=== PATIENT | female | born 1950 | race Caucasian/White ===

== ENCOUNTER 2018-03-21 15:23 | Observation (INO) ==
--- NOTE | 2018-03-21 16:10 | Consult Report ---
History of Present Illness Consult date: 03/21/18 Requesting physician: Pablo Dailey Consult reason: atrial fibrillation Chief complaint: Cold symptoms Additional Medical History:: 1. Hypertension, treated for about 8 years 2. History of CVA with transient loss of speech, [address] of head negative for acute stroke B. Carotid ultrasound showed bilateral 20-49% ICA stenosis. History of present illness: 67-year-old white female admitted from Dr. Dailey's office for new onset atrial fibrillation. Patient felt she had a cold and was there to see him today for treatment of a cold. She denies any chest pain, pressure, tightness or shortness of breath. She denies any difficulty lying flat but has had a cough over the last couple of days with some dizziness this a.m. She is a non-smoker and nondrinker. Denies any history of thyroid problems, cardiac problems, diabetes or hyperlipidemia. Patient is in the bed in no acute distress. Telemetry reveals atrial fibrillation with a rate bouncing from 110-140s bpm. Cardiology consulted for evaluation and recommendations. Patient states she takes multiple medications for blood pressure but cannot remember any of them. [facility] History Medical History: Reports:: Atrial Fibrillation, Cerebrovascular Accident, Hypertension Meds Allergies Allergy/AdvReac Type Severity Reaction Status Date / Time No Known Allergies Allergy Unverified 10/17/17 14:36 Review of Systems - *Cardiovascular Denies chest pain, Denies shortness of breath - *Respiratory Reports cough, Denies shortness of breath with activity - *Gastrointestinal Denies abdominal pain - *Neurologic Denies abnormal speech Exam Vital signs and Labs for Last 24 Hours: Temp Pulse Resp BP Pulse Ox 98.7 F 68 20 136/92 97 03/21/18 15:55 03/21/18 15:55 03/21/18 15:55 03/21/18 15:55 03/21/18 15:55 I & O for Last 24 hours: Intake & Output 03/19/18 03/20/18 03/21/18 03/22/18 11:59 11:59 11:59 11:59 Weight 221 lb 6 oz - *Routine Neck Exam Absent: JVD, carotid bruit - *Routine Respiratory Exam Present: CTA bilaterally. Absent: rhonchi, wheezes - *Routine Cardiovascular Exam Present: irregularly irregular - *Routine Extremities Exam Absent: edema - *Routine Neurological Exam Present: alert, oriented X3, moving all extremities Assessment and Plan (1) Atrial fibrillation, new onset Current visit: Yes Status: Acute Category: Medical Code(s): I48.91 - Unspecified atrial fibrillation (2) Hypertension Current visit: Yes Status: Acute Category: Medical Code(s): I10 - Essential (primary) hypertension (3) History of CVA (cerebrovascular accident) Current visit: Yes Status: Acute Category: Medical Code(s): Z86.73 - Personal history of transient ischemic attack (TIA), and cerebral infarction without residual deficits - Assessment and plan all Dx Assessment and Plan for all problems:: 1. Will start IV Cardizem with a 15 mg bolus and 10 mg an hour drip and adjust as needed for heart rate control.. 2. Start anticoagulation with subcutaneous Lovenox 1 mg/kg, patient will need long-term anticoagulation due to CHADS-VASc score of 5. 3. Will obtain an echocardiogram when heart rate is better controlled. 4. Obtain serial cardiac enzymes along with other routine labs including thyroid panel. 5. Further recommendations to follow pending above results.
[2018-03-21 16:38] LABS: Basophils # 0.1 K/mm3 (0-0.2); Basophils % 0.6 % (0.1-2.0); Eosinophils # 0.1 K/mm3 (0.0-0.4); Eosinophils % 0.6 % (0.1-12.0); Hematocrit 35.9 % (37.0-47.0); Hemoglobin 12.2 g/dL (12.2-16.2); Lymphocytes # 2.3 K/mm3 (0.7-4.5); Lymphocytes % 28.9 K/mm3 (10-50); Mean Corpuscular HGB Conc 33.9 g/dL (31.8-35.4); Mean Corpuscular Hemoglobin 30.4 pg (27.0-31.2); Mean Corpuscular Volume 89.6 fl (81-99); Monocytes # 0.5 K/mm3 (0.1-1.0); Monocytes % 6.1 % (1.7-9.3); Neutrophils # 5.1 K/mm3 (1.8-7.8); Neutrophils % 63.8 % (37.0-80.0); Platelet Count 262 K/mm3 (142-424); Red Blood Count 4.01 M/mm3 (4.20-5.40); Red Cell Distribution Width 13.7 % (11.5-17.5)
[2018-03-21 16:53] LABS: Anion Gap 12.4 mEq/L (5-15); Blood Urea Nitrogen 36 mg/dL (7-18); Carbon Dioxide 27 mmol/L (21.0-32.0); Chloride 107 mmol/L (98-107); Glucose 120 mg/dL (74-106); Potassium 3.4 mmoL/L (3.5-5.1); Sodium 143 mmol/L (136-145)
[2018-03-21 17:27] LABS: Albumin Level 3.2 gm/dL (3.4-5.0); Bilirubin,Direct 0.1 mg/dL (0.0-0.2); Bilirubin,Indirect 0.2 mg/dL (0.0-0.9); Bilirubin,Total 0.3 mg/dL (0.2-1.0); Free Thyroxine Index 2.9 ug/dL (5.93-13.13); T4 (Thyroxine) 8.8 ug/dl (4.7-13.3); Thyroid Stimulating Hormone 1.34 uIU/ml (0.358-3.740); Total Protein,Serum 6.7 gm/dL (6.4-8.2)
--- NOTE | 2018-03-21 17:56 | History & Physical Report ---
*Admission Date: 03/21/18 *Chief complaint: Rapid heart rate *History of present illness: 67-year-old white female with history of previous stroke with complete resolution who came to my office today with a chief complaint of nasal drainage and cold symptoms. While taking her vital signs we noticed that her heart rate was 110 and irregular. EKG showed atrial fibrillation with rapid ventricular response and patient was admitted to the hospital. Patient denies any consciousness of rapid heart rate, palpitations, chest pain, shortness of air other than her sniffles or pedal edema. [facility] History I have reviewed the patient's past medical history: Yes Medical History: Reports:: Cerebrovascular Accident, Hyperlipidemia, Hypertension Denies:: Cancer, Diabetes Mellitus Type 1, Diabetes Mellitus Type 2, MRSA Laterality Cases: Bilateral: Tonsillectomy Amputation: No - *Social History Educational Level: Completed High School Smoking Status: Never smoker Alcohol Intake: never Occupational Status: employed Housing: house Household Members: spouse - Psychiatric History Expresses thoughts of harming self/others: None Suicide Plan Description: No Plan *Family Hx:: Cancer, Heart Attack, Hypertension Review of Systems - Review of Systems Review of systems:: pertinent systems reviewed and negative unless documented below - Constitutional Denies anorexia, Denies body ache(s), Denies chills - Eyes Denies blurry vision, Denies change in vision - ENT Denies abnormal hearing - *Cardiovascular Denies chest pain, Denies chest pain at rest, Denies chest pain with activity, Denies shortness of breath, Denies irregular heart rhythm - *Respiratory Denies change in phlegm color, Denies chest congestion, Denies cough - *Gastrointestinal Denies abdominal pain, Denies belching, Denies change in bowel habits - *Musculoskeletal Denies abnormal walking, Denies joint pain, Denies decreased muscle mass - Integumentary/Breasts Denies bleeding lesions - *Neurologic Denies abnormal walking, Denies abnormal hearing, Denies abnormal movements, Denies abnormal speech, Denies tingling/numbness/burning sensations Meds Home Medications Medication Instructions Recorded Confirmed Type Ascorbic Acid [Vitamin C] 1,000 mg PO DAILY 03/21/18 03/21/18 History Aspirin [Aspir 81] 81 mg PO DAILY 03/21/18 03/21/18 History Atorvastatin Calcium [Atorvastatin 80 mg PO HS 03/21/18 03/21/18 History 80mg Tab] Carvedilol [Carvedilol 25mg Tab] 25 mg PO BID 03/21/18 03/21/18 History KCl 20mEq/100ml [Potassium 20 meq PO DAILY 03/21/18 03/21/18 History Chloride 20mEq/100mL IVPB] Losartan/Hydrochlorothiazide 1 each PO DAILY 03/21/18 03/21/18 History [Losartan-Hctz 100-25 mg Tab] Allergies Allergy/AdvReac Type Severity Reaction Status Date / Time No Known Allergies Allergy Unverified 10/17/17 14:36 Exam Vital signs and Labs for Last 24 Hours: Temp Pulse Resp BP Pulse Ox 98.7 F 106 H 18 115/82 92 L 03/21/18 15:55 03/21/18 17:00 03/21/18 17:00 03/21/18 17:00 03/21/18 17:00 Laboratory Results - last 24 hr 03/21/18 16:25: WBC 8.0, RBC 4.01 L, Hgb 12.2, Hct 35.9 L, MCV 89.6, MCH 30.4, MCHC 33.9, RDW 13.7, Plt Count 262, MPV 9.0, Neut % (Auto) 63.8, Lymph % (Auto) 28.9, [place] % (Auto) 6.1, Eos % (Auto) 0.6, Baso % (Auto) 0.6, Neut # (Auto) 5.1 , Lymph # (Auto) 2.3, [place] # (Auto) 0.5, Eos # (Auto) 0.1, Baso # (Auto) 0.1 03/21/18 16:25: Sodium 143, Potassium 3.4 L, Chloride 107, Carbon Dioxide 27, Anion Gap 12.4, BUN 36 H, Creatinine 1.47 H, Estimated Creat Clear 58, Estimated GFR 35 L, Est GFR ( Amer) 43 L, Glucose 120 H, Magnesium 1.9, Troponin I < 0.02 03/21/18 16:25: Total Bilirubin 0.3, Direct Bilirubin 0.1, Indirect Bilirubin 0.2, AST 17, ALT 24, Alkaline Phosphatase 57, Total Protein 6.7, Albumin 3.2 L, TSH 1.34, Free T4 Index 2.9 L, Thyroxine (T4) 8.8, T3 Uptake 33 03/21/18 16:25: B-Natriuretic Peptide 451 H I & O for Last 24 hours: Intake & Output 03/19/18 03/20/18 03/21/18 03/22/18 11:59 11:59 11:59 11:59 Weight 221 lb 6 oz - Constitutional no acute distress, obese - *Routine HEENT Exam Head: Present: normocephalic, atraumatic Eye: Present: EOMI, PERRL, conjunctivae pink ENT: Present: mucous membranes moist - *Routine Neck Exam Present: supple, full ROM. Absent: JVD, carotid bruit - *Routine Respiratory Exam Present: CTA bilaterally. Absent: accessory muscle use, prolonged expiratory phase, rales - *Routine Cardiovascular Exam Present: tachycardia, irregular rhythm, irregularly irregular. Absent: murmur, gallop - *Routine Abdominal Exam Present: soft. Absent: tenderness, distended - *Routine Extremities Exam Absent: cyanosis, clubbing, edema, full ROM H&P: Result - Labs Labs: Short CBC 03/21/18 Range/Units 16:25 WBC 8.0 (4.8-10.8) K/mm3 Hgb 12.2 (12.2-16.2) g/dL Hct 35.9 L (37.0-47.0) % Plt Count 262 (142-424) K/mm3 BMP 03/21/18 16:25 Sodium 143 Potassium 3.4 L Chloride 107 Carbon Dioxide 27 BUN 36 H Creatinine 1.47 H Glucose 120 H Cardiac Enzymes 03/21/18 Range/Units 16:25 Troponin I < 0.02 (0.00-0.06) ng/ml Liver Function 03/21/18 Range/Units 16:25 Total Bilirubin 0.3 (0.2-1.0) mg/dL Direct Bilirubin 0.1 (0.0-0.2) mg/dL AST 17 (15-37) U/L ALT 24 (12-78) U/L Alkaline Phosphatase 57 (46-116) U/L Albumin 3.2 L (3.4-5.0) gm/dL Assessment and Plan (1) Atrial fibrillation, new onset Current visit: Yes Status: Acute Category: Medical Code(s): I48.91 - Unspecified atrial fibrillation (2) Hypertension Current visit: Yes Status: Acute Category: Medical Code(s): I10 - Essential (primary) hypertension (3) History of CVA (cerebrovascular accident) Current visit: Yes Status: Acute Category: Medical Code(s): Z86.73 - Personal history of transient ischemic attack (TIA), and cerebral infarction without residual deficits - Assessment and plan all Dx Assessment and Plan for all problems:: Admit to hospital. Cardiology consultation. Begin Kalpana drip. Echocardiogram. Labs including TSH, electrolytes, cardiac enzymes. This is the possible etiology for her stroke a couple years ago. Atrial fibrillation has not been noticed on multiple EKGs prior.
[2018-03-22 06:11] LABS: Chol/HDL Ratio 3.2 (1-3.5)
--- NOTE | 2018-03-22 07:16 | Pharmacy Consult Notes ---
[facility] Pharmacy VTE Monitoring - Patient Demographics Admission date: 03/21/18 Report Date: 03/22/18 Time: 07:15 Allergies/Adverse Reactions: Patient Allergies No Known Allergies Allergy (Unverified 10/17/17 14:36) Height: 1.7 m Weight: 99.79 kg Patient Problems: Current Active Problems Atrial fibrillation, new onset (Acute) Hypertension (Acute) History of CVA (cerebrovascular accident) (Acute) - VTE Risk Labs: VTE Related Lab Results Hgb 12.2 g/dL (12.2-16.2) 03/21/18 16:25 Hct 35.9 % (37.0-47.0) L 03/21/18 16:25 Plt Count 262 K/mm3 (142-424) 03/21/18 16:25 BUN 36 mg/dL (7-18) H 03/21/18 16:25 Creatinine 1.47 mg/dL (0.55-1.02) H 03/21/18 16:25 Estimated Creat Clear 58 mL/min (0-300) 03/21/18 16:25 Was VTE Risk Assessment Performed: Yes VTE Risk Level: Moderate Risk - Prophylaxis VTE Prophylaxis Ordered?: Yes Types of VTE Prophylaxis: TEDS Knee High Location of Applied Device: Bilateral Lower Extremeties - VTE Diagnosis Confirmed Treatment or plan recommended: Continue Current Treatment
--- NOTE | 2018-03-22 10:05 | Progress Note ---
Subjective Date: 03/22/18 Time: 10:02 Principal diagnosis: A. fib, newly diagnosed Interval history: 67 yo WF in bed in [facility]. She continues in A. fib with CVR on IV diltiazem at 20 ml/hr. Will switch to PO cardizem and Xarelto. Preliminary echo shows normal LVEF without significant vavle disease. She is feeling better and wants to go home. Exam Vital signs and Labs for Last 24 Hours: Temp Pulse Resp BP Pulse Ox 97.6 F 76 18 125/77 94 L 03/22/18 08:00 03/22/18 09:00 03/22/18 09:00 03/22/18 09:00 03/22/18 09:00 Laboratory Results - last 24 hr 03/21/18 16:25: WBC 8.0, RBC 4.01 L, Hgb 12.2, Hct 35.9 L, MCV 89.6, MCH 30.4, MCHC 33.9, RDW 13.7, Plt Count 262, MPV 9.0, Neut % (Auto) 63.8, Lymph % (Auto) 28.9, [place] % (Auto) 6.1, Eos % (Auto) 0.6, Baso % (Auto) 0.6, Neut # (Auto) 5.1 , Lymph # (Auto) 2.3, [place] # (Auto) 0.5, Eos # (Auto) 0.1, Baso # (Auto) 0.1 03/21/18 16:25: Sodium 143, Potassium 3.4 L, Chloride 107, Carbon Dioxide 27, Anion Gap 12.4, BUN 36 H, Creatinine 1.47 H, Estimated Creat Clear 58, Estimated GFR 35 L, Est GFR ( Amer) 43 L, Glucose 120 H, Magnesium 1.9, Troponin I < 0.02 03/21/18 16:25: Total Bilirubin 0.3, Direct Bilirubin 0.1, Indirect Bilirubin 0.2, AST 17, ALT 24, Alkaline Phosphatase 57, Total Protein 6.7, Albumin 3.2 L, TSH 1.34, Free T4 Index 2.9 L, Thyroxine (T4) 8.8, T3 Uptake 33 03/21/18 16:25: B-Natriuretic Peptide 451 H 03/21/18 19:16: Troponin I < 0.02 03/21/18 22:27: Troponin I < 0.02 03/22/18 05:05: Triglycerides 92, Cholesterol 169, LDL Cholesterol 98, VLDL Cholesterol 18, HDL Cholesterol 53, Cholesterol/HDL Ratio 3.2 I & O for Last 24 hours: Intake & Output 03/19/18 03/20/18 03/21/18 03/22/18 11:59 11:59 11:59 11:59 Intake Total 854 / 854 Output Total 1000 / 1000 Balance -146 / -146 Weight 220 lb - *Routine Respiratory Exam Present: CTA bilaterally - *Routine Cardiovascular Exam Present: irregularly irregular Progress Note: A&P (1) Atrial fibrillation, new onset Status: Acute Current Visit: Yes (2) Hypertension Status: Acute Current Visit: Yes (3) History of CVA (cerebrovascular accident) Status: Acute Current Visit: Yes Assessment and Plan for All Diagnoses:: OK for discharge home and cardiology standpoint. Continue Coreg and losartan as previously taken at home. Switch diltiazem to Cardizem extended release 240 mg once daily. Patient should start Xarelto 20 mg p.o. daily with meal. We would like to see her back in 2 weeks or sooner if needed. Plan would be if the patient continues in atrial fibrillation after 30 days, then consider cardioversion to try and reestablish normal sinus rhythm.
[2018-03-22 10:41] VITALS: BP 116/87
--- NOTE | 2018-03-22 13:47 | Discharge Summary ---
General - General Admission date:: 03/21/18 Discharge date: 03/22/18 HPI HPI: 67-year-old white female with history of previous stroke with complete resolution who came to my office today with a chief complaint of nasal drainage and cold symptoms. While taking her vital signs we noticed that her heart rate was 110 and irregular. EKG showed atrial fibrillation with rapid ventricular response and patient was admitted to the hospital. Patient denies any consciousness of rapid heart rate, palpitations, chest pain, shortness of air other than her sniffles or pedal edema. Hospital Course Hospital Course: Patient was admitted to the step-down unit for monitoring. She was given a Cardizem bolus and started on a gtt. Her rate responded nicely and was noted in the 80's this morning. She was given a dose of Lovenox for anticoagulation. Cardiology was consulted who recommends switching to PO cardizem and xarelto. She is to FU with cardiology in 2 weeks as an outpatient with plan for cardioversion in 4-6 weeks. Discharge home on cardizem and xarelto. See medication reconciliation for complete list. FU with Angely Richard APRN in [address] Manning in 2 weeks. Objective Vital signs: Temp Pulse Resp BP Pulse Ox 98 F 74 11 L 116/87 94 L 03/22/18 10:00 03/22/18 10:00 03/22/18 10:00 03/22/18 10:00 03/22/18 09:00 Narrative: Alert and oriented x3. Rate and rhythm irregular. No LE edema. Lung sounds clear and equal. Abdomen soft and nontender. Results Labs on day of discharge: Labs from last 24 hours 03/22/18 03/21/18 03/21/18 05:05 22:27 19:16 WBC RBC Hgb Hct MCV MCH MCHC RDW Plt Count MPV Neut % (Auto) Lymph % (Auto) [place] % (Auto) Eos % (Auto) Baso % (Auto) Neut # (Auto) Lymph # (Auto) [place] # (Auto) Eos # (Auto) Baso # (Auto) Sodium Potassium Chloride Carbon Dioxide Anion Gap BUN Creatinine Estimated Creat Clear Estimated GFR Est GFR ( Amer) Glucose Magnesium Total Bilirubin Direct Bilirubin Indirect Bilirubin AST ALT Alkaline Phosphatase Troponin I < 0.02 < 0.02 B-Natriuretic Peptide Total Protein Albumin Triglycerides 92 Cholesterol 169 LDL Cholesterol 98 VLDL Cholesterol 18 HDL Cholesterol 53 Cholesterol/HDL Ratio 3.2 TSH Free T4 Index Thyroxine (T4) T3 Uptake 03/21/18 03/21/18 03/21/18 16:25 16:25 16:25 WBC RBC Hgb Hct MCV MCH MCHC RDW Plt Count MPV Neut % (Auto) Lymph % (Auto) [place] % (Auto) Eos % (Auto) Baso % (Auto) Neut # (Auto) Lymph # (Auto) [place] # (Auto) Eos # (Auto) Baso # (Auto) Sodium 143 Potassium 3.4 L Chloride 107 Carbon Dioxide 27 Anion Gap 12.4 BUN 36 H Creatinine 1.47 H Estimated Creat Clear 58 Estimated GFR 35 L Est GFR ( Amer) 43 L Glucose 120 H Magnesium 1.9 Total Bilirubin 0.3 Direct Bilirubin 0.1 Indirect Bilirubin 0.2 AST 17 ALT 24 Alkaline Phosphatase 57 Troponin I < 0.02 B-Natriuretic Peptide 451 H Total Protein 6.7 Albumin 3.2 L Triglycerides Cholesterol LDL Cholesterol VLDL Cholesterol HDL Cholesterol Cholesterol/HDL Ratio TSH 1.34 Free T4 Index 2.9 L Thyroxine (T4) 8.8 T3 Uptake 33 03/21/18 16:25 WBC 8.0 RBC 4.01 L Hgb 12.2 Hct 35.9 L MCV 89.6 MCH 30.4 MCHC 33.9 RDW 13.7 Plt Count 262 MPV 9.0 Neut % (Auto) 63.8 Lymph % (Auto) 28.9 [place] % (Auto) 6.1 Eos % (Auto) 0.6 Baso % (Auto) 0.6 Neut # (Auto) 5.1 Lymph # (Auto) 2.3 [place] # (Auto) 0.5 Eos # (Auto) 0.1 Baso # (Auto) 0.1 Sodium Potassium Chloride Carbon Dioxide Anion Gap BUN Creatinine Estimated Creat Clear Estimated GFR Est GFR ( Amer) Glucose Magnesium Total Bilirubin Direct Bilirubin Indirect Bilirubin AST ALT Alkaline Phosphatase Troponin I B-Natriuretic Peptide Total Protein Albumin Triglycerides Cholesterol LDL Cholesterol VLDL Cholesterol HDL Cholesterol Cholesterol/HDL Ratio TSH Free T4 Index Thyroxine (T4) T3 Uptake DS: Diagnosis - Discharge Diagnosis (1) Atrial fibrillation, new onset Status: Acute (2) Hypertension Status: Acute (3) History of CVA (cerebrovascular accident) Status: Acute Discharge Plan - Patient Discharge Instructions ACTIVITY: Continue current activity DIET: continue same diet - Follow up Plan Follow up with: Melissa Cifuentes APRN [Nurse Practitioner] - 03/27/18 Nayeli Richard APRN [Nurse Practitioner] - Disposition: Home, [facility] Medications: Home Medications Medication Instructions Recorded Confirmed Type Ascorbic Acid [Vitamin C] 1,000 mg PO DAILY 03/21/18 03/21/18 History Aspirin [Aspir 81] 81 mg PO DAILY 03/21/18 03/21/18 History Atorvastatin Calcium [Atorvastatin 80 mg PO HS 03/21/18 03/21/18 History 80mg Tab] Carvedilol [Carvedilol 25mg Tab] 25 mg PO BID 03/21/18 03/21/18 History Losartan/Hydrochlorothiazide 1 each PO DAILY 03/21/18 03/21/18 History [Losartan-Hctz 100-25 mg Tab] Prescriptions/Medication Reconciliation: New Suvorexant [Belsomra] 10 mg PO DAILY #30 tablet dilTIAZem HCl [Cardizem ER 240mg Capsule] 240 mg PO DAILY 30 Days #30 cap.er.24h Rivaroxaban [Xarelto] 20 mg PO DAILY #30 tab Continue Carvedilol [Carvedilol 25mg Tab] 25 mg PO BID Losartan/Hydrochlorothiazide [Losartan-Hctz 100-25 mg Tab] 1 each PO DAILY Atorvastatin Calcium [Atorvastatin 80mg Tab] 80 mg PO HS Aspirin [Aspir 81] 81 mg PO DAILY Ascorbic Acid [Vitamin C] 1,000 mg PO DAILY Discontinued KCl 20mEq/100ml [Potassium Chloride 20mEq/100mL IVPB] 20 meq PO DAILY
== END 2018-03-22 12:00 | disposition home or self-care (01) ==
LOC: 2ND → ICU 22:06
PROVIDERS: ADMIT Internal Medicine Adolescent Medicine; ATTEND Internal Medicine Adolescent Medicine

== ENCOUNTER → 2018-04-25 07:11 | Outpatient (CLI) | payer MEDICARE, OTHER, SELFPAY ==
--- NOTE | 2018-04-25 07:13 | NM_ITS ---
History and Indications: Hypertension, family history, fatigue, A. fib, abnormal EKG. Procedure: Patient received a 0.4 mg of Lexiscan, resting heart rate was 61 bpm, resting blood pressure 156/84, with Lexiscan maximum heart rate achieved was 92 bpm which is less than 85% of the maximum predicted heart rate and a blood pressure was 127/73. With Lexiscan patient complained of nausea and chest pressure Electrocardiogram: Resting electrocardiogram showed sinus rhythm, with Lexiscan there is less than 1.5 mm the segment depression noted from the baseline EKG. The EKG portion of the Lexiscan is nondiagnostic. Cardiac stress and resting SPECT images: Cardiac stress and resting SPECT images were obtained using technetium 99 Myoview 28.3 mCi at stress 10.5 mCi at rest. Gated SPECT further analysis of segmental wall motion and calculation of the ejection fraction also done. Cardiac stress and the rest spect images show a mild fixed defect in the anterior wall with normal contractility in the gated SPECT is likely secondary to soft tissue attenuation, no reversible ischemia seen. Computer derived ejection fraction 61% with no obvious regional wall motion abnormality, right ventricle is normal size and contractility. Conclusion: 1. The EKG portion of the Lexiscan Myoview is nondiagnostic. 2. No obvious scintigraphic evidence of reversible ischemia seen, there are ejection fraction is 61 percent with no obvious regional wall motion abnormality, right ventricle is normal size and contractility. 3. Normal Lexiscan Myoview study.
--- NOTE | 2018-04-25 07:29 | HMH.ITSHM ---
XARELTO CARVEDILOL CALCIUM VITAMIN C LOSARTAN ATORVASTATIN DILTIAZEM ASA
--- NOTE | 2018-04-25 10:21 | HMH.ITSHM ---
xarelto carvedilol calcium vit c losartan atorvastatin diltiazem aspirin
== END ==
PROVIDERS: PCP Internal Medicine Adolescent Medicine; Visit Provider Internal Medicine
DX: R06.09 Other forms of dyspnea (principal); I48.91 Unspecified atrial fibrillation; I10 Essential (primary) hypertension; I65.29 Occlusion and stenosis of unspecified carotid artery; Z86.73 Personal history of transient ischemic attack (TIA), and cerebral infarction without residual deficits
CPT/HCPCS: 78452; 93017; A9502; J2785

== ENCOUNTER → 2018-11-30 09:44 | Outpatient (CLI) | payer MEDICARE, SELFPAY ==
--- NOTE | 2018-11-30 09:52 | MM_ITS ---
MM Dig screening mamm BI w/CAD CAD Screening COMPARISON: None, this is baseline INDICATION: There is a history of breast cancer in patient's sister diagnosed in her 40s TECHNIQUE: Standard CC and MLO images were obtained. R2 CAD reviewed. FINDINGS: Moderate diffuse fibroglandular densities are seen throughout both breasts and the findings are bilateral and symmetrical. There are mole markers on each breast. There is moderate arterial calcification in each breast. There is a possible asymmetric density central portion of the left breast only definitely seen on the CC projection but highlighted by CAD. Recommend the patient return for spot compression CC view and 90 degree lateral view. Ultrasound may be necessary as well. There are no suspicious microcalcifications. IMPRESSION: Moderate diffuse breast density with possible asymmetric density left breast BI-RADS Category: 0 Need Additional Imaging Evaluation RECOMMENDED FOLLOW-UP: IMM - IMMEDIATE FOLLOW-UP RECOMMENDED (A letter has been sent to the patient regarding results of the study.)
== END ==
PROVIDERS: PCP Internal Medicine Adolescent Medicine; Visit Provider Internal Medicine Adolescent Medicine
DX: Z12.31 Encounter for screening mammogram for malignant neoplasm of breast (principal)
CPT/HCPCS: 77067

== ENCOUNTER → 2018-12-21 12:48 | Outpatient (CLI) | payer MEDICARE, SELFPAY ==
--- NOTE | 2018-12-21 12:52 | US_ITS ---
MM Dig mamm DX unilat LT CAD, US breast LT complete INDICATION: Follow-up abnormal mammogram ORDERING PHYSICIAN: Pablo Dailey MD PATIENT AGE: 68 years COMPARISON: 11/30/2018 TECHNIQUE: Problem solving views of the left breast along with left breast ultrasound FINDINGS: The area of asymmetric density noted on the cc view is less apparent on the spot compression view. There was a skin lesion which is marked in this area as well on the additional view. The asymmetric density may have been due to the skin lesion. There is a benign-appearing nodular opacity in the lateral aspect of left breast at 4 mm. No malignant appearing mass or malignant appearing microcalcifications. Left breast ultrasound complete with obliques: No cystic or solid lesions demonstrated. Small nodes are present in the axilla IMPRESSION: No convincing evidence of malignancy. Asymmetric density noted on the screening program may been due to an overlying skin lesion or asymmetric fibroglandular tissue. There is an additional probably benign nodular opacity in the lateral aspect of the left breast at 4 mm only seen on the cc view. No sonographic correlate. Recommend 6 month mammographic follow-up of the left breast BI-RADS Category: 3 Probably Benign Finding Short Term Follow-up RECOMMENDED FOLLOW-UP: 6M - 6 MONTH FOLLOW-UP (A letter has been sent to the patient regarding results of the study.)
== END ==
PROVIDERS: PCP Internal Medicine Adolescent Medicine; Visit Provider Internal Medicine Adolescent Medicine
DX: R92.8 Other abnormal and inconclusive findings on diagnostic imaging of breast (principal)
CPT/HCPCS: 76641; 77065

== ENCOUNTER → 2019-05-14 10:02 | Outpatient (CLI) | payer MEDICARE, BC, SELFPAY ==
--- NOTE | 2019-05-14 10:28 | XR_ITS ---
XR knee RT 3V HISTORY: ITS.REASON: RT KNEE PAIN ORDERING PHYSICIAN: Javier Keen MD PATIENT AGE: 68 years COMPARISON: None FINDINGS: There are mild osteoarthritic changes of the medial compartment and patellofemoral joint with a small suprapatellar effusion. No fracture or dislocation. No lytic or blastic change. IMPRESSION: Osteoarthritis with suprapatellar effusion
== END ==
PROVIDERS: PCP Internal Medicine Adolescent Medicine; Visit Provider Internal Medicine Adolescent Medicine
DX: M25.561 Pain in right knee (principal)
CPT/HCPCS: 73562

== ENCOUNTER → 2019-06-04 12:42 | Outpatient (CLI) | payer MEDICARE, BC, SELFPAY ==
--- NOTE | 2019-06-04 12:44 | MR_ITS ---
MR knee RT wo con HISTORY: Right knee pain, medial knee pain and instability ITS.REASON: PAIN IN RIGHT KNEE ORDERING PHYSICIAN: Javier Keen MD PATIENT AGE: 68 years Comparison: 05/14/2019 TECHNIQUE: Standard multiplanar multiecho sequences are performed without contrast. FINDINGS: The cruciate ligaments, patellar tendon, and quadriceps tendon appear intact. There is some increased T1 and T2 signal in the proximal aspect of the patellar tendon which may be due to an area of tendinosis. No obvious meniscal tear. There is mild edema of the medial collateral ligament anteriorly suggest an a grade 1 sprain. There is also a small amount of edema within the popliteus tendon which could be secondary to an intrasubstance tear proximally. There are moderate to severe osteoarthritic changes of the medial compartment with medial extrusion of the anterior horn of the medial meniscus but no obvious meniscal tear. There is mild posterior translation of the tibia. Moderate to severe osteoarthritic changes are present at the patellofemoral joint. There is a moderate size knee joint effusion mainly in the suprapatellar region with some internal septations. There is a small intra-articular loose body anteriorly at 3 mm along the medial aspect of the lateral compartment. IMPRESSION: 1. No evidence of cruciate ligament or meniscal tear. 2. Moderate to severe osteoarthritis of the medial compartment and patellofemoral joint. There is medial extrusion of the anterior horn of the medial meniscus with resultant narrowing of the joint space medially. Moderate size knee joint effusion. 3. Possible sprain of the medial collateral ligament anteriorly. Linear increased T2 signal present in the popliteus tendon proximally which could be due to a small intrasubstance tear 4. Small loose body in anterior joint space along the medial aspect of the lateral compartment
== END ==
PROVIDERS: PCP Internal Medicine Adolescent Medicine; Visit Provider Internal Medicine Adolescent Medicine
DX: M25.561 Pain in right knee (principal)
CPT/HCPCS: 73721

== ENCOUNTER → 2019-12-13 09:59 | Outpatient (CLI) | payer MEDICARE, BC, SELFPAY ==
--- NOTE | 2019-12-13 10:06 | XR_ITS ---
PROCEDURE: XR CHEST 2V CLINICAL HISTORY: BRONCHITIS COMPARISON: CXR1 CHEST-PORTABLE from 10/07/2014 CXR CHEST(2 VIEWS-NOT PORTABLE) from 09/21/2017 CXR CHEST(2 VIEWS-NOT PORTABLE) from 09/23/2017 CT ABDOMEN PELVIS WO CON from 07/17/2019 FINDINGS: The cardiomediastinal silhouette and pulmonary vascularity are within normal limits. There is chronic consolidation within the right middle lobe versus chronic fluid in the minor fissure. No other significant anomalies are evident. There is some mild right apical pleural thickening unchanged. No acute bony abnormalities. IMPRESSION: Chronic consolidation in the right middle lobe versus pseudotumor from loculated fluid in the minor fissure overall not significantly changed Dictated by: Navid Blanco MD 12/13/2019 12:55 Electronically signed by Navid Blanco MD in [facility] 12/13/2019 12:55
== END ==
PROVIDERS: PCP Internal Medicine Adolescent Medicine; Visit Provider Internal Medicine Adolescent Medicine
DX: J40 Bronchitis, not specified as acute or chronic (principal)
CPT/HCPCS: 71046

== ENCOUNTER → 2019-12-20 14:00 | Outpatient (CLI) | payer MEDICARE, BC, SELFPAY ==
--- NOTE | 2019-12-20 14:14 | CT_ITS ---
PROCEDURE: CT CHEST WO CON CLINICAL INDICATION: ABNORMAL CXR COMPARISON: No exams were available for comparison TECHNIQUE: Axial images obtained with sagittal and coronal reformats. All CT scans at the facility use one or more dose reduction, viz: automated exposure control, ma/kV adjustment per patient size (including targeted exams where dose is matched to indication, i.e. head), or iterative reconstruction technique. FINDINGS: HEART AND MEDIASTINAL STRUCTURES: There is cardiomegaly with a small pericardial effusion. There are some coronary LUNGS AND PLEURAL SPACES: Arterial calcifications. There is consolidation of the right middle lobe medially. There is soft tissue density appearing to partially obstruct or compress the bronchus intermedius and no patent right middle lobe bronchus is demonstrated. There is conglomerate soft tissue density in the region with some dystrophic calcification. Underlying right infrahilar mass or lymphadenopathy is suspected. Discrete lesion is not confirmed within the area of dense consolidation on noncontrast exam. Postcontrast exam would be useful to further evaluate. Bronchoscopy may be useful in this patient. There are opacities in both extreme lung apices probably scarring. There is evidence of healed granulomatous disease. Calcified bilateral hilar lymph nodes are noted. Calcified granulomas seen in the left lower lobe. BONY STRUCTURES: No acute bony abnormalities apparent. UPPER ABDOMEN: Multiple calcified splenic granulomas are noted. Fluid density lesion right kidney 1.7 centimeters is likely a benign cyst and an adjacent cortical cyst 2 centimeters is also noted. Calcification at the corticomedullary junction of the right kidney is consistent with nonobstructing stone. Small hiatal hernia is noted. Calcifications are seen at the origins of the celiac superior mesenteric and bilateral renal arteries. Significant stenoses are not excluded. ADDITIONAL FINDINGS: No other significant abnormalities. IMPRESSION: Right middle lobe consolidation with compression or obstruction of right middle lobe bronchus likely due to underlying infrahilar mass/lymphadenopathy. Bronchoscopy should be considered to further evaluate. Underlying malignant process is not excluded. Cardiomegaly with coronary atherosclerosis. Dictated by: Wilfrido Peterson 12/20/2019 16:19 Electronically signed by Wilfrido Peterson in [facility] 12/20/2019 16:19
[2019-12-20 14:20] LABS: Blood Urea Nitrogen 29 mg/dl (7-17); Estimated Glomerular Filt Rate 32 ml/min (>60); GFR (African American) 39 ML/MIN (>60)
== END ==
PROVIDERS: PCP Internal Medicine Adolescent Medicine; Visit Provider Internal Medicine Adolescent Medicine
DX: R93.89 Abnormal findings on diagnostic imaging of other specified body structures (principal)
CPT/HCPCS: 36415; 71250; 82565; 84520

== ENCOUNTER → 2019-12-24 11:13 | Outpatient (CLI) | payer MEDICARE, BC, SELFPAY | PROVIDERS: Visit Provider Internal Medicine Adolescent Medicine | DX: I48.91 Unspecified atrial fibrillation (principal) | CPT/HCPCS: 36415; 80162 ==

== ENCOUNTER → 2020-04-01 09:38 | Outpatient (CLI) | payer MEDICARE, BC, SELFPAY ==
--- NOTE | 2020-04-01 09:51 | XR_ITS ---
PROCEDURE: XR KNEE LT 4V CLINICAL INDICATION: left knee pain COMPARISON: No exams were available for comparison FINDINGS: No fracture or dislocation. No lytic or blastic change. There is normal mineralization. The joint spaces are well-preserved. No significant degenerative/arthritic changes. No erosive changes evident. Other findings:None. IMPRESSION: Negative left knee Dictated by: Navid Blacno MD 04/01/2020 12:28 Electronically signed by Navid Blanco MD in [facility] 04/01/2020 12:28
--- NOTE | 2020-04-01 09:51 | XR_ITS ---
PROCEDURE: XR KNEE RT 4V CLINICAL INDICATION: right knee pain COMPARISON: No exams were available for comparison FINDINGS: No fracture or dislocation. No lytic or blastic change. There is normal mineralization. Mild to moderate osteoarthritic changes are present at the medial compartment with loss of joint space and osteosclerosis. Minimal osteoarthritic changes are present at the patellofemoral joint. Other findings:None. IMPRESSION: Osteoarthritis Dictated by: Navid Blanco MD 04/01/2020 12:27 Electronically signed by Navid Blanco MD in [facility] 04/01/2020 12:27
== END ==
PROVIDERS: PCP Internal Medicine Adolescent Medicine; Visit Provider Orthopaedic Surgery
DX: M25.562 Pain in left knee (principal); M25.561 Pain in right knee
CPT/HCPCS: 73564

== ENCOUNTER → 2021-04-12 12:46 | Outpatient (CLI) | payer MEDICARE, BC, SELFPAY ==
--- NOTE | 2021-04-12 12:54 | CT_ITS ---
PROCEDURE INFORMATION: Exam: CT Chest Without and With Contrast; Diagnostic Exam date and time: 04/12/2021 12:54 PM Age: 70 years old Clinical indication: Condition or disease; Other: Mal neoplasm RT lung TECHNIQUE: Imaging protocol: Diagnostic computed tomography of the chest without and with contrast. 3D rendering (Not supervised by radiologist): MIP and/or 3D reconstructed images were created by the technologist. Radiation optimization: All CT scans at this facility use at least one of these dose optimization techniques: automated exposure control; mA and/or kV adjustment per patient size (includes targeted exams where dose is matched to clinical indication); or iterative reconstruction. Contrast material: ISOVUE; Contrast volume: 75 ml; Contrast route: IV; COMPARISON: CT CHEST WO CON 12/20/2019 2:34 PM FINDINGS: Lungs: Postoperative changes of the right middle lobe present. No new pulmonary nodules. Pleural spaces: Right pleural effusion. Heart: Heart is mildly enlarged. There is mild atherosclerotic calcification of the coronary arteries. Mediastinal space: Mild shift of the mediastinum to the right is present. No definite hilar mass as imaged. Pulmonary arteries: No evidence of pulmonary embolism. Aorta: Ectatic changes of the ascending thoracic aorta is present measuring up to 3.9 cm. The vasculature demonstrates diffuse mild atherosclerotic calcification. No evidence of aortic dissection. Lymph nodes: There is no evidence of mediastinal or hilar lymphadenopathy. Spleen: The spleen demonstrates punctate calcifications, consistent with remote granulomatous organism exposure. Kidneys and ureters: 2.4 cm nodule partially imaged on the left kidney. This may represent a complex cyst, however other etiologies not excluded. Bones/joints: The thoracic spine demonstrates mild degenerative changes at multiple levels. No osteolytic or osteoblastic lesions. Soft tissues: Unremarkable. IMPRESSION: 1. Postoperative changes of the right middle lobe present. 2. No definite hilar mass as imaged. 3. Right pleural effusion. 4. Heart is mildly enlarged. 5. Ectatic changes of the ascending thoracic aorta is present measuring up to 3.9 cm. 6. No new pulmonary nodules. 7. No evidence of pulmonary embolism. 8. No evidence of aortic dissection. 9. 2.4 cm nodule partially imaged on the left kidney. This may represent a complex cyst, however other etiologies not excluded. 10. No osteolytic or osteoblastic lesions. COMMENTS: Consistent with the [employer]'s Incidental Findings Committee white paper (J Am Chapo Radiol 2018): Any incidental renal lesion less than 1 cm or classified as too small to characterize, or any incidental cystic renal lesion characterized as simple-appearing, is likely benign. No follow-up imaging is recommended for these lesions per consensus recommendations based on imaging criteria.
[2021-04-12 14:05] LABS: Blood Urea Nitrogen 22 mg/dl (7-17); Estimated Glomerular Filt Rate 44 ml/min (>60); GFR (African American) 54 ML/MIN (>60)
== END ==
PROVIDERS: Nurse Practitioner Family; PCP Internal Medicine Adolescent Medicine; Visit Provider Thoracic Surgery (Cardiothoracic Vascular Surgery)
DX: C34.90 Malignant neoplasm of unspecified part of unspecified bronchus or lung (principal)
CPT/HCPCS: 71270; 82565; 84520; Q9967

== ENCOUNTER → 2021-04-12 12:56 | Outpatient (CLI) | payer MEDICARE, BC, SELFPAY | PROVIDERS: Visit Provider Nurse Practitioner Family | DX: C34.90 Malignant neoplasm of unspecified part of unspecified bronchus or lung (principal) | CPT/HCPCS: 71270; 82565; 84520; Q9967 ==

== ENCOUNTER → 2021-04-29 13:08 | Outpatient (CLI) | payer MEDICARE, BC, SELFPAY ==
--- NOTE | 2021-04-29 13:18 | CT_ITS ---
PROCEDURE: CT ABDOMEN WO/W CON CLINICAL HISTORY: LT RENAL MASS Mass seen on chest CT COMPARISON: CT ABDPELWO CT abdomen pelvis wo con from 08/19/[address] CHEST WO/W CON from 04/12/2021 TECHNIQUE: 75 mL Isovue 370 Axial images obtained with sagittal and coronal reformats. All CT scans at the facility use one or more dose reduction, viz: automated exposure control, ma/kV adjustment per patient size (including targeted exams where dose is matched to indication, i.e. head), or iterative reconstruction technique. FINDINGS: There is a small right pleural effusion with some loculation in the right lung base posteriorly and medially. Surgical clips are present at this region. Mediastinum is slightly shifted toward the right. There is mild cardiomegaly. The liver, gallbladder, spleen, adrenal glands, and pancreas have an unremarkable appearance. There is mild bilateral renal scarring. A 2.6 cm septated left renal cyst is present. Small septation noted within the left renal cyst without significant enhancement thickening or calcification. There are nonobstructing bilateral renal calculi measuring 3-4 mm in the lower pole on the left and 4 mm in the upper pole on the right. There is a small umbilical hernia containing fat. Atherosclerotic calcification involves the aorta. Degenerative changes are present in the lumbar spine. IMPRESSION: 2.6 cm septated left renal cyst with benign features. Bosniak class 2 Small right pleural effusion Dictated by: Navid Blanco MD 04/30/2021 08:02 Navid Blanco MD in [facility] 04/30/2021 08:02
[2021-04-29 13:36] LABS: Blood Urea Nitrogen 22 mg/dl (7-17); Estimated Glomerular Filt Rate 44 ml/min (>60); GFR (African American) 54 ML/MIN (>60)
== END ==
PROVIDERS: PCP Internal Medicine Adolescent Medicine; Visit Provider Thoracic Surgery (Cardiothoracic Vascular Surgery)
DX: N28.89 Other specified disorders of kidney and ureter (principal)
CPT/HCPCS: 36415; 74170; 82565; 84520; Q9967

== ENCOUNTER → 2021-09-14 10:30 | Outpatient (CLI) | payer MEDICARE, BC, SELFPAY ==
[2021-09-14 10:49] LABS: Basophils # 0.1 K/mm3 (0-0.2); Basophils % 1.1 % (0.1-2.0); Eosinophils # 0.1 K/mm3 (0.0-0.4); Eosinophils % 0.8 % (0.1-12.0); Hematocrit 48.9 % (37.0-47.0); Hemoglobin 16.1 g/dL (12.2-16.2); Lymphocytes # 2.5 K/mm3 (0.7-4.5); Lymphocytes % 35.5 % (10-50); Mean Corpuscular HGB Conc 32.9 g/dL (31.8-35.4); Mean Corpuscular Hemoglobin 31.1 pg (27.0-31.2); Mean Corpuscular Volume 94.4 fl (81-99); Mean Platelet Volume 9.3 fl (7.4-10.4); Monocytes # 0.4 K/mm3 (0.1-1.0); Monocytes % 5.8 % (1.7-9.3); Neutrophils # 3.9 K/mm3 (1.8-7.8); Neutrophils % 56.9 % (37.0-80.0); Platelet Count 340 K/mm3 (142-424); Red Blood Count 5.18 M/mm3 (4.20-5.40); Red Cell Distribution Width 13.3 % (11.5-17.5); White Blood Count 6.9 K/mm3 (4.8-10.8)
[2021-09-14 11:21] LABS: Alanine Aminotransferase 22 U/L (12-78); Albumin/Globulin Ratio 1.4 (1.1-1.8); Alkaline Phosphatase 97 U/L (38-126); Anion Gap 9.6 mEq/L (5-15); Aspartate Amino Transferase 30 U/L (14-36); Bilirubin,Total 0.7 mg/dl (0.2-1.3); Blood Urea Nitrogen 22 mg/dl (7-17); Calcium 9.3 mg/dl (8.4-10.2); Carbon Dioxide 33 mmol/L (22.0-30.0); Chloride 103 mmol/L (98-107); Estimated Glomerular Filt Rate 44 ml/min (>60); GFR (African American) 54 ML/MIN (>60); Globulin 2.9 g/dL (1.3-3.2); Glucose 113 mg/dl (74-100); Potassium 4.6 mmoL/L (3.5-5.1); Sodium 141 mmol/L (136-145); Total Protein,Serum 6.9 g/dl (6.3-8.2)
== END ==
PROVIDERS: Visit Provider Internal Medicine Adolescent Medicine
DX: I10 Essential (primary) hypertension (principal); Z79.899 Other long term (current) drug therapy
CPT/HCPCS: 36415; 80053; 83036; 85025

== ENCOUNTER → 2021-10-02 13:42 | Outpatient (CLI) | payer MEDICARE, BC, SELFPAY | PROVIDERS: PCP Internal Medicine Adolescent Medicine; Visit Provider Nurse Practitioner Family | DX: Z20.822 Contact with and (suspected) exposure to COVID-19 (principal) | CPT/HCPCS: C9803; U0003; U0005 ==

== ENCOUNTER → 2021-10-14 19:30 | Outpatient (CLI) | payer MEDICARE, BC, SELFPAY | PROVIDERS: Visit Provider Nurse Practitioner Family | DX: Z20.822 Contact with and (suspected) exposure to COVID-19 (principal) | CPT/HCPCS: C9803; U0003; U0005 ==

== ENCOUNTER → 2022-04-06 13:08 | Outpatient (CLI) | payer MEDICARE, BC, SELFPAY ==
--- NOTE | 2022-04-06 13:11 | MM_ITS ---
PROCEDURE INFORMATION: Exam: MG Bilateral Screening 3D Mammography Exam date and time: 04/06/2022 1:21 PM Age: 71 years old Clinical indication: Screening the mammogram TECHNIQUE: Imaging protocol: Bilateral Screening tomosynthesis and 2D mammography including computer-aided detection (CAD) when performed. COMPARISON: 1. MG DXLT MM Dig mamm DX unilat LT CAD 12/21/2018 1:08 PM 2. MG SCBI MM Dig screening mamm BI w/CAD 11/30/2018 10:04 AM 3. BREASTLT US breast LT complete 12/21/2018 2:03 PM FINDINGS: MAMMOGRAPHY: Breast composition: The breast is heterogeneously dense, which may obscure small masses. Mass: None. Architectural distortion: No new or suspicious architectural distortion. Calcifications: Stable benign-appearing calcifications are present. No new or suspicious cluster of microcalcifications have developed. Asymmetric density: No new or suspicious asymmetric density is present Skin thickening: None. Axillary adenopathy: None. IMPRESSION: No mammographic evidence of malignancy. Recommend annual screening mammography unless otherwise clinically indicated. ASSESSMENT: BI-RADS category 2: Benign
== END ==
PROVIDERS: PCP Internal Medicine Adolescent Medicine; Visit Provider Internal Medicine Adolescent Medicine
DX: Z12.31 Encounter for screening mammogram for malignant neoplasm of breast (principal)
CPT/HCPCS: 77063; 77067

== ENCOUNTER → 2022-04-11 13:07 | Outpatient (CLI) | payer MEDICARE, BC, SELFPAY ==
--- NOTE | 2022-04-11 14:00 | CT_ITS ---
FINAL REPORT TECHNIQUE: Axial images through the chest were performed by computed tomography before and after the administration of IV contrast. This study was performed with techniques to keep radiation doses as low as reasonably achievable, (ALARA). Individualized dose reduction techniques using automated exposure control or adjustment of mA and/or kV according to the patient's size were employed. 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 There is no hilar adenopathy. There are small mediastinal lymph nodes but no adenopathy. There is cardiomegaly. There is ectasia of the ascending aorta measuring 3.8 cm and is stable. There is no dissection. There is no pericardial effusion. Limited images of the upper abdomen demonstrate a lobular cystic mass or two adjacent cysts in the anterior left kidney measuring 2.8 cm transverse and is stable. There is a 2.4 cm presumed sebaceous cyst in the right upper back subcutaneous tissue. There has been partial right lung resection. There is mild scarring in the right lung. There is a small right pleural effusion which is stable. No new pulmonary mass or nodule is identified. IMPRESSION: Stable ectasia of the ascending aorta measuring 3.8 cm. No new pulmonary mass or nodule is identified. Mild scarring in the right lung. Other stable findings. Reviewed, Interpreted and Dictated by Deniz Loja III, MD Transcribed by Diana Sevilla Authenticated and [facility]
== END ==
PROVIDERS: PCP Internal Medicine Adolescent Medicine; Visit Provider Thoracic Surgery (Cardiothoracic Vascular Surgery)
DX: C34.2 Malignant neoplasm of middle lobe, bronchus or lung (principal)
CPT/HCPCS: 71270; Q9967

== ENCOUNTER → 2022-04-27 15:15 | Outpatient (CLI) | payer MEDICARE, BC, SELFPAY ==
--- NOTE | 2022-04-27 15:16 | US_ITS ---
PROCEDURE INFORMATION: Exam: US Right Breast, Complete Exam date and time: 04/27/2022 3:28 PM Age: 71 years old Clinical indication: Bloody discharge from right nipple TECHNIQUE: Imaging protocol: Complete ultrasound of all four quadrants of the Right breast and the retroareolar regions, including ultrasound of the axilla when performed. COMPARISON: MG MM DIG SCREENING MAMM BI W/CAD 04/06/2022 1:21 PM FINDINGS: Breast: Sonographic images of the right breast including the retroareolar region, all 4 quadrants and the axilla do not demonstrate any solid or cystic masses. No architectural distortion or acoustical shadowing. No skin thickening or axillary adenopathy. IMPRESSION: Further evaluation of hemorrhagic nipple discharge may be obtained with breast MRI, considered the most sensitive test for this symptom. ASSESSMENT: BI-RADS Category 0: Incomplete- Need Additional Imaging Evaluation and/or Prior Mammograms for Comparison
== END ==
PROVIDERS: PCP Internal Medicine Adolescent Medicine; Visit Provider Obstetrics & Gynecology
DX: N64.52 Nipple discharge (principal)
CPT/HCPCS: 76641

== ENCOUNTER → 2023-03-21 11:17 | Outpatient (CLI) | payer MEDICARE, BC, SELFPAY ==
--- NOTE | 2023-03-21 11:24 | CT_ITS ---
FINAL REPORT CLINICAL HISTORY: LUNG CANCER COMPARISON: 04/11/2022 FINDINGS: Axial CT images of the chest were obtained with contrast. Coronal reformatted images were also obtained. This study was performed with techniques to keep radiation doses as low as reasonably achievable, (ALARA). Individualized dose reduction techniques using automated exposure control or adjustment of mA and/or KV according to the patient's size were employed. There is cardiomegaly. There is postoperative change in the right thorax. There is a 22 mm upper right mediastinal node which is stable of uncertain significance, may be reactive or neoplastic. Small to moderate right effusion is identified, stable. There is right lower lobectomy. There is a 25 mm anterior left renal mass which is stable from previous, favor a mildly complicated cyst. There are stable postoperative changes in the right thorax. There is a stable, presumed sebaceous cyst in the right upper back. IMPRESSION: Stable upper right mediastinal node of uncertain significance, may be reactive or neoplastic. Stable right effusion. Stable postoperative changes in the right thorax. No new mass or adenopathy. Reviewed, Interpreted and Dictated by Deniz Loja III, MD Transcribed by Tere Escobar Authenticated and [facility]
[2023-03-21 12:34] LABS: Blood Urea Nitrogen 23 mg/dl (7-17); Estimated Glomerular Filt Rate 44 ml/min (>60); GFR (African American) 53 ML/MIN (>60)
== END ==
PROVIDERS: PCP Internal Medicine Adolescent Medicine; Visit Provider Thoracic Surgery (Cardiothoracic Vascular Surgery)
DX: C34.2 Malignant neoplasm of middle lobe, bronchus or lung (principal)
CPT/HCPCS: 36415; 71260; 82565; 84520; Q9967

== ENCOUNTER 2024-01-22 08:55 | Outpatient (CLI) | payer MEDICARE, BC, SELFPAY ==
--- NOTE | 2024-01-22 09:01 | XR_ITS ---
FINAL REPORT TECHNIQUE: Bone densitometry calculations of the lumbar spine and left hip were obtained. CLINICAL HISTORY: POST MENOPAUSAL FINDINGS: Using L1-4, the bone mineral density of the spine is 1.054 g/cm2, corresponding to T-score of 0.1 and a Z score of 2.4. This is within the range of normal. Using the left hip, the bone mineral density of the femoral neck is 0.642 g/cm2, corresponding to a T-score of -1.9 and a Z-score of 0.2. This is within the range of osteopenia. Using the right hip, the bone mineral density of the femoral neck is 0.708 g/cm2, corresponding to a T-score of -1.3 and a Z-score of 0.8. This is within the range of osteopenia. FRAX 10 year fracture risk is 11% for a hip fracture and 2.2% for a major osteoporotic fracture. NOTE: T-score: Standard deviation compared with peak bone mass of young adult mean. *Following the recommendations of the International Society of Bone densitometry, classification of hip BMD is based on the lower of two T-scores; total hip or femoral neck. IMPRESSION: 1. Bone mineral density of the lumbar spine within the range of normal. 2. Bone mineral density of the left femoral neck within the range of osteopenia. 3. Bone mineral density of the right femoral neck within the range of osteopenia. Reviewed, Interpreted and Dictated by Anitha Mcnamara MD Transcribed by Franny Torres Authenticated and [facility]
== END 2024-01-22 23:59 ==
PROVIDERS: PCP Nurse Practitioner Family; Visit Provider Nurse Practitioner Family
DX: Z78.0 Asymptomatic menopausal state (principal)
CPT/HCPCS: 77080

== ENCOUNTER 2024-04-03 08:06 | Outpatient (CLI) | payer MEDICARE, BC, SELFPAY ==
[2024-04-03 08:37] LABS: Blood Urea Nitrogen 24 mg/dl (7-17); Estimated Glomerular Filt Rate 44 ml/min (>60); GFR (African American) 53 ML/MIN (>60)
--- NOTE | 2024-04-03 09:01 | CT_ITS ---
FINAL REPORT TECHNIQUE: The patient was injected with IV contrast. Axial images were obtained of the chest by computed tomography. Precontrast images were also obtained. This study was performed with techniques to keep radiation doses as low as reasonably achievable (ALARA). Individualized dose reduction techniques using automated exposure control or adjustment of mA and/or kV according to the patient's size were employed. CLINICAL HISTORY: LUNG NODULE pt stated she had part of her lung removed COMPARISON: 03/21/2023 FINDINGS: CT OF THE CHEST WITH AND WITHOUT CONTRAST: There is no axillary adenopathy. Upper right paratracheal enlarged node measures 21 mm, was 22 mm and stable. Other small mediastinal nodes are also stable. Heart size is normal. There is no pericardial effusion identified. There is postoperative change in the right lower lobe. There is a small right pleural effusion which is stable. There are several calcified granulomas. No new nodule or mass identified. Limited images of the upper abdomen demonstrate a 31 mm septated cystic mass in the anterior right kidney which has enlarged from prior. This is not definitely a simple cyst IMPRESSION: Stable right paratracheal adenopathy. Stable postoperative changes in the right thorax with small right pleural effusion. Enlarged septated cystic mass anterior right kidney, not definitely a simple cyst. Recommend follow-up CT in 6 months. Reviewed, Interpreted and Dictated by Deniz Loja III, MD Transcribed by Medina Yu Authenticated and [facility]
== END 2024-04-03 23:59 | disposition home or self-care (01) ==
LOC: RAD 08:07
PROVIDERS: PCP Internal Medicine Adolescent Medicine; Visit Provider Thoracic Surgery (Cardiothoracic Vascular Surgery)
DX: R91.1 Solitary pulmonary nodule (principal)
CPT/HCPCS: 36415; 71270; 82565; 84520; Q9967

== ENCOUNTER 2024-07-19 11:47 | Outpatient (CLI) | payer MEDICARE, BC, SELFPAY ==
[2024-07-19 12:15] LABS: Albumin Level 3.7 g/dl (3.5-5.0); Chloride 103 mmol/L (98-107)
[2024-07-19 12:16] LABS: Potassium 3.5 mmoL/L (3.5-5.1); Sodium 140 mmol/L (136-145)
[2024-07-19 12:18] LABS: Alanine Aminotransferase 44 U/L (12-78); Albumin/Globulin Ratio 1.3 (1.1-1.8); Alkaline Phosphatase 82 U/L (38-126); Anion Gap 10.5 mEq/L (5-15); Aspartate Amino Transferase 37 U/L (14-36); Blood Urea Nitrogen 25 mg/dl (7-17); Carbon Dioxide 30 mmol/L (22.0-30.0); Estimated Glomerular Filt Rate 44 ml/min (>60); GFR (African American) 53 ML/MIN (>60); Globulin 2.9 g/dL (1.3-3.2); Total Protein,Serum 6.6 g/dl (6.3-8.2)
[2024-07-19 12:19] LABS: Calcium 9.2 mg/dl (8.4-10.2); Glucose 158 mg/dl (74-100)
[2024-07-19 12:25] LABS: Basophils # 0.1 K/mm3 (0-0.2); Basophils % 0.7 % (0.1-2.0); Eosinophils % 0.4 % (0.1-12.0); Hematocrit 50.1 % (37.0-47.0); Hemoglobin 15.5 g/dL (12.2-16.2); Lymphocytes # 1.9 K/mm3 (0.7-4.5); Lymphocytes % 18.6 % (10-50); Mean Corpuscular HGB Conc 30.9 g/dL (31.8-35.4); Mean Corpuscular Hemoglobin 30.8 pg (27.0-31.2); Mean Corpuscular Volume 99.4 fl (81-99); Mean Platelet Volume 9.1 fl (7.4-10.4); Monocytes # 0.7 K/mm3 (0.1-1.0); Monocytes % 6.9 % (1.7-9.3); Neutrophils # 7.3 K/mm3 (1.8-7.8); Neutrophils % 73.4 % (37.0-80.0); Platelet Count 269 K/mm3 (142-424); Red Blood Count 5.04 M/mm3 (4.20-5.40); Red Cell Distribution Width 13.7 % (11.5-17.5)
[2024-07-19 12:49] LABS: Thyroid Stimulating Hormone 1.91 uIU/mL (0.465-4.68)
[2024-07-19 14:34] LABS: Hemoglobin A1C 6.4 % (4.0-6.0)
== END 2024-07-19 23:59 | disposition home or self-care (01) ==
LOC: LAB 11:49
PROVIDERS: PCP Nurse Practitioner Family; Visit Provider Nurse Practitioner Family
DX: R53.83 Other fatigue (principal); R73.03 Prediabetes
CPT/HCPCS: 36415; 80053; 83036; 84443; 85025

== ENCOUNTER 2024-11-05 09:59 | Outpatient (CLI) | payer MEDICARE, BC, SELFPAY ==
[2024-11-05 10:34] LABS: Blood Urea Nitrogen 23 mg/dl (7-17); Estimated Glomerular Filt Rate 37 ml/min (>60); GFR (African American) 44 ML/MIN (>60)
== END 2024-11-05 23:59 | disposition home or self-care (01) ==
LOC: LAB 10:04
PROVIDERS: PCP Nurse Practitioner Family; Visit Provider Nurse Practitioner Family
DX: Z01.812 Encounter for preprocedural laboratory examination (principal)
CPT/HCPCS: 36415; 82565; 84520

== ENCOUNTER 2024-11-06 10:20 | Outpatient (CLI) | payer MEDICARE, BC, SELFPAY ==
--- NOTE | 2024-11-06 10:54 | CT_ITS ---
FINAL REPORT TECHNIQUE: Pre- and postcontrast images of the abdomen were performed by computed tomography. Coronal and sagittal reconstructions obtained and reviewed. This study was performed with techniques to keep radiation doses as low as reasonably achievable, (ALARA). Individualized dose reduction techniques using automated exposure control or adjustment of mA and/or kV according to the patient's size were employed. CLINICAL HISTORY: RENAL MASS COMPARISON: 04/03/2024 FINDINGS: There is abnormal pleural thickening in the inferior right hemithorax with a loculated right pleural effusion, stable. On the preinfusion images, there are multiple nonobstructing stones in the lower pole of the left renal collecting system with individual stones measuring up to 6 mm. On the postinfusion images, the liver enhances normally. The gallbladder is present. Calcified granulomas are seen in the spleen. The pancreas and adrenal glands are unremarkable. There are 2 contiguous cystic structures in the anterior left kidney. The larger measures 2.7 cm and the smaller measures 1.7 cm. The smaller focus demonstrates increased density. There is no evidence of enhancement. On the delayed images, there is opacification of nondilated pelvicalyceal systems. IMPRESSION: 2 contiguous cysts anterior left kidney with no significant enhancement consistent with benign cyst. Reviewed, Interpreted and Dictated by Real White MD Transcribed by Medina Yu Authenticated and [facility]
[2024-11-06] MEDS: IOPAMIDOL-370 (76%);100ML BOTTLE 50 ML IV (11:10)
[2024-11-06] MEDS: SODIUM CHLORIDE 0.9% 10ML SYR (RAD ONLY) 10 ML IV (11:11)
== END 2024-11-06 23:59 | disposition home or self-care (01) ==
LOC: RAD 10:21
PROVIDERS: PCP Nurse Practitioner Family; Visit Provider Nurse Practitioner Family
DX: N28.89 Other specified disorders of kidney and ureter (principal)
CPT/HCPCS: 74170; Q9967

== ENCOUNTER 2024-11-10 19:13 | Inpatient (IN) | payer MEDICARE, BC, SELFPAY ==
[2024-11-10] VITALS (9 sets, daily range): BP systolic 127–171; BP diastolic 82–108; PULSE 110–122; RESP 16–26; TEMP 36.7–36.9; O2SAT 93–96; BMI 37.3
--- NOTE | 2024-11-10 19:27 | PC.NURSE ---
Pt awake alert and oriented. Skin pale warm and dry Resp full and easy Speech clear and appropriate Report given to Marivel [employer]
--- NOTE | 2024-11-10 19:28 | XR_ITS ---
PROCEDURE INFORMATION: Exam: XR Chest Exam date and time: 11/10/2024 7:41 PM Age: 74 years old Clinical indication: Cough TECHNIQUE: Imaging protocol: Radiologic exam of the chest. Views: 2 views. COMPARISON: CT CHEST WO/W CON 04/03/2024 9:27 AM FINDINGS: Lungs: Unremarkable. No consolidation. Pleural spaces: Mild/moderate right pleural effusion. Heart/Mediastinum: Unremarkable. No cardiomegaly. Bones/joints: Unremarkable. IMPRESSION: Mild/moderate right pleural effusion.
--- NOTE | 2024-11-10 19:32 | ED_ITS ---
Discharge Plan Disposition Patient Disposition: Admitted Clinical Impressions Clinical Impression: COVID-19, Pleural effusion on right, Atrial fibrillation with RVR, CHF (congestive heart failure) Discharge ED Provider: Denisha Avelar General Adult HPI General Chief complaint: Upper Respiratory Infection Stated complaint: vomiting,high blood pressure,headache Time Seen by Provider: 11/10/24 19:22 Mode of Arrival: Ambulatory Source of Information: Patient Limitations: No Limitations Description of Symptoms (Recalled from ER Triage Doc. by RN): Pt states she has had cough and vomiting since yesterday. Also having HTN History of Present Illness HPI narrative: This patient is a 74-year-old female with a history of hypertension, lung neoplasm, prior CVA, atrial fibrillation presenting to the emergency department for evaluation with concern for cough, congestion, headache, sore throat, nausea, and vomiting that started yesterday. She states that started yesterday evening. She notes she feels very bad overall with worst symptom being cough. she denies any abdominal pain associated with the vomiting. She was not able to keep her blood pressure medications down today, and her granddaughter check her blood pressure at home and noted that her blood pressure was up and her heart rate was up as well. Given this, they brought her in for evaluation. Systolic at home in the 170s and diastolic of 110. Heart rate was noted to be in the 120s. Her heart rate typically does run high, for which she is on metoprolol and diltiazem, but she is not able to keep them down today and it is a little bit higher than normal. Her blood pressure also has crept up from the 120s to 170s. Family notes a lot of issues with fluctuating as of late and note her cardiology and primary care team have been able to get under control. Related Data Home Medications ?Medication ?Instructions ?Recorded ?Confirmed ascorbic acid (vitamin C) 1,000 mg 1,000 mg PO DAILY vitamin 03/21/18 04/25/22 tablet aspirin 81 mg tablet,delayed 81 mg PO DAILY heart 03/21/18 04/25/22 release atorvastatin 80 mg tablet 80 mg PO HS Cholesterol 03/21/18 04/25/22 cyanocobalamin (vitamin B-12) 500 500 mcg PO DAILY 04/01/20 04/25/22 mcg tablet (Vitamin B-12) metoprolol tartrate 100 mg tablet 100 mg PO BID 04/01/20 04/25/22 rivaroxaban 20 mg tablet (Xarelto) 20 mg PO QPM 04/01/20 04/25/22 azelastine 205.5 mcg (0.15 %) 1 spray intranasal 04/25/22 04/25/22 nasal spray diltiazem HCl 240 mg 240 mg PO 04/25/22 04/25/22 capsule,extended release 24 hr temazepam 15 mg capsule 15 mg PO 04/25/22 04/25/22 Allergies Allergy/AdvReac Type Severity Reaction Status Date / Time No Known Allergies Allergy Verified 04/25/22 10:19 [facility] Disclaimer: The information contained in this section may have been updated after the patient was seen, as this information can be updated by other users. 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 caffeine: Yes Have you lived/traveled outside [place] in past 30 days?: No Contact w/someone who lives/traveled outside [place] past 30 days?: No Exposure to someone with infectious disease in past 14 days?: No Do you have a fever (greater than 100.4 F or 38 C)?: No Have you tested positive for COVID-19: No Exposed to someone with COVID-19 in past 14 days?: No Do you have a sore throat?: No Do you have a cough?: No Do you have any weakness?: No Do you have any diarrhea?: No Are you experiencing any unusual bleeding?: No Do you have any muscle aches/pain?: No Do you have any abdominal pain?: No Are you experiencing loss of taste or smell?: No Other Medical History Have you received the Flu Vaccine for this season: Yes Have you received the Pneumonia Vaccine: No ROS Obtained: Yes All systems reviewed & no additional complaints except as documented Physical Exam General General appearance: alert and in no apparent distress Head Head exam: atraumatic and normocephalic Eye Eye exam: Present normal appearance, PERRL and EOMI ENT ENT exam: Present normal oropharynx, mucous membranes moist, normal external ear exam and other (Nasal congestion) Neck Neck exam: Present normal inspection, full ROM and trachea midline; Absent tenderness Chest Chest inspection: Present normal inspection and symmetric chest wall rise; Absent tenderness Respiratory Respiratory exam: Present normal lung sounds bilaterally; Absent respiratory distress, wheezes, stridor or accessory muscle use Cardiovascular Cardiovascular exam: Present tachycardia and irregular rhythm Abdominal Exam Abdominal exam: Present soft; Absent distention, tenderness or guarding Extremities Exam Extremities exam: Present normal inspection, full ROM and normal capillary refill; Absent tenderness or edema Back Exam Back exam: Present normal inspection and full ROM; Absent tenderness Neurological Exam Neurological exam: Present alert, oriented X3, CN II-XII intact and normal gait; Absent motor sensory deficit Psychiatric Psychiatric exam: Present normal affect and normal mood Skin Skin exam: Present warm and dry Medical Decision Making Medical Records Medical records reviewed: Yes I reviewed the patient's medical records. Screening: Per USPSTF and CDC recommendations, given the prevalence of disease in our region, it is our hospital?s policy to screen for HIV and viral Hepatitis for all patients aged 18 and over and those with ongoing risk factors. Eddie Inquiry Pt receiving controlled substance: No Vital Signs: 11/10/24 19:24 11/10/24 19:31 11/10/24 20:00 Temperature 98.5 F Temperature Source Oral Pulse Rate 120 H 120 H Pulse Rate [Right Brachial] 122 H Respiratory Rate 24 16 16 Blood Pressure 149/90 H 156/105 H Blood Pressure [Right Arm] 155/108 H Blood Pressure Mean 109 118 Blood Pressure Mean [Right Arm] 123 Blood Pressure Source [Right Arm] Automatic Cuff Blood Pressure Position [Right Arm] Supine 02 Sat by Pulse Oximetry 93 L 96 94 L Oxygen Delivery Method Room Air Nasal Cannula Room Air Room Air Oxygen Flow Rate (LPM) 11/10/24 20:21 11/10/24 20:31 11/10/24 21:12 Temperature Temperature Source Pulse Rate 120 H 119 H 115 H Pulse Rate [Right Brachial] Respiratory Rate 18 16 19 Blood Pressure 171/107 H 147/101 H 138/88 Blood Pressure [Right Arm] Blood Pressure Mean 122 125 Blood Pressure Mean [Right Arm] Blood Pressure Source [Right Arm] Blood Pressure Position [Right Arm] 02 Sat by Pulse Oximetry 96 96 95 Oxygen Delivery Method Aerosol Mask Aerosol Mask Oxygen Flow Rate (LPM) 8 8 11/10/24 21:30 11/10/24 22:11/10/24 23:03 Temperature 98.1 F Temperature Source Pulse Rate 115 H 110 H 110 H Pulse Rate [Right Brachial] Respiratory Rate 22 22 26 H Blood Pressure 135/82 127/86 142/91 H Blood Pressure [Right Arm] Blood Pressure Mean Blood Pressure Mean [Right Arm] Blood Pressure Source [Right Arm] Blood Pressure Position [Right Arm] 02 Sat by Pulse Oximetry 93 L 95 Oxygen Delivery Method Room Air Room Air Oxygen Flow Rate (LPM) Lab Data Lab results reviewed: Yes I reviewed the patient's lab results. Lab Results 11/10/24 19:20: WBC 12.6 H, RBC 4.96, Hgb 15.1, Hct 45.5, MCV 91.7, MCH 30.4, MCHC 33.2, RDW 14.0, Plt Count 240, MPV 11.6 H, Neut % (Auto) 74.9, Lymph % (Auto) 15.7, Mcintosh % (Auto) 8.4, Eos % (Auto) 0.1, Baso % (Auto) 0.4, Neut # (Auto) 9.4 H, Lymph # (Auto) 2.0, Mcintosh # (Auto) 1.1 H, Eos # (Auto) 0.0, Baso # (Auto) 0.1, PT 13.2 H, INR 1.20 H, APTT 36.5 H, Sodium 136, Potassium 4.1, Chloride 105, Carbon Dioxide 25, Anion Gap 10.1, BUN 15, Creatinine 1.00, Estimated Creat Clear 83, Estimated GFR 54 L, Est GFR ( Amer) 65, Glucose 184 H, Calcium 9.3, Magnesium 1.8, Total Bilirubin 0.7, AST 38 H, ALT 37, Alkaline Phosphatase 103, Troponin I < 0.01, C-Reactive Protein 54.1 H, NT-Pro-B Natriuret Pep 4600 H, Total Protein 7.1, Albumin 4.0, Globulin 3.1, Albumin/Globulin Ratio 1.3, Lipase 59, Procalcitonin 0.077, TSH 1.56, Thyroxine (T4) 8.4, HCV Ab DOTTIE w/Rflx PCR Qn Negative 11/10/24 19:25: SARS-CoV-2 (PCR) Detected A, Influenza A Untype (PCR) Not detected, Influenza Type B (PCR) Not detected 11/10/24 21:25: Lactate 1.6 11/10/24 22:00: Troponin I < 0.01 11/10/24 19:20 11/10/24 19:20 Orders (Tests/Meds): ED MEDICATIONS Generic Name Dose Route Start Last Admin Trade Name Freq PRN Reason Stop Dose Admin Furosemide 20 mg 11/10/24 23:20 Furosemide 20mg Tablet PO 11/10/24 23:21 ONCE ONE Promethazine HCl/Codeine 5 ml 11/10/24 23:20 Promethazine W/Codeine 6.25mg/10mg 5ml Udc PO 12/10/24 23:19 Q6HP PRN Cough Sodium Chloride 10 ml 11/10/24 21:12 11/10/24 21:13 Sodium Chloride 0.9% 10ml Syr (Rad Only) IV 12/10/24 21:11 10 ml NEEDED PRN Administration Maintain IV Site Discontinued Medications Generic Name Dose Route Start Last Admin Trade Name Freq PRN Reason Stop Dose Admin Acetaminophen 1,000 mg 11/10/24 19:28 11/10/24 20:10 Acetaminophen 1,000mg/100ml Vial IV 11/10/24 19:29 1,000 mg ONCE ONE Administration Lactated Ringer's 1,000 mls @ 999 mls/hr 11/10/24 19:39 11/10/24 20:11 Lactated Ringer's 1000 Ml Bag IV 11/10/24 20:39 999 mls/hr .Q1H1M ONE Administration Iopamidol 70 ml 11/10/24 21:12 11/10/24 21:13 Iopamidol-370 (76%);100ml Bottle IV 11/10/24 21:13 70 ml ONCE ONE Administration Ketorolac Tromethamine 15 mg 11/10/24 19:28 11/10/24 20:11 Ketorolac 30mg/Ml Vial IV 11/10/24 19:29 15 mg ONCE ONE Administration Lidocaine HCl 5 ml 11/10/24 20:18 11/10/24 20:22 Lidocaine 2% 5ml Pf Vial IH 11/10/24 20:19 5 ml ONCE ONE Administration Metoprolol Tartrate 100 mg 11/10/24 19:39 11/10/24 20:10 Metoprolol Tartrate 50mg Tablet PO 11/10/24 19:40 100 mg ONCE ONE Administration Metoprolol Tartrate 5 mg 11/10/24 19:40 11/10/24 20:10 Metoprolol Tartrate 5mg/5ml Vial IV 11/10/24 19:41 5 mg ONCE ONE Administration Metoprolol Tartrate 5 mg 11/10/24 20:19 11/10/24 20:23 Metoprolol Tartrate 5mg/5ml Vial IV 11/10/24 20:20 5 mg ONCE ONE Administration Ondansetron HCl 4 mg 11/10/24 19:28 11/10/24 20:11 Ondansetron 4mg/2ml Vial IV 11/10/24 19:29 4 mg ONCE ONE Administration Sodium Chloride 50 ml 11/10/24 21:12 11/10/24 21:12 0.9 % Sodium Chloride 50 Ml Vial IV 11/10/24 21:13 50 ml ONCE ONE Administration ORDERS Category Date Time Status CT angio chest PE protocol Stat Cat Scan 11/10/24 20:26 Completed CXR 2 view (NOT portable) [XR chest 2V] Stat Exams 11/10/24 19:28 Completed BNP [NT Pro Brain Natriuretic Pep.] Stat Lab 11/10/24 19:20 Completed CRP [C-Reactive Protein] Stat Lab 11/10/24 19:20 Completed Complete Blood Count Auto Diff Stat Lab 11/10/24 19:20 Completed Comprehensive Metabolic Panel Stat Lab 11/10/24 19:20 Completed Hepatitis C Ab Qual. W/ RFX Routine Lab 11/10/24 19:20 Completed Lactic Acid Stat Lab 11/10/24 21:25 Completed Lipase Stat Lab 11/10/24 19:20 Completed Magnesium Stat Lab 11/10/24 19:20 Completed PT INR [Prothrombin Time INR] Stat Lab 11/10/24 19:20 Completed PTT [Activated Partial Thrombo Time] Stat Lab 11/10/24 19:20 Completed Procalcitonin Stat Lab 11/10/24 19:20 Completed Rapid PCR Covid and Flu A/B Stat Lab 11/10/24 19:25 Completed T4 (Thyroxine) Stat Lab 11/10/24 19:20 Completed TSH [Thyroid Stimulating Hormone] Stat Lab 11/10/24 19:20 Completed Trop I [Troponin I] Stat Lab 11/10/24 19:20 Completed Troponin I Q3H Lab 11/10/24 22:00 Completed Troponin I Q3H Lab 11/11/24 01:45 Ordered Blood Culture Stat Micro 11/10/24 20:10 Received ECG Data Tracing #1: I reviewed this ECG and interpreted as documented below: Atrial tachycardia with a ventricular rate of 121 bpm. No acute STEMI. Normal axis ECG initial impression date: 11/10/24 ECG initial impression time: 19:38 Medical Decision Narrative: In summary, this patient is a 74-year-old female presenting to the Emergency Department for evaluation of headache, cough, congestion, sore throat, vomiting, and high heart rate and blood pressure readings at home. She was not able to keep her medications down given the vomiting. Differential diagnoses considered include but are not limited to viral syndrome, gastroenteritis, pneumonia, hypertensive urgency, hypertensive emergency, A-fib with RVR. Ruling out the most morbid conditions drove assessment. It should be noted patient's history includes atrial fibrillation, hypertension, hyperlipidemia which are not at goal therapy. This complicates all aspects of care by increasing patient's risk for morbidity. Patient is anticoagulated with Xarelto. On exam, the patient has nasal congestion and a dry hacking cough, but lungs are clear to auscultation. She is tachycardic with a heart rate in the 120s with a regular rhythm. She is nontachypneic and in no distress. She is hypertensive with systolic in the 170s. Workup included broad lab evaluation to evaluate for infectious, metabolic, cardiac causes of the patient's symptoms as well as chest x-ray. Viral swab sent. I feel the patient likely has an upper respiratory infection triggering her symptoms and inability to keep her medications down. It sound like she has had a lot of issues with heart rate control as of late despite being on both metoprolol and diltiazem. EKG nonischemic. Chest x-ray was obtained. I independently interpreted chest x-ray prior to the radiologist read and noted worsening right-sided pleural effusion. Please see their read for final interpretation. I did note pleural effusion on previous CT scan of the chest. Labs were obtained that demonstrated leukocytosis. Patient does have leukocytosis, tachycardia. She was given a bolus of IV fluids was not given full sepsis bolus given history of cardiac dysfunction, as I feel it would be detrimental. I also feel this is likely related to viral upper respiratory infection, but blood cultures were sent given cannot definitively exclude bacterial cause at this time. I also ordered CT scan of the chest PE protocol to further evaluate the pleural effusion. I ordered the patient's home p.o. metoprolol as well as a push IV, which she tolerated well with improvement of heart rate to the low 100s. On reassessment, patient had some improvement after administration of interventions above, but she states she still feels very bad overall. She is requesting something for cough, so I did order a lidocaine nebulizer treatment. CT scan shows right pleural effusion, cardiomegaly, postop changes, lung nodules. Overall, nothing acutely intervenable. Ultimately given the patient's heart rate has been very difficult to control despite her home medications for quite some time now, she has significantly elevated BNP and pleural effusion, and she feels very ill in the setting of COVID-19, I had shared decision-making with the patient and family and they do not feel comfortable with discharge. Given this, I had an interactive discussion with the hospitalist who admitted the patient in stable condition for further evaluation and management of COVID- 19 and A-fib with RVR. Critical Care Critical Care Time Critical Care Time: Yes Attestation: On 11/10/24, the high probability of a clinically significant, sudden or life threatening deterioration of the following system(s) required my full and direct attention, intervention and personal management. The time I documented below is in addition to time spent performing reported procedures but includes the following listed in this critical care notation. Total Time Total Critical Care Time: 30
[2024-11-10 19:37] LABS: Basophils # 0.1 K/mm3 (0-0.2); Basophils % 0.4 % (0.1-2.0); Eosinophils % 0.1 % (0.1-12.0); Hematocrit 45.5 % (37.0-47.0); Hemoglobin 15.1 g/dL (12.2-16.2); Lymphocytes % 15.7 % (10-50); Mean Corpuscular HGB Conc 33.2 g/dL (31.8-35.4); Mean Corpuscular Hemoglobin 30.4 pg (27.0-31.2); Mean Corpuscular Volume 91.7 fl (81-99); Mean Platelet Volume 11.6 fl (7.4-10.4); Monocytes # 1.1 K/mm3 (0.1-1.0); Monocytes % 8.4 % (1.7-9.3); Neutrophils # 9.4 K/mm3 (1.8-7.8); Neutrophils % 74.9 % (37.0-80.0); Platelet Count 240 K/mm3 (142-424); Red Blood Count 4.96 M/mm3 (4.20-5.40); White Blood Count 12.6 K/mm3 (4.8-10.8)
--- NOTE | 2024-11-10 19:37 | ECG_ITS ---
APPROVED REPORT Exam: Resting ECG HR:121 bpm ECG Measurements Heart Rate 121 AXES W[place] 232 P -55 QRSd 91 QRS 50 QT 344 T 22 QTc 416 Conclusion ECTOPIC ATRIAL TACHYCARDIA WITH FIRST DEGREE AV BLOCK NONSPECIFIC ST & T-WAVE ABNORMALITY Electronically signed by : FENG GARICA, 11/10/2024 23:39:50
[2024-11-10 19:39] LABS: Chloride 105 mmol/L (98-107)
[2024-11-10 19:40] LABS: Potassium 4.1 mmoL/L (3.5-5.1); Sodium 136 mmol/L (136-145)
[2024-11-10 19:42] LABS: Alanine Aminotransferase 37 U/L (12-78); Alkaline Phosphatase 103 U/L (38-126); Anion Gap 10.1 mEq/L (5-15); Aspartate Amino Transferase 38 U/L (14-36); Bilirubin,Total 0.7 mg/dl (0.2-1.3); Blood Urea Nitrogen 15 mg/dl (7-17); Carbon Dioxide 25 mmol/L (22.0-30.0); Creatinine Clearance Estimated 83 mL/min (50-200); Estimated Glomerular Filt Rate 54 ml/min (>60); GFR (African American) 65 ML/MIN (>60)
[2024-11-10 19:43] LABS: Albumin/Globulin Ratio 1.3 (1.1-1.8); Calcium 9.3 mg/dl (8.4-10.2); Globulin 3.1 g/dL (1.3-3.2); Glucose 184 mg/dl (74-100); Lipase 59 U/L (23-300); Total Protein,Serum 7.1 g/dl (6.3-8.2)
[2024-11-10 19:54] LABS: Magnesium 1.8 mg/dl (1.6-2.3)
[2024-11-10 19:55] LABS: Activated Partial Thrombo Time 36.5 seconds (22.8-30.6); Prothrombin Time 13.2 seconds (10.1-12.5)
[2024-11-10 20:00] LABS: C-Reactive Protein 54.1 mg/L (0-4)
[2024-11-10] MEDS: ACETAMINOPHEN 1,000MG/100ML VIAL 1000 MG IV (20:10)
[2024-11-10] MEDS: METOPROLOL TARTRATE 50MG TABLET 100 MG PO (20:10)
[2024-11-10] MEDS: METOPROLOL TARTRATE 5MG/5ML VIAL 5 MG IV ×2 (20:10→20:23)
[2024-11-10] MEDS: LACTATED RINGERS 1000ML 1,000 ML 999 ML IV (20:11)
[2024-11-10] MEDS: ONDANSETRON 4MG/2ML VIAL 4 MG IV (20:11)
[2024-11-10] MEDS: KETOROLAC 30MG/ML VIAL 15 MG IV (20:11)
--- NOTE | 2024-11-10 20:13 | PC.NURSE ---
Blood cultures drawn x2
[2024-11-10 20:14] LABS: Procalcitonin 0.077 ng/mL (0.0-2.0); T4 (Thyroxine) 8.4 ug/dl (5.53-11.0); Troponin I < 0.01 ng/ml (0.00-0.034)
[2024-11-10] MEDS: LIDOCAINE 2% 5ML PF VIAL 5 ML IH (20:22)
--- NOTE | 2024-11-10 20:26 | CT_ITS ---
PROCEDURE INFORMATION: Exam: CTA Chest With Contrast Exam date and time: 11/10/2024 8:52 PM Age: 74 years old Clinical indication: Cough and shortness of breath and other: Tachycardia; Additional info: Tachycardia, SOA, cough, worsening pleural effusio TECHNIQUE: Imaging protocol: Computed tomographic angiography of the chest with contrast. Exam focused on the arteries. 3D rendering (Not supervised by radiologist): MIP and/or 3D reconstructed images were created by the technologist. Radiation optimization: All CT scans at this facility use at least one of these dose optimization techniques: automated exposure control; mA and/or kV adjustment per patient size (includes targeted exams where dose is matched to clinical indication); or iterative reconstruction. Contrast material: ISOUVE 370; Contrast volume: 70 ml; Contrast route: INTRAVENOUS (IV); COMPARISON: CT CHEST WO/W CON 04/03/2024 9:27 AM FINDINGS: Pulmonary arteries: No central or large peripheral pulmonary emboli. Aorta: There is moderate dilation of the ascending aorta. Mild/moderate calcific atherosclerosis of the descending thoracic aorta and visualized upper abdominal aorta. Renal arteries: Dense calcification of the left renal artery similar to the prior exam. Lungs: Volume loss right hemithorax. No focal infiltrates or nodules. Postop change right lower lobe with surgical clip image . Pleural spaces: Mild/moderate right pleural effusion which is stable since 04/03/2024.. Heart: Mild cardiomegaly. Coronary arteries: Mild coronary artery calcifications. Mediastinal space: Calcified hilar granulomas Lymph nodes: Stable 21 mm upper right paratracheal node image 5/25. Stable 12 mm AP window node image 5/47. Spleen: Calcified splenic granulomas. Kidneys: Partially visualized left renal cyst is not well visualized on the current study image 5/122 but appears unchanged in size. Bones/joints: Postsurgical changes right ribs from prior thoracotomy image 1002/23. Mild multilevel degenerative change of the thoracic spine. Soft tissues: Unremarkable. IMPRESSION: 1. Mild/moderate right pleural effusion which is stable since 04/03/2024.. 2. There is moderate dilation of the ascending aorta. 3. No central or large peripheral pulmonary emboli. 4. Mild cardiomegaly. 5. Volume loss right hemithorax. 6. No focal infiltrates or nodules. 7. Postop change right lower lobe with surgical clip image . 8. Stable 21 mm upper right paratracheal node image 03/23 9. Calcified hilar granulomas 10. Stable 12 mm AP window node image . 11. Mild/moderate calcific atherosclerosis of the descending thoracic aorta and visualized upper abdominal aorta. 12. Other (less critical/noncritical/incidental) findings as above; please refer to the body of report for further details. COMMENTS: Consistent with the [employer]'s Incidental Findings Committee white paper (J Am Chapo [employer]iol 2018): Any incidental renal lesion less than 1 cm or classified as too small to characterize, or any incidental cystic renal lesion characterized as simple-appearing, is likely benign. No follow-up imaging is recommended for these lesions per consensus recommendations based on imaging criteria.
[2024-11-10 20:27] LABS: Thyroid Stimulating Hormone 1.56 uIU/mL (0.465-4.68)
[2024-11-10 20:33] LABS: Influenza A, PCR Not Detected (NotDetected); Influenza B, PCR Not Detected (NotDetected)
[2024-11-10 20:35] LABS: Hepatitis C Ab Qual. W/ RFX NEGATIVE (Negative)
[2024-11-10 20:49] LABS: NT Pro Brain Natriuretic Pep. 4600 pg/mL (0-450)
[2024-11-10 20:52] LABS: Coronavirus 19, PCR Detected (NotDetected)
[2024-11-10] MEDS: 0.9 % SODIUM CHLORIDE 50 ML VIAL IV (21:12)
[2024-11-10] MEDS: SODIUM CHLORIDE 0.9% 10ML SYR (RAD ONLY) 10 ML IV (21:13)
[2024-11-10] MEDS: IOPAMIDOL-370 (76%);100ML BOTTLE 70 ML IV (21:13)
[2024-11-10 21:41] LABS: Lactic Acid 1.6 mmol/L (0.7-2.1)
[2024-11-10 22:27] LABS: Troponin I < 0.01 ng/ml (0.00-0.034)
--- NOTE | 2024-11-10 23:45 | INFXCTL.NOTE ---
Addendum entered by Mai Starks 11/10/24 23:46: Arrived to floor at 23:19. Original Note: Patient arrived to floor via wheelchair from ED at 23:42.
--- NOTE | 2024-11-10 23:59 | P.HP_ITS ---
History of Present Illness *Admission Date: 11/10/24 *Reason for visit:: Shortness of breath, headache, vomiting *History of present illness: This is a 74-year-old female with a past medical history of atrial fibrillation on Xarelto, hypertension, history of malignant neoplasm of the lung status post resection who presents emergency department today with complaints of headache, vomiting and shortness of breath. She reports cough, congestion, headache, and vomiting that started yesterday. States that she initially started feeling poorly on Monday but symptoms came to head yesterday. Was unable to keep her heart rate and blood pressure medications down today. Had a high blood pressure at home systolic in the 170s. Also noted to have heart rate in the 120s. States that she has atrial fibrillation, followed by [facility]. States that she typically has a hard time keeping her heart rate under control. Has been on diltiazem and metoprolol concurrently for this problem. Emergency department workup notable for hypertension on arrival with systolic blood pressure in the 170s with a heart rate in the 120s. EKG with atrial tachycardia with first-degree block. Workup in the emergency department notable for COVID-19 infection. Labs of 312. BNP of 4600. Chest CT with out evidence of PE but notable for mild to moderate stable pleural effusion. She was medicated in the emergency department with IV and oral metoprolol with not much improvement in her heart rate. Given her continued cough and congestion with increased heart rate, it was felt she would benefit from observation. She is admitted to the hospital service at this time [facility] Disclaimer: The information contained in this section may have been updated after the patient was seen, as this information can be updated by other users. 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 caffeine: Yes Have you lived/traveled outside [place] in past 30 days?: No Contact w/someone who lives/traveled outside US past 30 days?: No Exposure to someone with infectious disease in past 14 days?: No Do you have a fever (greater than 100.4 F or 38 C)?: No Have you tested positive for COVID-19: No Exposed to someone with COVID-19 in past 14 days?: No Do you have a sore throat?: No Do you have a cough?: No Do you have any weakness?: No Are you experiencing any nausea/vomitting?: No Do you have any diarrhea?: No Are you experiencing any unusual bleeding?: No Do you have any muscle aches/pain?: No Do you have any abdominal pain?: No Are you experiencing loss of taste or smell?: No Other Medical History Have you received the Flu Vaccine for this season: No Have you received the Pneumonia Vaccine: Yes Review of Systems Review of Systems Review of systems:: pertinent systems reviewed and negative unless documented below Review of systems (narrative): Negative except for HPI Meds Home Medications and Allergies Home Medications ?Medication ?Instructions ?Recorded ?Confirmed ?Type ascorbic acid (vitamin C) 1,000 mg 1,000 mg PO DAILY vitamin 03/21/18 11/11/24 History tablet atorvastatin 80 mg tablet 80 mg PO HS Cholesterol 03/21/18 11/11/24 History cyanocobalamin (vitamin B-12) 500 500 mcg PO DAILY 04/01/20 11/11/24 History mcg tablet (Vitamin B-12) metoprolol tartrate 100 mg tablet 100 mg PO BID 04/01/20 11/11/24 History rivaroxaban 20 mg tablet (Xarelto) 20 mg PO QPM 04/01/20 11/11/24 History azelastine 205.5 mcg (0.15 %) 1 spray intranasal BID PRN drainage 04/25/22 11/11/24 History nasal spray diltiazem HCl 240 mg 240 mg PO DAILY 04/25/22 11/11/24 History capsule,extended release 24 hr temazepam 15 mg capsule 15 mg PO HS 04/25/22 11/11/24 History hydralazine 25 mg tablet 25 mg PO BID 11/10/24 11/11/24 History hydroxyzine HCl 25 mg tablet 25 mg PO BID 11/10/24 11/11/24 History escitalopram oxalate 10 mg tablet 10 mg PO DAILY 11/11/24 11/11/24 History famotidine 20 mg tablet 20 mg PO BID 11/11/24 11/11/24 History losartan 100 mg tablet 100 mg PO DAILY 11/11/24 11/11/24 History New Prescriptions to Start Prescriptions: Allergies Allergy/AdvReac Type Severity Reaction Status Date / Time No Known Allergies Allergy Verified 04/25/22 10:19 Exam Data for Last 24 hours Vital signs and Labs for Last 24 Hours: Temp Pulse Resp BP Pulse Ox O2 Del Method O2 Flow Rate 98.1 F 110 H 26 H 142/91 H 95 Room Air 8 11/10/24 23:03 11/10/24 23:03 11/10/24 23:03 11/10/24 23:03 11/10/24 22:01 11/10/24 23:03 11/10/24 20:31 Laboratory Results - last 24 hr 11/10/24 19:20: WBC 12.6 H, RBC 4.96, Hgb 15.1, Hct 45.5, MCV 91.7, MCH 30.4, MCHC 33.2, RDW 14.0, Plt Count 240, MPV 11.6 H, Neut % (Auto) 74.9, Lymph % (Auto) 15.7, [place] % (Auto) 8.4, Eos % (Auto) 0.1, Baso % (Auto) 0.4, Neut # (Auto) 9.4 H, Lymph # (Auto) 2.0, [place] # (Auto) 1.1 H, Eos # (Auto) 0.0, Baso # (Auto) 0.1, PT 13.2 H, INR 1.20 H, APTT 36.5 H, Sodium 136, Potassium 4.1, Chloride 105, Carbon Dioxide 25, Anion Gap 10.1, BUN 15, Creatinine 1.00, Estimated Creat Clear 83, Estimated GFR 54 L, Est GFR ( Amer) 65, Glucose 184 H, Calcium 9.3, Magnesium 1.8, Total Bilirubin 0.7, AST 38 H, ALT 37, Cynthia line Phosphatase 103, Troponin I < 0.01, C-Reactive Protein 54.1 H, NT-Pro-B Natriuret Pep 4600 H, Total Protein 7.1, Albumin 4.0, Globulin 3.1, Albumin/G lobulin Ratio 1.3, Lipase 59, Procalcitonin 0.077, TSH 1.56, Thyroxine (T4) 8.4, HCV Ab DOTTIE w/Rflx PCR Qn Negative 11/10/24 19:25: SARS-CoV-2 (PCR) Detected A, Influenza A Untype (PCR) Not detected, Influenza Type B (PCR) Not detected 11/10/24 21:25: Lactate 1.6 11/10/24 22:00: Troponin I < 0.01 I & O for Last 24 hours: Intake & Output 11/07/24 11/08/24 11/09/24 11/10/24 23:59 23:59 23:59 23:59 Weight 107.955 kg Constitutional Constitutional: no acute distress *Routine HEENT Exam Head: Present normocephalic Eye: Present EOMI and PERRL ENT: Present mucous membranes moist *Routine Neck Exam Neck: Present supple; Absent lymphadenopathy *Routine Respiratory Exam Respiratory: Present diminished air movement Comments: Diminished lung sounds to the right lower lobe. Mild expiratory wheezing noted. *Routine Cardiovascular Exam Cardiovascular: Present RRR *Routine Abdominal Exam Abdominal: Present soft and normoactive bowel sounds; Absent tenderness *Routine Rectal Exam Rectal:: deferred *Routine Genitalia Exam Genitalia:: deferred *Routine Extremities Exam Extremities: Absent cyanosis, clubbing or edema *Routine Skin Exam Skin: Present warm; Absent rash *Routine Neurological Exam Neurological: Present alert and oriented X3 Assessment and Plan *Assessment and plan (1) COVID-19: Status: Acute Category: Medical Code(s): U07.1 - COVID-19 (2) Atrial fibrillation with RVR: Status: Acute Category: Medical Code(s): I48.91 - Unspecified atrial fibrillation (3) History of malignant neoplasm of lung: Status: Acute Category: Medical Code(s): Z85.118 - Personal history of other malignant neoplasm of bronchus and lung (4) Pleural effusion on right: Status: Acute Category: Medical Code(s): J90 - Pleural effusion, not elsewhere classified Plan #COVID-19 Currently oxygenating well on room air. Significant cough causing bronchospasms. Will initiate promethazine with codeine cough syrup Will defer Decadron at this time given patient is on room air. Consider remdesivir in a.m. if respiratory status not improved Pulmonary toilet Bronchodilators as needed Will initiate azithromycin and Rocephin for possible superimposed pneumonia. Patient reports productive sputum. Procalcitonin pending, tailor antibiotics accordingly #History of atrial fibrillation Reports longstanding history and unable to get control of heart rate with cardi ology and multiple medication changes. On bedside monitor, patient appears to be sinus tachycardia/atrial tachycardia. No evidence of current A-fib on bedside monitor or EKG. Continue home Cardizem and metoprolol, Xarelto proBNP elevated at 4600, patient reports no formal echo recently. Will obtain echocardiogram in a.m. 1 dose oral Lasix now to see if heart rate improves #Pleural effusion, right Reports history of this. Does not endorse any further workup in the outpatient setting. Does have a history of malignant neoplasm of the lung. Malignant effusion is on the differential. 1 dose of oral Lasix given. Echocardiogram in a.m. Currently on room air oxygenating well #History of malignant neoplasm of the lung Prior lung resection. Not currently undergoing other forms of treatment as patient states that her lung cancer is in remission Monitor respiratory status Rounded on patient after nurse practitioner. Personally examined and interviewed patient. Agree with exam findings and care plan as documented. Correction to above, patient did not have lung cancer. She had a benign mass that was resected. Did not require chemo or radiation. I cared for her as her primary care physician at the time of her diagnosis and treatment. Low concern for malignant effusion. Repeat labs ordered for the morning. Echo pending to evaluate EF. Will continue diuretics. Discussed with patient having cardiology here consulted to assist with care, she is agreeable.
[2024-11-11] VITALS (8 sets, daily range): BP systolic 128–169; BP diastolic 66–119; PULSE 71–124; RESP 16–20; TEMP 36.5–36.8; O2SAT 90–97; BMI 36.3
[2024-11-11 00:39] LABS: Troponin I < 0.01 ng/ml (0.00-0.034)
[2024-11-11] MEDS: FUROSEMIDE 20MG TABLET 20 MG PO (00:40)
[2024-11-11] MEDS: AZITHROMYCIN 500 MG in 0.9 % SODIUM CHLORIDE 250 ML 250 MG IV (00:40)
[2024-11-11] MEDS: PROMETHAZINE W/CODEINE 6.25MG/10MG 5ML UDC 5 ML PO ×3 (01:06→19:11)
[2024-11-11 01:34] LABS: Procalcitonin 0.082 ng/mL (0.0-2.0)
[2024-11-11] MEDS: CEFTRIAXONE SODIUM 2 GM in 0.9 % SODIUM CHLORIDE 100 ML IV ×2 (02:52→23:38)
[2024-11-11] MEDS: MAGNESIUM SULFATE IN WATER 2 GM/50 ML PIGGYBACK IV (03:25)
[2024-11-11 06:22] LABS: Basophils % 0.4 % (0.1-2.0); Hematocrit 40.7 % (37.0-47.0); Lymphocytes # 1.5 K/mm3 (0.7-4.5); Lymphocytes % 16.9 % (10-50); Mean Corpuscular HGB Conc 32.7 g/dL (31.8-35.4); Mean Corpuscular Hemoglobin 30.4 pg (27.0-31.2); Mean Corpuscular Volume 92.9 fl (81-99); Mean Platelet Volume 11.4 fl (7.4-10.4); Monocytes # 1.2 K/mm3 (0.1-1.0); Monocytes % 13.3 % (1.7-9.3); Neutrophils # 6.2 K/mm3 (1.8-7.8); Neutrophils % 68.8 % (37.0-80.0); Platelet Count 207 K/mm3 (142-424); Red Blood Count 4.38 M/mm3 (4.20-5.40); White Blood Count 9.1 K/mm3 (4.8-10.8)
--- NOTE | 2024-11-11 06:24 | ECG_ITS ---
APPROVED REPORT Exam: Resting ECG HR:97 bpm ECG Measurements Heart Rate 97 AXES QRSd 87 QRS 20 QT 384 T -4 QTc 439 Conclusion ATRIAL FLUTTER/TACHYCARDIA MODERATE ST DEPRESSION [0.05+ mV ST DEPRESSION] ABNORMAL ECG UNCONFIRMED REPORT Electronically signed by : Pablo Dailey MD 11/12/2024 20:06:55
[2024-11-11 06:42] LABS: Anion Gap 8.6 mEq/L (5-15); Blood Urea Nitrogen 15 mg/dl (7-17); Calcium 8.4 mg/dl (8.4-10.2); Carbon Dioxide 29 mmol/L (22.0-30.0); Chloride 105 mmol/L (98-107); Creatinine Clearance Estimated 83 mL/min (50-200); Estimated Glomerular Filt Rate 54 ml/min (>60); GFR (African American) 65 ML/MIN (>60); Glucose 101 mg/dl (74-100); Potassium 3.6 mmoL/L (3.5-5.1); Sodium 139 mmol/L (136-145)
[2024-11-11 06:49] LABS: Hemoglobin 13.3 g/dL (12.2-16.2)
--- NOTE | 2024-11-11 07:00 | CA_ITS ---
APPROVED REPORT EXAM: Comprehensive 2D, Doppler, and color-flow Echocardiogram Field Mechanical Meter Tester: Aiyana Tinajero CRT Ht: 5 ft 7 in Wt: 238lbs BSA: 2.18 BP: 142/91 mmHg Indications: Atrial Fibrillation, DNR, LUNG ca, + COVID, pleural effusion, HTN ef 55% 03/22/18 2D Dimensions LA Volume 47.70 mL LA Volume Index 21.40 mL/m2 (M/F) 16-34 M-Mode Dimensions RVDd 2.52 cm (0.9-2.6) LA Diam 4.22 cm (1.9-4.0) LVDd 4.96 cm (3.5-5.7) LVDs 4.04 cm (3.5-5.7) IVSd 1.20 cm (0.6-1.1) PWd 1.00 cm (0.6-1.1) EF (Teich) 38.20% FS 18.50% EDV (Teich) 116.10 mL TAPSE 0.93 (<1.7) ESV (Teich) 71.70 mL LV Diastology E Decel Time 107 (160-240 msec) E/A Ratio 9.25 Aortic Valve AO Peak GR. 4.10 mmHg Mitral Valve MV E Max Ran. 96.0 (40-130 cm/s) MV A Velocity 10.0 (40-130 cm/s) E/A Ratio 9.25 MV PHT 31.0 ms Pulmonary Valve PV Peak Velocity 109.0 (50-150 cm/s) Tricuspid Valve TR P. Velocity 309.00 cm/s RAP Estimate 10.00 mmHg RVSP 48.30 mmHg Left Ventricle The left ventricle is normal size. Left ventricular systolic function is mildly decreased. There is increased LV wall thickness. There is mild global hypokinesis present. Diastolic function is indeterminate. LVEF is 45%. Right Ventricle The right ventricle is normal size. Right ventricle is mildly hypokinetic. Atria Left atrium is severely dilated. Right atrium is severely dilated. There is no Doppler evidence of interatrial shunt. Aortic Valve Aortic valve is mildly thickened. There is no aortic valvular stenosis. Trace aortic regurgitation. Mitral Valve The mitral valve leaflets are mildly thickened. No evidence of mitral valve stenosis. Mild mitral regurgitation. Tricuspid Valve The tricuspid valve leaflets are thin and pliable. Mild tricuspid regurgitation. RVSP is 40-45 mmHg. Pulmonic Valve The pulmonary valve is normal in structure. Trace pulmonic regurgitation. Great Vessels The aortic root is normal in size. The ascending aorta is not well-visualized. IVC is normal in size and collapses >50% with inspiration. Pericardium There is no pericardial effusion. Pleural effusion is present. Other Information Study Quality: Fair Conclusion Mildly reduced LV systolic function (LVEF 45%). Mild RV dilation with normal RV function. Severe biatrial dilation. Mild MR, mild TR. Elevated RVSP 40-45 mmHg. Pleural effusion. Electronically signed by : Jennifer Beatty MD 11/11/2024 10:11:46
--- NOTE | 2024-11-11 07:42 | HMH.PHAINT1 ---
Pharmacy Intervention Comments: VERIFIED MEDICATIONS WITH OUTPATIENT PHARMACY, CONFIRMED MEDICATIONS WITH PATIENT.
--- NOTE | 2024-11-11 08:29 | PC.NURSE ---
Pt family member educated that she needed to wear a mask since the pt has covid. Pt family member stated that she had one on in the hallway and took it off when in the room.
[2024-11-11] MEDS: dilTIAZem ER 240MG CAPSULE 240 MG PO (09:13)
[2024-11-11] MEDS: FAMOTIDINE 20MG TABLET 20 MG PO ×2 (09:13→20:33)
[2024-11-11] MEDS: METOPROLOL TARTRATE 50MG TABLET 100 MG PO (09:13)
[2024-11-11] MEDS: CITALOPRAM 20MG TABLET 20 MG PO (09:13)
[2024-11-11] MEDS: IRBESARTAN 150MG TAB 150 MG PO (09:14)
[2024-11-11] MEDS: HYDRALAZINE HCL 25MG TABLET 25 MG PO ×2 (09:14→20:33)
[2024-11-11] MEDS: ONDANSETRON 4MG/2ML VIAL 4 MG IV (10:59)
[2024-11-11 11:19] LABS: HIV Combo NEGATIVE (Negative)
[2024-11-11] MEDS: BUMETANIDE 1MG/4ML VIAL 1 MG IV ×2 (11:36→17:27)
--- NOTE | 2024-11-11 14:12 | P.PN_ITS ---
Subjective *Date: 11/11/24 *Time: 14:17 Interval history: Stable on 2 L. Complaining of chest soreness from coughing. Denies any nausea, vomiting, confusion. Heart rate initially uncontrolled morning meds were resumed, heart rate better after diltiazem today. Echo obtained unfortunately showing mildly reduced EF. Explained that we need to make adjustments to her home regimen, patient states understanding. Sees [facility]. Okay seeing cardiology here. Medical Exam Vital signs and Labs for Last 24 Hours: Vital Signs Temp Pulse Pulse Resp BP BP Pulse Ox 11/11/24 13:00 11/11/24 12:00 90 11/11/24 12:00 98.0 F 71 18 156/97 H 95 11/11/24 11:00 11/11/24 09:00 11/11/24 08:23 100 H 93 L 11/11/24 08:00 120 H 11/11/24 08:00 98.3 F 122 H 16 132/98 H 95 11/11/24 08:00 85 20 153/66 H 90 L 11/11/24 06:45 11/11/24 05:00 11/11/24 04:00 97.7 F 100 H 16 151/96 H 96 11/11/24 04:00 100 H 11/11/24 03:00 11/11/24 01:00 11/11/24 00:15 120 H 11/11/24 00:00 98.0 F 118 H 16 142/91 H 96 11/11/24 00:00 117 H 97 11/10/24 23:03 98.1 F 110 H 26 H 142/91 H 11/10/24 23:00 11/10/24 22:01 110 H 22 127/86 95 11/10/24 21:30 115 H 22 135/82 93 L 11/10/24 21:12 115 H 19 138/88 95 11/10/24 20:31 119 H 16 147/101 H 96 11/10/24 20:21 120 H 18 171/107 H 96 11/10/24 20:00 120 H 16 156/105 H 94 L 11/10/24 19:31 120 H 16 149/90 H 96 11/10/24 19:24 98.5 F 122 H 24 155/108 H 93 L O2 Del Method O2 Flow Rate 11/11/24 13:00 Room Air 11/11/24 12:00 11/11/24 12:00 Nasal Cannula 2 11/11/24 11:00 Nasal Cannula 1 11/11/24 09:00 Room Air 11/11/24 08:23 Nasal Cannula 2 11/11/24 08:00 11/11/24 08:00 Room Air 11/11/24 08:00 Nasal Cannula 2 11/11/24 06:45 Room Air 11/11/24 05:00 Room Air 11/11/24 04:00 Room Air 11/11/24 04:00 11/11/24 03:00 Room Air 11/11/24 01:00 Room Air 11/11/24 00:15 11/11/24 00:00 11/11/24 00:00 Room Air 11/10/24 23:03 Room Air 11/10/24 23:00 Room Air 11/10/24 22:01 Room Air 11/10/24 21:30 11/10/24 21:12 11/10/24 20:31 Aerosol Mask 8 11/10/24 20:21 Aerosol Mask 8 11/10/24 20:00 Room Air 11/10/24 19:31 Room Air 11/10/24 19:24 Room Air, Nasal Cannula Intake and Output 11/10/24 11/11/24 11/11/24 23:59 07:59 15:59 Intake Total 640 / 880 240 / 880 Output Total 0 / 0 Balance 640 / 880 240 / 880 Intake: Intake, Oral Amount 240 / 480 240 / 480 Intake, Total IV Amount 400 / 400 Azithromycin 500 mg In 0.9 % 250 / 250 Sodium Chloride 250 ml @ 250 mls/hr IV Q24H [facility] Rx#: [id number] Ceftriaxone Sodium 2 gm In 0.9 100 / 100 % Sodium Chloride 100 ml @ 200 mls/hr IV Q24H [facility] Rx#: [id number] Magnesium Sulfate in Water 2 gm 50 / 50 In 50 ml @ 50 mls/hr IV ONCE ONE Rx#:[id number] Output: Output, Urine Amount 0 / 0 Other: Number of Unmeasured Voids 2 Weight 107.955 kg 105.143 kg Patient Weight 11/11/24 23:59 Weight 105.143 kg Laboratory Results - last 24 hr 11/10/24 19:20: WBC 12.6 H, RBC 4.96, Hgb 15.1, Hct 45.5, MCV 91.7, MCH 30.4, MCHC 33.2, RDW 14.0, Plt Count 240, MPV 11.6 H, Neut % (Auto) 74.9, Lymph % (Auto) 15.7, [place] % (Auto) 8.4, Eos % (Auto) 0.1, Baso % (Auto) 0.4, Neut # (Auto) 9.4 H, Lymph # (Auto) 2.0, [place] # (Auto) 1.1 H, Eos # (Auto) 0.0, Baso # (Auto) 0.1, PT 13.2 H, INR 1.20 H, APTT 36.5 H, Sodium 136, Potassium 4.1, Chloride 105, Carbon Dioxide 25, Anion Gap 10.1, BUN 15, Creatinine 1.00, Estimated Creat Clear 83, Estimated GFR 54 L, Est GFR ( Amer) 65, Glucose 184 H, Calcium 9.3, Magnesium 1.8, Total Bilirubin 0.7, AST 38 H, ALT 37, Alkaline Phosphatase 103, Troponin I < 0.01, C-Reactive Protein 54.1 H, NT-Pro-B Natriuret Pep 4600 H, Total Protein 7.1, Albumin 4.0, Globulin 3.1, Albumin/Globulin Ratio 1.3, Lipase 59, Procalcitonin 0.077, TSH 1.56, Thyroxine (T4) 8.4, HCV Ab DOTTIE w/Rflx PCR Qn Negative 11/10/24 19:25: SARS-CoV-2 (PCR) Detected A, Influenza A Untype (PCR) Not detected, Influenza Type B (PCR) Not detected 11/10/24 21:25: Lactate 1.6 11/10/24 22:00: Troponin I < 0.01 11/11/24 00:10: Troponin I < 0.01, Procalcitonin 0.082 11/11/24 05:39: WBC 9.1 D, RBC 4.38, Hgb 13.3 D, Hct 40.7, MCV 92.9, MCH 30.4, MCHC 32.7, RDW 14.0, Plt Count 207, MPV 11.4 H, Neut % (Auto) 68.8, Lymph % (Auto) 16.9, [place] % (Auto) 13.3 H, Eos % (Auto) 0.0 L, Baso % (Auto) 0.4, Neut # (Auto) 6.2, Lymph # (Auto) 1.5, [place] # (Auto) 1.2 H, Eos # (Auto) 0.0, Baso # (Auto) 0.0, Sodium 139, Potassium 3.6, Chloride 105, Carbon Dioxide 29, Anion Gap 8.6, BUN 15, Creatinine 1.00, Estimated Creat Clear 83, Estimated GFR 54 L, Est GFR ( Amer) 65, Glucose 101 H D, Calcium 8.4, HIV Ag/Ab Combo Qual Negative I & O for Labs for Last 24 Hours: Intake & Output 11/08/24 11/09/24 11/10/24 11/11/24 23:59 23:59 23:59 23:59 Intake Total 880 / 880 Output Total 0 / 0 Balance 880 / 880 Weight 107.955 kg 105.143 kg Constitutional: Present no acute distress, obese, chronically ill appearing and cooperative Head: Present atraumatic and normocephalic ENT: Present normal exam Neck: Present normal inspection Respiratory: Present normal respiratory effort; Absent rhonchi, wheezes or crackles Comment:: Rhonchorous cough Cardiac: Present Reg Rate and Rhythm Comment:: Rate controlled on telemetry during exam GI: Present soft and normal bowel sounds; Absent distention or tenderness Extremities: Present normal inspection and full ROM Skin: Present intact; Absent erythema Neuro: Present Grossly Intact, alert, awake, oriented x 3 and moves all extremities Assessment and Plan *Assessment and plan (1) COVID-19: Status: Acute Category: Medical Code(s): U07.1 - COVID-19 (2) Heart failure with mildly reduced ejection fraction (HFmrEF): Status: Acute Category: Medical Code(s): I50.22 - Chronic systolic (congestive) heart failure (3) Atrial fibrillation with RVR: Status: Acute Category: Medical Code(s): I48.91 - Unspecified atrial fibrillation (4) Pleural effusion on right: Status: Acute Category: Medical Code(s): J90 - Pleural effusion, not elsewhere classified (5) Lung mass: Status: Resolved Category: Medical Code(s): R91.8 - Other nonspecific abnormal finding of lung field (6) Obesity (BMI 30-39.9): Status: Chronic Category: Medical Code(s): E66.9 - Obesity, unspecified Plan Ms. John is a 74-year-old female who presented with shortness of breath and cough. Found to have COVID-19. Admitted for treatment. Developed A-fib with RVR overnight. Responded to her home medications. Echo obtained today showing heart failure with mildly reduced ejection fraction and diastolic dysfunction with volume overload. Will consult cardiology to assist with care. Continues to require inpatient management. Problems addressed as follows: # HFmrEF, new onset Diastolic dysfunction Atrial fibrillation Hypertension -On diltiazem at home, will discontinue due to contraindication with heart failure. Increase metoprolol tartrate to 200 mg twice daily -Continue Xarelto 20 mg daily -Continue losartan per home regimen - Given presence of effusions and BNP of 4900, will administer 1 mg Bumex once today. Monitor for some improvement with diuresis. -Echo showed new finding of mildly reduced ejection fraction at 45% and elevated RVSP of 40-45 -Cardiology consulted to assist with care #COVID-19 Currently oxygenating well on room air. Significant cough causing bronchospasms. Continue promethazine with codeine cough syrup Goal sats greater 90%, was on 2 L pounds satting high 90s. Was placed on for comfort not out of hypoxia. Room air sats greater than 90% Will defer Decadron at this time given patient is on room air. Holding on remdesivir. Suspect respiratory symptoms secondary to effusion Pulmonary toilet Bronchodilators as needed Continue azithromycin and Rocephin for possible superimposed pneumonia. Patient reports productive sputum. Procalcitonin low at 0.082 #Pleural effusion, right Reports history of this. Does not endorse any further workup in the outpatient setting. Concern for secondary to heart failure as above. Has history of lung mass but was not malignant. Status post lobectomy with resolution. Never needed chemotherapy or radiation. Continue Lexapro 10 mg daily for mood Continue Lipitor 80 mg nightly for cholesterol Continue famotidine 20 mg twice daily per home regimen for GERD Continue temazepam 15 mg nightly for sleep Obesity complicates all aspects of her care Full code Xarelto Cardiac diet
--- NOTE | 2024-11-11 14:38 | ECG_ITS ---
APPROVED REPORT Exam: Resting ECG HR:81 bpm ECG Measurements Heart Rate 81 AXES QRSd 85 QRS 8 QT 415 T 63 QTc 452 Conclusion ATRIAL FLUTTER/TACHYCARDIA NONSPECIFIC ST & T-WAVE ABNORMALITY ABNORMAL RHYTHM ECG UNCONFIRMED REPORT Electronically signed by : Pablo Dailey MD 11/12/2024 20:06:39
--- NOTE | 2024-11-11 14:42 | EXP.CARD.CON ---
History of Present Illness History of Present Illness Consult date: 11/11/24 Requesting physician: Javier Keen Chief complaint: soa, headache, vomiting History of present illness: 74-year-old white female with past medical history of atrial fibrillation on Xarelto, hypertension, history of malignant neoplasm of the lung status post resection who presented to emergency department with complaints of headache, vomiting, shortness of breath. Upon presentation to emergency department EKG shows ectopic atrial tachycardia with a first-degree AV block at a rate of 121. Patient tested positive for COVID-19 infection. BNP was over 4000. CT chest with was negative for PE but notable for mild to moderate stable pleural effusions. Patient was admitted for covid infection and tachycardia. Patient reports she is feeling better now, remains afib at a rate of 80. [facility] Disclaimer: The information contained in this section may have been updated after the patient was seen, as this information can be updated by other users. 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 caffeine: Yes Have you lived/traveled outside [place] in past 30 days?: No Contact w/someone who lives/traveled outside US past 30 days?: No Exposure to someone with infectious disease in past 14 days?: No Do you have a fever (greater than 100.4 F or 38 C)?: No Have you tested positive for COVID-19: No Exposed to someone with COVID-19 in past 14 days?: No Do you have a sore throat?: No Do you have a cough?: No Do you have any weakness?: No Are you experiencing any nausea/vomitting?: No Do you have any diarrhea?: No Are you experiencing any unusual bleeding?: No Do you have any muscle aches/pain?: No Do you have any abdominal pain?: No Are you experiencing loss of taste or smell?: No Review of Systems Review of Systems Review of systems:: pertinent systems reviewed and negative unless documented below Constitutional Comments: headache, vomiting, soa Exam Data for Last 24 hours Vital signs and Labs for Last 24 Hours: Temp Pulse Resp BP Pulse Ox O2 Del Method O2 Flow Rate 98.0 F 71 18 156/97 H 95 Room Air 2 11/11/24 12:00 11/11/24 12:00 11/11/24 12:00 11/11/24 12:00 11/11/24 12:00 11/11/24 13:00 11/11/24 12:00 Laboratory Results - last 24 hr 11/10/24 19:20: WBC 12.6 H, RBC 4.96, Hgb 15.1, Hct 45.5, MCV 91.7, MCH 30.4, MCHC 33.2, RDW 14.0, Plt Count 240, MPV 11.6 H, Neut % (Auto) 74.9, Lymph % (Auto) 15.7, Hanson % (Auto) 8.4, Eos % (Auto) 0.1, Baso % (Auto) 0.4, Neut # (Auto) 9.4 H, Lymph # (Auto) 2.0, Hanson # (Auto) 1.1 H, Eos # (Auto) 0.0, Baso # (Auto) 0.1, PT 13.2 H, INR 1.20 H, APTT 36.5 H, Sodium 136, Potassium 4.1, Chloride 105, Carbon Dioxide 25, Anion Gap 10.1, BUN 15, Creatinine 1.00, Estimated Creat Clear 83, Estimated GFR 54 L, Est GFR ( Amer) 65, Glucose 184 H, Calcium 9.3, Magnesium 1.8, Total Bilirubin 0.7, AST 38 H, ALT 37, Alkaline Phosphatase 103, Troponin I < 0.01, C-Reactive Protein 54.1 H, NT-Pro-B Natriuret Pep 4600 H, Total Protein 7.1, Albumin 4.0, Globulin 3.1, Albumin/Globulin Ratio 1.3, Lipase 59, Procalcitonin 0.077, TSH 1.56, Thyroxine (T4) 8.4, HCV Ab DOTTIE w/Rflx PCR Qn Negative 11/10/24 19:25: SARS-CoV-2 (PCR) Detected A, Influenza A Untype (PCR) Not detected, Influenza Type B (PCR) Not detected 11/10/24 21:25: Lactate 1.6 11/10/24 22:00: Troponin I < 0.01 11/11/24 00:10: Troponin I < 0.01, Procalcitonin 0.082 11/11/24 05:39: WBC 9.1 D, RBC 4.38, Hgb 13.3 D, Hct 40.7, MCV 92.9, MCH 30.4, MCHC 32.7, RDW 14.0, Plt Count 207, MPV 11.4 H, Neut % (Auto) 68.8, Lymph % (Auto) 16.9, Hanson % (Auto) 13.3 H, Eos % (Auto) 0.0 L, Baso % (Auto) 0.4, Neut # (Auto) 6.2, Lymph # (Auto) 1.5, Hanson # (Auto) 1.2 H, Eos # (Auto) 0.0, Baso # (Auto) 0.0, Sodium 139, Potassium 3.6, Chloride 105, Carbon Dioxide 29, Anion Gap 8.6, BUN 15, Creatinine 1.00, Estimated Creat Clear 83, Estimated GFR 54 L, Est GFR ( Amer) 65, Glucose 101 H D, Calcium 8.4, HIV Ag/Ab Combo Qual Negative I & O for Last 24 hours: Intake & Output 11/08/24 11/09/24 11/10/24 11/11/24 23:59 23:59 23:59 23:59 Intake Total 880 / 880 Output Total 0 / 0 Balance 880 / 880 Weight 238 lb 231 lb 12.8 oz Constitutional Constitutional: no acute distress *Routine Respiratory Exam Respiratory: Present CTA bilaterally and symmetric chest movement *Routine Cardiovascular Exam Cardiovascular: Present RRR, Normal S1, Normal S2, tachycardia and irregular rhythm Comments: afib 80 *Routine Abdominal Exam Abdominal: Present soft and normoactive bowel sounds; Absent tenderness *Routine Extremities Exam Extremities: Present full ROM and normal capillary refill; Absent edema *Routine Skin Exam Skin: Present intact, dry and warm Detailed Neck Exam: Thyroids Thyroid: Absent bruit Meds Home Medications and Allergies Home Medications ?Medication ?Instructions ?Recorded ?Confirmed ?Type ascorbic acid (vitamin C) 1,000 mg 1,000 mg PO DAILY vitamin 03/21/18 11/11/24 History tablet atorvastatin 80 mg tablet 80 mg PO HS Cholesterol 03/21/18 11/11/24 History cyanocobalamin (vitamin B-12) 500 500 mcg PO DAILY 04/01/20 11/11/24 History mcg tablet (Vitamin B-12) metoprolol tartrate 100 mg tablet 100 mg PO BID 04/01/20 11/11/24 History rivaroxaban 20 mg tablet (Xarelto) 20 mg PO QPM 04/01/20 11/11/24 History azelastine 205.5 mcg (0.15 %) 1 spray intranasal BID PRN drainage 04/25/22 11/11/24 History nasal spray diltiazem HCl 240 mg 240 mg PO DAILY 04/25/22 11/11/24 History capsule,extended release 24 hr temazepam 15 mg capsule 15 mg PO HS 04/25/22 11/11/24 History hydralazine 25 mg tablet 25 mg PO BID 11/10/24 11/11/24 History hydroxyzine HCl 25 mg tablet 25 mg PO BID 11/10/24 11/11/24 History escitalopram oxalate 10 mg tablet 10 mg PO DAILY 11/11/24 11/11/24 History famotidine 20 mg tablet 20 mg PO BID 11/11/24 11/11/24 History losartan 100 mg tablet 100 mg PO DAILY 11/11/24 11/11/24 History New Prescriptions to Start Prescriptions: Allergies Allergy/AdvReac Type Severity Reaction Status Date / Time No Known Allergies Allergy Verified 04/25/22 10:19 Assessment and Plan *Assessment and plan (1) Heart failure with mildly reduced ejection fraction (HFmrEF): Status: Acute Category: Medical Code(s): I50.22 - Chronic systolic (congestive) heart failure (2) Atrial fibrillation with RVR: Status: Acute Category: Medical Code(s): I48.91 - Unspecified atrial fibrillation (3) COVID-19: Status: Acute Category: Medical Code(s): U07.1 - COVID-19 (4) Hypertension: Status: Acute Qualifiers: Hypertension type: essential hypertension Qualified Code(s): I10 - Essential (primary) hypertension Category: Medical Code(s): I10 - Essential (primary) hypertension Plan Acute HFrEF-45% Covid 19 infection Afib RVR Serial trop negative EKG is now Afib rate controlled in the 80s. Continue metoprolol tartrate 200 mg p.o. twice daily and Xarelto 20 mg p.o. daily Continue irbesartan 150 mg p.o. daily Tomorrow switch bumex to Lasix 40mg po daily and add aldactone 25mg po daily Consider Jardiance prior to discharge home Recommend outpatient ischemic evaluation for reduced EF. Hypertension Continue irbesartan 150 mg p.o. daily and increased dose of metoprolol tartrate to 100 mg p.o. twice daily Stable right pleural effusion History of malignant neoplasm of the lung Defer to primary service CV summary 11/11/2024: Patient is CV stable. Remains in A-fib but rate controlled in the 80s. Continue meds as listed below. Please have patient follow-up in cardiology clinic in 1 week for reevaluation. Needs outpatient ischemic evaluation. Cardiac meds Metoprolol tartrate 200 mg p.o. twice daily Xarelto 20 mg p.o. daily Irbesartan 150 mg p.o. daily Aldactone 25 mg p.o. daily- start 11/12 Lasix 40 mg p.o. daily- start 11/12 Bumex today- stop tomorrow Consider Jardiance prior to discharge
[2024-11-11] MEDS: RIVAROXABAN 10MG TABLET 20 MG PO (17:32)
--- NOTE | 2024-11-11 18:28 | PC.NURSE ---
PT HAS DONE WELL TODAY. SHE HAS BEEN ON RA TO 2L NASAL CANNULA. CURRENTLY ON ROOM AIR. DESATS MOSTLY WHILE ASLEEP. LUNGS DIMINISHED. NON-PRODUCTIVE COUGH. VSS. SHE HAS BEEN TACHY TODAY OFF AND ON. SHE HAS BEEN A-FIB TO A-FLUTTER ON TELE.
--- NOTE | 2024-11-11 20:26 | PC.NURSE ---
told nurse about elevated v/s
[2024-11-11] MEDS: METOPROLOL TARTRATE 50MG TABLET 200 MG PO (20:33)
[2024-11-11] MEDS: TEMAZEPAM 15MG CAPSULE 15 MG PO (20:33)
[2024-11-12] VITALS: BP 133/78; PULSE 80; PULSE 81; RESP 21; TEMP 36.6; O2SAT 99
[2024-11-12] MEDS: AZITHROMYCIN 500 MG in 0.9 % SODIUM CHLORIDE 250 ML 250 MG IV (00:36)
[2024-11-12 04:00] VITALS: BP 129/79; PULSE 110; PULSE 79; RESP 18; TEMP 36.6; O2SAT 99; BMI 38.1
[2024-11-12 06:15] LABS: Basophils # 0.1 K/mm3 (0-0.2); Basophils % 0.9 % (0.1-2.0); Eosinophils # 0.1 K/mm3 (0.0-0.4); Eosinophils % 1.5 % (0.1-12.0); Hemoglobin 13.8 g/dL (12.2-16.2); Lymphocytes # 1.7 K/mm3 (0.7-4.5); Lymphocytes % 31.5 % (10-50); Mean Corpuscular HGB Conc 32.9 g/dL (31.8-35.4); Mean Corpuscular Hemoglobin 30.5 pg (27.0-31.2); Mean Corpuscular Volume 92.7 fl (81-99); Mean Platelet Volume 11.6 fl (7.4-10.4); Monocytes # 0.9 K/mm3 (0.1-1.0); Monocytes % 16.8 % (1.7-9.3); Neutrophils # 2.6 K/mm3 (1.8-7.8); Neutrophils % 48.4 % (37.0-80.0); Platelet Count 211 K/mm3 (142-424); Red Blood Count 4.53 M/mm3 (4.20-5.40); Red Cell Distribution Width 13.9 % (11.5-17.5); White Blood Count 5.4 K/mm3 (4.8-10.8)
[2024-11-12 06:35] LABS: Alanine Aminotransferase 25 U/L (12-78); Albumin Level 3.1 g/dl (3.5-5.0); Albumin/Globulin Ratio 1.1 (1.1-1.8); Alkaline Phosphatase 79 U/L (38-126); Aspartate Amino Transferase 36 U/L (14-36); Bilirubin,Total 0.3 mg/dl (0.2-1.3); Blood Urea Nitrogen 24 mg/dl (7-17); Calcium 8.3 mg/dl (8.4-10.2); Carbon Dioxide 33 mmol/L (22.0-30.0); Chloride 103 mmol/L (98-107); Creatinine Clearance Estimated 65 mL/min (50-200); Estimated Glomerular Filt Rate 40 ml/min (>60); GFR (African American) 48 ML/MIN (>60); Globulin 2.8 g/dL (1.3-3.2); Glucose 90 mg/dl (74-100); Magnesium 2.2 mg/dl (1.6-2.3); Sodium 140 mmol/L (136-145); Total Protein,Serum 5.9 g/dl (6.3-8.2)
[2024-11-12 07:35] LABS: Anion Gap 7.5 mEq/L (5-15); Potassium 3.5 mmoL/L (3.5-5.1)
[2024-11-12 08:00] VITALS: BP 167/98; PULSE 70; PULSE 80; RESP 16; TEMP 36.6; O2SAT 100
[2024-11-12] MEDS: SPIRONOLACTONE 25MG TABLET 25 MG PO (08:56)
[2024-11-12] MEDS: FAMOTIDINE 20MG TABLET 20 MG PO (08:57)
[2024-11-12] MEDS: METOPROLOL TARTRATE 50MG TABLET 200 MG PO (08:57)
[2024-11-12] MEDS: IRBESARTAN 150MG TAB 150 MG PO (08:57)
[2024-11-12] MEDS: HYDRALAZINE HCL 25MG TABLET 25 MG PO (08:57)
[2024-11-12] MEDS: CITALOPRAM 20MG TABLET 20 MG PO (08:57)
[2024-11-12] MEDS: FUROSEMIDE 40 MG TABLET PO (08:57)
[2024-11-12 09:00] VITALS: O2SAT 93
[2024-11-12 11:47] VITALS: O2SAT 96
--- NOTE | 2024-11-12 11:47 | PC.NURSE ---
pt is 96% on room air while at rest
[2024-11-12 12:00] VITALS: BP 126/81; PULSE 80; PULSE 81; RESP 18; TEMP 36.9; O2SAT 95
--- NOTE | 2024-11-12 13:05 | P.DS_ITS ---
General Admission date:: 11/10/24 Discharge date: 11/12/24 HPI HPI HPI: This is a 74-year-old female with a past medical history of atrial fibrillation on Xarelto, hypertension, history of malignant neoplasm of the lung status post resection who presents emergency department today with complaints of headache, vomiting and shortness of breath. She reports cough, congestion, headache, and vomiting that started yesterday. States that she initially started feeling poorly on Monday but symptoms came to head yesterday. Was unable to keep her heart rate and blood pressure medications down today. Had a high blood pressure at home systolic in the 170s. Also noted to have heart rate in the 120s. States that she has atrial fibrillation, followed by [facility]. States that she typically has a hard time keeping her heart rate under control. Has been on diltiazem and metoprolol concurrently for this problem. Emergency department workup notable for hypertension on arrival with systolic blood pressure in the 170s with a heart rate in the 120s. EKG with atrial tachycardia with first-degree block. Workup in the emergency department notable for COVID-19 infection. Labs of 312. BNP of 4600. Chest CT with out evidence of PE but notable for mild to moderate stable pleural effusion. She was medicated in the emergency department with IV and oral metoprolol with not much improvement in her heart rate. Given her continued cough and congestion with increased heart rate, it was felt she would benefit from observation. She is admitted to the hospital service at this time Hospital Course Hospital Course Hospital Course: Ms. John is a 74-year-old female who presented with shortness of breath and cough. Found to have COVID-19. Admitted for treatment. Developed A-fib with RVR overnight the first night of admission. Responded to home medication. Echo obtained showing heart failure with mildly reduced ejection fraction. Cardiology consulted to assist with care. Gradually able to wean oxygen. Stable to discharge home with further management as an outpatient. Problems addressed as follows: # HFmrEF, new onset Diastolic dysfunction Atrial fibrillation Hypertension -On diltiazem at home. Developed Afib with RVR after admission. Improved with resumption of her home meds.echo was obtained however showing mildly reduced EF at 45% and elevated RVSP of 40-45. Due to reduced ejection fraction, diltiazem was discontinued. Metoprolol increased to metoprolol to tartrate to 100 mg twice daily. Continue Xarelto 20 mg daily and losartan per home regimen. Given presence of effusions and BNP of 4900, initiated on diuretics with Bumex 1 mg once. Had good response. Theology evaluated patient, recommended transitioning to Lasix and spironolactone combo for fluid management. Plan to follow-up with cardiology as an outpatient. Overall doing better with adjustments of medications. Rate controled at discharge. #COVID-19 Initially requiring 2 L oxygen. Showed improvement, able to wean to room air. Still having significant cough however. Continue cough medicine with promethazine and codeine. Held on steroids and remdesivir given her significant improvement and concurrent CHF exacerbation as above being a culprit in her shortness of breath. Continue aggressive pulmonary toilet with incentive spirometry. Encouraged ambulation. Bronchodilators as needed. Initially on azithromycin and Rocephin. Transition to cefdinir to complete empiric 5-day course of antibiotics. Procalcitonin low at 0.082. Suspect respiratory symptoms mainly from COVID. Stable on room air at discharge. White count normal at 5.4. #Pleural effusion, right Reports history of this. Does not endorse any further workup in the outpatient setting. Concern for secondary to heart failure as above. Has history of lung mass but was not malignant. Status post lobectomy with resolution. Never needed chemotherapy or radiation. Monitor for improvement in pleural effusion as an outpatient. Would benefit from repeat imaging in 2 to 4 weeks. Defer to outpatient providers. Continue Lexapro 10 mg daily for mood Continue Lipitor 80 mg nightly for cholesterol Continue famotidine 20 mg twice daily per home regimen for GERD Continue temazepam 15 mg nightly for sleep Obesity complicates all aspects of her care Total time spent on discharge 32 minutes in counseling, documentation, chart review, and direct care with patient. Exam Data for Last 24 hours Vital signs and Labs for Last 24 Hours: Temp Pulse Resp BP Pulse Ox O2 Del Method O2 Flow Rate 98.4 F 81 18 126/81 95 Nasal Cannula 2 11/12/24 12:00 11/12/24 12:00 11/12/24 12:00 11/12/24 12:00 11/12/24 12:00 11/12/24 12:00 11/12/24 12:00 Laboratory Results - last 24 hr 11/12/24 05:50: WBC 5.4 D, RBC 4.53, Hgb 13.8, Hct 42.0, MCV 92.7, MCH 30.5, MCHC 32.9, RDW 13.9, Plt Count 211, MPV 11.6 H, Neut % (Auto) 48.4, Lymph % (Auto) 31.5, Parmer % (Auto) 16.8 H, Eos % (Auto) 1.5, Baso % (Auto) 0.9, Neut # (Auto) 2.6, Lymph # (Auto) 1.7, Parmer # (Auto) 0.9, Eos # (Auto) 0.1, Baso # (Auto) 0.1, Sodium 140, Potassium 3.5, Chloride 103, Carbon Dioxide 33 H, Anion Gap 7.5, BUN 24 H D, Creatinine 1.30 H D, Estimated Creat Clear 65, Estimated GFR 40 L, Est GFR ( Amer) 48 L D, Glucose 90, Calcium 8.3 L, Magnesium 2.2 D, Total Bilirubin 0.3, AST 36, ALT 25 D, Alkaline Phosphatase 79, Total Protein 5.9 L, Albumin 3.1 L D, Globulin 2.8, Albumin/Globulin Ratio 1.1 I & O for Last 24 hours: Intake & Output 11/09/24 11/10/24 11/11/24 11/12/24 23:59 23:59 23:59 23:59 Intake Total 1240 / 1240 360 / 360 Output Total 300 / 300 200 / 200 Balance 940 / 940 160 / 160 Weight 107.955 kg 105.143 kg 110.132 kg Microbiology Reports for the Last 24 Hours: Microbiology 11/10/24 20:10 Blood Blood Culture - Preliminary NO GROWTH AFTER 24 HOURS 11/10/24 20:10 Blood Blood Culture - Preliminary NO GROWTH AFTER 24 HOURS Constitutional Constitutional: no acute distress, obese and cooperative *Routine HEENT Exam Head: Present normocephalic Eye: Present EOMI and PERRL ENT: Present mucous membranes moist *Routine Neck Exam Neck: Present supple; Absent lymphadenopathy *Routine Respiratory Exam Respiratory: Present rhonchi and normal respiratory effort; Absent wheezes or crackles *Routine Cardiovascular Exam Cardiovascular: Present RRR *Routine Abdominal Exam Abdominal: Present soft and normoactive bowel sounds; Absent tenderness *Routine Rectal Exam Patient deferred: visual exam *Routine Exam Patient deferred: external exam *Routine Extremities Exam Extremities: Absent cyanosis, clubbing or edema *Routine Skin Exam Skin: Present warm; Absent rash *Routine Neurological Exam Neurological: Present alert, oriented X3 and moving all extremities; Absent al tered mental status Results Data Completed and Pending Labs on day of discharge: Labs from last 24 hours 11/12/24 05:50 WBC 5.4 D RBC 4.53 Hgb 13.8 Hct 42.0 MCV 92.7 MCH 30.5 MCHC 32.9 RDW 13.9 Plt Count 211 MPV 11.6 H Neut % (Auto) 48.4 Lymph % (Auto) 31.5 Parmer % (Auto) 16.8 H Eos % (Auto) 1.5 Baso % (Auto) 0.9 Neut # (Auto) 2.6 Lymph # (Auto) 1.7 Parmer # (Auto) 0.9 Eos # (Auto) 0.1 Baso # (Auto) 0.1 Sodium 140 Potassium 3.5 Chloride 103 Carbon Dioxide 33 H Anion Gap 7.5 BUN 24 H D Creatinine 1.30 H D Estimated Creat Clear 65 Estimated GFR 40 L Est GFR ( Amer) 48 L D Glucose 90 Calcium 8.3 L Magnesium 2.2 D Total Bilirubin 0.3 AST 36 ALT 25 D Alkaline Phosphatase 79 Total Protein 5.9 L Albumin 3.1 L D Globulin 2.8 Albumin/Globulin Ratio 1.1 Preliminary micro results at discharge 11/10/24 20:10 Blood Culture - Preliminary Blood NO GROWTH AFTER 24 HOURS 11/10/24 20:10 Blood Culture - Preliminary Blood NO GROWTH AFTER 24 HOURS DS: Diagnosis Discharge Diagnosis (1) Heart failure with mildly reduced ejection fraction (HFmrEF): Status: Acute Code(s): I50.22 - Chronic systolic (congestive) heart failure (2) Atrial fibrillation with RVR: Status: Acute Code(s): I48.91 - Unspecified atrial fibrillation (3) COVID-19: Status: Acute Code(s): U07.1 - COVID-19 (4) Hypertension: Status: Acute Code(s): I10 - Essential (primary) hypertension Qualifiers: Hypertension type: essential hypertension Qualified Code(s): I10 - Essential (primary) hypertension Meds Home Medications and Allergies Home Medications ?Medication ?Instructions ?Recorded ?Confirmed ?Type ascorbic acid (vitamin C) 1,000 mg 1,000 mg PO DAILY vitamin 03/21/18 11/11/24 History tablet atorvastatin 80 mg tablet 80 mg PO HS Cholesterol 03/21/18 11/11/24 History cyanocobalamin (vitamin B-12) 500 500 mcg PO DAILY 04/01/20 11/11/24 History mcg tablet (Vitamin B-12) rivaroxaban 20 mg tablet (Xarelto) 20 mg PO QPM 04/01/20 11/11/24 History azelastine 205.5 mcg (0.15 %) 1 spray intranasal BID PRN drainage 04/25/22 11/11/24 History nasal spray temazepam 15 mg capsule 15 mg PO HS 04/25/22 11/11/24 History hydralazine 25 mg tablet 25 mg PO BID 11/10/24 11/11/24 History hydroxyzine HCl 25 mg tablet 25 mg PO BID 11/10/24 11/11/24 History escitalopram oxalate 10 mg tablet 10 mg PO DAILY 11/11/24 11/11/24 History famotidine 20 mg tablet 20 mg PO BID 11/11/24 11/11/24 History losartan 100 mg tablet 100 mg PO DAILY 11/11/24 11/11/24 History azithromycin 500 mg tablet 500 mg PO DAILY 3 days #3 tabs 11/12/24 Rx cefdinir 300 mg capsule 300 mg PO BID 3 days #6 caps 11/12/24 Rx furosemide 40 mg tablet 40 mg PO DAILY 30 days #30 tabs 11/12/24 Rx metoprolol tartrate 100 mg tablet 200 mg (2 x 100 mg) PO BID 30 days 11/12/24 Rx #120 tabs promethazine 6.25 mg-codeine 10 5 ml PO Q6HP PRN Cough #118 mL 11/12/24 Rx mg/5 mL syrup spironolactone 25 mg tablet 25 mg PO DAILY 30 days #30 tabs 11/12/24 Rx New Prescriptions to Start Prescriptions: Javier Moise cefdinir Leonila,Javier furosemide Javier Keen metoprolol tartrate Javier Keen promethazine-codeine Leonila,aJvier spironolactone Javier Keen Allergies Allergy/AdvReac Type Severity Reaction Status Date / Time No Known Allergies Allergy Verified 04/25/22 10:19 Discharge Plan Disposition Patient Disposition: Home, Self-Care Condition: Fair Discharge Order Discharge Orders: Discharge Order (Routine); Ordered 11/12/24 Ordered By: Javier Keen Follow up Plan Follow up with: Orquidea Lindsey APRN [Nurse Practitioner] - 11/27/24 10:30 am Melissa Morrison APRN [Primary Care Provider] - 11/19/24 11:30 am Prescriptions/Medication Reconciliation: New furosemide 40 mg Tablet 40 mg PO DAILY 30 Days Qty: 30 0RF promethazine-codeine 6.25-10 mg/5 mL Syrup 5 ml PO Q6HP PRN (Reason: Cough) Qty: 118 0RF spironolactone 25 mg Tablet 25 mg PO DAILY 30 Days Qty: 30 0RF cefdinir 300 mg capsule 300 mg PO BID 3 Days Qty: 6 0RF azithromycin 500 mg tablet 500 mg PO DAILY 3 Days Qty: 3 0RF Continued cyanocobalamin (vitamin B-12) [Vitamin B-12] 500 mcg tablet 500 mcg PO DAILY Xarelto 20 mg tablet 20 mg PO QPM Rx Instructions: must administer with evening meal azelastine 205.5 mcg (0.15 %) spray,non-aerosol 1 spray NS BID PRN (Reason: drainage) temazepam 15 mg capsule 15 mg PO HS atorvastatin 80 MG tablet 80 mg PO HS ascorbic acid (vitamin C) 1,000 MG tablet 1,000 mg PO DAILY hydralazine 25 mg tablet 25 mg PO BID hydroxyzine HCl 25 mg tablet 25 mg PO BID famotidine 20 mg tablet 20 mg PO BID losartan 100 mg tablet 100 mg PO DAILY escitalopram oxalate 10 mg tablet 10 mg PO DAILY Changed metoprolol tartrate 100 mg tablet 200 mg PO BID 30 Days Qty: 120 0RF Discontinued diltiazem HCl 240 mg capsule,extended release 24hr 240 mg PO DAILY Problem Reconciliation Problems Reviewed?: Yes Patient Discharge Instructions ACTIVITY: Continue current activity DIET: continue same diet Patient Instructions: Atrial Fibrillation, DI for Heart Failure, DI for Atrial Fibrillation, DI for COVID-19 (Suspected or Confirmed ) Print Language: Citizen Of [place] Providers Primary Care Provider: Melissa Morrison Admit Provider: Javier Keen Attending Provider: Javier Keen
[2024-11-12] MEDS: PROMETHAZINE W/CODEINE 6.25MG/10MG 5ML UDC 5 ML PO (13:26)
--- NOTE | 2024-11-12 13:50 | HMH.PHAINT1 ---
Pharmacy Intervention Comments: COUNSELED PATIENT ON NEW MEDICATIONS PRIOR TO DISCHARGE. PATIENT VERBALIZED UNDERSTANDING.
--- NOTE | 2024-11-13 11:31 | SW/DCPLANNER ---
Spoke with patient on the phone. Patient stated that she is doing alright. Patient stated that she is aware of her upcoming appointments. Patient stated that she was able to get her medicine [facility]. Patient stated that she has no concerns or questions at this time. Jose De Jesus Jarquin
== END 2024-11-12 14:22 | disposition home or self-care (01) | DRG 177 ==
LOC: ER 19:59 → 2ND 22:43
PROVIDERS: Nurse Practitioner Acute Care; Admitting Provider Internal Medicine Adolescent Medicine; Emergency Provider Emergency Medicine; PCP Nurse Practitioner Family; Visit Provider Internal Medicine Adolescent Medicine
DX: U07.1 COVID-19 (principal); I50.21 Acute systolic (congestive) heart failure; I48.20 Chronic atrial fibrillation, unspecified; I11.0 Hypertensive heart disease with heart failure; E66.9 Obesity, unspecified; Z68.38 Body mass index [BMI] 38.0-38.9, adult; Z79.02 Long term (current) use of antithrombotics/antiplatelets; Z79.82 Long term (current) use of aspirin; Z79.01 Long term (current) use of anticoagulants; Z86.73 Personal history of transient ischemic attack (TIA), and cerebral infarction without residual deficits; Z98.890 Other specified postprocedural states
CPT/HCPCS: 36415; 71046; 71275; 80048; 80053; 83605; 83690; 83735; 83880; 84145; 84436; 84443; 84484; 85025; 85610; 85730; 86140; 86803; 87040; 87389; 87636; 93005; 93306; 99291; J0131; J0456; J0696; J1885; J1939; J2405; J3475; J7050; J7120; Q9967

== ENCOUNTER 2024-11-24 06:13 | Inpatient (IN) | payer MEDICARE, BC, SELFPAY ==
[2024-11-24] VITALS (42 sets, daily range): BP systolic 102–147; BP diastolic 64–104; PULSE 105–127; RESP 12–27; TEMP 36.8–37.7; O2SAT 89–96; BMI 37.4
--- NOTE | 2024-11-24 06:17 | ECG_ITS ---
APPROVED REPORT Exam: Resting ECG HR:126 bpm ECG Measurements Heart Rate 126 AXES AL 161 P 229 QRSd 92 QRS 53 QT 381 T 28 QTc 455 Conclusion Atrial fibrillation with RVR MODERATE T-WAVE ABNORMALITY, CONSIDER ANTEROLATERAL ISCHEMIA [-0.1+ mV T-WAVE IN V3-V6] MODERATE T-WAVE ABNORMALITY, CONSIDER INFERIOR ISCHEMIA [-0.1+ mV T-WAVE IN II/aVF] No STEMI Electronically signed by : BRENTON ZAVALA, 11/25/2024 07:01:37
--- NOTE | 2024-11-24 06:22 | CT_ITS ---
PROCEDURE INFORMATION: Exam: CTA Chest With Contrast Exam date and time: 11/24/2024 7:04 AM Age: 74 years old Clinical indication: Cough and shortness of breath; Additional info: Cough tachy, h/o lung CA TECHNIQUE: Imaging protocol: Computed tomographic angiography of the chest with contrast. Exam focused on the arteries. 3D rendering (Not supervised by radiologist): MIP and/or 3D reconstructed images were created by the technologist. Radiation optimization: All CT scans at this facility use at least one of these dose optimization techniques: automated exposure control; mA and/or kV adjustment per patient size (includes targeted exams where dose is matched to clinical indication); or iterative reconstruction. Contrast material: ISOVUE; Contrast volume: 80 ml; Contrast route: INTRAVENOUS (IV); COMPARISON: 1. CT ANGIO CHEST PE PROTOCOL 11/10/2024 8:[address] CHEST WO/W CON 04/03/2024 9:27 AM FINDINGS: Pulmonary arteries: No vascular intraluminal filling defects to suggest pulmonary embolism. Aorta: Ectatic, tortuous and calcified thoracic aorta. No aortic dissection. Lungs: Previous right middle and lower lobectomy with postsurgical changes and right hemithorax volume loss. Left hilar and left lower lobe calcified granulomas and mild left basilar atelectasis. Pleural spaces: Chronic mild loculated right pleural effusion. Heart: Chronic rightward shift of heart and mediastinal structures. Heart size is mildly enlarged. Coronary arteries: Coronary artery calcifications. Lymph nodes: 2.6 x 1.7 cm right paratracheal lymph node, previously 2.2 x 1.4 cm. Additional small calcified and noncalcified mediastinal lymph nodes. Bones/joints: Old lateral right 5th and 6th rib fractures. Thoracic kyphosis, spondylosis and degenerative bony changes. Soft tissues: No significant soft tissue abnormalities. Other findings: Abdomen and pelvis findings reported separately. IMPRESSION: 1. No evidence of pulmonary embolism or aortic dissection. 2. Previous right middle and lower lobectomy with postsurgical changes and right hemithorax volume loss. 3. Chronic mild loculated right pleural effusion. 4. Mild cardiomegaly. 5. 2.6 x 1.7 cm right paratracheal lymph node, previously 2.2 x 1.4 cm. 6. Atherosclerotic vascular disease including coronary artery disease.
--- NOTE | 2024-11-24 06:25 | ED_ITS ---
Discharge Plan Disposition Patient Disposition: Admitted Chief Complaint: Nausea/Vomiting/Diarrhea Clinical Impressions Clinical Impression: Atrial fibrillation with RVR, CHF exacerbation Discharge ED Provider: Michael Rachel General Adult HPI <Mone Sandoval MD - Last Filed: 11/24/24 06:56> General Chief complaint: Nausea/Vomiting/Diarrhea Stated complaint: [place],wheezing,cough,vomiting,fast HR Time Seen by Provider: 11/24/24 06:17 History of Present Illness HPI narrative: 74-year-old female with known atrial fibrillation, previous lung cancer with partial lung removal, recent COVID presents to the ER for concerns of cough, nausea, vomiting, generalized malaise. Patient reports she recently recovered from COVID. Patient and family report that while she was in the hospital she had atrial fibrillation with fast heart rate. She remained tachycardic in the 120s. Review of discharge summary from that admission demonstrates she had heart failure with mildly reduced ejection fraction as well. She was able to be weaned from oxygen and discharged. While admitted they had increased her metoprolol and started the patient on Lasix and spironolactone. She was transitioned to cefdinir and azithromycin at the time of discharge as well. Patient reports she had completely recovered and her daughter at bedside reports she had had multiple good days feeling normal, in the last 24 hours she developed cough, congestion, generalized malaise, and tonight she started having nonbloody, nonbilious emesis. She is not having diarrhea, she denies any abdominal pain, no dysuria or hematuria. Daughter reports she checked vitals at home and patient's heart rate was fast again so she brought her to the ER. Patient reports she took Phenergan approximately 4 hours prior to arrival but is still having the described symptoms including having emesis since that time. She denies chest pain or difficulty breathing. She has had mild headache but no numbness, tingling, or weakness. Headache was not sudden onset. Patient states she thinks she may have flu. Related Data Home Medications ?Medication ?Instructions ?Recorded ?Confirmed ascorbic acid (vitamin C) 1,000 mg 1,000 mg PO DAILY vitamin 03/21/18 11/11/24 tablet atorvastatin 80 mg tablet 80 mg PO HS Cholesterol 03/21/18 11/11/24 cyanocobalamin (vitamin B-12) 500 500 mcg PO DAILY 04/01/20 11/11/24 mcg tablet (Vitamin B-12) rivaroxaban 20 mg tablet (Xarelto) 20 mg PO QPM 04/01/20 11/11/24 azelastine 205.5 mcg (0.15 %) 1 spray intranasal BID PRN drainage 04/25/22 11/11/24 nasal spray temazepam 15 mg capsule 15 mg PO HS 04/25/22 11/11/24 hydralazine 25 mg tablet 25 mg PO BID 11/10/24 11/11/24 hydroxyzine HCl 25 mg tablet 25 mg PO BID 11/10/24 11/11/24 escitalopram oxalate 10 mg tablet 10 mg PO DAILY 11/11/24 11/11/24 famotidine 20 mg tablet 20 mg PO BID 11/11/24 11/11/24 losartan 100 mg tablet 100 mg PO DAILY 11/11/24 11/11/24 Previous Rx's ?Medication ?Instructions ?Recorded azithromycin 500 mg tablet 500 mg PO DAILY 3 days #3 tabs 11/12/24 cefdinir 300 mg capsule 300 mg PO BID 3 days #6 caps 11/12/24 furosemide 40 mg tablet 40 mg PO DAILY 30 days #30 tabs 11/12/24 metoprolol tartrate 100 mg tablet 200 mg (2 x 100 mg) PO BID 30 days 11/12/24 #120 tabs promethazine 6.25 mg-codeine 10 5 ml PO Q6HP PRN Cough #118 mL 11/12/24 mg/5 mL syrup spironolactone 25 mg tablet 25 mg PO DAILY 30 days #30 tabs 11/12/24 Allergies Allergy/AdvReac Type Severity Reaction Status Date / Time No Known Allergies Allergy Verified 04/25/22 10:19 [facility] <Mone Sandoval MD - Last Filed: 11/24/24 06:56> [facility] Disclaimer: The information contained in this section may have been updated after the patient was seen, as this information can be updated by other users. 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 caffeine: Yes Have you lived/traveled outside [place] in past 30 days?: No Contact w/someone who lives/traveled outside US past 30 days?: No Exposure to someone with infectious disease in past 14 days?: Yes Do you have a fever (greater than 100.4 F or 38 C)?: No Have you tested positive for COVID-19: No Exposed to someone with COVID-19 in past 14 days?: Yes Do you have a sore throat?: No Do you have a cough?: Yes Do you have any weakness?: Yes Do you have any diarrhea?: No Are you experiencing any unusual bleeding?: No Do you have any muscle aches/pain?: Yes Do you have any abdominal pain?: No Are you experiencing loss of taste or smell?: No Other Medical History Have you received the Flu Vaccine for this season: No Have you received the Pneumonia Vaccine: No <Mone Sandoval MD - Last Filed: 11/24/24 06:56> ROS Obtained: Yes Systems reviewed as appropriate & no additional complaints except as documented per HPI Physical Exam <Mone Sandoval MD - Last Filed: 11/24/24 06:56> General General appearance: alert, in no apparent distress and obese Head Head exam: atraumatic and normocephalic Eye Eye exam: Present PERRL and EOMI ENT ENT exam: Present mucous membranes moist Neck Neck exam: Present normal inspection and full ROM Chest Chest inspection: Present symmetric chest wall rise Respiratory Respiratory exam: Absent normal lung sounds bilaterally (Diminished breath sounds on the right consistent with partial lung removal due to prior cancer), respiratory distress, wheezes or stridor Cardiovascular Cardiovascular exam: Present tachycardia and irregular rhythm Abdominal Exam Abdominal exam: Present soft; Absent distention, tenderness, guarding or rebound Extremities Exam Extremities exam: Present full ROM and normal capillary refill; Absent edema Neurological Exam Neurological exam: Present alert, oriented X3, CN II-XII intact and normal gait; Absent motor sensory deficit Psychiatric Psychiatric exam: Present normal affect and normal mood Skin Skin exam: Present warm and dry Medical Decision Making <Mone Sandoval MD - Last Filed: 11/24/24 06:56> Medical Records Medical records reviewed: Yes I reviewed the patient's medical records. Screening: Per USPSTF and CDC recommendations, given the prevalence of disease in our region, it is our hospital?s policy to screen for HIV and viral Hepatitis for all patients aged 18 and over and those with ongoing risk factors. MR Comment: See HPI Eddie Inquiry Pt receiving controlled substance: No Vital Signs: 11/24/24 06:16 11/24/24 06:30 11/24/24 07:18 Temperature 99.8 F H Temperature Source Oral Pulse Rate 127 H 124 H Pulse Rate [Apical] 127 H Respiratory Rate 24 18 16 Blood Pressure 136/95 H 127/97 H Blood Pressure [Right Arm] 144/103 H Blood Pressure Mean [Right Arm] 116 02 Sat by Pulse Oximetry 95 95 94 L Oxygen Delivery Method Room Air Room Air 11/24/24 07:30 11/24/24 08:00 11/24/24 08:01 Temperature Temperature Source Pulse Rate 124 H 119 H 120 H Pulse Rate [Apical] Respiratory Rate 19 17 18 Blood Pressure 119/81 137/99 H Blood Pressure [Right Arm] Blood Pressure Mean [Right Arm] 02 Sat by Pulse Oximetry 94 L 92 L 93 L Oxygen Delivery Method 11/24/24 08:15 11/24/24 08:30 11/24/24 08:59 Temperature Temperature Source Pulse Rate 120 H 121 H 118 H Pulse Rate [Apical] Respiratory Rate 15 16 14 Blood Pressure 135/91 H 147/104 H Blood Pressure [Right Arm] Blood Pressure Mean [Right Arm] 02 Sat by Pulse Oximetry 95 89 L 96 Oxygen Delivery Method Room Air Lab Data Lab Results 11/24/24 06:26: WBC 9.9, RBC 4.66, Hgb 14.0, Hct 43.5, MCV 93.3, MCH 30.0, MCHC 32.2, RDW 14.2, Plt Count 232, MPV 11.2 H, Neut % (Auto) 75.3, Lymph % (Auto) 10.8, [place] % (Auto) 12.6 H, Eos % (Auto) 0.2, Baso % (Auto) 0.6, Neut # (Auto) 7.5, Lymph # (Auto) 1.1, [place] # (Auto) 1.3 H, Eos # (Auto) 0.0, Baso # (Auto) 0.1, PT 14.7 H, INR 1.38 H, Sodium 141, Potassium 4.3, Chloride 105, Carbon Dioxide 28, Anion Gap 12.3, BUN 36 H, Creatinine 1.40 H, Estimated Creat Clear 59, Estimated GFR 37 L, Est GFR ( Amer) 44 L, Glucose 141 H, Calcium 9.4, Total Bilirubin 0.5, AST 48 H, ALT 56, Alkaline Phosphatase 95, Troponin I < 0.01, Total Protein 6.6, Albumin 3.8, Globulin 2.8, Albumin/Globulin Ratio 1.4 11/24/24 06:46: Lactate 0.8 11/24/24 06:48: NT-Pro-B Natriuret Pep 4100 H, SARS-CoV-2 (PCR) Not detected, Influenza Type A (PCR) Not detected, Influenza Type B (PCR) Not detected, RSV (PCR) Not detected, Rhinovirus (PCR) Not detected 11/24/24 07:15: Urine Color Yellow, Urine Appearance Clear, Urine pH 6.0, Ur Specific Bow 1.025, Urine Protein Negative, Urine Glucose (UA) Negative, Urine Ketones Negative, Urine Blood Negative, Urine Nitrate Negative, Urine Bilirubin Negative, Urine Urobilinogen 0.2, Ur Leukocyte Esterase Negative, Urine RBC None, Urine WBC 5-10, Ur Squamous Epith Cells 5-10, Urine Bacteria 1+, Hyaline Casts Occ 11/24/24 08:45: Troponin I < 0.01 11/24/24 06:26 11/24/24 06:26 Orders (Tests/Meds): ED MEDICATIONS Generic Name Dose Route Start Last Admin Trade Name Freq PRN Reason Stop Dose Admin Atorvastatin Calcium 80 mg 11/24/24 21:00 Atorvastatin 40mg Tablet PO 12/24/24 20:59 HS FAROOQ Citalopram Hydrobromide 20 mg 11/24/24 09:00 Citalopram 20mg Tablet PO 12/24/24 08:59 DAILY FAROOQ Famotidine 20 mg 11/24/24 09:00 Famotidine 20mg Tablet PO 12/24/24 08:59 BID FAROOQ Furosemide 80 mg 11/24/24 16:00 Furosemide 40mg/4ml Vial IV 12/24/24 15:59 BIDL FAROOQ Amiodarone HCl 900 mg/ 518 mls @ 34.533 mls/hr 11/24/24 08:19 11/24/24 08:27 Dextrose IV 11/24/24 23:19 1 mg/min .Q15H1M FAROOQ 34.53 mls/hr Administration Protocol 1 MG/MIN Metoprolol Tartrate 200 mg 11/24/24 09:15 Metoprolol Tartrate 50mg Tablet PO 12/24/24 09:14 BID FAROOQ Rivaroxaban 20 mg 11/24/24 17:30 Rivaroxaban 10mg Tablet PO 12/24/24 17:29 QPMWITHMEAL FAROOQ Spironolactone 25 mg 11/24/24 09:00 Spironolactone 25mg Tablet PO 12/24/24 08:59 DAILY FAROOQ Temazepam 15 mg 11/24/24 21:00 Temazepam 15mg Capsule PO 12/24/24 20:59 HS FAROOQ Discontinued Medications Generic Name Dose Route Start Last Admin Trade Name Freq PRN Reason Stop Dose Admin Acetaminophen 1,000 mg 11/24/24 06:32 11/24/24 06:35 Acetaminophen 1,000mg/100ml Vial IV 11/24/24 06:33 1,000 mg ONCE ONE Administration Furosemide 60 mg 11/24/24 07:57 11/24/24 08:27 Furosemide 40mg/4ml Vial IV 11/24/24 07:58 60 mg ONCE ONE Administration Lactated Ringer's 1,000 mls @ 999 mls/hr 11/24/24 06:17 11/24/24 06:35 Lactated Ringer's 1000 Ml Bag IV 11/24/24 07:17 999 mls/hr .Q1H1M ONE Administration Amiodarone HCl 150 mg/ 103 mls @ 618 mls/hr 11/24/24 08:09 11/24/24 08:27 Dextrose IV 11/24/24 08:18 618 mls/hr ONCE ONE Administration Protocol Iopamidol 80 ml 11/24/24 07:18 11/24/24 07:20 Iopamidol-370 (76%);100ml Bottle IV 11/24/24 07:19 80 ml ONCE ONE Administration Ondansetron HCl 4 mg 11/24/24 06:17 11/24/24 06:36 Ondansetron 4mg/2ml Vial IV 11/24/24 06:18 4 mg ONCE ONE Administration Sodium Chloride 10 ml 11/24/24 07:18 11/24/24 07:20 Sodium Chloride 0.9% 10ml Syr (Rad Only) IV 11/24/24 07:19 10 ml ONCE ONE Administration Sodium Chloride 50 ml 11/24/24 07:18 11/24/24 07:20 0.9 % Sodium Chloride 50 Ml Vial IV 11/24/24 07:19 50 ml ONCE ONE Administration ORDERS Category Date Time Status CT angio abdomen pelvis Stat Cat Scan 11/24/24 06:[address] angio chest PE protocol Stat Cat Scan 11/24/24 06:22 Completed Cardiology Consult [Consult to Cardiology] [CONS] Cons 11/25/24 07:00 Active Routine BNP [NT Pro Brain Natriuretic Pep.] Stat Lab 11/24/24 06:48 Completed CBC w/Auto Diff [Complete Blood Count Auto Diff] Stat Lab 11/24/24 06:26 Completed CMP [Comprehensive Metabolic Panel] Stat Lab 11/24/24 06:26 Completed Complete Blood Count Auto Diff AMLAB Lab 11/25/24 06:00 Ordered Comprehensive Metabolic Panel AMLAB Lab 11/25/24 06:00 Ordered Lactic Acid Stat Lab 11/24/24 06:46 Completed Magnesium AMLAB Lab 11/25/24 06:00 Ordered Mini Respiratory Panel Stat Lab 11/24/24 06:48 Completed PT INR [Prothrombin Time INR] Stat Lab 11/24/24 06:26 Completed Trop I [Troponin I] Stat Lab 11/24/24 06:26 Completed Troponin I Q3H Lab 11/24/24 08:45 Completed Troponin I Q3H Lab 11/24/24 12:30 Ordered Urinalysis and Microscopic Stat Lab 11/24/24 07:15 Completed Medical Decision Narrative: In summary, this 74-year-old female with comorbidities described in the HPI which increase the amount of data to be reviewed as well as her overall morbidity presents to the emergency department today with cough, congestion, vomiting, generalized malaise. On initial evaluation patient is tachycardic but not hypotensive, temperature 99.8, lungs without adventitious sounds, patient is diminished on the right consistent with her known previous partial lung removal due to cancer, abdomen is soft, nontender, nondistended, completely benign abdominal exam, no peripheral edema. Patient appears to be in A-fib with RVR. Differential diagnosis includes but is not limited to viral syndrome, electrolyte abnormality, dehydration, also considered PE, pneumonia, I had considered abdominal pathology such as bowel obstruction or mesenteric ischemia but patient is completely pain-free and has a benign exam so I have lower suspicion for these however atrial fibrillation increases the risk of mesenteric ischemia, also considered UTI. Based on these concerns, I ordered serum labs, cardiac workup, CT angiography of the chest, abdomen, pelvis. ECG personally interpreted demonstrates A-fib with RVR, rate 126, normal axis, normal QTc, no STEMI, morphology is similar to patient's ECG from 11/10/2024. Initially treating with IV fluids due to suspicion of hypovolemia given patient has had emesis. Patient received IV fluids, Zofran, IV acetaminophen initially for treatment. Labs personally reviewed demonstrate normal WBC, hemoglobin, and platelets. CMP with slightly worsening kidney dysfunction. Review of labs from patient's admission demonstrates she had had worsening kidney dysfunction with creatinine increasing from 1.0-1.3 while admitted, today creatinine is 1.4, BUN 36. Prerenal azotemia, patient is receiving IV fluids. AST also slightly increased today 48 up from 36 at the time of discharge. Nonspecific. PT/INR nonactionable. CT imaging, urine studies, lactic, BNP, viral swab pending at the time of physician handoff. Patient handed off to Dr. Rachel for continued management and disposition. <Michael Rachel MD - Last Filed: 11/24/24 09:51> Vital Signs: 11/24/24 06:16 11/24/24 06:30 11/24/24 07:18 Temperature 99.8 F H Temperature Source Oral Pulse Rate 127 H 124 H Pulse Rate [Apical] 127 H Respiratory Rate 24 18 16 Blood Pressure 136/95 H 127/97 H Blood Pressure [Right Arm] 144/103 H Blood Pressure Mean [Right Arm] 116 02 Sat by Pulse Oximetry 95 95 94 L Oxygen Delivery Method Room Air Room Air 11/24/24 07:30 11/24/24 08:00 11/24/24 08:01 Temperature Temperature Source Pulse Rate 124 H 119 H 120 H Pulse Rate [Apical] Respiratory Rate 19 17 18 Blood Pressure 119/81 137/99 H Blood Pressure [Right Arm] Blood Pressure Mean [Right Arm] 02 Sat by Pulse Oximetry 94 L 92 L 93 L Oxygen Delivery Method 11/24/24 08:15 11/24/24 08:30 11/24/24 08:59 Temperature Temperature Source Pulse Rate 120 H 121 H 118 H Pulse Rate [Apical] Respiratory Rate 15 16 14 Blood Pressure 135/91 H 147/104 H Blood Pressure [Right Arm] Blood Pressure Mean [Right Arm] 02 Sat by Pulse Oximetry 95 89 L 96 Oxygen Delivery Method Room Air Lab Data Lab Results 11/24/24 06:26: WBC 9.9, RBC 4.66, Hgb 14.0, Hct 43.5, MCV 93.3, MCH 30.0, MCHC 32.2, RDW 14.2, Plt Count 232, MPV 11.2 H, Neut % (Auto) 75.3, Lymph % (Auto) 10.8, [place] % (Auto) 12.6 H, Eos % (Auto) 0.2, Baso % (Auto) 0.6, Neut # (Auto) 7.5, Lymph # (Auto) 1.1, [place] # (Auto) 1.3 H, Eos # (Auto) 0.0, Baso # (Auto) 0.1, PT 14.7 H, INR 1.38 H, Sodium 141, Potassium 4.3, Chloride 105, Carbon Dioxide 28, Anion Gap 12.3, BUN 36 H, Creatinine 1.40 H, Estimated Creat Clear 59, Estimated GFR 37 L, Est GFR ( Amer) 44 L, Glucose 141 H, Calcium 9.4, Total Bilirubin 0.5, AST 48 H, ALT 56, Alkaline Phosphatase 95, Troponin I < 0.01, Total Protein 6.6, Albumin 3.8, Globulin 2.8, Albumin/Globulin Ratio 1.4 11/24/24 06:46: Lactate 0.8 11/24/24 06:48: NT-Pro-B Natriuret Pep 4100 H, SARS-CoV-2 (PCR) Not detected, Influenza Type A (PCR) Not detected, Influenza Type B (PCR) Not detected, RSV (PCR) Not detected, Rhinovirus (PCR) Not detected 11/24/24 07:15: Urine Color Yellow, Urine Appearance Clear, Urine pH 6.0, Ur Specific Bow 1.025, Urine Protein Negative, Urine Glucose (UA) Negative, Urine Ketones Negative, Urine Blood Negative, Urine Nitrate Negative, Urine Bilirubin Negative, Urine Urobilinogen 0.2, Ur Leukocyte Esterase Negative, Urine RBC None, Urine WBC 5-10, Ur Squamous Epith Cells 5-10, Urine Bacteria 1+, Hyaline Casts Occ 11/24/24 08:45: Troponin I < 0.01 Orders (Tests/Meds): ED MEDICATIONS Generic Name Dose Route Start Last Admin Trade Name Samantha PRN Reason Stop Dose Admin Atorvastatin Calcium 80 mg 11/24/24 21:00 Atorvastatin 40mg Tablet PO 12/24/24 20:59 HS FAROOQ Citalopram Hydrobromide 20 mg 11/24/24 09:00 Citalopram 20mg Tablet PO 12/24/24 08:59 DAILY FAROOQ Famotidine 20 mg 11/24/24 09:00 Famotidine 20mg Tablet PO 12/24/24 08:59 BID FAROOQ Furosemide 80 mg 11/24/24 16:00 Furosemide 40mg/4ml Vial IV 12/24/24 15:59 BIDL FAROOQ Amiodarone HCl 900 mg/ 518 mls @ 34.533 mls/hr 11/24/24 08:19 11/24/24 08:27 Dextrose IV 11/24/24 23:19 1 mg/min .Q15H1M FAROOQ 34.53 mls/hr Administration Protocol 1 MG/MIN Metoprolol Tartrate 200 mg 11/24/24 09:15 Metoprolol Tartrate 50mg Tablet PO 12/24/24 09:14 BID FAROOQ Rivaroxaban 20 mg 11/24/24 17:30 Rivaroxaban 10mg Tablet PO 12/24/24 17:29 QPMWITHMEAL FAROOQ Spironolactone 25 mg 11/24/24 09:00 Spironolactone 25mg Tablet PO 12/24/24 08:59 DAILY FAROOQ Temazepam 15 mg 11/24/24 21:00 Temazepam 15mg Capsule PO 12/24/24 20:59 HS [facility] Discontinued Medications Generic Name Dose Route Start Last Admin Trade Name Samantha PRN Reason Stop Dose Admin Acetaminophen 1,000 mg 11/24/24 06:32 11/24/24 06:35 Acetaminophen 1,000mg/100ml Vial IV 11/24/24 06:33 1,000 mg ONCE ONE Administration Furosemide 60 mg 11/24/24 07:57 11/24/24 08:27 Furosemide 40mg/4ml Vial IV 11/24/24 07:58 60 mg ONCE ONE Administration Lactated Ringer's 1,000 mls @ 999 mls/hr 11/24/24 06:17 11/24/24 06:35 Lactated Ringer's 1000 Ml Bag IV 11/24/24 07:17 999 mls/hr .Q1H1M ONE Administration Amiodarone HCl 150 mg/ 103 mls @ 618 mls/hr 11/24/24 08:09 11/24/24 08:27 Dextrose IV 11/24/24 08:18 618 mls/hr ONCE ONE Administration Protocol Iopamidol 80 ml 11/24/24 07:18 11/24/24 07:20 Iopamidol-370 (76%);100ml Bottle IV 11/24/24 07:19 80 ml ONCE ONE Administration Ondansetron HCl 4 mg 11/24/24 06:17 11/24/24 06:36 Ondansetron 4mg/2ml Vial IV 11/24/24 06:18 4 mg ONCE ONE Administration Sodium Chloride 10 ml 11/24/24 07:18 11/24/24 07:20 Sodium Chloride 0.9% 10ml Syr (Rad Only) IV 11/24/24 07:19 10 ml ONCE ONE Administration Sodium Chloride 50 ml 11/24/24 07:18 11/24/24 07:20 0.9 % Sodium Chloride 50 Ml Vial IV 11/24/24 07:19 50 ml ONCE ONE Administration ORDERS Category Date Time Status CT angio abdomen pelvis Stat Cat Scan 11/24/24 06:[address] angio chest PE protocol Stat Cat Scan 11/24/24 06:22 Completed Cardiology Consult [Consult to Cardiology] [CONS] Cons 11/25/24 07:00 Active Routine BNP [NT Pro Brain Natriuretic Pep.] Stat Lab 11/24/24 06:48 Completed CBC w/Auto Diff [Complete Blood Count Auto Diff] Stat Lab 11/24/24 06:26 Completed CMP [Comprehensive Metabolic Panel] Stat Lab 11/24/24 06:26 Completed Complete Blood Count Auto Diff AMLAB Lab 11/25/24 06:00 Ordered Comprehensive Metabolic Panel AMLAB Lab 11/25/24 06:00 Ordered Lactic Acid Stat Lab 11/24/24 06:46 Completed Magnesium AMLAB Lab 11/25/24 06:00 Ordered Mini Respiratory Panel Stat Lab 11/24/24 06:48 Completed PT INR [Prothrombin Time INR] Stat Lab 11/24/24 06:26 Completed Trop I [Troponin I] Stat Lab 11/24/24 06:26 Completed Troponin I Q3H Lab 11/24/24 08:45 Completed Troponin I Q3H Lab 11/24/24 12:30 Ordered Urinalysis and Microscopic Stat Lab 11/24/24 07:15 Completed Medical Decision Narrative: In summary, this 74-year-old female with comorbidities described in the HPI which increase the amount of data to be reviewed as well as her overall morbidity presents to the emergency department today with cough, congestion, vomiting, generalized malaise. On initial evaluation patient is tachycardic but not hypotensive, temperature 99.8, lungs without adventitious sounds, patient is diminished on the right consistent with her known previous partial lung removal due to cancer, abdomen is soft, nontender, nondistended, completely benign abdominal exam, no peripheral edema. Patient appears to be in A-fib with RVR. Differential diagnosis includes but is not limited to viral syndrome, electrolyte abnormality, dehydration, also considered PE, pneumonia, I had considered abdominal pathology such as bowel obstruction or mesenteric ischemia but patient is completely pain-free and has a benign exam so I have lower suspicion for these however atrial fibrillation increases the risk of mesenteric ischemia, also considered UTI. Based on these concerns, I ordered serum labs, cardiac workup, CT angiography of the chest, abdomen, pelvis. ECG personally interpreted demonstrates A-fib with RVR, rate 126, normal axis, normal QTc, no STEMI, morphology is similar to patient's ECG from 11/10/2024. Initially treating with IV fluids due to suspicion of hypovolemia given patient has had emesis. Patient received IV fluids, Zofran, IV acetaminophen initially for treatment. Labs personally reviewed demonstrate normal WBC, hemoglobin, and platelets. CMP with slightly worsening kidney dysfunction. Review of labs from patient's admission demonstrates she had had worsening kidney dysfunction with creatinine increasing from 1.0-1.3 while admitted, today creatinine is 1.4, BUN 36. Prerenal azotemia, patient is receiving IV fluids. AST also slightly increased today 48 up from 36 at the time of discharge. Nonspecific. PT/INR nonactionable. CT imaging, urine studies, lactic, BNP, viral swab pending at the time of physician handoff. Patient handed off to Dr. Rachel for continued management and disposition. Wilson: I assumed primary responsibility for this patient after signout from previous physician. On my evaluation, patient admittedly coughing, very well- appearing. She is tachycardic. On further conversation with daughter and patient, patient was in normal sinus rhythm when she was discharged home just a couple of weeks ago. Discharged home on 2 diuretic medications. States that she has had essentially viral bronchial symptoms with cough productive of white frothy sputum, no fevers or chills, but general fatigue. I feel this could also be masked CHF symptoms versus arrhythmia, among other cardiac etiologies. Independent interpretation of patient's workup consistent with moderate CHF exacerbation and mild MAGDALENA on CKD. CT imaging of the chest/abdomen/pelvis without acute abnormality. No evidence of PE, but she does have chronic loculated pleural effusion on the right. I had prolonged conversation with patient and daughter. They state that for the past couple of weeks she has essentially been running 120 to 130 bpm and have been following with [facility] outpatient, however switching to [facility] cardiology and is supposed have an appointment tomorrow, 11/25 in order to have further evaluation. States that she is currently taking metoprolol and was recently taken off diltiazem. I feel this makes sense with history of reduced ejection fraction on most recent echocardiogram. Given patient with very regular rhythm, I independently interpreted EKG. EKG atrial flutter with 2:1 conduction regular ventricular rate. Narrow QRS, no acute ischemic changes. I talked to patient and family regarding home-going versus admission. I am recommending admission because patient has been home for 2 weeks on diuretic medications at this point with nearly no improvement in any of her labs. I contacted cardiology and case was discussed at length. Instead of being cardioverted here in the emergency department, cardiology recommended amiodarone bolus and drip. This was initiated. I talked to hospital medicine and discussed case at length, agreeable to admission and further medical management of CHF, atrial flutter. Because patient high risk for clinical decompensation, deemed appropriate for inpatient admission. Results were relayed to patient who voiced understanding and patient was agreeable to inpatient admission and management. Patient was admitted to the hospital for further definitive management. Critical Care <Mone Sandoval MD - Last Filed: 11/24/24 06:56> Critical Care Time Critical Care Time: No <Michael Rachel MD - Last Filed: 11/24/24 09:51> Critical Care Time Critical Care Time: Yes (cardiac) Attestation: On 11/24/24, the high probability of a clinically significant, sudden or life threatening deterioration of the following system(s) required my full and direct attention, intervention and personal management. The time I documented below is in addition to time spent performing reported procedures but includes the following listed in this critical care notation. Total Time Total Critical Care Time: 40
[2024-11-24 06:33] LABS: Basophils # 0.1 K/mm3 (0-0.2); Basophils % 0.6 % (0.1-2.0); Eosinophils % 0.2 % (0.1-12.0); Hematocrit 43.5 % (37.0-47.0); Lymphocytes # 1.1 K/mm3 (0.7-4.5); Lymphocytes % 10.8 % (10-50); Mean Corpuscular HGB Conc 32.2 g/dL (31.8-35.4); Mean Corpuscular Volume 93.3 fl (81-99); Mean Platelet Volume 11.2 fl (7.4-10.4); Monocytes # 1.3 K/mm3 (0.1-1.0); Monocytes % 12.6 % (1.7-9.3); Neutrophils # 7.5 K/mm3 (1.8-7.8); Neutrophils % 75.3 % (37.0-80.0); Platelet Count 232 K/mm3 (142-424); Red Blood Count 4.66 M/mm3 (4.20-5.40); Red Cell Distribution Width 14.2 % (11.5-17.5); White Blood Count 9.9 K/mm3 (4.8-10.8)
--- NOTE | 2024-11-24 06:34 | CT_ITS ---
PROCEDURE INFORMATION: Exam: CTA Abdomen and Pelvis With Contrast Exam date and time: 11/24/2024 7:04 AM Age: 74 years old Clinical indication: Other: N/v; Additional info: Vomiting tachy afib TECHNIQUE: Imaging protocol: Computed tomographic angiography of the abdomen and pelvis with contrast. Exam focused on the arteries. 3D rendering (Not supervised by radiologist): MIP and/or 3D reconstructed images were created by the technologist. Radiation optimization: All CT scans at this facility use at least one of these dose optimization techniques: automated exposure control; mA and/or kV adjustment per patient size (includes targeted exams where dose is matched to clinical indication); or iterative reconstruction. Contrast material: ISOVUE; Contrast volume: 80 ml; Contrast route: INTRAVENOUS (IV); COMPARISON: CT ABDOMEN WO/W CON 11/06/2024 11:00 AM FINDINGS: Lungs: Lung bases and chest findings reported separately. Aorta: Diffuse atherosclerotic vascular calcification. No abdominal aortic aneurysm or dissection. Celiac trunk and mesenteric arteries: Patent enhancing celiac artery, SMA and diminutive FRANCISCO JAVIER. No occlusion. Renal arteries: Patent enhancing calcified bilateral renal arteries. Right iliac arteries: No occlusion or significant stenosis. Left iliac arteries: No occlusion or significant stenosis. Liver: No acute abnormality. No mass. Gallbladder and biliary ducts: Unremarkable. No calcified stones. No ductal dilation. Pancreas: No acute abnormality. No mass. No ductal dilation. Spleen: Punctate splenic calcified granulomas. Adrenal glands: No significant or acute abnormality. Kidneys and ureters: Non-obstructing left renal lower pole calculi. No hydronephrosis or hydroureter. Redemonstrated incidental simple appearing left renal upper pole cyst or cysts measuring approximately 3 cm. Stomach and bowel: Nondistended stomach. No significant large or small bowel distention. Colonic diverticulosis without CT evidence of diverticulitis. Appendix: Grossly normal nondilated visualized appendix. Intraperitoneal space: No significant fluid collection. No free air. Lymph nodes: No enlarged lymph nodes. Urinary bladder: Nondistended decompressed urinary bladder. Reproductive: Unremarkable as visualized. Bones/joints: Multilevel spondylosis and degenerative bony changes. Soft tissues: Tiny fat containing umbilical hernia. IMPRESSION: 1. Colonic diverticulosis without CT evidence of diverticulitis. 2. Non-obstructing left renal lower pole calculi. 3. Atherosclerotic vascular disease.
[2024-11-24] MEDS: ACETAMINOPHEN 1,000MG/100ML VIAL 1000 MG IV (06:35)
[2024-11-24] MEDS: LACTATED RINGERS 1000ML 1,000 ML 999 ML IV (06:35)
[2024-11-24] MEDS: ONDANSETRON 4MG/2ML VIAL 4 MG IV ×2 (06:36→17:40)
[2024-11-24 06:37] LABS: Chloride 105 mmol/L (98-107)
[2024-11-24 06:38] LABS: Albumin Level 3.8 g/dl (3.5-5.0); Potassium 4.3 mmoL/L (3.5-5.1); Sodium 141 mmol/L (136-145)
[2024-11-24 06:40] LABS: Alanine Aminotransferase 56 U/L (12-78); Alkaline Phosphatase 95 U/L (38-126); Anion Gap 12.3 mEq/L (5-15); Aspartate Amino Transferase 48 U/L (14-36); Bilirubin,Total 0.5 mg/dl (0.2-1.3); Blood Urea Nitrogen 36 mg/dl (7-17); Carbon Dioxide 28 mmol/L (22.0-30.0); Creatinine Clearance Estimated 59 mL/min (50-200); Estimated Glomerular Filt Rate 37 ml/min (>60); GFR (African American) 44 ML/MIN (>60)
[2024-11-24 06:41] LABS: Albumin/Globulin Ratio 1.4 (1.1-1.8); Calcium 9.4 mg/dl (8.4-10.2); Globulin 2.8 g/dL (1.3-3.2); Glucose 141 mg/dl (74-100); INR 1.38 (0.9-1.1); Prothrombin Time 14.7 seconds (9.2-12.1); Total Protein,Serum 6.6 g/dl (6.3-8.2)
[2024-11-24 06:51] LABS: Coronavirus 19, PCR Not Detected (NotDetected); Human Rhinovirus Not Detected (NotDetected); Influenza A, PCR Not Detected (NotDetected); Influenza B, PCR Not Detected (NotDetected); Respiratory Syncytial Virus Not Detected (NotDetected)
[2024-11-24 06:59] LABS: Lactic Acid 0.8 mmol/L (0.7-2.1)
[2024-11-24 06:59] LABS: Troponin I < 0.01 ng/ml (0.00-0.034)
[2024-11-24 07:14] LABS: NT Pro Brain Natriuretic Pep. 4100 pg/mL (0-450)
[2024-11-24] MEDS: IOPAMIDOL-370 (76%);100ML BOTTLE 80 ML IV (07:20)
[2024-11-24] MEDS: 0.9 % SODIUM CHLORIDE 50 ML VIAL IV (07:20)
[2024-11-24] MEDS: SODIUM CHLORIDE 0.9% 10ML SYR (RAD ONLY) 10 ML IV (07:20)
[2024-11-24 07:25] LABS: Appearance,Urine CLEAR (Clear); Bilirubin,Urine Negative (Negative); Blood, Urine Negative (Negative); Color,Urine YELLOW (Yellow); Glucose,Urine (UA) Negative (Negative); Ketones,Urine Negative (Negative); Leukocyte Esterase,Urine Negative (Negative); Microscopic, Urine URINE MICROSCOPIC (MICROSCOPIC); Nitrate,Urine Negative (Negative); Protein,Urine Negative (Negative); Specific Gravity, Urine 1.025 (1.005-1.030); Urobilinogen,Urine 0.2 EU/dl (0.2)
[2024-11-24 07:33] LABS: Bacteria,Urine 1+ /lpf
--- NOTE | 2024-11-24 07:33 | PC.NURSE ---
dr barahona at bedside
[2024-11-24 07:34] LABS: Hyaline Casts,Urine OCC #/lpf (0)
--- NOTE | 2024-11-24 07:55 | PC.NURSE ---
Dr. Rachel is s/w Dr. Keen for admission
--- NOTE | 2024-11-24 08:06 | PC.NURSE ---
Dr. Rachel is s/w Dr. Manning.
[2024-11-24] MEDS: FUROSEMIDE 40MG/4ML VIAL 60 MG IV (08:27)
[2024-11-24] MEDS: AMIODARONE HCL 900 MG in DEXTROSE 5 % IN WATER 500 ML 34.53 MG IV (08:27)
[2024-11-24] MEDS: AMIODARONE HCL 150 MG in DEXTROSE 5 % IN WATER 100 ML 618 MG IV (08:27)
--- NOTE | 2024-11-24 08:28 | P.HP_ITS ---
History of Present Illness *Admission Date: 11/24/24 *Reason for visit:: Cough, tachyarrhythmia *History of present illness: Ms. John is a 74-year-old female with history of A-fib on Xarelto, hypertension, lung mass status post lobectomy, recent admission with COVID and A-fib with RVR. She presented to the hospital today with complaint of nausea and vomiting and cough. Symptom worsened most significantly overnight. Heart rate has been fast since Monday. Denies any chest pain, confusion. No blood in vomit. Family with her at bedside. Workup in the ER concerning for A-fib with RVR with heart rate in the 120s. BNP remains elevated above 4000. Kidney function at baseline. Cardiology was consulted from the ER, patient initiated on amiodarone. Medicine consulted for admission and further management. Respiratory panel obtained, negative. On evaluation patient is comfortable on room air. Appears in a flutter on telemetry. Having good response to diuretic with increased urination. States she does not respond as well to diuretics at home. Denies any fever. [facility] Disclaimer: The information contained in this section may have been updated after the patient was seen, as this information can be updated by other users. 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 caffeine: Yes Have you lived/traveled outside [place] in past 30 days?: No Contact w/someone who lives/traveled outside US past 30 days?: No Exposure to someone with infectious disease in past 14 days?: Yes Do you have a fever (greater than 100.4 F or 38 C)?: No Have you tested positive for COVID-19: No Exposed to someone with COVID-19 in past 14 days?: Yes Do you have a sore throat?: No Do you have a cough?: Yes Do you have any weakness?: Yes Are you experiencing any nausea/vomitting?: Yes Do you have any diarrhea?: No Are you experiencing any unusual bleeding?: No Do you have any muscle aches/pain?: Yes Do you have any abdominal pain?: No Are you experiencing loss of taste or smell?: No Other Medical History Have you received the Flu Vaccine for this season: No Have you received the Pneumonia Vaccine: No Review of Systems Review of Systems Review of systems (narrative): 14 point review of systems performed, pertinent positives and negatives as per [facility] Meds Home Medications and Allergies Home Medications ?Medication ?Instructions ?Recorded ?Confirmed ?Type ascorbic acid (vitamin C) 1,000 mg 1,000 mg PO DAILY vitamin 03/21/18 11/24/24 History tablet atorvastatin 80 mg tablet 80 mg PO HS Cholesterol 03/21/18 11/24/24 History cyanocobalamin (vitamin B-12) 500 500 mcg PO DAILY 04/01/20 11/24/24 History mcg tablet (Vitamin B-12) rivaroxaban 20 mg tablet (Xarelto) 20 mg PO QPM 04/01/20 11/24/24 History temazepam 15 mg capsule 15 mg PO HS 04/25/22 11/24/24 History hydralazine 25 mg tablet 25 mg PO BID 11/10/24 11/24/24 History hydroxyzine HCl 25 mg tablet 25 mg PO BID 11/10/24 11/24/24 History escitalopram oxalate 10 mg tablet 10 mg PO HS 11/11/24 11/24/24 History famotidine 20 mg tablet 20 mg PO BID 11/11/24 11/24/24 History losartan 100 mg tablet 100 mg PO DAILY 11/11/24 11/24/24 History furosemide 40 mg tablet 40 mg PO DAILY 30 days #30 tabs 11/12/24 11/24/24 Rx metoprolol tartrate 100 mg tablet 200 mg (2 x 100 mg) PO BID 30 days 11/12/24 11/24/24 Rx #120 tabs promethazine 6.25 mg-codeine 10 5 ml PO Q6HP PRN Cough #118 mL 11/12/24 11/24/24 Rx mg/5 mL syrup spironolactone 25 mg tablet 25 mg PO DAILY 30 days #30 tabs 11/12/24 11/24/24 Rx albuterol 90 mcg/actuation aerosol 90 mcg inhalation NEEDED PRN 11/24/24 11/24/24 History inhaler Shortness Of Breath cholecalciferol (vitamin D3) 125 125 mcg PO DAILY 11/24/24 11/24/24 History mcg (5,000 unit) tablet (Vitamin D3) sennosides 8.6 mg-docusate sodium 50 tab PO NEEDED PRN 11/24/24 11/24/24 History 50 mg capsule (Senna Plus) Constipation New Prescriptions to Start Prescriptions: Allergies Allergy/AdvReac Type Severity Reaction Status Date / Time No Known Allergies Allergy Verified 04/25/22 10:19 Exam Data for Last 24 hours Vital signs and Labs for Last 24 Hours: Temp Pulse Resp BP Pulse Ox O2 Del Method 99.8 F H 124 H 19 119/81 94 L Room Air 11/24/24 06:16 11/24/24 07:30 11/24/24 07:30 11/24/24 07:30 11/24/24 07:30 11/24/24 07:18 Laboratory Results - last 24 hr 11/24/24 06:26: WBC 9.9, RBC 4.66, Hgb 14.0, Hct 43.5, MCV 93.3, MCH 30.0, MCHC 32.2, RDW 14.2, Plt Count 232, MPV 11.2 H, Neut % (Auto) 75.3, Lymph % (Auto) 10.8, Grant % (Auto) 12.6 H, Eos % (Auto) 0.2, Baso % (Auto) 0.6, Neut # (Auto) 7.5, Lymph # (Auto) 1.1, Grant # (Auto) 1.3 H, Eos # (Auto) 0.0, Baso # (Auto) 0.1, PT 14.7 H, INR 1.38 H, Sodium 141, Potassium 4.3, Chloride 105, Carbon Dioxide 28, Anion Gap 12.3, BUN 36 H, Creatinine 1.40 H, Estimated Creat Clear 59, Estimated GFR 37 L, Est GFR ( Amer) 44 L, Glucose 141 H, Calcium 9.4, Total Bilirubin 0.5, AST 48 H, ALT 56, Alkaline Phosphatase 95, Troponin I < 0.01, Total Protein 6.6, Albumin 3.8, Globulin 2.8, Albumin/Globulin Ratio 1.4 11/24/24 06:46: Lactate 0.8 11/24/24 06:48: NT-Pro-B Natriuret Pep 4100 H 11/24/24 07:15: Urine Color Yellow, Urine Appearance Clear, Urine pH 6.0, Ur Specific [place] 1.025, Urine Protein Negative, Urine Glucose (UA) Negative, Urine Ketones Negative, Urine Blood Negative, Urine Nitrate Negative, Urine Bilirubin Negative, Urine Urobilinogen 0.2, Ur Leukocyte Esterase Negative, Urine RBC None, Urine WBC 5-10, Ur Squamous Epith Cells 5-10, Urine Bacteria 1+, Hyaline Casts Occ I & O for Last 24 hours: Intake & Output 11/21/24 11/22/24 11/23/24 11/24/24 23:59 23:59 23:59 23:59 Weight 108.409 kg Constitutional Constitutional: no acute distress *Routine HEENT Exam Head: Present normocephalic Eye: Present EOMI and PERRL ENT: Present mucous membranes moist *Routine Neck Exam Neck: Present supple; Absent lymphadenopathy *Routine Respiratory Exam Respiratory: Present diminished air movement; Absent respiratory distress, rhonchi, wheezes or crackles Comments: Diminished lung sounds to the right lower lobe. *Routine Cardiovascular Exam Cardiovascular: Present tachycardia and irregularly irregular *Routine Abdominal Exam Abdominal: Present soft and normoactive bowel sounds; Absent tenderness *Routine Rectal Exam Rectal:: deferred *Routine Genitalia Exam Genitalia:: deferred *Routine Extremities Exam Extremities: Absent cyanosis, clubbing or edema *Routine Skin Exam Skin: Present warm; Absent rash *Routine Neurological Exam Neurological: Present alert, oriented X3 and moving all extremities; Absent altered mental status Assessment and Plan *Assessment and plan (1) Atrial fibrillation with RVR: Status: Acute Category: Medical Code(s): I48.91 - Unspecified atrial fibrillation (2) Heart failure with mildly reduced ejection fraction (HFmrEF): Status: Acute Category: Medical Code(s): I50.22 - Chronic systolic (congestive) heart failure (3) Pleural effusion on right: Status: Acute Category: Medical Code(s): J90 - Pleural effusion, not elsewhere classified (4) Lung mass: Status: Resolved Category: Medical Code(s): R91.8 - Other nonspecific abnormal finding of lung field (5) Obesity (BMI 30-39.9): Status: Chronic Category: Medical Code(s): E66.9 - Obesity, unspecified Plan Ms. John is a 74-year-old female who presented with cough. Found to be in A-fib with RVR. Previously admitted earlier this month with COVID and similar tachyarrhythmia. Discussed case with ER physician, request admission for management of A-fib RVR. I agreed to admit for further treatment. Started on amiodarone. Problems addressed as follows: HFmrEF, new onset Diastolic dysfunction Atrial fibrillation Hypertension -Was admitted within the past month with COVID and A-fib RVR. Echo obtained earlier this month showing heart failure with mildly reduced ejection fraction and diastolic dysfunction with volume overload, RVSP 40-45 -Diltiazem was contraindicated. Metoprolol tartrate was increased to 200 mg twice daily. Continuing at this time. Will administer additional 5 mg IV tartrate once. Initiate amiodarone bolus and drip. -Cardiology consulted to assist with care in the morning. Will consider ca rdioversion tomorrow. -Continue Xarelto 20 mg daily -Holding losartan in the setting of normotensive state -BNP remains elevated at 4100, less than last visit. Responded well to initial IV Lasix dose. Continue Lasix 80 mg IV twice daily. Goal negative volume status. - White count normal at 9.9, hemoglobin normal at 14. Kidney function stable with BUN 36, creatinine 1.4. Repeat CBC, CMP, magnesium ordered for the morning. #Pleural effusion, right - Reports history of this. Does not endorse any further workup in the outpatient setting. Concern for secondary to heart failure as above. Showing some improvement. Continue diuresis. - Has history of lung mass but was not malignant. Status post lobectomy with resolution. Never needed chemotherapy or radiation. -Repeat respiratory panel negative. -Per my review chest imaging, effusion still present. Has mild pulmonary edema. No focal consolidation. Continue Lexapro 10 mg daily for mood Continue Lipitor 80 mg nightly for cholesterol Continue famotidine 20 mg twice daily per home regimen for GERD Continue temazepam 15 mg nightly for sleep Obesity complicates all aspects of her care Full code Xarelto Cardiac diet
--- NOTE | 2024-11-24 08:37 | PC.NURSE ---
DENTAL EQUIPMENT REPAIRER NOTIFIED OF ADMISSION
--- NOTE | 2024-11-24 08:56 | PC.NURSE ---
urine output 200 at 0856
[2024-11-24 09:17] LABS: Troponin I < 0.01 ng/ml (0.00-0.034)
--- NOTE | 2024-11-24 09:18 | PC.NURSE ---
Called report to [facility] in [facility]. RM 262 is dirty and will require a STAT clean. [facility]S notified of this. Pt & her family updated on this delay on going to [facility].
[2024-11-24] MEDS: FAMOTIDINE 20MG TABLET 20 MG PO ×2 (10:40→19:35)
[2024-11-24] MEDS: METOPROLOL TARTRATE 50MG TABLET 200 MG PO ×2 (10:40→20:11)
[2024-11-24] MEDS: CITALOPRAM 20MG TABLET 20 MG PO (10:40)
[2024-11-24] MEDS: SPIRONOLACTONE 25MG TABLET 25 MG PO (10:40)
[2024-11-24 14:04] LABS: Troponin I < 0.01 ng/ml (0.00-0.034)
[2024-11-24] MEDS: FUROSEMIDE 40MG/4ML VIAL 80 MG IV (16:50)
[2024-11-24] MEDS: RIVAROXABAN 10MG TABLET 20 MG PO (16:50)
[2024-11-24] MEDS: METOPROLOL TARTRATE 5MG/5ML VIAL 5 MG IV (17:39)
[2024-11-24 19:34] LABS: Adenovirus,PCR Not Detected (NotDetected); Bordetella Pertussis Not Detected (NotDetected); Chlamydophila Pneumoniae, PCR Not Detected (NotDetected); Coronavirus 19, PCR Not Detected (NotDetected); Coronavirus 229E Not Detected (NotDetected); Coronavirus NL63 Not Detected (NotDetected); Coronavirus OC43 Not Detected (NotDetected); Coronovirus HKU1,PCR Not Detected (NotDetected); Human Metapneumovirus Not Detected (NotDetected); Influenza AH1, 2009 Not Detected (NotDetected); Influenza AH1, PCR Not Detected (NotDetected); Influenza AH3,PCR Not Detected (NotDetected); Influenza B, PCR Not Detected (NotDetected); Mycoplasma Pneumoniae, PCR Not Detected (NotDetected); Parainfluenza 1, PCR Not Detected (NotDetected); Parainfluenza 2, PCR Not Detected (NotDetected); Parainfluenza 3, PCR Not Detected (NotDetected); Parainfluenza 4, PCR Not Detected (NotDetected); Respiratory Syncytial Virus Not Detected (NotDetected); Rhinovirus/Enterovirus Not Detected (NotDetected)
[2024-11-24] MEDS: ATORVASTATIN 40MG TABLET 80 MG PO (20:11)
[2024-11-24] MEDS: TEMAZEPAM 15MG CAPSULE 15 MG PO (20:12)
[2024-11-24 20:49] LABS: Influenza A, PCR Detected (NotDetected)
[2024-11-25] VITALS (18 sets, daily range): BP systolic 105–151; BP diastolic 71–108; PULSE 100–120; RESP 15–25; TEMP 36.9–37.1; O2SAT 91–98; BMI 36.3
--- NOTE | 2024-11-25 00:49 | ECG_ITS ---
APPROVED REPORT Exam: Resting ECG HR:111 bpm ECG Measurements Heart Rate 111 AXES QRSd 89 QRS 53 QT 378 T 83 QTc 443 Conclusion ATRIAL FLUTTER/TACHYCARDIA WITH RAPID VENTRICULAR RESPONSE MODERATE ST DEPRESSION [0.05+ mV ST DEPRESSION] ABNORMAL ECG UNCONFIRMED REPORT Electronically signed by : Pablo Dailey MD 11/25/2024 08:58:46
[2024-11-25] MEDS: dilTIAZem 25MG/5ML VIAL 10 MG IV (04:19)
[2024-11-25] MEDS: ONDANSETRON 4MG/2ML VIAL 4 MG IV ×2 (04:21→21:40)
[2024-11-25] MEDS: GUAIFENESIN/DEXTROMETHORPHAN 200MG/20MG 10ML UDC 10 ML PO ×2 (04:49→21:40)
[2024-11-25] MEDS: METOPROLOL TARTRATE 5MG/5ML VIAL 5 MG IV (05:39)
--- NOTE | 2024-11-25 05:47 | PC.NURSE ---
Patient placed on 2LNC after consulting with hospitalist on patient continuous desats. Patient observed to desat as low as 74% while sleeping and awake but quickly rebounds to >90%. Patient placed on NC for comfort and to maintain sats >90%. Patient resting comfortably with eyes closed, breathing even and unlabored, no respiratory distress noted at this time.
[2024-11-25 06:10] LABS: Basophils # 0.1 K/mm3 (0-0.2); Basophils % 0.7 % (0.1-2.0); Hematocrit 41.1 % (37.0-47.0); Hemoglobin 13.6 g/dL (12.2-16.2); Lymphocytes # 1.1 K/mm3 (0.7-4.5); Lymphocytes % 15.6 % (10-50); Mean Corpuscular HGB Conc 33.1 g/dL (31.8-35.4); Mean Corpuscular Hemoglobin 30.3 pg (27.0-31.2); Mean Corpuscular Volume 91.5 fl (81-99); Mean Platelet Volume 11.4 fl (7.4-10.4); Monocytes % 14.6 % (1.7-9.3); Neutrophils # 4.7 K/mm3 (1.8-7.8); Platelet Count 210 K/mm3 (142-424); Red Blood Count 4.49 M/mm3 (4.20-5.40); Red Cell Distribution Width 14.2 % (11.5-17.5); White Blood Count 6.8 K/mm3 (4.8-10.8)
[2024-11-25 06:48] LABS: Alanine Aminotransferase 43 U/L (12-78); Albumin Level 3.5 g/dl (3.5-5.0); Albumin/Globulin Ratio 1.3 (1.1-1.8); Alkaline Phosphatase 78 U/L (38-126); Anion Gap 9.5 mEq/L (5-15); Aspartate Amino Transferase 50 U/L (14-36); Bilirubin,Total 0.6 mg/dl (0.2-1.3); Blood Urea Nitrogen 34 mg/dl (7-17); Calcium 8.6 mg/dl (8.4-10.2); Carbon Dioxide 30 mmol/L (22.0-30.0); Chloride 100 mmol/L (98-107); Creatinine Clearance Estimated 54 mL/min (50-200); Estimated Glomerular Filt Rate 34 ml/min (>60); GFR (African American) 41 ML/MIN (>60); Globulin 2.6 g/dL (1.3-3.2); Glucose 135 mg/dl (74-100); Magnesium 1.8 mg/dl (1.6-2.3); Potassium 3.5 mmoL/L (3.5-5.1); Sodium 136 mmol/L (136-145); Total Protein,Serum 6.1 g/dl (6.3-8.2)
[2024-11-25] MEDS: METOPROLOL TARTRATE 50MG TABLET 200 MG PO ×2 (08:50→21:38)
[2024-11-25] MEDS: FUROSEMIDE 40MG/4ML VIAL 80 MG IV (08:51)
[2024-11-25] MEDS: OSELTAMIVIR 75MG CAPSULE 75 MG PO ×2 (08:51→21:39)
[2024-11-25] MEDS: FAMOTIDINE 20MG TABLET 20 MG PO ×2 (08:53→21:39)
[2024-11-25] MEDS: SPIRONOLACTONE 25MG TABLET 25 MG PO (08:53)
[2024-11-25] MEDS: CITALOPRAM 20MG TABLET 20 MG PO (08:53)
--- NOTE | 2024-11-25 09:45 | PC.NURSE ---
Admissions notified that pt is out of step-down and transferred to med/surg status.
[2024-11-25] MEDS: DIGOXIN 0.25MG/ML 2ML AMPUL 250 MCG IV ×2 (09:48→16:46)
[2024-11-25] MEDS: AMIODARONE 200MG TABLET 400 MG PO ×2 (09:48→21:40)
--- NOTE | 2024-11-25 10:14 | [facility].OTEV ---
OT Inpatient Evaluation Rehab OT IP Evaluation Start: 11/24/24 18:11 Freq: ONCE Status: Active Protocol: Document 11/25/24 10:10 [facility] (Rec: 11/25/24 10:13 [facility] [id number]) Rehab OT IP Assessment Subjective History Pt oriented x 3 on arrival. Pt agreeable to engage in therapy evaluation. Pt admitted on 11/24/24 due to A- fib, cough, Flu A. History and physical: Ms. John is a 74-year-old female with history of A-fib on Xarelto, hypertension, lung mass status post lobectomy, recent admission with COVID and A-fib with RVR. She presented to the hospital today with complaint of nausea and vomiting and cough. Symptom worsened most significantly overnight. Heart rate has been fast since Monday. Denies any chest pain, confusion. No blood in vomit. Family with her at bedside. Workup in the ER concerning for A-fib with RVR with heart rate in the 120s. BNP remains elevated above 4000. Kidney function at baseline. Cardiology was consulted from the ER, patient initiated on amiodarone. Medicine consulted for admission and further management. Respiratory panel obtained, negative. On evaluation patient is comfortable on room air. Appears in a flutter on telemetry. Having good response to diuretic with increased urination. States she does not respond as well to diuretics at home. Denies any fever. Subjective I am going back home. Prior to being in the hospital , pt lived at home alone. Pt claims normally she is independent with all ADLs and IADLs. Pt does not require any type of AE during functional transfers. Pt also still drives. Objective Patient Orientation Person,Place,Birthday Right Upper Extremity Gross ROM WFL Left Upper Extremity Gross ROM WFL Bed Mobility bed mobility-scooting,bed mobility - supine/sit Assist Level Supervision/Stand by Transfer Training Sit/Stand Transfer Assist Level Supervision/Stand by Lower Body Dressing Ability Standby Assistance Performing Toilet Hygiene Ability Standby Assistance Overall Commode/Toilet Transfer Ability Standby Assistance Commode/Toilet Transfer Technique Sit to/from Ambulatory Rehab OT IP prob,goals,plan Problems Date of Evaluation: 11/25/24 Rehab Potential Rehab Potential Innapropriate for Skilled Therapy Discharge Plan OT Discharge Plan Pt appears to be at her baseline with functional transfers and ADL independence ; no further tx required at this time. Pt can return home once she is medically stable per physician. Eval Complexity Eval Charge Codes 20739 - Moderate Complexity PHYSICIAN CERTIFICATION: I certify the specified therapy services for Page John are required, authorized, and reviewed every 30 days.
--- NOTE | 2024-11-25 11:11 | P.CONCA_ITS ---
History of Present Illness History of Present Illness Consult date: 11/25/24 Requesting physician: Javier Keen Consult reason: atrial fibrillation Chief complaint: SOA, N/V, a. fib with RVR Additional Medical History:: 1. Chronic atrial fibrillation, since 2018 A. Xarelto therapy for [id number] score of at least 5 2. Hypertension 3. History of lung cancer status post lobectomy 4. Recent admission for COVID with A-fib with RVR, 10/2024 5. 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 A. Satya myoview, 2018, no ischemia with EF 61% 6. History of CVA with transient loss of speech, 2013 7. Covid and Influenza, 10/2024, Hospitalized X 2 8. CAD A. Satya myoview, 2018, no ischemia, EF 61% B. CAC noted on CT scans History of present illness: Ms. John is a 74-year-old female with history of A-fib on Xarelto, hypertension, lung mass status post lobectomy, recent admission with COVID and A-fib with RVR. She presented to the hospital today with complaint of nausea and vomiting and cough. Symptom worsened most significantly overnight. Heart rate has been fast since Monday. Denies any chest pain, confusion. No blood in vomit. Family with her at bedside. Workup in the ER concerning for A-fib with RVR with heart rate in the 120s. BNP remains elevated above 4000. [facility] was consulted from the ER, patient initiated on amiodarone. Medicine consulted for admission and further management. Respiratory panel obtained, negative. On evaluation patient is comfortable on room air. Appears in a flutter on telemetry. Having good response to diuretic with increased urination. States she does not respond as well to diuretics at home. Denies any fever. The above per Dr. Keen Currently in ICU on amiodarone gtt with heart rate at 111 bpm. She relates N/V last night and feels awful. She has tested positive for Influenza type A. Troponins normal. NT Pro BNP 4100 BUN 34 with Cr 1.5 PFSH PFSH Disclaimer: The information contained in this section may have been updated after the patient was seen, as this information can be updated by other users. 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 caffeine: Yes Have you lived/traveled outside [place] in past 30 days?: No Contact w/someone who lives/traveled outside US past 30 days?: No Exposure to someone with infectious disease in past 14 days?: Yes Do you have a fever (greater than 100.4 F or 38 C)?: No Have you tested positive for COVID-19: No Exposed to someone with COVID-19 in past 14 days?: Yes Do you have a sore throat?: No Do you have a cough?: Yes Do you have any weakness?: Yes Are you experiencing any nausea/vomitting?: Yes Do you have any diarrhea?: No Are you experiencing any unusual bleeding?: No Do you have any muscle aches/pain?: Yes Do you have any abdominal pain?: No Are you experiencing loss of taste or smell?: No Review of Systems Review of Systems Review of systems:: pertinent systems reviewed and negative unless documented below Constitutional Constitutional: Reports body ache(s), Reports fatigue, Reports lethargy and Reports weakness *Cardiovascular Cardiovascular: Denies chest pain, Reports dyspnea, Reports irregular heart rhythm and Reports rapid heart rate *Respiratory Respiratory: Reports cough and Reports dyspnea *Gastrointestinal Gastrointestinal: Reports vomiting *Neurologic Neurologic: Reports weakness Endocrine Endocrine: Reports fatigue Exam Data for Last 24 hours Vital signs and Labs for Last 24 Hours: Temp Pulse Resp BP Pulse Ox O2 Del Method O2 Flow Rate 98.6 F 114 H 15 129/89 96 Room Air 2 11/25/24 08:00 11/25/24 09:48 11/25/24 08:00 11/25/24 08:00 11/25/24 08:00 11/25/24 09:00 11/25/24 07:00 Laboratory Results - last 24 hr 11/24/24 06:48: Chlamy pneumoniae PCR Not detected, Adenovirus (PCR) Not detected, B. pertussis DNA (PCR) Not detected, Coronavirus OC43 (PCR) Not detected, Coronavirus HKU1 (PCR) Not detected, Coronavirus 229E (PCR) Not detected, SARS-CoV-2 (PCR) Not detected, Coronavirus NL63 (PCR) Not detected, Human Metapneumovir PCR Not detected, Influenza A (H1) PCR Not detected, Influ A (H1N1/09) PCR Not detected, Influenza A (H3) PCR Not detected, Influenza Type A (PCR) Detected A, Influenza Type B (PCR) Not detected, M. pneumoniae (PCR) Not detected, Parainfluenza 1 (PCR) Not detected, Parainfluenza 2 (PCR) Not detected, Parainfluenza 3 (PCR) Not detected, Parainfluenza 4 (PCR) Not detected, RSV (PCR) Not detected, Entero/Rhino (PCR) Not detected 11/24/24 13:20: Troponin I < 0.01 11/25/24 06:00: WBC 6.8 D, RBC 4.49, Hgb 13.6, Hct 41.1, MCV 91.5, MCH 30.3, MCHC 33.1, RDW 14.2, Plt Count 210, MPV 11.4 H, Neut % (Auto) 69.0, Lymph % (Auto) 15.6, [place] % (Auto) 14.6 H, Eos % (Auto) 0.0 L, Baso % (Auto) 0.7, Neut # (Auto) 4.7, Lymph # (Auto) 1.1, [place] # (Auto) 1.0, Eos # (Auto) 0.0, Baso # (Auto) 0.1, Sodium 136, Potassium 3.5, Chloride 100, Carbon Dioxide 30, Anion Gap 9.5, BUN 34 H, Creatinine 1.50 H, Estimated Creat Clear 54, Estimated GFR 34 L, Est GFR ( Amer) 41 L, Glucose 135 H, Calcium 8.6, Magnesium 1.8, Total Bilirubin 0.6, AST 50 H, ALT 43, Alkaline Phosphatase 78, Total Protein 6.1 L, Albumin 3.5, Globulin 2.6, Albumin/Globulin Ratio 1.3 I & O for Last 24 hours: Intake & Output 11/22/24 11/23/24 11/24/24 11/25/24 11:59 11:59 11:59 11:59 Intake Total 957.18 / 957.18 Output Total 950 / 950 3175 / 3175 Balance -950 / -950 -2217.82 / -2217.82 Weight 239 lb 231 lb 11.293 oz Constitutional Constitutional: mild distress *Routine Respiratory Exam Respiratory: Present crackles and diminished air movement *Routine Cardiovascular Exam Cardiovascular: Present tachycardia and irregularly irregular *Routine Extremities Exam Extremities: Absent edema *Routine Neurological Exam Neurological: Present alert, oriented X3 and CN II-XII intact Meds Home Medications and Allergies Home Medications ?Medication ?Instructions ?Recorded ?Confirmed ?Type ascorbic acid (vitamin C) 1,000 mg 1,000 mg PO DAILY vitamin 03/21/18 11/24/24 History tablet atorvastatin 80 mg tablet 80 mg PO HS Cholesterol 03/21/18 11/24/24 History cyanocobalamin (vitamin B-12) 500 500 mcg PO DAILY 04/01/20 11/24/24 History mcg tablet (Vitamin B-12) rivaroxaban 20 mg tablet (Xarelto) 20 mg PO QPM 04/01/20 11/24/24 History temazepam 15 mg capsule 15 mg PO HS 04/25/22 11/24/24 History hydralazine 25 mg tablet 25 mg PO BID 11/10/24 11/24/24 History hydroxyzine HCl 25 mg tablet 25 mg PO BID 11/10/24 11/24/24 History escitalopram oxalate 10 mg tablet 10 mg PO HS 11/11/24 11/24/24 History famotidine 20 mg tablet 20 mg PO BID 11/11/24 11/24/24 History losartan 100 mg tablet 100 mg PO DAILY 11/11/24 11/24/24 History furosemide 40 mg tablet 40 mg PO DAILY 30 days #30 tabs 11/12/24 11/24/24 Rx metoprolol tartrate 100 mg tablet 200 mg (2 x 100 mg) PO BID 30 days 11/12/24 11/24/24 Rx #120 tabs promethazine 6.25 mg-codeine 10 5 ml PO Q6HP PRN Cough #118 mL 11/12/24 11/24/24 Rx mg/5 mL syrup spironolactone 25 mg tablet 25 mg PO DAILY 30 days #30 tabs 11/12/24 11/24/24 Rx albuterol 90 mcg/actuation aerosol 90 mcg inhalation NEEDED PRN 11/24/24 11/24/24 History inhaler Shortness Of Breath cholecalciferol (vitamin D3) 125 125 mcg PO DAILY 11/24/24 11/24/24 History mcg (5,000 unit) tablet (Vitamin D3) sennosides 8.6 mg-docusate sodium 50 tab PO NEEDED PRN 11/24/24 11/24/24 History 50 mg capsule (Senna Plus) Constipation New Prescriptions to Start Prescriptions: Allergies Allergy/AdvReac Type Severity Reaction Status Date / Time No Known Allergies Allergy Verified 04/25/22 10:19 Assessment and Plan *Assessment and plan (1) Atrial fibrillation with RVR: Status: Acute Category: Medical Code(s): I48.91 - Unspecified atrial fibrillation (2) Pleural effusion on right: Status: Acute Category: Medical Code(s): J90 - Pleural effusion, not elsewhere classified (3) Heart failure with mildly reduced ejection fraction (HFmrEF): Status: Acute Category: Medical Code(s): I50.22 - Chronic systolic (congestive) heart failure (4) Influenza A: Status: Acute Category: Medical Code(s): J10.1 - Influenza due to other identified influenza virus with other respiratory manifestations (5) History of CVA (cerebrovascular accident): Status: Acute Category: Medical Code(s): Z86.73 - Personal history of transient ischemic attack (TIA), and cerebral infarction without residual deficits (6) Hypertension: Status: Acute Qualifiers: Hypertension type: essential hypertension Qualified Code(s): I10 - Essential (primary) hypertension Category: Medical Code(s): I10 - Essential (primary) hypertension (7) CHF exacerbation: Status: Acute Qualifiers: Heart failure type: systolic Qualified Code(s): I50.23 - Acute on chronic systolic (congestive) heart failure Category: Medical Code(s): I50.9 - Heart failure, unspecified Plan 1. Influenza type A -per hospitalist -on Tamiflu 2. A. fib with RVR -poorly controlled on metoprolol in setting of Influenza and recent COVID -started on Amiodarone -Add digoxin -doubt cardioversion will result in sustained sinus rhythm -discussed recommendation for referral to EP for consideration of ablation +/- pacemaker implantation as outpatient -on Xarelto 3. HFmrEF with acute exacerbation due to current illness -continue diuresis -on GDMT with spironolactone, metoprolol currently holding losartan due to need for more rate control meds 4. Hyperlipidemia -on statin 5. CKD, stage 3 -Cr 1.5 with GFR 34 Continue amiodarone and metoprolol Add digoxin Discussed with Dr. Rodriguez regarding GIANNI/Cardioversion (unlikely to hold NSR due to severe biatrial enlargement and respiratory illness). Will not proceed with GIANNI/Cardioversion until respiratory status is back to baseline unless patient becomes hemodynamically compromised.
[2024-11-25] MEDS: ACETAMINOPHEN 325MG TAB 650 MG PO (11:43)
--- NOTE | 2024-11-25 12:59 | EXP.ACUTE.PN ---
Subjective *Date: 11/25/24 *Time: 12:59 Interval history: Patient states she just does not feel well today. Was having coughing and vomiting overnight. Stable on 2 L oxygen. No chest pain. Remains in A-fib. Afebrile Medical Exam Vital signs and Labs for Last 24 Hours: Vital Signs Temp Pulse Pulse Resp BP Pulse Ox O2 Del Method 11/25/24 12:00 110 H 11/25/24 12:00 98.5 F 110 H 18 111/81 97 11/25/24 11:00 Room Air 11/25/24 09:48 114 H 11/25/24 09:00 Room Air 11/25/24 08:00 110 H 11/25/24 08:00 110 H 96 Room Air 11/25/24 08:00 98.6 F 11/25/24 08:00 111 H 15 129/89 98 11/25/24 07:00 Nasal Cannula 11/25/24 06:00 110 H 19 148/103 H 95 Nasal Cannula 11/25/24 05:46 95 Nasal Cannula 11/25/24 05:00 110 H 25 H 146/101 H 92 L Room Air 11/25/24 05:00 Room Air 11/25/24 04:15 98.8 F 11/25/24 04:00 98.8 F 113 H 18 144/101 H 94 L Room Air 11/25/24 04:00 120 H 11/25/24 03:28 112 H 23 140/103 H 94 L Room Air 11/25/24 03:00 111 H 24 151/108 H 95 Room Air 11/25/24 03:00 Room Air 11/25/24 02:00 113 H 23 136/104 H 94 L Room Air 11/25/24 01:00 113 H 15 132/99 H 93 L Room Air 11/25/24 01:00 Room Air 11/25/24 00:00 110 H 132/89 94 L Room Air 11/25/24 00:00 108 H 11/24/24 23:00 111 H 120/92 H 93 L Room Air 11/24/24 23:00 Room Air 11/24/24 22:00 110 H 18 108/75 L 95 Room Air 11/24/24 21:00 118 H 18 116/82 93 L Room Air 11/24/24 21:00 Room Air 11/24/24 20:00 98.7 F 112 H 12 135/91 H 92 L Room Air 11/24/24 20:00 Room Air 11/24/24 20:00 108 H 11/24/24 19:00 119 H 19 94 L 11/24/24 19:00 127/87 11/24/24 18:45 107 H 16 95 11/24/24 18:45 Room Air 11/24/24 18:44 Room Air 11/24/24 18:30 117 H 18 96 11/24/24 18:15 117 H 14 95 11/24/24 18:00 118 H 15 95 11/24/24 18:00 106/77 L 11/24/24 18:00 116 H 20 106/77 L 94 L Room Air 11/24/24 17:45 116 H 24 96 11/24/24 17:30 115 H 15 95 11/24/24 17:00 115 H 17 94 L Room Air 11/24/24 17:00 130/89 11/24/24 17:00 Room Air 11/24/24 16:00 115 H 14 111/77 91 L 11/24/24 16:00 105 H 11/24/24 15:34 Room Air 11/24/24 15:00 116 H 15 102/64 L 95 11/24/24 14:48 Room Air 11/24/24 14:00 113 H 16 130/92 H 95 11/24/24 13:45 115 H 12 96 11/24/24 13:30 116 H 19 95 11/24/24 13:15 116 H 17 95 11/24/24 13:00 116 H 18 112/80 94 L 11/24/24 13:00 Room Air O2 Flow Rate 11/25/24 12:00 11/25/24 12:00 11/25/24 11:00 11/25/24 09:48 11/25/24 09:00 11/25/24 08:00 11/25/24 08:00 11/25/24 08:00 11/25/24 08:00 11/25/24 07:00 2 11/25/24 06:00 2 11/25/24 05:46 2 11/25/24 05:00 11/25/24 05:00 11/25/24 04:15 11/25/24 04:00 11/25/24 04:00 11/25/24 03:28 11/25/24 03:00 11/25/24 03:00 11/25/24 02:00 11/25/24 01:00 11/25/24 01:00 11/25/24 00:00 11/25/24 00:00 11/24/24 23:00 11/24/24 23:00 11/24/24 22:00 11/24/24 21:00 11/24/24 21:00 11/24/24 20:00 11/24/24 20:00 11/24/24 20:00 11/24/24 19:00 11/24/24 19:00 11/24/24 18:45 11/24/24 18:45 11/24/24 18:44 11/24/24 18:30 11/24/24 18:15 11/24/24 18:00 11/24/24 18:00 11/24/24 18:00 11/24/24 17:45 11/24/24 17:30 11/24/24 17:00 11/24/24 17:00 11/24/24 17:00 11/24/24 16:00 11/24/24 16:00 11/24/24 15:34 11/24/24 15:00 11/24/24 14:48 11/24/24 14:00 11/24/24 13:45 11/24/24 13:30 11/24/24 13:15 11/24/24 13:00 11/24/24 13:00 Intake and Output 11/24/24 11/25/24 11/25/24 23:59 07:59 15:59 Intake Total 360 / 837.18 120 / 120 0 / 120 Output Total 1700 / 2950 550 / 1175 625 / 1175 Balance -1340 / -2112.82 -430 / -1055 -625 / -1055 Intake: Intake, Oral Amount 360 / 630 120 / 120 0 / 120 Output: Output, Urine Amount 1700 / 2950 550 / 1175 625 / 1175 Other: Number of Voids 1 1 Number of Unmeasured Voids 0 Number of Bowel Movements 1 Weight 105.1 kg Patient Weight 11/25/24 23:59 Weight 105.1 kg Laboratory Results - last 24 hr 11/24/24 06:48: Chlamy pneumoniae PCR Not detected, Adenovirus (PCR) Not detected, B. pertussis DNA (PCR) Not detected, Coronavirus OC43 (PCR) Not detected, Coronavirus HKU1 (PCR) Not detected, Coronavirus 229E (PCR) Not detected, SARS-CoV-2 (PCR) Not detected, Coronavirus NL63 (PCR) Not detected, Human Metapneumovir PCR Not detected, Influenza A (H1) PCR Not detected, Influ A (H1N1/09) PCR Not detected, Influenza A (H3) PCR Not detected, Influenza Type A (PCR) Detected A, Influenza Type B (PCR) Not detected, M. pneumoniae (PCR) Not detected, Parainfluenza 1 (PCR) Not detected, Parainfluenza 2 (PCR) Not detected, Parainfluenza 3 (PCR) Not detected, Parainfluenza 4 (PCR) Not detected, RSV (PCR) Not detected, Entero/Rhino (PCR) Not detected 11/24/24 13:20: Troponin I < 0.01 11/25/24 06:00: WBC 6.8 D, RBC 4.49, Hgb 13.6, Hct 41.1, MCV 91.5, MCH 30.3, MCHC 33.1, RDW 14.2, Plt Count 210, MPV 11.4 H, Neut % (Auto) 69.0, Lymph % (Auto) 15.6, [place] % (Auto) 14.6 H, Eos % (Auto) 0.0 L, Baso % (Auto) 0.7, Neut # (Auto) 4.7, Lymph # (Auto) 1.1, [place] # (Auto) 1.0, Eos # (Auto) 0.0, Baso # (Auto) 0.1, Sodium 136, Potassium 3.5, Chloride 100, Carbon Dioxide 30, Anion Gap 9.5, BUN 34 H, Creatinine 1.50 H, Estimated Creat Clear 54, Estimated GFR 34 L, Est GFR ( Amer) 41 L, Glucose 135 H, Calcium 8.6, Magnesium 1.8, Total Bilirubin 0.6, AST 50 H, ALT 43, Alkaline Phosphatase 78, Total Protein 6.1 L, Albumin 3.5, Globulin 2.6, Albumin/Globulin Ratio 1.3 I & O for Labs for Last 24 Hours: Intake & Output 11/22/24 11/23/24 11/24/24 11/25/24 23:59 23:59 23:59 23:59 Intake Total 837.18 / 837.18 120 / 120 Output Total 2950 / 2950 1175 / 1175 Balance -2112.82 / -2112.82 -1055 / -1055 Weight 108.409 kg 105.1 kg Constitutional: Present no acute distress, obese, chronically ill appearing and cooperative Head: Present atraumatic and normocephalic ENT: Present normal exam Neck: Present normal inspection Respiratory: Present rhonchi and normal respiratory effort; Absent wheezes or crackles Comment:: Rhonchorous cough Cardiac: Present Tachycardia Comment:: irregularly irregular GI: Present soft and normal bowel sounds; Absent distention or tenderness Extremities: Present normal inspection and full ROM Skin: Present intact; Absent erythema Neuro: Present Grossly Intact, alert, awake, oriented x 3 and moves all extremities Assessment and Plan *Assessment and plan (1) Atrial fibrillation with RVR: Status: Acute Category: Medical Code(s): I48.91 - Unspecified atrial fibrillation (2) Influenza A: Status: Acute Category: Medical Code(s): J10.1 - Influenza due to other identified influenza virus with other respiratory manifestations (3) Heart 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 John is a 74-year-old female who presented with cough. Found to be in A-fib with RVR. Previously admitted earlier this month with COVID and similar tachyarrhythmia. Discussed case with ER physician, request admission for management of A-fib RVR. I agreed to admit for further treatment. Started on amiodarone. Transition to oral amiodarone today. Cardiology evaluating. Found to be positive for flu. Problems addressed as follows: HFmrEF, new onset Diastolic dysfunction Atrial fibrillation Hypertension -Was admitted within the past month with COVID and A-fib RVR. Echo obtained earlier this month showing heart failure with mildly reduced ejection fraction and diastolic dysfunction with volume overload, RVSP 40-45 -Diltiazem was contraindicated. Metoprolol tartrate was increased to 200 mg twice daily. Continuing at this time. Will administer additional 5 mg IV tartrate once. -Transition amiodarone 400 mg twice daily. Discussed case with cardiology, will hold on cardioversion at this time. Recommend adding digoxin. -Continue Xarelto 20 mg daily -Holding losartan in the setting of normotensive state -BNP remains elevated at 4100 on admission, less than last visit. Responded well to initial IV Lasix dose. Continue Lasix 80 mg IV daily daily. Goal negative volume status. -White count normal at 6.8, hemoglobin 13.6. Kidney function stable with BUN 34, creatinine 1.5. This appears to be baseline. Repeat CBC, CMP, magnesium ordered for the morning. Influenza A: Patient's respiratory panel came back overnight positive for flu A. Initiated on Tamiflu 75 mg twice daily for 5 days. Increased cough overnight. Having some posttussive emesis. Guaifenesin for cough every 6 hours as needed #Pleural effusion, right - Reports history of this. Does not endorse any further workup in the outpatient setting. Concern for secondary to heart failure as above. Showing some improvement. Continue diuresis. - Has history of lung mass but was not malignant. Status post lobectomy with resolution. Never needed chemotherapy or radiation. - Per my review chest imaging, effusion still present. Has mild pulmonary edema. No focal consolidation. Continue Lexapro 10 mg daily for mood Continue Lipitor 80 mg nightly for cholesterol Continue famotidine 20 mg twice daily per home regimen for GERD Continue temazepam 15 mg nightly for sleep Obesity complicates all aspects of her care Full code Xarelto Cardiac diet
--- NOTE | 2024-11-25 13:56 | PC.NURSE ---
Patient transferred from [facility] down to [facility] / [facility]. Patient a&ox4, vss. Patient's heart rate is in 110s. Patient lung sounds clear.
--- NOTE | 2024-11-25 16:49 | HMH.PTEV ---
Physical Therapy Evaluation Rehab PT IP Evaluation Start: 11/24/24 18:11 Freq: ONCE Status: Active Protocol: Document 11/25/24 16:39 BARRY (Rec: 11/25/24 16:49 PHOKATINA [id number]) Subjective/History History History 74-year-old female with history of A-fib on Xarelto, hypertension, lung mass status post lobectomy, recent admission with COVID and A-fib with RVR. She was found to be flu A positive on work-up. She reports she lives a lone, 1-2 steps to enter the home and she is generally independent with all mobility at baseline without AD. Subjective Subjective No c/o at this time and agrees to OOB mobility assessment. Rehab PT IP Eval Objective Appearance Patient Behavior Appropriate Patient Orientation Person,Place,Time Difficulty following instructions none Speech Pattern Clear Ambulation Patient Able to Ambulate Yes Ambulation Observation IP General Gait Pattern Observation No Deviations/Normal Ambulation Distance (feet) 50 Ambulation Assistive Device None Ambulation Ability Independent Balance Ability to Arise Able, w/o using arms Sitting Balance Steady, safe Standing Balance Narrow stance w/o support Dynamic Sitting Balance Ability Normal Dynamic Standing Balance Ability Normal Transfers Bed Transfer Ability Independent Chair Transfer Ability Independent Sit to Stand Bed Transfer Ability Independent Sit to Stand Chair Transfer Ability Independent ROM All Extremities PT ROM Status WFL MMT All Extremities PT MMT WFL Rehab PT IP prob,goals,plan Problems Date of Evaluation: 11/25/24 Discharge Plan PT Discharge Plan Pt is currently at baseline for all mobility and has no inpatient therapy needs. She is appropriate to return home once medically stable for d/c. Eval Complexity Eval Charge Codes 99508 - Moderate Complexity PHYSICIAN CERTIFICATION: I certify the specified therapy services for Page John are required, authorized, and reviewed every 30 days.
[2024-11-25] MEDS: RIVAROXABAN 10MG TABLET 20 MG PO (17:40)
[2024-11-25] MEDS: ATORVASTATIN 40MG TABLET 80 MG PO (21:39)
[2024-11-25] MEDS: TEMAZEPAM 15MG CAPSULE 15 MG PO (21:50)
[2024-11-26] VITALS (10 sets, daily range): BP systolic 96–149; BP diastolic 54–106; PULSE 83–166; RESP 16–18; TEMP 36.6–37.4; O2SAT 92–99; BMI 36.8
--- NOTE | 2024-11-26 05:45 | PC.NURSE ---
Pt. is alert and orientated x 4. Pt. remains with heart rates 110-120's. Pt. states that she is feeling better. Pt. slept well throughout this shift. VSS, personal items and call hester in reach.
[2024-11-26 06:47] LABS: Basophils % 0.4 % (0.1-2.0); Hematocrit 43.9 % (37.0-47.0); Hemoglobin 14.4 g/dL (12.2-16.2); Lymphocytes # 1.4 K/mm3 (0.7-4.5); Lymphocytes % 28.6 % (10-50); Mean Corpuscular HGB Conc 32.8 g/dL (31.8-35.4); Mean Corpuscular Volume 91.5 fl (81-99); Mean Platelet Volume 11.5 fl (7.4-10.4); Monocytes # 1.1 K/mm3 (0.1-1.0); Monocytes % 22.3 % (1.7-9.3); Neutrophils # 2.3 K/mm3 (1.8-7.8); Neutrophils % 48.1 % (37.0-80.0); Platelet Count 200 K/mm3 (142-424); White Blood Count 4.8 K/mm3 (4.8-10.8)
[2024-11-26 06:51] LABS: MANUAL DIFFERENTIAL MANUAL DIFFERENTIAL (MANUAL DIFF)
[2024-11-26 07:09] LABS: Alanine Aminotransferase 42 U/L (12-78); Albumin Level 3.5 g/dl (3.5-5.0); Albumin/Globulin Ratio 1.3 (1.1-1.8); Alkaline Phosphatase 78 U/L (38-126); Anion Gap 9.8 mEq/L (5-15); Aspartate Amino Transferase 46 U/L (14-36); Bilirubin,Total 0.5 mg/dl (0.2-1.3); Blood Urea Nitrogen 30 mg/dl (7-17); Calcium 8.5 mg/dl (8.4-10.2); Carbon Dioxide 32 mmol/L (22.0-30.0); Chloride 100 mmol/L (98-107); Creatinine Clearance Estimated 51 mL/min (50-200); Estimated Glomerular Filt Rate 31 ml/min (>60); GFR (African American) 38 ML/MIN (>60); Globulin 2.6 g/dL (1.3-3.2); Glucose 111 mg/dl (74-100); Magnesium 1.9 mg/dl (1.6-2.3); Potassium 3.8 mmoL/L (3.5-5.1); Sodium 138 mmol/L (136-145); Total Protein,Serum 6.1 g/dl (6.3-8.2)
[2024-11-26 08:48] LABS: Lymphocytes % 30 % (10-50); Monocytes % 13 % (2-9); Neutrophils % 57 % (42-76); Total Cells Counted 100
[2024-11-26 08:49] LABS: Platelet Estimate Normal; RBC Morphology Normal
[2024-11-26] MEDS: METOPROLOL TARTRATE 50MG TABLET 200 MG PO (09:43)
[2024-11-26] MEDS: FUROSEMIDE 40MG/4ML VIAL 80 MG IV (09:43)
[2024-11-26] MEDS: AMIODARONE 200MG TABLET 400 MG PO ×2 (09:43→22:14)
[2024-11-26] MEDS: CITALOPRAM 20MG TABLET 20 MG PO (09:43)
[2024-11-26] MEDS: SPIRONOLACTONE 25MG TABLET 25 MG PO (09:44)
[2024-11-26] MEDS: DIGOXIN 0.125MG TABLET 125 MCG PO (09:44)
[2024-11-26] MEDS: FAMOTIDINE 20MG TABLET 20 MG PO ×2 (09:44→20:55)
--- NOTE | 2024-11-26 10:19 | EXP.CARD.PN ---
Subjective Subjective Date: 11/26/24 Time: 10:19 Principal diagnosis: Flu, A. fib/flutter with RVR Interval history: 74-year-old white female sitting in bedside chair in no acute distress. States she feels much better today after getting a good night sleep. She has arranged to follow-up with Dr. 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 Exam Data for Last 24 hours Vital signs and Labs for Last 24 Hours: Temp Pulse Resp BP Pulse Ox O2 Del Method O2 Flow Rate 98.4 F 107 H 16 149/74 H 99 Room Air 2 11/26/24 08:00 11/26/24 09:44 11/26/24 08:00 11/26/24 08:00 11/26/24 08:00 11/26/24 07:00 11/25/24 20:00 Laboratory Results - last 24 hr 11/26/24 06:36: WBC 4.8 D, RBC 4.80, Hgb 14.4, Hct 43.9, MCV 91.5, MCH 30.0, MCHC 32.8, RDW 14.0, Plt Count 200, MPV 11.5 H, Neut % (Auto) 48.1, Lymph % (Auto) 28.6, [place] % (Auto) 22.3 H D, Eos % (Auto) 0.0 L, Baso % (Auto) 0.4, Neut # (Auto) 2.3, Lymph # (Auto) 1.4, [place] # (Auto) 1.1 H, Eos # (Auto) 0.0, Baso # (Auto) 0.0, Total Counted 100, Neutrophils % (Manual) 57, Lymphocytes % (Manual) 30, Monocytes % (Manual) 13 H, Platelet Estimate Normal, RBC Morphology Normal, Sodium 138, Potassium 3.8, Chloride 100, Carbon Dioxide 32 H, Anion Gap 9.8, BUN 30 H, Creatinine 1.60 H, Estimated Creat Clear 51, Estimated GFR 31 L, Est GFR ( Amer) 38 L, Glucose 111 H, Calcium 8.5, Magnesium 1.9, Total Bilirubin 0.5, AST 46 H, ALT 42, Alkaline Phosphatase 78, Total Protein 6.1 L, Albumin 3.5, Globulin 2.6, Albumin/Globulin Ratio 1.3 I & O for Last 24 hours: Intake & Output 11/23/24 11/24/24 11/25/24 11/26/24 11:59 11:59 11:59 11:59 Intake Total 957.18 / 957.18 240 / 240 Output Total 950 / 950 3175 / 3175 0 / 0 Balance -950 / -950 -2217.82 / -2217.82 240 / 240 Weight 239 lb 231 lb 11.293 oz 234 lb 9.6 oz Constitutional Constitutional: no acute distress *Routine Respiratory Exam Respiratory: Present CTA bilaterally *Routine Cardiovascular Exam Cardiovascular: Present tachycardia and irregularly irregular Progress Note: A&P Assessment and plan (1) Atrial fibrillation with RVR: Status: Acute (2) Pleural effusion on right: Status: Acute (3) Heart failure with mildly reduced ejection fraction (HFmrEF): Status: Acute (4) Influenza A: Status: Acute (5) History of CVA (cerebrovascular accident): Status: Acute (6) Hypertension: Status: Acute (7) CHF exacerbation: Status: Acute Assessment and Plan Assessment and Plan for All Diagnoses:: 1. Influenza type A -per hospitalist -on Tamiflu 2. A. fib with RVR -poorly controlled on metoprolol in setting of Influenza and recent COVID -started on Amiodarone, now on oral dosing -Added digoxin with only mild improvement -doubt cardioversion will result in sustained sinus rhythm due to severe biatrial dilation -discussed recommendation for referral to EP for consideration of ablation +/- pacemaker implantation as outpatient -on Xarelto 3. HFmrEF with acute exacerbation due to current illness -pt has diuresed 3 liters -on GDMT with spironolactone and metoprolol. Currently holding losartan due to need for more rate control meds -pt to follow up with regular research greenhouse supervisor (Dr. Flynn in [place], [place]) 4. Hyperlipidemia -on statin -recheck as outpatient after she has recovered from the flu and recent COVID 5. CKD, stage 3 -Cr 1.6 with GFR 31 -will decrease diuretics due to increased renal functions Adjust diuretic down due to [place] Switch metoprolol to succinate dosing Continue amiodarone loading until next week then reduce to 400 mg daily Continue digoxin Stable from cardiac standpoint if patient is ready for discharge. She will follow up with Dr. Flynn in one to two weeks Home med recs: Metoprolol succinate 200 mg daily Digoxin 0.125 mg daily Amiodarone 400 mg twice daily until December 02 at which time she should reduce to 400 mg daily Xarelto 20 mg daily Atorvastatin 80 mg daily Spironolactone 25 mg daily Lasix 40 mg daily Hold losartan at this time
[2024-11-26] MEDS: OSELTAMIVIR PHOSPHATE 6MG/ML ORAL SUSP 60ML 30 MG PO (10:25)
--- NOTE | 2024-11-26 12:12 | ECG_ITS ---
APPROVED REPORT Exam: Resting ECG HR:107 bpm ECG Measurements Heart Rate 107 AXES IN 255 P -5 QRSd 98 QRS 18 QT 373 T 48 QTc 436 Conclusion SINUS TACHYCARDIA WITH FIRST DEGREE AV BLOCK MINIMAL VOLTAGE CRITERIA FOR LVH, CONSIDER NORMAL VARIANT [MEETS CRITERIA IN ONE OF: R(aVL), S(V1), R(V5), R(V5/V6)+S(V1)] MODERATE T-WAVE ABNORMALITY, CONSIDER LATERAL ISCHEMIA [-0.1+ mV T-WAVE IN I/aVL/V5/V6] ABNORMAL ECG UNCONFIRMED REPORT Electronically signed by : Pablo Dailey MD 11/28/2024 10:54:57
[2024-11-26] MEDS: 0.9 % SODIUM CHLORIDE 1000ML 500 ML IV (12:15)
[2024-11-26] MEDS: ONDANSETRON 4MG/2ML VIAL 4 MG IV (12:15)
[2024-11-26 12:19] LABS: POC Glucose,Bedside 103 (70-110)
--- NOTE | 2024-11-26 12:30 | PC.NURSE ---
Patient started feeling dizzy, sweating and nauseous after not previously having symptoms. MD notified. EKG obtained, fluids given, zofran given. Patient felt some better after fluids and zofran, still having bouts of dizziness specifically on the way to the restroom. Patient educated to call out for help and not go to the restroom without someone walking with her.
[2024-11-26] MEDS: GUAIFENESIN/DEXTROMETHORPHAN 200MG/20MG 10ML UDC 10 ML PO ×2 (15:10→22:14)
--- NOTE | 2024-11-26 16:49 | EXP.PN ---
Subjective *Date: 11/26/24 *Time: 16:49 Interval history: Patient had an episode of nausea/vomiting, dizziness this morning. Given 500 mL bolus with improvement in symptoms. However, continues to have mild dizziness with exertion. Will follow-up orthostatic vitals. Unclear if nausea/vomiting is secondary to starting digoxin in the morning, will continue to monitor. Anticipate discharge in the morning if patient's symptoms continue to improve. Exam Data for Last 24 hours Vital signs and Labs for Last 24 Hours: Temp Pulse Resp BP Pulse Ox O2 Del Method O2 Flow Rate 98.1 F 104 H 16 120/81 92 L Room Air 2 11/26/24 16:00 11/26/24 16:00 11/26/24 16:00 11/26/24 16:00 11/26/24 16:00 11/26/24 11:29 11/25/24 20:00 Laboratory Results - last 24 hr 11/26/24 06:36: WBC 4.8 D, RBC 4.80, Hgb 14.4, Hct 43.9, MCV 91.5, MCH 30.0, MCHC 32.8, RDW 14.0, Plt Count 200, MPV 11.5 H, Neut % (Auto) 48.1, Lymph % (Auto) 28.6, [place] % (Auto) 22.3 H D, Eos % (Auto) 0.0 L, Baso % (Auto) 0.4, Neut # (Auto) 2.3, Lymph # (Auto) 1.4, [place] # (Auto) 1.1 H, Eos # (Auto) 0.0, Baso # (Auto) 0.0, Total Counted 100, Neutrophils % (Manual) 57, Lymphocytes % (Manual) 30, Monocytes % (Manual) 13 H, Platelet Estimate Normal, RBC Morphology Normal, Sodium 138, Potassium 3.8, Chloride 100, Carbon Dioxide 32 H, Anion Gap 9.8, BUN 30 H, Creatinine 1.60 H, Estimated Creat Clear 51, Estimated GFR 31 L, Est GFR ( Amer) 38 L, Glucose 111 H, Calcium 8.5, Magnesium 1.9, Total Bilirubin 0.5, AST 46 H, ALT 42, Alkaline Phosphatase 78, Total Protein 6.1 L, Albumin 3.5, Globulin 2.6, Albumin/Globulin Ratio 1.3 11/26/24 12:10: POC Glucose 103 I & O for Last 24 hours: Intake & Output 11/23/24 11/24/24 11/25/24 11/26/24 23:59 23:59 23:59 23:59 Intake Total 837.18 / 837.18 360 / 360 Output Total 2950 / 2950 1175 / 1175 0 / 0 Balance -2112.82 / -2112.82 -815 / -815 0 / 0 Weight 108.409 kg 105.1 kg 106.413 kg Constitutional Constitutional: no acute distress *Routine HEENT Exam Head: Present normocephalic Eye: Present EOMI and PERRL ENT: Present mucous membranes moist *Routine Neck Exam Neck: Present supple; Absent lymphadenopathy *Routine Respiratory Exam Respiratory: Present CTA bilaterally *Routine Cardiovascular Exam Cardiovascular: Present tachycardia and irregularly irregular *Routine Abdominal Exam Abdominal: Present soft and normoactive bowel sounds; Absent tenderness *Routine Extremities Exam Extremities: Absent cyanosis, clubbing or edema *Routine Skin Exam Skin: Present warm; Absent rash *Routine Neurological Exam Neurological: Present alert and oriented X3 Assessment and Plan *Assessment and plan (1) Atrial fibrillation with RVR: Status: Acute Category: Medical Code(s): I48.91 - Unspecified atrial fibrillation (2) Influenza A: Status: Acute Category: Medical Code(s): J10.1 - Influenza due to other identified influenza virus with other respiratory manifestations (3) Heart 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 John is a 74-year-old female who presented with cough. Found to be in A-fib with RVR. Previously admitted earlier this month with COVID and similar tachyarrhythmia. Discussed case with ER physician, request admission for management of A-fib RVR. I agreed to admit for further treatment. HFmrEF, new onset Diastolic dysfunction Atrial fibrillation Hypertension - Was admitted within the past month with COVID and A-fib RVR. Echo obtained earlier this month showing heart failure with mildly reduced ejection fraction and diastolic dysfunction with volume overload, RVSP 40-45 - Diltiazem was contraindicated due to HFmrEF. Metoprolol tartrate was increased to 200 mg twice daily. Continuing at this time. - Transition amiodarone 400 mg twice daily until December 02, then 400 mg daily. Discussed case with cardiology, will hold on cardioversion at this time. ? Cardiology started digoxin 125 mcg today. Heart rate currently 104 - Continue Xarelto 20 mg daily. ? Continue Lasix 40 mg daily, wean from IV Lasix 80 mg daily - Holding losartan in the setting of normotensive state - White count normal at 4.8, hemoglobin 14.4. Kidney function stable creatinine 1.6. This appears to be baseline. ? Repeat CBC, CMP, magnesium ordered for the morning. ? Patient had an episode of nausea/vomiting, dizziness this morning. Given 500 mL bolus with improvement in symptoms. However, continues to have mild dizziness with exertion. Unclear if nausea/vomiting is secondary to starting digoxin in the morning, will continue to monitor. Anticipate discharge in the morning if patient's symptoms continue to improve. ? Follow-up orthostatic vitals. Influenza A: Patient's respiratory panel came back overnight positive for flu A. Increased cough overnight. Having some posttussive emesis. ? Continue Tamiflu. Guaifenesin for cough every 6 hours as needed #Pleural effusion, right - Reports history of this. Does not endorse any further workup in the outpatient setting. Concern for secondary to heart failure as above. Showing some improvement. Continue diuresis. - Has history of lung mass but was not malignant. Status post lobectomy with resolution. Never needed chemotherapy or radiation. - Per my review chest imaging, effusion still present. Has mild pulmonary edema. No focal consolidation. ? Plan to refer to pulmonology on discharge. Continue Lexapro 10 mg daily for mood Continue Lipitor 80 mg nightly for cholesterol Continue famotidine 20 mg twice daily per home regimen for GERD Continue temazepam 15 mg nightly for sleep Obesity complicates all aspects of her care Full code Xarelto Cardiac diet
[2024-11-26] MEDS: RIVAROXABAN 10MG TABLET 20 MG PO (17:35)
[2024-11-26] MEDS: ATORVASTATIN 40MG TABLET 80 MG PO (20:54)
[2024-11-26] MEDS: TEMAZEPAM 15MG CAPSULE 15 MG PO (20:55)
[2024-11-27] VITALS (7 sets, daily range): BP systolic 89–139; BP diastolic 58–91; PULSE 80–120; RESP 16; TEMP 36.6–37; O2SAT 96–98; BMI 36.8
--- NOTE | 2024-11-27 04:32 | PC.NURSE ---
Pt. doing better tonight than earlier in the day. Pt. alert and orientated x 4. Pt. on room air. Pt. c/o mild dizziness with position change of laying down to sitting up. Pt. states that she is feeling better. Pt. ambulated to bathroom with standby assist. Gait steady. Pt slept well. Pt. states that she is most likely going home today. VSS, Personal items and call hester in reach.
[2024-11-27 07:19] LABS: Basophils % 0.2 % (0.1-2.0); Hematocrit 44.2 % (37.0-47.0); Hemoglobin 14.4 g/dL (12.2-16.2); Lymphocytes # 2.2 K/mm3 (0.7-4.5); Lymphocytes % 53.6 % (10-50); Mean Corpuscular HGB Conc 32.6 g/dL (31.8-35.4); Mean Corpuscular Hemoglobin 30.2 pg (27.0-31.2); Mean Corpuscular Volume 92.7 fl (81-99); Mean Platelet Volume 11.9 fl (7.4-10.4); Monocytes # 0.7 K/mm3 (0.1-1.0); Monocytes % 17.5 % (1.7-9.3); Neutrophils # 1.1 K/mm3 (1.8-7.8); Neutrophils % 28.2 % (37.0-80.0); Platelet Count 182 K/mm3 (142-424); Red Blood Count 4.77 M/mm3 (4.20-5.40); Red Cell Distribution Width 14.1 % (11.5-17.5); White Blood Count 4.1 K/mm3 (4.8-10.8)
[2024-11-27 07:32] LABS: MANUAL DIFFERENTIAL MANUAL DIFFERENTIAL (MANUAL DIFF)
[2024-11-27 07:55] LABS: Alanine Aminotransferase 42 U/L (12-78); Albumin Level 3.3 g/dl (3.5-5.0); Albumin/Globulin Ratio 1.3 (1.1-1.8); Alkaline Phosphatase 76 U/L (38-126); Anion Gap 8.5 mEq/L (5-15); Aspartate Amino Transferase 51 U/L (14-36); Bilirubin,Total 0.5 mg/dl (0.2-1.3); Blood Urea Nitrogen 36 mg/dl (7-17); Calcium 8.3 mg/dl (8.4-10.2); Carbon Dioxide 34 mmol/L (22.0-30.0); Chloride 101 mmol/L (98-107); Creatinine Clearance Estimated 45 mL/min (50-200); Estimated Glomerular Filt Rate 27 ml/min (>60); GFR (African American) 33 ML/MIN (>60); Globulin 2.5 g/dL (1.3-3.2); Glucose 95 mg/dl (74-100); Potassium 3.5 mmoL/L (3.5-5.1); Sodium 140 mmol/L (136-145); Total Protein,Serum 5.8 g/dl (6.3-8.2)
--- NOTE | 2024-11-27 08:57 | P.PN_ITS ---
Subjective Subjective Date: 11/27/24 Time: 08:58 Principal diagnosis: Flu, A. fib/flutter with RVR Interval history: 74 yo WF in bed in NAD. Some diarrhea overnight. No nausea at this time. Exam Data for Last 24 hours Vital signs and Labs for Last 24 Hours: Temp Pulse Resp BP Pulse Ox O2 Del Method O2 Flow Rate 98.6 F 91 H 16 135/79 98 Room Air 2 11/27/24 04:00 11/27/24 04:00 11/27/24 04:00 11/27/24 04:00 11/27/24 04:00 11/27/24 06:48 11/25/24 20:00 Laboratory Results - last 24 hr 11/26/24 12:10: POC Glucose 103 11/27/24 07:01: WBC 4.1 L, RBC 4.77, Hgb 14.4, Hct 44.2, MCV 92.7, MCH 30.2, MCHC 32.6, RDW 14.1, Plt Count 182, MPV 11.9 H, Neut % (Auto) 28.2 L, Lymph % (Auto) 53.6 H, [place] % (Auto) 17.5 H, Eos % (Auto) 0.0 L, Baso % (Auto) 0.2, Neut # (Auto) 1.1 L, Lymph # (Auto) 2.2, [place] # (Auto) 0.7, Eos # (Auto) 0.0, Baso # (Auto) 0.0, Sodium 140, Potassium 3.5, Chloride 101, Carbon Dioxide 34 H, Anion Gap 8.5, BUN 36 H, Creatinine 1.80 H, Estimated Creat Clear 45, Estimated GFR 27 L, Est GFR ( Amer) 33 L, Glucose 95, Calcium 8.3 L, Total Bilirubin 0.5, AST 51 H, ALT 42, Alkaline Phosphatase 76, Total Protein 5.8 L, Albumin 3.3 L, Globulin 2.5, Albumin/Globulin Ratio 1.3 I & O for Last 24 hours: Intake & Output 11/24/24 11/25/24 11/26/24 11/27/24 11:59 11:59 11:59 11:59 Intake Total 957.18 / 957.18 600 / 600 360 / 360 Output Total 950 / 950 3175 / 3175 0 / 0 0 / 0 Balance -950 / -950 -2217.82 / -2217.82 600 / 600 360 / 360 Weight 239 lb 231 lb 11.293 oz 234 lb 9.6 oz 234 lb 6.4 oz Constitutional Constitutional: no acute distress *Routine Respiratory Exam Respiratory: Present CTA bilaterally *Routine Cardiovascular Exam Cardiovascular: Present RRR and murmur; Absent gallop or rubs Progress Note: A&P Assessment and plan (1) Atrial fibrillation with RVR: Status: Acute (2) Influenza A: Status: Acute (3) Heart failure with mildly reduced ejection fraction (HFmrEF): Status: Acute (4) Pleural effusion on right: Status: Acute (5) Lung mass: Status: Resolved (6) Obesity (BMI 30-39.9): Status: Chronic (7) History of CVA (cerebrovascular accident): Status: Acute (8) Hypertension: Status: Acute (9) CHF exacerbation: Status: Acute Assessment and Plan Assessment and Plan for All Diagnoses:: 1. Influenza type A -per hospitalist -on Tamiflu 2. A. fib with RVR -on metoprolol (reduced last night due to low BP), amiodarone and digoxin with improvement in rate as treatment of flu has continued -doubt cardioversion will result in sustained sinus rhythm due to severe biatrial dilation -discussed recommendation for referral to EP for consideration of ablation +/- pacemaker implantation as outpatient -on Xarelto 3. HFmrEF with acute exacerbation due to current illness -pt has diuresed 2 liters -on GDMT with spironolactone and metoprolol. Currently holding losartan due to need for more rate control meds -pt to follow up with regular attendant self service store (Dr. Flynn in [place], [place]) 4. Hyperlipidemia -on statin -recheck as outpatient after she has recovered from the flu and recent COVID 5. CKD, stage 3 -Cr 1.8 with GFR 27 (worsened in part due to GI fluid loss) -will decrease diuretics due to increased renal functions Digoxin level normal today at 1.3. Stable from cardiac standpoint. She will follow up with Dr. Flynn in one to two weeks. He will refer her to EP for a. fib/flutter and consideration of ablation. Home med recs: Metoprolol succinate 100 mg daily Digoxin 0.125 mg daily Amiodarone 400 mg twice daily until December 02 at which time she should reduce to 400 mg daily Xarelto 20 mg daily Atorvastatin 80 mg daily Spironolactone 25 mg daily Lasix 40 mg daily as needed Hold losartan at this time
[2024-11-27 09:06] LABS: Magnesium 1.9 mg/dl (1.6-2.3)
[2024-11-27] MEDS: FAMOTIDINE 20MG TABLET 20 MG PO (09:30)
[2024-11-27] MEDS: CITALOPRAM 20MG TABLET 20 MG PO (09:30)
[2024-11-27] MEDS: AMIODARONE 200MG TABLET 400 MG PO (09:30)
[2024-11-27] MEDS: METOPROLOL SUCCINATE XL 100MG TABLET 100 MG PO (09:30)
[2024-11-27] MEDS: DIGOXIN 0.125MG TABLET 125 MCG PO (09:31)
[2024-11-27 11:27] LABS: Lymphocytes % 52 % (10-50); Monocytes % 15 % (2-9); Neutrophils % 33 % (42-76); Platelet Estimate Normal; RBC Morphology Normal; Total Cells Counted 100
[2024-11-27] MEDS: 0.9 % SODIUM CHLORIDE 1000ML 500 ML IV (12:40)
--- NOTE | 2024-11-27 13:46 | P.DS_ITS ---
General Admission date:: 11/24/24 HPI HPI HPI: Ms. John is a 74-year-old female with history of A-fib on Xarelto, hypertension, lung mass status post lobectomy, recent admission with COVID and A-fib with RVR. She presented to the hospital today with complaint of nausea and vomiting and cough. Symptom worsened most significantly overnight. Heart rate has been fast since Monday. Denies any chest pain, confusion. No blood in vomit. Family with her at bedside. Workup in the ER concerning for A-fib with RVR with heart rate in the 120s. BNP remains elevated above 4000. Kidney function at baseline. Cardiology was consulted from the ER, patient initiated on amiodarone. Medicine consulted for admission and further management. Respiratory panel obtained, negative. On evaluation patient is comfortable on room air. Appears in a flutter on telemetry. Having good response to diuretic with increased urination. States she does not respond as well to diuretics at home. Denies any fever. Hospital Course Hospital Course Hospital Course: Ms. John is a 74-year-old female who presented with cough. Found to be in A-fib with RVR. Previously admitted earlier this month with COVID and similar tachyarrhythmia. Discussed case with ER physician, request admission for management of A-fib RVR. I agreed to admit for further treatment. HFmrEF, new onset Diastolic dysfunction Atrial fibrillation Hypertension - Was admitted within the past month with COVID and A-fib RVR. Echo obtained earlier this month showing heart failure with mildly reduced ejection fraction and diastolic dysfunction with volume overload, RVSP 40-45. ? Cardiology consulted, assisted with care as below. ? Clinically improved with metoprolol succinate 100 mg, amiodarone 400 mg daily, digoxin 125 mcg. Diltiazem contraindicated due to HFrEF. ? Patient did have some positive orthostatic vitals which improved after decreasing metoprolol from 200 to 100 mg and IV and oral fluid resuscitation. - Transition amiodarone 400 mg twice daily until December 02, then 400 mg daily. Discussed case with cardiology, will hold on cardioversion at this time. - Continue Xarelto 20 mg daily, wean from IV Lasix 80 mg daily. ? Hold Lasix, hydralazine, spironolactone, losartan due to soft pressures and positive orthostatic vitals during admission. ? Will follow-up with cardiology within 1 week. 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 Influenza A: ? Continue Tamiflu for 1 more day. #Pleural effusion, right - Reports history of this. Does not endorse any further workup in the outpatient setting. Concern for secondary to heart failure as above. Showing some improvement. Continue diuresis. - Has history of lung mass but was not malignant. Status post lobectomy with resolution. Never needed chemotherapy or radiation. ?Will follow-up with pulmonology within 2 weeks. Continue Lexapro 10 mg daily for mood Continue Lipitor 80 mg nightly for cholesterol Continue famotidine 20 mg twice daily per home regimen for GERD Continue temazepam 15 mg nightly for sleep Obesity complicates all aspects of her care Total time spent on discharge: 33 minutes on chart review, counseling, documentation, and direct care with patient. Exam Data for Last 24 hours Vital signs and Labs for Last 24 Hours: Temp Pulse Resp BP Pulse Ox O2 Del Method O2 Flow Rate 97.9 F 110 H 16 114/69 96 Room Air 2 11/27/24 11:33 11/27/24 13:41 11/27/24 11:33 11/27/24 13:41 11/27/24 11:33 11/27/24 11:33 11/25/24 20:00 Laboratory Results - last 24 hr 11/27/24 07:01: WBC 4.1 L, RBC 4.77, Hgb 14.4, Hct 44.2, MCV 92.7, MCH 30.2, MCHC 32.6, RDW 14.1, Plt Count 182, MPV 11.9 H, Neut % (Auto) 28.2 L, Lymph % (Auto) 53.6 H, [place] % (Auto) 17.5 H, Eos % (Auto) 0.0 L, Baso % (Auto) 0.2, Neut # (Auto) 1.1 L, Lymph # (Auto) 2.2, [place] # (Auto) 0.7, Eos # (Auto) 0.0, Baso # (Auto) 0.0, Total Counted 100, Neutrophils % (Manual) 33 L, Lymphocytes % (Manual) 52 H, Monocytes % (Manual) 15 H, Platelet Estimate Normal, RBC Morphology Normal, Sodium 140, Potassium 3.5, Chloride 101, Carbon Dioxide 34 H, Anion Gap 8.5, BUN 36 H, Creatinine 1.80 H, Estimated Creat Clear 45, Estimated GFR 27 L, Est GFR ( Amer) 33 L, Glucose 95, Calcium 8.3 L, Magnesium 1.9, Total Bilirubin 0.5, AST 51 H, ALT 42, Alkaline Phosphatase 76, Total Protein 5.8 L, Albumin 3.3 L, Globulin 2.5, Albumin/Globulin Ratio 1.3, Digoxin 1.30 I & O for Last 24 hours: Intake & Output 11/24/24 11/25/24 11/26/24 11/27/24 23:59 23:59 23:59 23:59 Intake Total 837.18 / 837.18 360 / 360 720 / 720 Output Total 2950 / 2950 1175 / 1175 0 / 0 0 / 0 Balance -2112.82 / -2112.82 -815 / -815 720 / 720 0 / 0 Weight 108.409 kg 105.1 kg 106.413 kg 106.322 kg Constitutional Constitutional: no acute distress *Routine HEENT Exam Head: Present normocephalic Eye: Present EOMI and PERRL ENT: Present mucous membranes moist *Routine Neck Exam Neck: Present supple; Absent lymphadenopathy *Routine Respiratory Exam Respiratory: Present CTA bilaterally *Routine Cardiovascular Exam Cardiovascular: Present tachycardia and irregularly irregular *Routine Abdominal Exam Abdominal: Present soft and normoactive bowel sounds; Absent tenderness *Routine Extremities Exam Extremities: Absent cyanosis, clubbing or edema *Routine Skin Exam Skin: Present warm; Absent rash *Routine Neurological Exam Neurological: Present alert and oriented X3 Results Data Completed and Pending Labs on day of discharge: Labs from last 24 hours 11/27/24 07:01 WBC 4.1 L RBC 4.77 Hgb 14.4 Hct 44.2 MCV 92.7 MCH 30.2 MCHC 32.6 RDW 14.1 Plt Count 182 MPV 11.9 H Neut % (Auto) 28.2 L Lymph % (Auto) 53.6 H [place] % (Auto) 17.5 H Eos % (Auto) 0.0 L Baso % (Auto) 0.2 Neut # (Auto) 1.1 L Lymph # (Auto) 2.2 [place] # (Auto) 0.7 Eos # (Auto) 0.0 Baso # (Auto) 0.0 Total Counted 100 Neutrophils % (Manual) 33 L Lymphocytes % (Manual) 52 H Monocytes % (Manual) 15 H Platelet Estimate Normal RBC Morphology Normal Sodium 140 Potassium 3.5 Chloride 101 Carbon Dioxide 34 H Anion Gap 8.5 BUN 36 H Creatinine 1.80 H Estimated Creat Clear 45 Estimated GFR 27 L Est GFR ( Amer) 33 L Glucose 95 Calcium 8.3 L Magnesium 1.9 Total Bilirubin 0.5 AST 51 H ALT 42 Alkaline Phosphatase 76 Total Protein 5.8 L Albumin 3.3 L Globulin 2.5 Albumin/Globulin Ratio 1.3 Digoxin 1.30 DS: Diagnosis Discharge Diagnosis (1) Atrial fibrillation with RVR: Status: Acute Code(s): I48.91 - Unspecified atrial fibrillation (2) Influenza A: Status: Acute Code(s): J10.1 - Influenza due to other identified influenza virus with other respiratory manifestations (3) Heart failure with mildly reduced ejection fraction (HFmrEF): Status: Acute Code(s): I50.22 - Chronic systolic (congestive) heart failure (4) Pleural effusion on right: Status: Acute Code(s): J90 - Pleural effusion, not elsewhere classified (5) Lung mass: Status: Resolved Code(s): R91.8 - Other nonspecific abnormal finding of lung field (6) Obesity (BMI 30-39.9): Status: Chronic Code(s): E66.9 - Obesity, unspecified (7) History of CVA (cerebrovascular accident): Status: Acute Code(s): Z86.73 - Personal history of transient ischemic attack (TIA), and cerebral infarction without residual deficits (8) Hypertension: Status: Acute Code(s): I10 - Essential (primary) hypertension Qualifiers: Hypertension type: essential hypertension Qualified Code(s): I10 - Essential (primary) hypertension (9) CHF exacerbation: Status: Acute Code(s): I50.9 - Heart failure, unspecified Qualifiers: Heart failure type: systolic Qualified Code(s): I50.23 - Acute on chronic systolic (congestive) heart failure Meds Home Medications and Allergies Home Medications ?Medication ?Instructions ?Recorded ?Confirmed ?Type ascorbic acid (vitamin C) 1,000 mg 1,000 mg PO DAILY vitamin 03/21/18 11/24/24 History tablet atorvastatin 80 mg tablet 80 mg PO HS Cholesterol 03/21/18 11/24/24 History cyanocobalamin (vitamin B-12) 500 500 mcg PO DAILY 04/01/20 11/24/24 History mcg tablet (Vitamin B-12) rivaroxaban 20 mg tablet (Xarelto) 20 mg PO QPM 04/01/20 11/24/24 History temazepam 15 mg capsule 15 mg PO HS 04/25/22 11/24/24 History hydroxyzine HCl 25 mg tablet 25 mg PO BID 11/10/24 11/24/24 History escitalopram oxalate 10 mg tablet 10 mg PO HS 11/11/24 11/24/24 History famotidine 20 mg tablet 20 mg PO BID 11/11/24 11/24/24 History promethazine 6.25 mg-codeine 10 5 ml PO Q6HP PRN Cough #118 mL 11/12/24 11/24/24 Rx mg/5 mL syrup albuterol 90 mcg/actuation aerosol 90 mcg inhalation NEEDED PRN 11/24/24 11/24/24 History inhaler Shortness Of Breath cholecalciferol (vitamin D3) 125 125 mcg PO DAILY 11/24/24 11/24/24 History mcg (5,000 unit) tablet (Vitamin D3) sennosides 8.6 mg-docusate sodium 50 tab PO NEEDED PRN 11/24/24 11/24/24 History 50 mg capsule (Senna Plus) Constipation amiodarone 200 mg tablet See Rx Instructions .Route 11/27/24 Rx .COMPLEX #60 tabs digoxin 125 mcg (0.125 mg) tablet 125 mcg PO DAILY 30 days #30 tabs 11/27/24 Rx metoprolol succinate 100 mg 100 mg PO DAILY 30 days #30 tabs 11/27/24 Rx tablet,extended release 24 hr oseltamivir 6 mg/mL oral 30 mg (5 mL) PO BID 1 day #10 mL 11/27/24 Rx suspension (Tamiflu) New Prescriptions to Start Prescriptions: amiodarone Dorian Alexander digoxin Catherine,Dorian metoprolol succinate Dorian Alexander oseltamivir [Tamiflu] Dorian Alexander Allergies Allergy/AdvReac Type Severity Reaction Status Date / Time No Known Allergies Allergy Verified 04/25/22 10:19 Discharge Plan Disposition Patient Disposition: Home, Self-Care Condition: Fair Discharge Order Discharge Orders: Discharge Order (Routine); Ordered 11/27/24 Ordered By: Dorian Alexander Follow up Plan Follow up with: Melissa Morrison APRN [Primary Care Provider] - 12/03/24 11:45 am Prescriptions/Medication Reconciliation: New amiodarone 200 mg Tablet See Rx Instructions .ROUTE .COMPLEX Qty: 60 0RF Rx Instructions: Take 400 mg twice a day until 12/02/2024. Then take 400 mg daily. digoxin 125 mcg (0.125 mg) Tablet 125 mcg PO DAILY 30 Days Qty: 30 0RF oseltamivir [Tamiflu] 6 mg/mL Suspension For Reconstitution 30 mg PO BID 1 Days Qty: 10 0RF metoprolol succinate 100 mg Tablet Extended Release 24 Hr 100 mg PO DAILY 30 Days Qty: 30 0RF Continued cyanocobalamin (vitamin B-12) [Vitamin B-12] 500 mcg tablet 500 mcg PO DAILY Xarelto 20 mg tablet 20 mg PO QPM Rx Instructions: must administer with evening meal temazepam 15 mg capsule 15 mg PO HS albuterol 90 mcg/actuation Aerosol 90 mcg INHALATION NEEDED PRN (Reason: Shortness Of Breath) cholecalciferol (vitamin D3) [Vitamin D3] 125 mcg (5,000 unit) Tablet 125 mcg PO DAILY Senna Plus 8.6-50 mg Capsule 50 tab PO NEEDED PRN (Reason: Constipation) atorvastatin 80 MG tablet 80 mg PO HS ascorbic acid (vitamin C) 1,000 MG tablet 1,000 mg PO DAILY hydroxyzine HCl 25 mg tablet 25 mg PO BID famotidine 20 mg tablet 20 mg PO BID escitalopram oxalate 10 mg tablet 10 mg PO HS promethazine-codeine 6.25-10 mg/5 mL Syrup 5 ml PO Q6HP PRN (Reason: Cough) Qty: 118 0RF Discontinued hydralazine 25 mg tablet 25 mg PO BID losartan 100 mg tablet 100 mg PO DAILY furosemide 40 mg Tablet 40 mg PO DAILY 30 Days Qty: 30 0RF spironolactone 25 mg Tablet 25 mg PO DAILY 30 Days Qty: 30 0RF metoprolol tartrate 100 mg tablet 200 mg PO BID 30 Days Qty: 120 0RF Problem Reconciliation Problems Reviewed?: Yes Patient Discharge Instructions Patient Instructions: DI for Heart Failure, DI for Atrial Fibrillation, DI for Influenza -- Adult Print Language: French Providers Primary Care Provider: Melissa Morrison Admit Provider: Javier Keen Attending Provider: Javier Keen
--- NOTE | 2024-11-28 10:43 | SW/DCPLANNER ---
Spoke with patient on the phone. Patient stated that she has had a good night and so far today. Patient stated that she is aware of her upcoming appointments. Patient stated that she was able to get her medicine picked [facility]. Patient stated that she has no concerns or questions at this time. Jose De Jesus Jarquin
== END 2024-11-27 14:44 | disposition home or self-care (01) | DRG 308 ==
LOC: ER 07:20 → ICU 08:48 → 2ND 11-25 12:12
PROVIDERS: Emergency Medicine; Physician Assistant; Student in an Organized Health Care Education/Training Program; Admitting Provider Internal Medicine Adolescent Medicine; Emergency Provider Emergency Medicine; PCP Nurse Practitioner Family; Visit Provider Internal Medicine Adolescent Medicine
DX: I48.20 Chronic atrial fibrillation, unspecified (principal); I50.23 Acute on chronic systolic (congestive) heart failure; I13.0 Hypertensive heart and chronic kidney disease with heart failure and stage 1 through stage 4 chronic kidney disease, or unspecified chronic kidney disease; N17.9 Acute kidney failure, unspecified; J10.1 Influenza due to other identified influenza virus with other respiratory manifestations; E78.5 Hyperlipidemia, unspecified; E66.9 Obesity, unspecified; N18.30 Chronic kidney disease, stage 3 unspecified; E11.22 Type 2 diabetes mellitus with diabetic chronic kidney disease; R91.8 Other nonspecific abnormal finding of lung field; Z86.73 Personal history of transient ischemic attack (TIA), and cerebral infarction without residual deficits; Z79.01 Long term (current) use of anticoagulants; Z79.02 Long term (current) use of antithrombotics/antiplatelets; Z79.51 Long term (current) use of inhaled steroids; Z68.36 Body mass index [BMI] 36.0-36.9, adult; Z79.899 Other long term (current) drug therapy
CPT/HCPCS: 36415; 71275; 74174; 80053; 80162; 81001; 82962; 83605; 83735; 83880; 84484; 85007; 85025; 85610; 87631; 87633; 93005; 97162; 97166; 99291; J0131; J0282; J1160; J1940; J2405; J7030; J7060; J7120; Q9967

== ENCOUNTER 2025-03-28 21:06 | Inpatient (IN) | payer MEDICARE, BC, SELFPAY ==
[2025-03-28 21:26] VITALS: BP 168/98; PULSE 95; RESP 16; TEMP 36.6; O2SAT 95; BMI 35.9
[2025-03-28 21:31] VITALS: BP 195/111; PULSE 88; O2SAT 93
--- NOTE | 2025-03-28 21:35 | CT_ITS ---
PROCEDURE INFORMATION: Exam: CT Abdomen And Pelvis With Contrast Exam date and time: 03/28/2025 10:49 PM Age: 74 years old Clinical indication: Nausea and vomiting; Abdominal pain; Additional info: Abd pain, nausea/voming, cough/soa TECHNIQUE: Imaging protocol: Computed tomography of the abdomen and pelvis with contrast. 3D rendering (Not supervised by radiologist): MIP and/or 3D reconstructed images were created by the technologist. Radiation optimization: All CT scans at this facility use at least one of these dose optimization techniques: automated exposure control; mA and/or kV adjustment per patient size (includes targeted exams where dose is matched to clinical indication); or iterative reconstruction. Contrast material: ISOVUE; Contrast volume: 70 ml; Contrast route: IV; COMPARISON: CT ANGIO ABDOMEN PELVIS 11/24/2024 7:04 AM FINDINGS: Liver: Unremarkable. Gallbladder and biliary ducts: No calcified stones. No ductal dilation. Pancreas: Normal. No ductal dilation. Spleen: Splenic granulomas. Adrenal glands: Unremarkable. Kidneys and ureters: Left upper pole simple cortical renal cysts. Left-sided nonobstructive calcified calyceal renal stone. No hydronephrosis. Stomach and bowel: Unremarkable. No obstruction. No mucosal thickening. Appendix: No evidence of appendicitis. Intraperitoneal space: No free air. No fluid collection. Vasculature: Mild-moderate atherosclerotic changes of the aorta and its major branches. Mild stenosis of the celiac axis and SMA ostia with good distal flow. Moderate stenosis of the bilateral renal artery ostia with good distal flow. Lymph nodes: No enlarged lymph nodes. Urinary bladder: Unremarkable as visualized. Reproductive: Unremarkable as visualized. Bones/joints: No acute fracture. Mild multilevel spondylosis. Soft tissues: Unremarkable. Other findings: For findings pertaining to the chest please see concurrent CTA chest. IMPRESSION: No acute abdominopelvic abnormality. COMMENTS: Consistent with the [employer]'s Incidental Findings Committee white paper (J Am Chapo [employer]iol 2018): Any incidental renal lesion less than 1 cm or classified as too small to characterize, or any incidental cystic renal lesion characterized as simple-appearing, is likely benign. No follow-up imaging is recommended for these lesions per consensus recommendations based on imaging criteria.
--- NOTE | 2025-03-28 21:35 | CT_ITS ---
PROCEDURE INFORMATION: Exam: CTA Chest With Contrast Exam date and time: 03/28/2025 10:49 PM Age: 74 years old Clinical indication: Cough and shortness of breath; Additional info: Abd pain, nausea/voming, cough/soa TECHNIQUE: Imaging protocol: Computed tomographic angiography of the chest with contrast. Exam focused on the arteries. 3D rendering (Not supervised by radiologist): MIP and/or 3D reconstructed images were created by the technologist. Radiation optimization: All CT scans at this facility use at least one of these dose optimization techniques: automated exposure control; mA and/or kV adjustment per patient size (includes targeted exams where dose is matched to clinical indication); or iterative reconstruction. Contrast material: ISOUVE 370; Contrast volume: 70 ml; Contrast route: INTRAVENOUS (IV); COMPARISON: CT ANGIO CHEST PE PROTOCOL 11/24/2024 7:04 AM FINDINGS: Pulmonary arteries: No acute pulmonary embolus. Enlargement of the pulmonary trunk measuring 3.7 cm. Aorta: Mild-moderate atherosclerotic changes of the aorta and its major branches. Lungs: Compressive atelectasis of the right upper, middle, and lower lobes. Mild patchy ground-glass opacities in the right upper lobe may represent an infectious process. Interlobular septal thickening most notably within the right lower lobe likely representing interstitial edema. Left lower lobe calcified granuloma. Pleural spaces: Moderate right and small left-sided pleural effusions. Heart: Unremarkable. No cardiomegaly. No pericardial effusion. Lymph nodes: Unremarkable. No enlarged lymph nodes. Spleen: Splenic granulomas. Kidneys: Left upper pole simple cortical renal cysts. Bones/joints: No acute fracture. Chronic right lateral 6th rib fracture. Soft tissues: Unremarkable. IMPRESSION: 1. No acute pulmonary embolus. 2. Moderate right and small left-sided pleural effusions. 3. Mild patchy ground-glass opacities in the right upper lobe may represent an infectious process. 4. Mild enlargement of the pulmonary trunk may be secondary to pulmonary hypertension. COMMENTS: Consistent with the [employer]'s Incidental Findings Committee white paper (J Am Chapo Radiol 2018): Any incidental renal lesion less than 1 cm or classified as too small to characterize, or any incidental cystic renal lesion characterized as simple-appearing, is likely benign. No follow-up imaging is recommended for these lesions per consensus recommendations based on imaging criteria.
--- NOTE | 2025-03-28 21:36 | HMH.EDGENADL ---
Discharge Plan Disposition Patient Disposition: Admitted Condition: Fair Prescriptions Prescriptions: No Action cyanocobalamin (vitamin B-12) [Vitamin B-12] 500 mcg tablet 500 mcg PO DAILY Xarelto 20 mg tablet 20 mg PO QPM Rx Instructions: must administer with evening meal temazepam 15 mg capsule 15 mg PO HS albuterol 90 mcg/actuation Aerosol 90 mcg INHALATION NEEDED PRN (Reason: Shortness Of Breath) cholecalciferol (vitamin D3) [Vitamin D3] 125 mcg (5,000 unit) Tablet 125 mcg PO DAILY Senna Plus 8.6-50 mg Capsule 50 tab PO NEEDED PRN (Reason: Constipation) amiodarone 200 mg Tablet See Rx Instructions .ROUTE .COMPLEX Qty: 60 0RF Rx Instructions: Take 400 mg twice a day until 12/02/2024. Then take 400 mg daily. digoxin 125 mcg (0.125 mg) Tablet 125 mcg PO DAILY 30 Days Qty: 30 0RF oseltamivir [Tamiflu] 6 mg/mL Suspension For Reconstitution 30 mg PO BID 1 Days Qty: 10 0RF metoprolol succinate 100 mg Tablet Extended Release 24 Hr 100 mg PO DAILY 30 Days Qty: 30 0RF atorvastatin 80 MG tablet 80 mg PO HS ascorbic acid (vitamin C) 1,000 MG tablet 1,000 mg PO DAILY hydroxyzine HCl 25 mg tablet 25 mg PO BID famotidine 20 mg tablet 20 mg PO BID escitalopram oxalate 10 mg tablet 10 mg PO HS promethazine-codeine 6.25-10 mg/5 mL Syrup 5 ml PO Q6HP PRN (Reason: Cough) Qty: 118 0RF Referrals Follow up/Referrals: Melissa Morrison APRN [Primary Care Provider, Medical] - See instructions Clinical Impressions Clinical Impression: Pleural effusion on right, Nausea & vomiting CHF exacerbation Qualifiers: Heart failure type: systolic Qualified Code(s): I50.23 - Acute on chronic systolic (congestive) heart failure Instructions Patient Instructions: DI for Diarrhea and Traveler's Diarrhea -- Adult, DI for Diarrhea and Traveler's Diarrhea -- Child, DI for Nausea -- Adult, DI for Nausea -- Child Print Language Print Language: [place] Discharge ED Provider: Mone Sandoval Adult HPI <Denisha Avelar DO - Last Filed: 03/28/25 23:15> General Chief complaint: Nausea/Vomiting/Diarrhea Stated complaint: High bp, stomache pain v/coughing Time Seen by Provider: 03/28/25 21:20 Mode of Arrival: Ambulatory Source of Information: Patient and Relative Description of Symptoms (Recalled from ER Triage Doc. by RN): Patient has nausea/vomiting/congestion/elevated blood pressure. Multiple complaints. Has not been taking blood pressure medication as ordered History of Present Illness HPI narrative: This patient is a 74-year-old female with a history of CHF, atrial fibrillation on digoxin, hypertension, prior kidney stones, and lung mass presenting to the emergency department for evaluation with concern for shortness of breath, cough, tussive emesis, nausea, vomiting, and elevated blood pressure. Patient states that she was seen and told to increase her blood pressure medication, but when she tried to increase that she thought that that was what could be making her sick/nauseated, so she went back down to her normal dose and has not taken anything today. She notes that she feels incredibly sick like she is going to throw up and is having lower abdominal pain. She also has significant cough and is coughing up clear stuff, coughing to the point of vomiting as well. No hematemesis, bilious emesis, melena, hematochezia, or other concerns. This all started over the last 2 days. Related Data Home Medications ?Medication ?Instructions ?Recorded ?Confirmed ascorbic acid (vitamin C) 1,000 mg 1,000 mg PO DAILY vitamin 03/21/18 11/24/24 tablet atorvastatin 80 mg tablet 80 mg PO HS Cholesterol 03/21/18 11/24/24 cyanocobalamin (vitamin B-12) 500 500 mcg PO DAILY 04/01/20 11/24/24 mcg tablet (Vitamin B-12) rivaroxaban 20 mg tablet (Xarelto) 20 mg PO QPM 04/01/20 11/24/24 temazepam 15 mg capsule 15 mg PO HS 04/25/22 11/24/24 hydroxyzine HCl 25 mg tablet 25 mg PO BID 11/10/24 11/24/24 escitalopram oxalate 10 mg tablet 10 mg PO HS 11/11/24 11/24/24 famotidine 20 mg tablet 20 mg PO BID 11/11/24 11/24/24 albuterol 90 mcg/actuation aerosol 90 mcg inhalation NEEDED PRN 11/24/24 11/24/24 inhaler Shortness Of Breath cholecalciferol (vitamin D3) 125 125 mcg PO DAILY 11/24/24 11/24/24 mcg (5,000 unit) tablet (Vitamin D3) sennosides 8.6 mg-docusate sodium 50 tab PO NEEDED PRN 11/24/24 11/24/24 50 mg capsule (Senna Plus) Constipation Previous Rx's ?Medication ?Instructions ?Recorded promethazine 6.25 mg-codeine 10 5 ml PO Q6HP PRN Cough #118 mL 11/12/24 mg/5 mL syrup amiodarone 200 mg tablet See Rx Instructions .Route 11/27/24 .COMPLEX #60 tabs digoxin 125 mcg (0.125 mg) tablet 125 mcg PO DAILY 30 days #30 tabs 11/27/24 metoprolol succinate 100 mg 100 mg PO DAILY 30 days #30 tabs 11/27/24 tablet,extended release 24 hr oseltamivir 6 mg/mL oral 30 mg (5 mL) PO BID 1 day #10 mL 11/27/24 suspension (Tamiflu) Allergies Allergy/AdvReac Type Severity Reaction Status Date / Time No Known Allergies Allergy Verified 04/25/22 10:19 [facility] <Denisha Avelar DO - Last Filed: 03/28/25 23:15> [facility] Disclaimer: The information contained in this section may have been updated after the patient was seen, as this information can be updated by other users. 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 caffeine: Yes Have you lived/traveled outside [place] in past 30 days?: No Contact w/someone who lives/traveled outside US past 30 days?: No Exposure to someone with infectious disease in past 14 days?: No Do you have a fever (greater than 100.4 F or 38 C)?: No Have you tested positive for COVID-19?: No Exposed to someone with COVID-19 in past 14 days?: No Do you have a sore throat?: No Do you have a cough?: Yes Do you have any weakness?: No Do you have any diarrhea?: No Are you experiencing any unusual bleeding?: No Do you have any muscle aches/pain?: Yes Do you have any abdominal pain?: No Are you experiencing loss of taste or smell?: No Other Medical History Have you received the Flu Vaccine for this season: No Have you received the Pneumonia Vaccine: No <Denisha Avelar DO - Last Filed: 03/28/25 23:15> ROS Obtained: Yes All systems reviewed & no additional complaints except as documented Physical Exam <Denisha Avelar DO - Last Filed: 03/28/25 23:15> General General appearance: alert and in no apparent distress Head Head exam: atraumatic and normocephalic Eye Eye exam: Present normal appearance, PERRL and EOMI ENT ENT exam: Present normal exam, normal oropharynx, mucous membranes moist and normal external ear exam Neck Neck exam: Present normal inspection, full ROM and trachea midline; Absent tenderness Chest Chest inspection: Present normal inspection and symmetric chest wall rise; Absent tenderness Respiratory Respiratory exam: Present normal lung sounds bilaterally; Absent respiratory distress, wheezes, stridor or accessory muscle use Cardiovascular Cardiovascular exam: Present regular rate and normal rhythm Abdominal Exam Abdominal exam: Present soft and tenderness (Lower abdomen); Absent distention, guarding, rebound or rigidity Extremities Exam Extremities exam: Present normal inspection, full ROM and normal capillary refill; Absent tenderness or edema Back Exam Back exam: Present normal inspection and full ROM; Absent tenderness Neurological Exam Neurological exam: Present alert, oriented X3, CN II-XII intact and normal gait; Absent motor sensory deficit Psychiatric Psychiatric exam: Present normal affect and normal mood Skin Skin exam: Present warm and dry Medical Decision Making <Denisha Avelar DO - Last Filed: 03/28/25 23:15> Medical Records Medical records reviewed: Yes I reviewed the patient's medical records. Screening: Per USPSTF and CDC recommendations, given the prevalence of disease in our region, it is our hospital?s policy to screen for HIV and viral Hepatitis for all patients aged 18 and over and those with ongoing risk factors. Eddie Inquiry Pt receiving controlled substance: No Vital Signs: 03/28/25 21:26 03/28/25 21:31 03/28/25 22:01 Temperature 97.9 F Temperature Source Oral Pulse Rate 88 87 Pulse Rate [Right Radial] 95 H Respiratory Rate 16 Blood Pressure 195/111 H 179/93 H Blood Pressure [Right Arm] 168/98 H Blood Pressure Mean [Right Arm] 121 Blood Pressure Source [Right Arm] Automatic Cuff 02 Sat by Pulse Oximetry 95 93 L 89 L Oxygen Delivery Method Room Air 03/28/25 22:31 03/28/25 23:15 03/28/25 23:45 Temperature Temperature Source Pulse Rate 85 86 91 H Pulse Rate [Right Radial] Respiratory Rate Blood Pressure 178/111 H 197/118 H 192/112 H Blood Pressure [Right Arm] Blood Pressure Mean [Right Arm] Blood Pressure Source [Right Arm] 02 Sat by Pulse Oximetry 95 92 L 93 L Oxygen Delivery Method 03/29/25 00:00 03/29/25 00:31 03/29/25 01:03 Temperature Temperature Source Pulse Rate 87 88 104 H Pulse Rate [Right Radial] Respiratory Rate Blood Pressure 192/108 H 177/91 H 178/103 H Blood Pressure [Right Arm] Blood Pressure Mean [Right Arm] Blood Pressure Source [Right Arm] 02 Sat by Pulse Oximetry 95 94 L 92 L Oxygen Delivery Method Lab Data Lab results reviewed: Yes I reviewed the patient's lab results. Lab Results 03/28/25 21:22: WBC 9.0, RBC 4.31, Hgb 13.1, Hct 40.6, MCV 94.2, MCH 30.4, MCHC 32.3, RDW 14.1, Plt Count 281, MPV 11.3 H, Neut % (Auto) 71.6, Lymph % (Auto) 16.8, Bath % (Auto) 9.1, Eos % (Auto) 0.6, Baso % (Auto) 0.6, Neut # (Auto) 6.4, Lymph # (Auto) 1.5, Bath # (Auto) 0.8, Eos # (Auto) 0.1, Baso # (Auto) 0.1, PT 15.9 H, INR 1.47 H, APTT 37.4 H, Sodium 141, Potassium 3.7, Chloride 104, Carbon Dioxide 30, Anion Gap 10.7, BUN 18 H, Creatinine 1.20 H, Estimated Creat Clear 66, Estimated GFR 44 L, Est GFR ( Amer) 53 L, Glucose 143 H, Calcium 8.7, Total Bilirubin 1.2, AST 33, ALT 25, Alkaline Phosphatase 90, Troponin I 0.02, NT-Pro-B Natriuret Pep 62775 H, Total Protein 6.7, Albumin 3.5, Globulin 3.2, Albumin/Globulin Ratio 1.1, Lipase 36, TSH 2.29, Thyroxine (T4) 10.9, Digoxin 0.50 03/28/25 21:48: SARS-CoV-2 (PCR) Not detected, Influenza A Untype (PCR) Not detected, Influenza Type B (PCR) Not detected 03/28/25 23:27: Urine Color Yellow, Urine Appearance Clear, Urine pH 7.0, Ur Specific Davidson 1.010, Urine Protein Negative, Urine Glucose (UA) Negative, Urine Ketones Negative, Urine Blood Negative, Urine Nitrate Negative, Urine Bilirubin Negative, Urine Urobilinogen 0.2, Ur Leukocyte Esterase Negative, Urine RBC 3-5, Urine WBC Occasional, Ur Squamous Epith Cells 5-10, Urine Bacteria Trace 03/28/25 21:22 03/28/25 21:22 Orders (Tests/Meds): ED MEDICATIONS Generic Name Dose Route Start Last Admin Trade Name [place]le PRN Reason Stop Dose Admin Sodium Chloride 10 ml 03/28/25 23:11 03/28/25 23:12 Sodium Chloride 0.9% 10ml Syr (Rad Only) IV 04/27/25 23:10 10 ml NEEDED PRN Administration Maintain IV Site Discontinued Medications Generic Name Dose Route Start Last Admin Trade Name F[place]helle PRN Reason Stop Dose Admin Furosemide 40 mg 03/28/25 23:08 03/28/25 23:12 Furosemide 40mg/4ml Vial IV 03/28/25 23:09 40 mg ONCE ONE Administration Iopamidol 70 ml 03/28/25 23:11 03/28/25 23:12 Iopamidol-370 (76%);100ml Bottle IV 03/28/25 23:12 70 ml ONCE ONE Administration Ondansetron HCl 4 mg 03/28/25 21:36 03/28/25 21:43 Ondansetron 4mg/2ml Vial IV 03/28/25 21:37 4 mg ONCE ONE Administration Sodium Chloride 40 ml 03/28/25 23:11 03/28/25 23:12 0.9 % Sodium Chloride 50 Ml Vial IV 03/28/25 23:12 40 ml ONCE ONE Administration ORDERS Category Date Time Status CT abdomen pelvis w con Stat Cat Scan 03/28/25 21:35 Completed CTA Chest [CT angio chest PE protocol] Stat Cat Scan 03/28/25 21:35 Completed BNP [NT Pro Brain Natriuretic Pep.] Stat Lab 03/28/25 21:22 Completed Complete Blood Count Auto Diff Stat Lab 03/28/25 21:22 Completed Comprehensive Metabolic Panel Stat Lab 03/28/25 21:22 Completed DIG [Digoxin] Stat Lab 03/28/25 21:22 Completed Lipase Stat Lab 03/28/25 21:22 Completed PT INR [Prothrombin Time INR] Stat Lab 03/28/25 21:22 Completed PTT [Activated Partial Thrombo Time] Stat Lab 03/28/25 21:22 Completed Rapid PCR Covid and Flu A/B Stat Lab 03/28/25 21:48 Completed T4 (Thyroxine) Stat Lab 03/28/25 21:22 Completed TSH [Thyroid Stimulating Hormone] Stat Lab 03/28/25 21:22 Completed Trop I [Troponin I] Stat Lab 03/28/25 21:22 Completed Troponin I Q3H Lab 03/29/25 00:45 Ordered Troponin I Q3H Lab 03/29/25 03:45 Ordered UA [Urinalysis and Microscopic] Stat Lab 03/28/25 23:27 Completed ECG Data Tracing #1: I reviewed this ECG and interpreted as documented below: Sinus rhythm with a ventricular rate of 87 bpm. No acute STEMI ECG initial impression date: 03/28/25 ECG initial impression time: 21:58 Medical Decision Narrative: In summary, this patient is a 74-year-old female presenting to the Emergency Department for evaluation of complaints including high blood pressure, cough, tussive emesis, nausea, vomiting, and lower abdominal pain. Differential diagnoses considered include but are not limited to CHF, ACS, pneumonia, URI, colitis, gastroenteritis, pancreatitis, urinary tract infection. Ruling out the most morbid conditions drove assessment. It should be noted patient's history includes obesity, CHF, atrial fibrillation, prior history of right pleural effusion, prior history of kidney stones which may or may not be at goal therapy. This complicates all aspects of care by increasing patient's risk for morbidity. I reviewed patient's past medical records and noted prior admissions for A-fib with RVR back in October. On exam, the patient is sitting upright in no acute distress. She has borderline low oxygen with O2 saturation in the low 90s on room air. No significantly increased work of breathing. She is uncomfortable appearing with mild lower abdominal tenderness but no rebound or guarding. Workup included lab evaluation to evaluate for infectious, metabolic, cardiac derangements as a cause of her symptoms as well as CTA PE protocol and CT abdomen pelvis with IV contrast. EKG was also obtained and demonstrated no acute ST changes concerning for ischemia. Labs demonstrated no significant leukocytosis or anemia. BNP is significantly elevated. Kidney function is actually improved from her prior baseline. BNP is greater than 10,000 from 4000 most recently. I am concerned for acute heart failure as a cause of most of her symptoms. CT scans pending as well as urinalysis at time of signout to oncoming provider, Dr. Sandoval. <Mone Sandoval MD - Last Filed: 03/29/25 01:14> Vital Signs: 03/28/25 21:26 03/28/25 21:31 03/28/25 22:01 Temperature 97.9 F Temperature Source Oral Pulse Rate 88 87 Pulse Rate [Right Radial] 95 H Respiratory Rate 16 Blood Pressure 195/111 H 179/93 H Blood Pressure [Right Arm] 168/98 H Blood Pressure Mean [Right Arm] 121 Blood Pressure Source [Right Arm] Automatic Cuff 02 Sat by Pulse Oximetry 95 93 L 89 L Oxygen Delivery Method Room Air 03/28/25 22:31 03/28/25 23:15 03/28/25 23:45 Temperature Temperature Source Pulse Rate 85 86 91 H Pulse Rate [Right Radial] Respiratory Rate Blood Pressure 178/111 H 197/118 H 192/112 H Blood Pressure [Right Arm] Blood Pressure Mean [Right Arm] Blood Pressure Source [Right Arm] 02 Sat by Pulse Oximetry 95 92 L 93 L Oxygen Delivery Method 03/29/25 00:00 03/29/25 00:31 03/29/25 01:03 Temperature Temperature Source Pulse Rate 87 88 104 H Pulse Rate [Right Radial] Respiratory Rate Blood Pressure 192/108 H 177/91 H 178/103 H Blood Pressure [Right Arm] Blood Pressure Mean [Right Arm] Blood Pressure Source [Right Arm] 02 Sat by Pulse Oximetry 95 94 L 92 L Oxygen Delivery Method Lab Data Lab Results 03/28/25 21:22: WBC 9.0, RBC 4.31, Hgb 13.1, Hct 40.6, MCV 94.2, MCH 30.4, MCHC 32.3, RDW 14.1, Plt Count 281, MPV 11.3 H, Neut % (Auto) 71.6, Lymph % (Auto) 16.8, Bath % (Auto) 9.1, Eos % (Auto) 0.6, Baso % (Auto) 0.6, Neut # (Auto) 6.4, Lymph # (Auto) 1.5, Bath # (Auto) 0.8, Eos # (Auto) 0.1, Baso # (Auto) 0.1, PT 15.9 H, INR 1.47 H, APTT 37.4 H, Sodium 141, Potassium 3.7, Chloride 104, Carbon Dioxide 30, Anion Gap 10.7, BUN 18 H, Creatinine 1.20 H, Estimated Creat Clear 66, Estimated GFR 44 L, Est GFR ( Amer) 53 L, Glucose 143 H, Calcium 8.7, Total Bilirubin 1.2, AST 33, ALT 25, Alkaline Phosphatase 90, Troponin I 0.02, NT-Pro-B Natriuret Pep 92444 H, Total Protein 6.7, Albumin 3.5, Globulin 3.2, Albumin/Globulin Ratio 1.1, Lipase 36, TSH 2.29, Thyroxine (T4) 10.9, Digoxin 0.50 03/28/25 21:48: SARS-CoV-2 (PCR) Not detected, Influenza A Untype (PCR) Not detected, Influenza Type B (PCR) Not detected 03/28/25 23:27: Urine Color Yellow, Urine Appearance Clear, Urine pH 7.0, Ur Specific Davidson 1.010, Urine Protein Negative, Urine Glucose (UA) Negative, Urine Ketones Negative, Urine Blood Negative, Urine Nitrate Negative, Urine Bilirubin Negative, Urine Urobilinogen 0.2, Ur Leukocyte Esterase Negative, Urine RBC 3-5, Urine WBC Occasional, Ur Squamous Epith Cells 5-10, Urine Bacteria Trace Orders (Tests/Meds): ED MEDICATIONS Generic Name Dose Route Start Last Admin Trade Name Freq PRN Reason Stop Dose Admin Sodium Chloride 10 ml 03/28/25 23:11 03/28/25 23:12 Sodium Chloride 0.9% 10ml Syr (Rad Only) IV 04/27/25 23:10 10 ml NEEDED PRN Administration Maintain IV Site Discontinued Medications Generic Name Dose Route Start Last Admin Trade Name Freq PRN Reason Stop Dose Admin Furosemide 40 mg 03/28/25 23:08 03/28/25 23:12 Furosemide 40mg/4ml Vial IV 03/28/25 23:09 40 mg ONCE ONE Administration Iopamidol 70 ml 03/28/25 23:11 03/28/25 23:12 Iopamidol-370 (76%);100ml Bottle IV 03/28/25 23:12 70 ml ONCE ONE Administration Ondansetron HCl 4 mg 03/28/25 21:36 03/28/25 21:43 Ondansetron 4mg/2ml Vial IV 03/28/25 21:37 4 mg ONCE ONE Administration Sodium Chloride 40 ml 03/28/25 23:11 03/28/25 23:12 0.9 % Sodium Chloride 50 Ml Vial IV 03/28/25 23:12 40 ml ONCE ONE Administration ORDERS Category Date Time Status CT abdomen pelvis w con Stat Cat Scan 03/28/25 21:35 Completed CTA Chest [CT angio chest PE protocol] Stat Cat Scan 03/28/25 21:35 Completed BNP [NT Pro Brain Natriuretic Pep.] Stat Lab 03/28/25 21:22 Completed Complete Blood Count Auto Diff Stat Lab 03/28/25 21:22 Completed Comprehensive Metabolic Panel Stat Lab 03/28/25 21:22 Completed DIG [Digoxin] Stat Lab 03/28/25 21:22 Completed Lipase Stat Lab 03/28/25 21:22 Completed PT INR [Prothrombin Time INR] Stat Lab 03/28/25 21:22 Completed PTT [Activated Partial Thrombo Time] Stat Lab 03/28/25 21:22 Completed Rapid PCR Covid and Flu A/B Stat Lab 03/28/25 21:48 Completed T4 (Thyroxine) Stat Lab 03/28/25 21:22 Completed TSH [Thyroid Stimulating Hormone] Stat Lab 03/28/25 21:22 Completed Trop I [Troponin I] Stat Lab 03/28/25 21:22 Completed Troponin I Q3H Lab 03/29/25 00:45 Ordered Troponin I Q3H Lab 03/29/25 03:45 Ordered UA [Urinalysis and Microscopic] Stat Lab 03/28/25 23:27 Completed Medical Decision Narrative: In summary, this patient is a 74-year-old female presenting to the Emergency Department for evaluation of complaints including high blood pressure, cough, tussive emesis, nausea, vomiting, and lower abdominal pain. Differential diagnoses considered include but are not limited to CHF, ACS, pneumonia, URI, colitis, gastroenteritis, pancreatitis, urinary tract infection. Ruling out the most morbid conditions drove assessment. It should be noted patient's history includes obesity, CHF, atrial fibrillation, prior history of right pleural effusion, prior history of kidney stones which may or may not be at goal therapy. This complicates all aspects of care by increasing patient's risk for morbidity. I reviewed patient's past medical records and noted prior admissions for A-fib with RVR back in October. On exam, the patient is sitting upright in no acute distress. She has borderline low oxygen with O2 saturation in the low 90s on room air. No significantly increased work of breathing. She is uncomfortable appearing with mild lower abdominal tenderness but no rebound or guarding. Workup included lab evaluation to evaluate for infectious, metabolic, cardiac derangements as a cause of her symptoms as well as CTA PE protocol and CT abdomen pelvis with IV contrast. EKG was also obtained and demonstrated no acute ST changes concerning for ischemia. Labs demonstrated no significant leukocytosis or anemia. BNP is significantly elevated. Kidney function is actually improved from her prior baseline. BNP is greater than 10,000 from 4000 most recently. I am concerned for acute heart failure as a cause of most of her symptoms. CT scans pending as well as urinalysis at time of signout to oncoming provider, Dr. Sandoval. Sandoval: Upon my assumption of care patient is stable, resting comfortably, saturating in the low to mid 90s on room air at rest. I agree with the assessment and plan from Dr. Avelar. I personally interpreted CTA PE and do not appreciate pulmonary embolism, patient does have bilateral pleural effusions significantly worse on the right than the left, evidence of what I believe is pulmonary edema with groundglass opacities. See radiology read for final interpretation. Based on my personal interpretation prior to radiology read resulting, I administered IV Lasix to the patient in the setting of shortness of breath, frothy sputum cough, elevated BNP and the history of CHF. CT abdomen pelvis personally interpreted does not demonstrate acute intra-abdominal pathology, see radiology read for final interpretation. On reassessment patient continues to be stable, Lasix tolerated well and patient is having significant urine output. Attempted to ambulate the patient around the ER but she desaturated to 83 to 84% on room air. After sitting at rest her oxygen saturation recovered back to the low 90s. I believe at this time she requires admission since patient does not have a baseline oxygen requirement and is having significant CHF exacerbation causing pleural effusion, groundglass opacities, shortness of breath and hypoxia. Patient and family agreeable to this plan for admission. I discussed this case with the hospitalist who graciously accepted the patient for admission. Patient admitted in stable condition. Critical Care <Denisha Avelar, DO - Last Filed: 03/28/25 23:15> Critical Care Time Critical Care Time: No
[2025-03-28] MEDS: ONDANSETRON 4MG/2ML VIAL 4 MG IV (21:43)
--- NOTE | 2025-03-28 21:53 | ECG_ITS ---
APPROVED REPORT Exam: Resting ECG HR:87 bpm ECG Measurements Heart Rate 87 AXES OH 270 P 242 QRSd 144 QRS 91 QT 452 T 60 QTc 496 Conclusion Sinus rhythm with intraventricular conduction delay No STEMI Electronically signed by : FENG GARCIA, 03/29/2025 00:24:27
[2025-03-28 22:01] VITALS: BP 179/93; PULSE 87; O2SAT 89
[2025-03-28 22:03] LABS: Basophils # 0.1 K/mm3 (0-0.2); Basophils % 0.6 % (0.1-2.0); Eosinophils # 0.1 Kmm3 (0.0-0.4); Eosinophils % 0.6 % (0.1-12.0); Hematocrit 40.6 % (37.0-47.0); Hemoglobin 13.1 g/dL (12.2-16.2); Immature Granulocytes # 0.12 10^3uL; Immature Granulocytes % 1.3 %; Lymphocytes # 1.5 K/mm3 (0.7-4.5); Lymphocytes % 16.8 % (10-50); Mean Corpuscular HGB Conc 32.3 g/dL (31.8-35.4); Mean Corpuscular Hemoglobin 30.4 pg (27.0-31.2); Mean Corpuscular Volume 94.2 fl (81-99); Mean Platelet Volume 11.3 fl (7.4-10.4); Monocytes # 0.8 K/mm3 (0.1-1.0); Monocytes % 9.1 % (1.7-9.3); Neutrophils # 6.4 K/mm3 (1.8-7.8); Neutrophils % 71.6 % (37.0-80.0); Nucleated Red Blood Cells # 0 10^3/uL; Nucleated Red Blood Cells % 0 %; Platelet Count 281 K/mm3 (142-424); Red Blood Count 4.31 M/mm3 (4.20-5.40); Red Cell Distribution Width 14.1 % (11.5-17.5)
[2025-03-28 22:03] LABS: Coronavirus 19, PCR Not Detected (NotDetected); Influenza A, PCR Not Detected (NotDetected); Influenza B, PCR Not Detected (NotDetected)
[2025-03-28 22:11] LABS: Alanine Aminotransferase 25 U/L (12-78); Albumin Level 3.5 g/dl (3.5-5.0); Albumin/Globulin Ratio 1.1 (1.1-1.8); Alkaline Phosphatase 90 U/L (38-126); Anion Gap 10.7 mEq/L (5-15); Aspartate Amino Transferase 33 U/L (14-36); Bilirubin,Total 1.2 mg/dl (0.2-1.3); Blood Urea Nitrogen 18 mg/dl (7-17); Calcium 8.7 mg/dl (8.4-10.2); Carbon Dioxide 30 mmol/L (22.0-30.0); Chloride 104 mmol/L (98-107); Creatinine Clearance Estimated 66 mL/min (50-200); Estimated Glomerular Filt Rate 44 ml/min (>60); GFR (African American) 53 ML/MIN (>60); Globulin 3.2 g/dL (1.3-3.2); Glucose 143 mg/dl (74-100); Lipase 36 U/L (23-300); Potassium 3.7 mmoL/L (3.5-5.1); Sodium 141 mmol/L (136-145); Total Protein,Serum 6.7 g/dl (6.3-8.2)
[2025-03-28 22:23] LABS: NT Pro Brain Natriuretic Pep. 10800 pg/mL (0-450); Troponin I 0.02 ng/ml (0.00-0.034)
[2025-03-28 22:27] LABS: T4 (Thyroxine) 10.9 ug/dl (5.53-11.0)
[2025-03-28 22:31] VITALS: BP 178/111; PULSE 85; O2SAT 95
[2025-03-28 22:41] LABS: Thyroid Stimulating Hormone 2.29 uIU/mL (0.465-4.68)
[2025-03-28 22:53] LABS: Activated Partial Thrombo Time 37.4 seconds (22.8-30.6); INR 1.47 (0.9-1.1); Prothrombin Time 15.9 seconds (10.1-12.5)
[2025-03-28] MEDS: FUROSEMIDE 40MG/4ML VIAL 40 MG IV (23:12)
[2025-03-28] MEDS: IOPAMIDOL-370 (76%);100ML BOTTLE 70 ML IV (23:12)
[2025-03-28] MEDS: 0.9 % SODIUM CHLORIDE 50 ML VIAL 40 ML IV (23:12)
[2025-03-28] MEDS: SODIUM CHLORIDE 0.9% 10ML SYR (RAD ONLY) 10 ML IV (23:12)
[2025-03-28 23:15] VITALS: BP 197/118; PULSE 86; O2SAT 92
[2025-03-28 23:39] LABS: Microscopic, Urine URINE MICROSCOPIC (MICROSCOPIC)
[2025-03-28 23:43] LABS: Appearance,Urine CLEAR (Clear); Bilirubin,Urine Negative (Negative); Blood, Urine Negative (Negative); Color,Urine YELLOW (Yellow); Glucose,Urine (UA) Negative (Negative); Ketones,Urine Negative (Negative); Leukocyte Esterase,Urine Negative (Negative); Nitrate,Urine Negative (Negative); Protein,Urine Negative (Negative); Urobilinogen,Urine 0.2 EU/dl (0.2)
[2025-03-28 23:45] VITALS: BP 192/112; PULSE 91; O2SAT 93
[2025-03-29] VITALS (13 sets, daily range): BP systolic 122–199; BP diastolic 69–115; PULSE 65–104; RESP 16–19; TEMP 36.6–36.8; O2SAT 90–98; BMI 35.2; BMI 35.6
[2025-03-29 00:02] LABS: Bacteria,Urine Trace /lpf; WBC,Urine Occasional #/hpf (0-3)
--- NOTE | 2025-03-29 01:03 | PC.NURSE ---
Patient with gripping socks in place and ambulated around nurses station with portable pulse ox. Patient averaged 83-84% during ambulation. Patient returned to room and place back in bed. Repositioned to comfort and placed back on monitor. Patient with increased work of breathing. Recovered in 2-3 of rest with O2 sats maintaining 90% or greater. Patient denies needs at this time.
[2025-03-29 01:59] LABS: Troponin I 0.03 ng/ml (0.00-0.034)
--- NOTE | 2025-03-29 03:44 | EXP.HP ---
History of Present Illness *Admission Date: 03/29/25 *Reason for visit:: CHF with pleural effusion and hypoxia *History of present illness: Mr. John is well-known to us. As we have taking care of her she did not want to be in room 217 because that is where he . This lady has had pleural effusion for several months now with very long history of atrial fibs. In December she had a pacemaker placed because of this. But noting from films that the mild right pleural effusion has progressed to moderate with some now on the left. If the patient gets up to walk she desats well into the low 80s.. Talked with the ER provider the patient and her family in the room. Explained to them that we needed to admit her because of her need for oxygen at this time, that the patient was given diuretics we will see about trying to pull some the fluid off. With the progression of this pleural effusion there may be enough that tapping the patient may be necessary. Patient does not appear to be infectious. Noting in her past x-rays that there had been stable metastatic in all nodes there is no obvious mass seen at this time. Did not have access to any echocardiogram to see cardiac output question whether this is CHF, infection, or some type of neoplastic effusion. Patient is noted that she is a non-smoker While I was in the room talking with the patient oxygen saturations would vary from in the low 80s to 94% they would stay elevated once placed on 2 L. At this time we will admit the patient and consult cardiology and pulmonology both. 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 [facility] Disclaimer: The information contained in this section may have been updated after the patient was seen, as this information can be updated by other users. 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 caffeine: Yes Have you lived/traveled outside [place] in past 30 days?: No Contact w/someone who lives/traveled outside US past 30 days?: No Exposure to someone with infectious disease in past 14 days?: No Do you have a fever (greater than 100.4 F or 38 C)?: No Have you tested positive for COVID-19?: No Exposed to someone with COVID-19 in past 14 days?: No Do you have a sore throat?: No Do you have a cough?: Yes Do you have any weakness?: No Do you have any diarrhea?: No Are you experiencing any unusual bleeding?: No Do you have any muscle aches/pain?: Yes Do you have any abdominal pain?: No Are you experiencing loss of taste or smell?: No Other Medical History Have you received the Flu Vaccine for this season: No Have you received the Pneumonia Vaccine: No Review of Systems Review of Systems Review of systems:: pertinent systems reviewed and negative unless documented below Constitutional Constitutional: Reports as per HPI and Reports weight loss Comments: Patient has recently lost 12 pounds because of no appetite Eyes Eyes: Reports as per HPI ENT Ears, Nose, Mouth, and Throat: Reports as per HPI *Cardiovascular Cardiovascular: Reports as per HPI Comments: Long history of A-fib now has a pacer but has converted out A-fib for several months Meds Home Medications and Allergies Home Medications ?Medication ?Instructions ?Recorded ?Confirmed ?Type atorvastatin 80 mg tablet 80 mg PO HS Cholesterol 03/21/18 03/29/25 History rivaroxaban 20 mg tablet (Xarelto) 20 mg PO QPMWITHMEAL 04/01/20 03/29/25 History temazepam 15 mg capsule 15 mg PO HS 04/25/22 03/29/25 History hydroxyzine HCl 25 mg tablet 25 mg PO TIDP PRN Anxiety 11/10/24 03/29/25 History escitalopram oxalate 10 mg tablet 10 mg PO HS 11/11/24 03/29/25 History famotidine 20 mg tablet 20 mg PO BID 11/11/24 03/29/25 History albuterol 90 mcg/actuation aerosol 90 mcg inhalation NEEDED PRN 11/24/24 03/29/25 History inhaler Shortness Of Breath cholecalciferol (vitamin D3) 125 125 mcg PO DAILY 11/24/24 03/29/25 History mcg (5,000 unit) tablet (Vitamin D3) sennosides 8.6 mg-docusate sodium 2 tab PO HS 11/24/24 03/29/25 History 50 mg capsule (Senna Plus) ascorbic acid (vitamin C) 1,000 mg 1,000 mg PO DAILY 03/29/25 03/29/25 History tablet (Vitamin C) azelastine 137 mcg (0.1 %) nasal 2 spray intranasal BID 03/29/25 03/29/25 History spray bisoprolol fumarate 5 mg tablet 5 mg PO DAILY 03/29/25 03/29/25 History hydralazine 25 mg tablet 50 mg PO Q8H 03/29/25 03/29/25 History losartan 50 mg tablet 50 mg PO DAILY 03/29/25 03/29/25 History zinc 50 mg tablet 50 mg PO DAILY 03/29/25 03/29/25 History New Prescriptions to Start Prescriptions: Allergies Allergy/AdvReac Type Severity Reaction Status Date / Time No Known Allergies Allergy Verified 04/25/22 10:19 Exam Data for Last 24 hours Vital signs and Labs for Last 24 Hours: Temp Pulse Resp BP Pulse Ox O2 Del Method 98.3 F 89 19 199/106 H 95 Room Air 03/29/25 01:51 03/29/25 01:51 03/29/25 01:51 03/29/25 01:51 03/29/25 01:51 03/29/25 01:51 Laboratory Results - last 24 hr 03/28/25 21:22: WBC 9.0, RBC 4.31, Hgb 13.1, Hct 40.6, MCV 94.2, MCH 30.4, MCHC 32.3, RDW 14.1, Plt Count 281, MPV 11.3 H, Neut % (Auto) 71.6, Lymph % (Auto) 16.8, [place] % (Auto) 9.1, Eos % (Auto) 0.6, Baso % (Auto) 0.6, Neut # (Auto) 6.4, Lymph # (Auto) 1.5, [place] # (Auto) 0.8, Eos # (Auto) 0.1, Baso # (Auto) 0.1, PT 15.9 H, INR 1.47 H, APTT 37.4 H, Sodium 141, Potassium 3.7, Chloride 104, Carbon Dioxide 30, Anion Gap 10.7, BUN 18 H, Creatinine 1.20 H, Estimated Creat Clear 66, Estimated GFR 44 L, Est GFR ( Amer) 53 L, Glucose 143 H, Calcium 8.7, Total Bilirubin 1.2, AST 33, ALT 25, Alkaline Phosphatase 90, Troponin I 0.02, NT-Pro-B Natriuret Pep 83039 H, Total Protein 6.7, Albumin 3.5, Globulin 3.2, Albumin/Globulin Ratio 1.1, Lipase 36, TSH 2.29, Thyroxine (T4) 10.9, Digoxin 0.50 03/28/25 21:48: SARS-CoV-2 (PCR) Not detected, Influenza A Untype (PCR) Not detected, Influenza Type B (PCR) Not detected 03/28/25 23:27: Urine Color Yellow, Urine Appearance Clear, Urine pH 7.0, Ur Specific [place] 1.010, Urine Protein Negative, Urine Glucose (UA) Negative, Urine Ketones Negative, Urine Blood Negative, Urine Nitrate Negative, Urine Bilirubin Negative, Urine Urobilinogen 0.2, Ur Leukocyte Esterase Negative, Urine RBC 3-5, Urine WBC Occasional, Ur Squamous Epith Cells 5-10, Urine Bacteria Trace 03/29/25 01:22: Troponin I 0.03 I & O for Last 24 hours: Intake & Output 03/26/25 03/27/25 03/28/25 03/29/25 05:59 05:59 05:59 05:59 Output Total 0 / 0 Balance 0 / 0 Weight 224 lb 4 oz Radiology Reports for the Last 24 Hours: CT scan showing increasing right lung effusion has probably more than doubled since October Constitutional Constitutional: moderate distress Comments: Moderate distress when up walking becomes quite hypoxic on room air sats down into the low 80s *Routine HEENT Exam Head: Present normocephalic and atraumatic Eye: Present EOMI and PERRL ENT: Present mucous membranes moist *Routine Neck Exam Neck: Present supple Routine Chest/Breast/Axilla Exam Comments: No tenderness found in chest wall during exam *Routine Respiratory Exam Respiratory: Present decreased breath sounds, distant breath sounds, diminished air movement, normal respiratory effort and able to speak in complete sentences Comments: Able to speak in full sentences while sitting in bed but not when up walking *Routine Cardiovascular Exam Cardiovascular: Present murmur and tachycardia Comments: Has pacer *Routine Abdominal Exam Abdominal: Present soft and normoactive bowel sounds *Routine Rectal Exam Rectal:: deferred *Routine Genitalia Exam Genitalia:: deferred *Routine Extremities Exam Extremities: Present full ROM, pulses intact and normal capillary refill Comments: Patient is able to get up and walk without assistance Routine Back/Spine/Pelvis Exam Comments: No significant back pain or injury found *Routine Skin Exam Skin: Present intact, warm and normal turgor Comments: Patient shows no sign of edema to the peripheral extremities. Skin is pink *Routine Neurological Exam Neurological: Present alert, oriented X3, CN II-XII intact, normal reflexes, moving all extremities, normal tone, vision grossly intact and hearing grossly intact Comments: No signs of neurologic deficit found Routine Psychiatric Exam Psychiatric: Present normal affect, normal thought process, cooperative, good insight and good judgment Comments: Alert oriented able to joke some H&P: Result Impressions 1. Pleural effusion with worsening hypoxia on room air 2. History of A-fib CHF now having converted and with pacemaker 3. Loss of appetite says has had 12 pound weight loss over the last several month Imaging and Cardiology CT scan - chest: Status: image reviewed by me Additional comments: Worsening right lower lung pleural effusion now some on the left and post cardiac silhouette Assessment and Plan *Assessment and plan (1) Heart failure with mildly reduced ejection fraction (HFmrEF): Status: Acute Category: Medical Code(s): I50.22 - Chronic systolic (congestive) heart failure (2) CHF exacerbation: Status: Acute Qualifiers: Heart failure type: unspecified Qualified Code(s): I50.9 - Heart failure, unspecified Category: Medical Code(s): I50.9 - Heart failure, unspecified (3) Hypoxia: Status: Acute Category: Medical Code(s): R09.02 - Hypoxemia (4) Pleural effusion on right: Status: Acute Category: Medical Code(s): J90 - Pleural effusion, not elsewhere classified (5) Weight loss: Status: Acute Category: Medical Code(s): R63.4 - Abnormal weight loss (6) Atrial fibrillation with RVR: Status: Acute Category: Medical Code(s): I48.91 - Unspecified atrial fibrillation (7) Obesity (BMI 30-39.9): Status: Chronic Category: Medical Code(s): E66.9 - Obesity, unspecified Plan Ms. John is a 74-year-old female who presented with dyspnea. Found to have worsening effusion. Concern for CHF exacerbation. Initiated on oxygen. Discussed case with ER physician, request admission for further management of heart failure exacerbation. Medicine agreed to admit. Necessitating inpatient care. Aggressively diuresing. Problems addressed as follows: HFmrEF, new onset Diastolic dysfunction Atrial fibrillation, rate controlled Hypertension - Echo from October with EF 45%, mild RV dilation and normal RV function. Severe biatrial dilation. RVSP 40 to 45 mmHg - BNP elevated at 10,000 on presentation - Newly admitted to [facility] last month, adjustments made to blood pressure regimen - Continue Xarelto 20 mg daily. ?Initiate aggressive diuresis with Lasix 80 mg twice daily. Blood pressure elevated, continue losartan 50 mg daily (formulary conversion to irbesartan 150 mg daily). -Continue Lipitor 80 mg daily -Continue bisoprolol 5 mg daily -Kidney function at baseline BUN 17, creatinine 1.2. Potassium 3.2, magnesium 1.9, replace per protocol ? Repeat CBC, CMP, magnesium ordered for the morning. #Pleural effusion, right #Acute hypoxemic respiratory failure - Reports history of this. Does not endorse any further workup in the outpatient setting. Concern for secondary to heart failure as above. - CT chest per my review shows slight worsening of effusion with some pulmonary edema. No focal consolidation. New oxygen requirement. Currently on 4 L to maintain sats greater 90%. Wean as tolerated. - Aggressive diuresis. Received Lasix in the ED. Continue 80 mg IV twice daily - Has history of lung mass but was not malignant. Status post lobectomy with resolution. Never needed chemotherapy or radiation. Continue Lexapro 10 mg daily for mood Continue Lipitor 80 mg nightly for cholesterol Continue famotidine 20 mg twice daily per home regimen for GERD Continue temazepam 15 mg nightly for sleep Obesity complicates all aspects of her care Full code Xarelto Cardiac diet
[2025-03-29 04:45] LABS: Troponin I 0.03 ng/ml (0.00-0.034)
--- NOTE | 2025-03-29 06:29 | PC.NURSE ---
Pt. is alert and orientsted x 4. Pt on 4 liters of NC oxygen. Pt. c/o SOB with activity No nausea or vomiting overnight. Pt. slept off and on. No c/o.Personal items and call hester in reach.
[2025-03-29 06:40] LABS: Alanine Aminotransferase 22 U/L (12-78); Albumin Level 3.5 g/dl (3.5-5.0); Albumin/Globulin Ratio 1.3 (1.1-1.8); Alkaline Phosphatase 91 U/L (38-126); Anion Gap 9.2 mEq/L (5-15); Aspartate Amino Transferase 29 U/L (14-36); Bilirubin,Total 1.2 mg/dl (0.2-1.3); Blood Urea Nitrogen 17 mg/dl (7-17); Calcium 8.6 mg/dl (8.4-10.2); Carbon Dioxide 33 mmol/L (22.0-30.0); Chloride 103 mmol/L (98-107); Creatinine Clearance Estimated 66 mL/min (50-200); Estimated Glomerular Filt Rate 44 ml/min (>60); GFR (African American) 53 ML/MIN (>60); Globulin 2.8 g/dL (1.3-3.2); Glucose 108 mg/dl (74-100); Magnesium 1.9 mg/dl (1.6-2.3); Potassium 3.2 mmoL/L (3.5-5.1); Sodium 142 mmol/L (136-145); Total Protein,Serum 6.3 g/dl (6.3-8.2)
[2025-03-29 07:23] LABS: Lactate Venous 1.7 mmol/L (0.4-2.0); VBG Base Excess 7.2 mmol/L (-2.4-2.3); VBG HCO3 30.1 mmol/L (23-30); VBG Oxygen Saturation 99.1 % (50-70); VBG PCO2 38.1 mmol/L (35-51); VBG PH 7.52 mmol/L (7.31-7.41); VBG Total CO2 31.3 mmol/L (23-27)
[2025-03-29] MEDS: FUROSEMIDE 40MG/4ML VIAL 80 MG IV ×2 (10:19→16:21)
[2025-03-29] MEDS: POTASSIUM CHLORIDE 20MEQ TAB 40 MEQ PO ×2 (10:20→12:39)
[2025-03-29] MEDS: DOCUSATE SODIUM 100 MG CAPSULE PO (10:20)
[2025-03-29] MEDS: IRBESARTAN 150MG TAB 150 MG PO (11:52)
[2025-03-29] MEDS: BISOPROLOL 5 MG PO (11:54)
--- NOTE | 2025-03-29 15:47 | PC.NURSE ---
Aox 4, up with assistance times one, 20g R AC SL, 02-4L WI, lovenox VTE, diabetic diet, purewick in place.
[2025-03-29] MEDS: XARELTO 20 MG 1 EACH PO (16:21)
--- NOTE | 2025-03-29 19:22 | PC.NURSE ---
96% on 1L NC, O2 turned off at this time
[2025-03-29] MEDS: ATORVASTATIN 80 MG 1 EACH PO (21:33)
[2025-03-29] MEDS: ESCITALOPRAM 10 MG PO (21:33)
[2025-03-29] MEDS: PANTOPRAZOLE 40MG TABLET 40 MG PO (21:37)
[2025-03-29] MEDS: TEMAZEPAM 15MG CAPSULE 15 MG PO (21:37)
[2025-03-30 04:00] VITALS: BP 148/78; PULSE 76; RESP 16; TEMP 36.8; O2SAT 98
[2025-03-30 07:21] LABS: Basophils # 0.1 K/mm3 (0-0.2); Basophils % 0.8 % (0.1-2.0); Eosinophils # 0.2 Kmm3 (0.0-0.4); Eosinophils % 3.5 % (0.1-12.0); Hematocrit 42.7 % (37.0-47.0); Hemoglobin 13.7 g/dL (12.2-16.2); Immature Granulocytes # 0.02 10^3uL; Immature Granulocytes % 0.3 %; Lymphocytes % 30.1 % (10-50); Mean Corpuscular HGB Conc 32.1 g/dL (31.8-35.4); Mean Corpuscular Hemoglobin 30.2 pg (27.0-31.2); Mean Corpuscular Volume 94.1 fl (81-99); Mean Platelet Volume 11.3 fl (7.4-10.4); Monocytes # 0.8 K/mm3 (0.1-1.0); Monocytes % 12.4 % (1.7-9.3); Neutrophils # 3.5 K/mm3 (1.8-7.8); Neutrophils % 52.9 % (37.0-80.0); Nucleated Red Blood Cells # 0 10^3/uL; Nucleated Red Blood Cells % 0 %; Platelet Count 286 K/mm3 (142-424); Red Blood Count 4.54 M/mm3 (4.20-5.40); Red Cell Distribution Width-SD 48.5 fL; White Blood Count 6.5 K/mm3 (4.8-10.8)
[2025-03-30 07:25] LABS: Albumin Level 3.5 g/dl (3.5-5.0); Chloride 102 mmol/L (98-107)
[2025-03-30 07:26] LABS: Potassium 3.8 mmoL/L (3.5-5.1); Sodium 142 mmol/L (136-145)
[2025-03-30 07:28] LABS: Alanine Aminotransferase 23 U/L (12-78); Albumin/Globulin Ratio 1.1 (1.1-1.8); Anion Gap 7.8 mEq/L (5-15); Aspartate Amino Transferase 35 U/L (14-36); Blood Urea Nitrogen 26 mg/dl (7-17); Carbon Dioxide 36 mmol/L (22.0-30.0); Creatinine Clearance Estimated 56 mL/min (50-200); Estimated Glomerular Filt Rate 37 ml/min (>60); GFR (African American) 44 ML/MIN (>60); Globulin 3.2 g/dL (1.3-3.2); Total Protein,Serum 6.7 g/dl (6.3-8.2)
[2025-03-30 07:29] LABS: Alkaline Phosphatase 88 U/L (38-126); Bilirubin,Total 0.8 mg/dl (0.2-1.3); Calcium 8.8 mg/dl (8.4-10.2); Glucose 104 mg/dl (74-100)
[2025-03-30 08:00] VITALS: BP 147/74; PULSE 83; RESP 16; TEMP 36.6; O2SAT 97
--- NOTE | 2025-03-30 08:40 | PC.NURSE ---
Pt. is alert and orientated x 4. Pt. on 2 liters of oxygen per NC. Pt. was sleeping and her O2 sats down in the 80's. 2 liters of O2 sats low 90's while sleeping. Pt. has purewick in place. No needs overnight. Personal items and call hester in reach.
[2025-03-30] MEDS: IRBESARTAN 150MG TAB 150 MG PO (09:24)
[2025-03-30] MEDS: BISOPROLOL 5MG TABLET 5 MG PO (09:24)
[2025-03-30] MEDS: FUROSEMIDE 40MG/4ML VIAL 40 MG IV ×2 (09:25→16:36)
[2025-03-30 13:28] VITALS: BP 117/73; PULSE 80; RESP 16; TEMP 36.6; O2SAT 93
--- NOTE | 2025-03-30 13:48 | XR_ITS ---
PROCEDURE INFORMATION: Exam: XR Chest Exam date and time: 03/30/2025 2:22 PM Age: 74 years old Clinical indication: Shortness of breath; Additional info: Oxygen requirement TECHNIQUE: Imaging protocol: Radiologic exam of the chest. Views: 1 view. COMPARISON: CT ANGIO CHEST PE PROTOCOL 28/03/2025 22:49 FINDINGS: Lungs: Unremarkable. No consolidation. Pleural spaces: Moderate right pleural effusion. Heart/Mediastinum: Unremarkable. No cardiomegaly. Vasculature: Ectatic aorta. Atherosclerosis. Bones/joints: Osteopenia. IMPRESSION: Moderate right pleural effusion appears similar to prior CT.
--- NOTE | 2025-03-30 15:12 | P.PN_ITS ---
Subjective *Date: 03/30/25 *Time: 15:55 Interval history: Weaned to room air initially. Requiring 1 to 2 L while sleeping however she drops into the 80s. Sats above 90 while awake. Tolerating p.o. intake. Has diuresed well. No nausea or vomiting. Overall showing improvement. Cough has progressed, slightly productive today. Medical Exam Vital signs and Labs for Last 24 Hours: Vital Signs Temp Pulse Resp BP Pulse Ox O2 Del Method O2 Flow Rate 03/30/25 13:28 98 F 80 16 117/73 93 L 03/30/25 13:20 Room Air 03/30/25 11:10 Nasal Cannula 2 03/30/25 09:30 Nasal Cannula 2 03/30/25 08:45 Nasal Cannula 2 03/30/25 08:00 97.9 F 83 16 147/74 H 97 03/30/25 07:00 Room Air 03/30/25 05:00 Room Air 03/30/25 04:00 98.2 F 76 16 148/78 H 98 03/30/25 03:00 Room Air 03/30/25 01:00 Nasal Cannula 2 03/29/25 23:00 Room Air 03/29/25 21:00 Nasal Cannula 2 03/29/25 20:00 98 Room Air 03/29/25 19:54 97.8 F 65 16 122/69 98 03/29/25 18:50 96 Nasal Cannula 1 03/29/25 18:12 Nasal Cannula 4 03/29/25 16:13 Nasal Cannula 4 03/29/25 16:00 97.9 F 79 16 137/72 97 Room Air Intake and Output 03/29/25 03/30/25 03/30/25 23:59 07:59 15:59 Intake Total 360 / 720 120 / 390 270 / 390 Output Total 100 / 650 0 / 0 Balance 260 / 70 120 / 390 270 / 390 Intake: Intake, Oral Amount 360 / 720 120 / 390 270 / 390 Output: Output, Urine Amount 100 / 650 0 / 0 Other: Number of Unmeasured Voids 0 0 Laboratory Results - last 24 hr 03/30/25 06:15: WBC 6.5 D, RBC 4.54, Hgb 13.7, Hct 42.7, MCV 94.1, MCH 30.2, MCHC 32.1, RDW 14.0, Plt Count 286, MPV 11.3 H, Neut % (Auto) 52.9, Lymph % (Auto) 30.1, [place] % (Auto) 12.4 H, Eos % (Auto) 3.5, Baso % (Auto) 0.8, Neut # (Auto) 3.5, Lymph # (Auto) 2.0, [place] # (Auto) 0.8, Eos # (Auto) 0.2, Baso # (Auto) 0.1, Sodium 142, Potassium 3.8, Chloride 102, Carbon Dioxide 36 H, Anion Gap 7.8, BUN 26 H D, Creatinine 1.40 H, Estimated Creat Clear 56, Estimated GFR 37 L, Est GFR ( Amer) 44 L, Glucose 104 H, Calcium 8.8, Magnesium 2.0, Total Bilirubin 0.8, AST 35, ALT 23, Alkaline Phosphatase 88, Total Protein 6.7, Albumin 3.5, Globulin 3.2, Albumin/Globulin Ratio 1.1 I & O for Labs for Last 24 Hours: Intake & Output 03/27/25 03/28/25 03/29/25 03/30/25 23:59 23:59 23:59 23:59 Intake Total 600 / 720 390 / 390 Output Total 650 / 650 0 / 0 Balance -50 / 70 390 / 390 Weight 103.873 kg 102.829 kg Constitutional: Present no acute distress, obese, chronically ill appearing and cooperative Head: Present atraumatic and normocephalic ENT: Present normal exam Neck: Present normal inspection Respiratory: Present rhonchi and normal respiratory effort; Absent wheezes or crackles Comment:: Rhonchorous cough Cardiac: Present Reg Rate and Rhythm Comment:: irregularly irregular GI: Present soft and normal bowel sounds; Absent distention or tenderness Extremities: Present normal inspection and full ROM; Absent edema Skin: Present intact; Absent erythema Neuro: Present Grossly Intact, alert, awake, oriented x 3 and moves all extremities Assessment and Plan *Assessment and plan (1) Heart failure with mildly reduced ejection fraction (HFmrEF): Status: Acute Category: Medical Code(s): I50.22 - Chronic systolic (congestive) heart failure (2) CHF exacerbation: Status: Acute Qualifiers: Heart failure type: unspecified Qualified Code(s): I50.9 - Heart failure, unspecified Category: Medical Code(s): I50.9 - Heart failure, unspecified (3) Hypoxia: Status: Acute Category: Medical Code(s): R09.02 - Hypoxemia (4) Pleural effusion on right: Status: Acute Category: Medical Code(s): J90 - Pleural effusion, not elsewhere classified (5) Weight loss: Status: Acute Category: Medical Code(s): R63.4 - Abnormal weight loss (6) Atrial fibrillation with RVR: Status: Acute Category: Medical Code(s): I48.91 - Unspecified atrial fibrillation (7) Obesity (BMI 30-39.9): Status: Chronic Category: Medical Code(s): E66.9 - Obesity, unspecified (8) Pneumonia: Status: Acute Category: Medical Code(s): J18.9 - Pneumonia, unspecified organism Plan Ms. John is a 74-year-old female who presented with dyspnea. Found to have worsening effusion. Concern for CHF exacerbation. Initiated on oxygen. Discussed case with ER physician, request admission for further management of heart failure exacerbation. Medicine agreed to admit. Necessitating inpatient care. Continue aggressive diuresis. Initiating antibiotics today for possible pneumonia component. Problems addressed as follows: HFmrEF, new onset Diastolic dysfunction Atrial fibrillation, rate controlled Hypertension - Echo from October with EF 45%, mild RV dilation and normal RV function. Severe biatrial dilation. RVSP 40 to 45 mmHg - BNP elevated at 10,000 on presentation - Newly admitted to [facility] last month, adjustments made to blood pressure regimen - Continue Xarelto 20 mg daily. ? Continue Lasix 40 mg IV twice daily. Having good response. continue losartan 50 mg daily (formulary conversion to irbesartan 150 mg daily). -Continue Lipitor 80 mg daily -Continue bisoprolol 5 mg daily - Kidney function relatively stable with BUN 26, creatinine 1.4. Upper end of her normal range. Potassium 3.8 with magnesium 2.0. Repeat CBC, CMP, magnesium ordered for the morning. - Cardiology consulted for the morning #Pleural effusion, right #Acute hypoxemic respiratory failure - Portable chest x-ray obtained today, per my review shows worse effusion and consolidation in right lower lung field. Will initiate broad-spectrum an tibiotics due to recent hospitalizations - Levaquin 750 mg daily for suspected healthcare acquired pneumonia. -Pulmonology consulted for the morning -Continue diuresis for effusion. Improved oxygen requirement today. Goal sats greater 90%. 1 to 2 L as needed -CT on presentation showed pulmonary edema but did not appreciate focal consolidation. X-ray today however looks worse as stated above -Continue Lasix decreased to 40 mg IV twice daily - Has history of lung mass but was not malignant. Status post lobectomy with resolution. Never needed chemotherapy or radiation. Continue Lexapro 10 mg daily for mood Continue Lipitor 80 mg nightly for cholesterol Continue famotidine 20 mg twice daily per home regimen for GERD Continue temazepam 15 mg nightly for sleep Obesity complicates all aspects of her care Full code Xarelto Cardiac diet
--- NOTE | 2025-03-30 15:37 | PC.NURSE ---
VS stable. Patient weaned to room air but found to be 84% on room air while sleeping. Lung sounds diminished. Incentive spirometer given and patient able to utilize correctly. Patient up to chair for breakfast and during the afternoon.
[2025-03-30 16:00] VITALS: BP 143/76; PULSE 81; RESP 16; TEMP 36.6; O2SAT 94
[2025-03-30] MEDS: LEVOFLOXACIN/D5W 750 MG/150 ML 750 MG/150 ML PIGGYBACK 100 MG IV (16:36)
[2025-03-30] MEDS: RIVAROXABAN 10MG TABLET 20 MG PO (16:36)
[2025-03-30 20:00] VITALS: BP 124/68; PULSE 56; RESP 16; TEMP 36.6; O2SAT 93
[2025-03-30] MEDS: ATORVASTATIN 40MG TABLET 80 MG PO (21:31)
[2025-03-30] MEDS: PANTOPRAZOLE 40MG TABLET 40 MG PO (21:32)
[2025-03-30] MEDS: ESCITALOPRAM 10MG TABLET 10 MG PO (21:32)
[2025-03-30] MEDS: TEMAZEPAM 15MG CAPSULE 15 MG PO (21:35)
[2025-03-31] MEDS: IBUPROFEN 400 MG TABLET PO (01:39)
[2025-03-31 04:00] VITALS: BP 120/66; PULSE 60; RESP 15; TEMP 36.9; O2SAT 98
--- NOTE | 2025-03-31 06:49 | PC.NURSE ---
Pt. is alert and orientated x 4. Pt. on room air during the day and has needed 2 liters of oxygen overnight. Pt. did not sleep well overnight, Pt. up independently and ambulates around room. Pt. had no c/o's other than not sleeping well. Personal items and call light in reach.
[2025-03-31 08:00] VITALS: BP 123/63; PULSE 80; RESP 17; TEMP 36.6; O2SAT 97
[2025-03-31] MEDS: SODIUM CHLORIDE 3% 15ML NEB 3 ML IH (09:25)
[2025-03-31 09:27] VITALS: PULSE 77; RESP 20
--- NOTE | 2025-03-31 09:45 | CA_ITS ---
APPROVED REPORT EXAM: Comprehensive 2D, Doppler, and color-flow Echocardiogram Hand Driller: Anabel Bellamy RT(R) Ht: 5 ft 7 in Wt: 226lbs BSA: 2.13 BP: 154/86 mmHg Indications: CHF, HTN, SOB, pleural effusion, AFIB, echo done 10/2024 EF 45%, PPM, HFmrEF 2D Dimensions LA Volume 63.90 mL LA Volume Index 30.00 mL/m2 (M/F) 16-34 EF AP4 40.90 % GL Strain -8.2 % M-Mode Dimensions RVDd 2.89 cm (0.9-2.6) LA Diam 4.59 cm (1.9-4.0) LVDd 5.67 cm (3.5-5.7) LVDs 4.21 cm (3.5-5.7) IVSd 1.14 cm (0.6-1.1) PWd 0.82 cm (0.6-1.1) EF (Teich) 50.00% FS 25.70% EDV (Teich) 158.10 mL ESV (Teich) 79.00 mL LV Diastology E Decel Time 150 (160-240 msec) E/A Ratio 1.5 Mitral Valve MV E Max Ran. 88.0 (40-130 cm/s) MV A Velocity 60.0 (40-130 cm/s) E/A Ratio 1.46 MV PHT 44.0 ms Left Ventricle The left ventricle is normal size. The left ventricular systolic function is mildly reduced. There is increased LV wall thickness. There is mild global hypokinesis present. The septum is asynchronous. Diastolic function is indeterminate. LVEF is 45%. Right Ventricle The right ventricle is normal size. The right ventricular systolic function is normal. There is a device lead in the right ventricle. Atria The left atrium is moderately dilated. Right atrium is moderately dilated. There is no Doppler evidence of interatrial shunt. Aortic Valve Aortic valve is mildly thickened. There is no aortic valvular stenosis. Mild aortic regurgitation. Mitral Valve The mitral valve leaflets are mildly thickened. No evidence of mitral valve stenosis. Mild mitral regurgitation. Tricuspid Valve Tricuspid valve is grossly normal in structure and function. Trace tricuspid regurgitation. There is insufficient TR jet to estimate RVSP. Pulmonic Valve The pulmonary valve is normal in structure. Mild pulmonic regurgitation. Great Vessels The aortic root is normal in size. IVC is normal in size and collapses >50% with inspiration. Pericardium There is no pericardial effusion. Other Information Study Quality: Fair Conclusion Mildly reduced LV systolic function (LVEF 45%). Asynchronous septum. Biatrial dilation. Mild AI, mild MR, mild PI. Electronically signed by : Jennifer Beatty MD 03/31/2025 12:35:58
[2025-03-31 09:50] LABS: Basophils # 0.1 K/mm3 (0-0.2); Basophils % 0.8 % (0.1-2.0); Eosinophils # 0.3 Kmm3 (0.0-0.4); Eosinophils % 4.1 % (0.1-12.0); Hemoglobin 13.2 g/dL (12.2-16.2); Immature Granulocytes # 0.05 10^3uL; Immature Granulocytes % 0.8 %; Lymphocytes # 1.8 K/mm3 (0.7-4.5); Lymphocytes % 27.9 % (10-50); Mean Corpuscular HGB Conc 32.2 g/dL (31.8-35.4); Mean Corpuscular Volume 93.2 fl (81-99); Mean Platelet Volume 11.1 fl (7.4-10.4); Monocytes # 0.8 K/mm3 (0.1-1.0); Monocytes % 11.9 % (1.7-9.3); Neutrophils # 3.6 K/mm3 (1.8-7.8); Neutrophils % 54.5 % (37.0-80.0); Nucleated Red Blood Cells # 0 10^3/uL; Nucleated Red Blood Cells % 0 %; Platelet Count 287 K/mm3 (142-424); Red Cell Distribution Width 13.7 % (11.5-17.5); Red Cell Distribution Width-SD 46.5 fL; White Blood Count 6.6 K/mm3 (4.8-10.8)
[2025-03-31] MEDS: FUROSEMIDE 40MG/4ML VIAL 40 MG IV (09:57)
[2025-03-31] MEDS: BISOPROLOL 5MG TABLET 5 MG PO (09:57)
[2025-03-31] MEDS: IRBESARTAN 150MG TAB 150 MG PO (09:57)
--- NOTE | 2025-03-31 10:00 | P.CONS_ITS ---
History of Present Illness History of present illness: Ms. John is a 74-year-old female history of A-fib on Xarelto hypertension lung cancer status post lobectomy as per chart review presented to the ER with worsening respiratory distress and pulmonary was called for further evaluation and management. History of lung cancer status post resection in 2019, following at [facility] no evidence of recurrence. Patient denies any significant respiratory symptoms at baseline. Not using any inhalers or oxygen supplementation at baseline. [facility] Disclaimer: The information contained in this section may have been updated after the patient was seen, as this information can be updated by other users. 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 caffeine: Yes Have you lived/traveled outside [place] in past 30 days?: No Contact w/someone who lives/traveled outside US past 30 days?: No Exposure to someone with infectious disease in past 14 days?: No Do you have a fever (greater than 100.4 F or 38 C)?: No Have you tested positive for COVID-19?: No Exposed to someone with COVID-19 in past 14 days?: No Do you have a sore throat?: No Do you have a cough?: Yes Do you have any weakness?: No Do you have any diarrhea?: No Are you experiencing any unusual bleeding?: No Do you have any muscle aches/pain?: Yes Do you have any abdominal pain?: No Are you experiencing loss of taste or smell?: No Review of Systems Constitutional Constitutional: Reports anorexia, Reports body ache(s) and Reports fatigue Eyes Eyes: Denies eye discharge, Denies dry eyes, Denies irritation and Denies itchy eyes ENT Ears, Nose, Mouth, and Throat: Denies epistaxis, Denies facial pain, Denies lip swelling and Denies throat swelling *Cardiovascular Cardiovascular: Reports dyspnea, Reports dyspnea on exertion, Reports leg edema and Reports orthopnea *Respiratory Respiratory: Reports chest congestion, Denies cough, Reports dyspnea, Reports dyspnea on exertion, Denies excessive phlegm production and Denies wheezing *Gastrointestinal Gastrointestinal: Denies abdominal pain, Denies belching and Denies cramping *Musculoskeletal Musculoskeletal: Reports back pain, Reports myalgias and Reports other (No small joint swelling or Pain) Psychiatric Psychiatric: Denies homicidal ideation and Denies suicidal ideation Endocrine Endocrine: Reports fatigue and Denies heat intolerance Hematologic/Lymphatic Hematologic/Lymphatic: Denies easy bleeding and Denies lymphadenopathy Allergic/Immunologic Allergic/Immunologic: Denies itchy eyes, Denies lip swelling, Denies throat swelling and Denies wheezing Pulmonology Exam Inpatient Vital signs and Labs for Last 24 Hours: Temp Pulse Resp BP Pulse Ox O2 Del Method O2 Flow Rate 98 F 77 20 123/63 97 Nasal Cannula 2 03/31/25 08:00 03/31/25 09:27 03/31/25 09:27 03/31/25 08:00 03/31/25 08:00 03/31/25 08:00 03/31/25 08:00 I & O for Labs for Last 24 Hours: Intake & Output 03/28/25 03/29/25 03/30/25 03/31/25 23:59 23:59 23:59 23:59 Intake Total 600 / 720 900 / 1140 360 / 360 Output Total 650 / 650 0 / 0 0 / 0 Balance -50 / 70 900 / 1140 360 / 360 Weight 229 lb 226 lb 11.2 oz Constitutional: Present mild distress Head: Present normocephalic and atraumatic ENT: Present normal exam, normal oropharynx and mucous membranes moist Neck: Present normal inspection and full ROM Respiratory: Present able to speak in complete sentences; Absent prolonged expiratory phase, respiratory distress, rhonchi or wheezes Cardiac: Present S1/S2, Tachycardia and radial pulses present GI: Present soft and distention; Absent tenderness or guarding Rectal (female): Present deferred (female): Present deferred Skin: Present intact; Absent cyanosis or jaundice Neuro: Present alert, awake and oriented x 3 Extremities: Present normal inspection; Absent clubbing or cyanosis Psychiatric: Present normal affect and cooperative Meds Home Medications and Allergies Home Medications ?Medication ?Instructions ?Recorded ?Confirmed ?Type atorvastatin 80 mg tablet 80 mg PO HS Cholesterol 02/2803/29/25 History rivaroxaban 20 mg tablet (Xarelto) 20 mg PO QPMWITHMEA L 04/01/20 03/29/25 History temazepam 15 mg capsule 15 mg PO HS 04/25/22 5 History hydroxyzine HCl 25 mg tablet 25 mg PO TIDP PRN Anxiety 11/10/24 03/29/25 History escitalopram oxalate 10 mg tablet 10 mg PO HS 11/11/24 03/29/25 History famotidine 20 mg tablet 20 mg PO BID 11/11/24 History cholecalciferol (vitamin D3) 125 125 mcg PO DAILY 10/3103/29/25 History mcg (5,000 unit) tablet (Vitamin D3) sennosides 8.6 mg-docusate sodium 2 tab PO HS 11/24/24 03/29/25 History 50 mg capsule (Senna Plus) ascorbic acid (vitamin C) 1,000 mg 1,000 mg PO DAILY 0 03/29/25 03/29/25 History tablet (Vitamin C) azelastine 137 mcg (0.1 %) nasal 2 spray intranasal BI D 03/29/25 03/29/25 History spray benzonatate 200 mg capsule 200 mg PO TIDP PRN Cough 03/29/25 History bisoprolol fumarate 5 mg tablet 5 mg PO DAILY 03/29/25 03/29/25 History hydralazine 25 mg tablet 50 mg PO Q8H 03/29/25 History losartan 50 mg tablet 50 mg PO DAILY 03/29/2503/01 History New Prescriptions to Start Prescriptions: Allergies Allergy/AdvReac Type Severity Reaction Status Date / Time No Known Allergies Allergy Verified 04/25/22 10:19 Results Laboratory Findings 03/31/25 09:27 03/31/25 09:27 PT/INR, D-dimer PT 15.9 seconds (10.1-12.5) H 03/28/25 21:22 INR 1.47 (0.9-1.1) H 03/28/25 21:22 Abnormal lab findings: Abnormal Labs 03/28/25 03/29/25 03/29/25 21:22 05:31 06:00 MPV 11.3 H [place] % (Auto) PT 15.9 H INR 1.47 H APTT 37.4 H VBG pH 7.52 H VBG pO2 132.0 H VBG HCO3 30.1 H VBG Total CO2 31.3 H VBG O2 Saturation 99.1 H VBG Base Excess 7.2 H Potassium 3.2 L Carbon Dioxide 33 H BUN 18 H Creatinine 1.20 H 1.20 H Estimated GFR 44 L 44 L Est GFR ( Amer) 53 L 53 L Glucose 143 H 108 H D NT-Pro-B Natriuret Pep 69535 H 03/30/25 06:15 MPV 11.3 H [place] % (Auto) 12.4 H PT INR APTT VBG pH VBG pO2 VBG HCO3 VBG Total CO2 VBG O2 Saturation VBG Base Excess Potassium Carbon Dioxide 36 H BUN 26 H D Creatinine 1.40 H Estimated GFR 37 L Est GFR ( Amer) 44 L Glucose 104 H NT-Pro-B Natriuret Pep Assessment and Plan *Assessment and plan (1) Pneumonia: Status: Acute Category: Medical Code(s): J18.9 - Pneumonia, unspecified organism (2) Pleural effusion, bilateral: Status: Acute Category: Medical Code(s): J90 - Pleural effusion, not elsewhere classified (3) History of lung or bronchial cancer: Status: Acute Category: Medical Code(s): Z85.118 - Personal history of other malignant neoplasm of bronchus and lung Plan Ms. John is a 74-year-old female history of A-fib on Xarelto hypertension lung cancer status post lobectomy as per chart review presented to the ER with worsening respiratory distress and pulmonary was called for further evaluation and management. History of lung cancer status post resection in 2019, following at [facility] no evidence of recurrence. Patient denies any significant respiratory symptoms at baseline. Not using any inhalers or oxygen supplementation at baseline. Patient was in hospital in October 2024 , pleural effusion managed for heart failure exacerbation. Small right pleural effusion noted on that admission. Patient also tested positive for influenza A on admission from October 2019 CTA PE protocol on this admission continue to show right sided effusion appears slightly worse from October 2024. Patient now also noted to have small left pleural effusion. Septal thickening and groundglass opacities noted likely concerning for volume overload showed left lower lobe calcified nodule. Minimal patchy groundglass opacities in the right apex. Afebrile. Hemodynamically stable. No evidence of leukocytosis. COVID-19 and flu PCR panel negative. The possible etiology of the = noted bilateral pleural effusions are likely from volume overload. Patient had a CT from March 2024 that did not show any significant right-sided effusion except for questionable loculated portion in the right posterior medial aspect. The loculated portion appears to be present on her current CT scan slightly worse. Less likely from cancer recurrence. Patient admits significant improvement in her breathing symptoms after diuresis. She was initially doing 4 L nasal oxygen supplementation however today on room air saturating 90% and above. She continued to be noted to have desaturations at night. Concern for sleep apnea. Plan: - Doxycycline 100 twice daily to complete a total of 5-day course for the noted minimal patchy groundglass opacity right apex. Will monitor. - Overnight oximetry testing determine the need for nocturnal oxygen supplementation. Follow as an outpatient basis to evaluate for other possible etiologies for the noted nocturnal - Albuterol 4 times daily. - Follow-up with cardiology for volume optimization # Thank you for involving pulmonary in this patient care. Will follow the patient in pulmonary clinic 3 to 4 weeks post discharge.
[2025-03-31 10:03] LABS: Albumin Level 3.3 g/dl (3.5-5.0); Chloride 100 mmol/L (98-107); Potassium 3.2 mmoL/L (3.5-5.1); Sodium 141 mmol/L (136-145)
[2025-03-31 10:05] LABS: Blood Urea Nitrogen 36 mg/dl (7-17); Creatinine Clearance Estimated 42 mL/min (50-200); Estimated Glomerular Filt Rate 26 ml/min (>60); GFR (African American) 31 ML/MIN (>60)
[2025-03-31 10:06] LABS: Alanine Aminotransferase 23 U/L (12-78); Albumin/Globulin Ratio 1.1 (1.1-1.8); Alkaline Phosphatase 80 U/L (38-126); Anion Gap 7.2 mEq/L (5-15); Aspartate Amino Transferase 33 U/L (14-36); Bilirubin,Total 0.5 mg/dl (0.2-1.3); Calcium 8.9 mg/dl (8.4-10.2); Carbon Dioxide 37 mmol/L (22.0-30.0); Globulin 2.9 g/dL (1.3-3.2); Glucose 117 mg/dl (74-100); Total Protein,Serum 6.2 g/dl (6.3-8.2)
[2025-03-31 10:32] LABS: Magnesium 1.9 mg/dl (1.6-2.3)
--- NOTE | 2025-03-31 11:17 | EXP.CARD.CON ---
History of Present Illness History of Present Illness Consult date: 03/31/25 Requesting physician: Javier Keen Consult reason: shortness of breath Chief complaint: soa History of present illness: This is a 74-year-old white female with past medical history of chronic A-fib on Xarelto therapy, s/p ablation and pacemaker placement in December 2024 at [facility], history of lung mass that was not malignant (denies chemo or radiation) and is status post lobectomy, HFrEF 45%, CVA with transient loss of speech in 2013, history of a small, chronic right-sided pleural effusion and coronary artery disease with medical management heart cath at [facility] in Nov 2024 who presented to emergency department with complaints of shortness of breath. Upon presentation to emergency department EKG showed sinus rhythm with and intraventricular conduction delay at a rate of 87 with no STEMI noted. Chest CTA on admission was negative for PE but did show a moderate right and small left-sided pleural effusions. Mild, patchy groundglass opacities in the right upper lobe and mild enlargement of the pulmonary trunk were also noted. Labs were as follow: WBC 9, hemoglobin 13.1, sodium 140, potassium 3.7, creatinine 1.2 trending up to 1.9 after diuresis, serial troponins negative and initial proBNP of 10,800. Patient was admitted for further evaluation of dyspnea and bilateral pleural effusions right greater than left. She was aggressively diuresed over the weekend with overall improvement in oxygen requirements. This morning she is resting comfortably and denies chest pain. Echocardiogram is pending. Pulmonology consult is pending. Patient follows with cardiology at [facility]. [facility] Disclaimer: The information contained in this section may have been updated after the patient was seen, as this information can be updated by other users. 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: Yes Have you lived/traveled outside [place] in past 30 days?: No Contact w/someone who lives/traveled outside US past 30 days?: No Exposure to someone with infectious disease in past 14 days?: No Do you have a fever (greater than 100.4 F or 38 C)?: No Have you tested positive for COVID-19?: No Exposed to someone with COVID-19 in past 14 days?: No Do you have a sore throat?: No Do you have a cough?: Yes Do you have any weakness?: No Do you have any diarrhea?: No Are you experiencing any unusual bleeding?: No Do you have any muscle aches/pain?: Yes Do you have any abdominal pain?: No Are you experiencing loss of taste or smell?: No Review of Systems Review of Systems Review of systems:: pertinent systems reviewed and negative unless documented below *Cardiovascular Cardiovascular: Reports dyspnea *Respiratory Respiratory: Reports dyspnea Exam Data for Last 24 hours Vital signs and Labs for Last 24 Hours: Temp Pulse Resp BP Pulse Ox O2 Del Method O2 Flow Rate 98 F 77 20 123/63 97 Nasal Cannula 2 03/31/25 08:00 03/31/25 09:27 03/31/25 09:27 03/31/25 08:00 03/31/25 08:00 03/31/25 08:00 03/31/25 08:00 Laboratory Results - last 24 hr 03/31/25 09:27: WBC 6.6, RBC 4.40, Hgb 13.2, Hct 41.0, MCV 93.2, MCH 30.0, MCHC 32.2, RDW 13.7, Plt Count 287, MPV 11.1 H, Neut % (Auto) 54.5, Lymph % (Auto) 27.9, [place] % (Auto) 11.9 H, Eos % (Auto) 4.1, Baso % (Auto) 0.8, Neut # (Auto) 3.6, Lymph # (Auto) 1.8, [place] # (Auto) 0.8, Eos # (Auto) 0.3, Baso # (Auto) 0.1, Sodium 141, Potassium 3.2 L, Chloride 100, Carbon Dioxide 37 H, Anion Gap 7.2, BUN 36 H D, Creatinine 1.90 H D, Estimated Creat Clear 42, Estimated GFR 26 L, Est GFR ( Amer) 31 L D, Glucose 117 H, Calcium 8.9, Magnesium 1.9, Total Bilirubin 0.5, AST 33, ALT 23, Alkaline Phosphatase 80, Total Protein 6.2 L, Albumin 3.3 L, Globulin 2.9, Albumin/Globulin Ratio 1.1 I & O for Last 24 hours: Intake & Output 03/28/25 03/29/25 03/30/25 03/31/25 23:59 23:59 23:59 23:59 Intake Total 600 / 720 900 / 1140 360 / 360 Output Total 650 / 650 0 / 0 0 / 0 Balance -50 / 70 900 / 1140 360 / 360 Weight 229 lb 226 lb 11.2 oz Constitutional Constitutional: no acute distress *Routine Respiratory Exam Respiratory: Present CTA bilaterally and symmetric chest movement *Routine Cardiovascular Exam Cardiovascular: Present RRR, Normal S1 and Normal S2 *Routine Abdominal Exam Abdominal: Present soft and normoactive bowel sounds; Absent tenderness *Routine Extremities Exam Extremities: Present full ROM and normal capillary refill; Absent edema *Routine Skin Exam Skin: Present intact, dry and warm Detailed Neck Exam: Thyroids Thyroid: Absent bruit Meds Home Medications and Allergies Home Medications ?Medication ?Instructions ?Recorded ?Confirmed ?Type atorvastatin 80 mg tablet 80 mg PO HS Cholesterol 03/21/18 03/29/25 History rivaroxaban 20 mg tablet (Xarelto) 20 mg PO QPMWITHMEAL 04/01/20 03/29/25 History temazepam 15 mg capsule 15 mg PO HS 04/25/22 03/29/25 History hydroxyzine HCl 25 mg tablet 25 mg PO TIDP PRN Anxiety 11/10/24 03/29/25 History escitalopram oxalate 10 mg tablet 10 mg PO HS 11/11/24 03/29/25 History famotidine 20 mg tablet 20 mg PO BID 11/11/24 03/29/25 History cholecalciferol (vitamin D3) 125 125 mcg PO DAILY 11/24/24 03/29/25 History mcg (5,000 unit) tablet (Vitamin D3) sennosides 8.6 mg-docusate sodium 2 tab PO HS 11/24/24 03/29/25 History 50 mg capsule (Senna Plus) ascorbic acid (vitamin C) 1,000 mg 1,000 mg PO DAILY 03/29/25 03/29/25 History tablet (Vitamin C) azelastine 137 mcg (0.1 %) nasal 2 spray intranasal BID 03/29/25 03/29/25 History spray benzonatate 200 mg capsule 200 mg PO TIDP PRN Cough 03/29/25 03/29/25 History bisoprolol fumarate 5 mg tablet 5 mg PO DAILY 03/29/25 03/29/25 History hydralazine 25 mg tablet 50 mg PO Q8H 03/29/25 03/29/25 History losartan 50 mg tablet 50 mg PO DAILY 03/29/25 03/29/25 History New Prescriptions to Start Prescriptions: Allergies Allergy/AdvReac Type Severity Reaction Status Date / Time No Known Allergies Allergy Verified 04/25/22 10:19 Assessment and Plan *Assessment and plan (1) Pleural effusion on right: Status: Acute Category: Medical Code(s): J90 - Pleural effusion, not elsewhere classified (2) Heart failure with reduced ejection fraction: Status: Acute Category: Medical Code(s): I50.20 - Unspecified systolic (congestive) heart failure (3) Atrial fibrillation: Problem Comment: Patient has converted no longer in A-fib Status: Acute Category: Medical Code(s): I48.91 - Unspecified atrial fibrillation (4) CAD (coronary artery disease): Status: Acute Category: Medical Code(s): I25.10 - Atherosclerotic heart disease of [place] coronary artery without angina pectoris Plan Acute on chronic HFrEF- improving Pleural Effusions, right >left Initial BNP 10,800 Serial troponins remain negative Chest CTA on admission was negative for PE but showed a moderate right and small left sided pleural effusion with a mild patchy groundglass opacity in the right upper lobe which may represent an infectious process Patient has been diuresed with Lasix 40 mg IV twice daily Has diuresed well, now requiring supplemental oxygen only at nighttime. Maintaining oxygen saturation greater than 90% on room air during the day Echocardiogram gram shows an EF of 45% with an asynchronous septum, biatrial dilation and mild AI mild MR mild PI. Known ejection fraction of 45% Creatinine has increased from 1.2-1.9 after diuresis. Continue Lasix to 40 mg daily BID. Continue bisoprolol 5 mg p.o. daily. Continue irbesartan 150mg po daily. Add farxiga 10mg po daily. History of chronic A-fib Status post ablation and PPM Patient underwent cardiac ablation and PPM placement December 2024 at [facility] for A-fib Patient remains in normal sinus rhythm Continue bisoprolol 5 mg p.o. daily Continue Xarelto at adjusted renal dose-15 mg p.o. daily Acute kidney injury Creatinine trending from 1.2-1.9 in the setting of diuresis- continue to monitor Coronary artery disease Serial troponins negative EKG negative for acute ischemic changes Medical management heart cath noted at [facility] November 2024-mild luminal irregularities noted in the mid LAD with no obstructive disease noted. Other coronaries negative for atherosclerosis. On Xarelto and statin CV summary 03/31/2025: Continue meds as outlined above. Please have patient follow-up in cardiology clinic in 1 to 2 weeks post discharge. CV meds Lasix 40 mg p.o. twice daily Bisoprolol 5 mg p.o. daily Irbesartan 150 mg p.o. daily Farxiga 10 mg p.o. daily Xarelto 15 mg p.o. daily Atorvastatin 80 mg p.o. daily
[2025-03-31] MEDS: POTASSIUM CHLORIDE 20MEQ TAB 40 MEQ PO ×2 (13:17→16:57)
--- NOTE | 2025-03-31 15:09 | EXP.DC.SUM ---
General Admission date:: 03/29/25 Discharge date: 03/31/25 HPI HPI HPI: Mr. John is well-known to us. As we have taking care of her she did not want to be in room 217 because that is where he . This lady has had pleural effusion for several months now with very long history of atrial fibs. In December she had a pacemaker placed because of this. But noting from films that the mild right pleural effusion has progressed to moderate with some now on the left. If the patient gets up to walk she desats well into the low 80s.. Talked with the ER provider the patient and her family in the room. Explained to them that we needed to admit her because of her need for oxygen at this time, that the patient was given diuretics we will see about trying to pull some the fluid off. With the progression of this pleural effusion there may be enough that tapping the patient may be necessary. Patient does not appear to be infectious. Noting in her past x-rays that there had been stable metastatic in all nodes there is no obvious mass seen at this time. Did not have access to any echocardiogram to see cardiac output question whether this is CHF, infection, or some type of neoplastic effusion. Patient is noted that she is a non-smoker While I was in the room talking with the patient oxygen saturations would vary from in the low 80s to 94% they would stay elevated once placed on 2 L. At this time we will admit the patient and consult cardiology and pulmonology both. 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 Hospital Course Hospital Course Hospital Course: Ms. John is a 74-year-old female who presented with dyspnea. Found to have worsening effusion. Concern for CHF exacerbation. Initiated on oxygen. Discussed case with ER physician, request admission for further management of heart failure exacerbation. Medicine agreed to admit. Necessitate inpatient care. Pulmonology and cardiology consulted to assist with care. Doing better by discharge. Weaned to room air during the day. Continue empiric course of antibiotics. Problems addressed as follows: HFmrEF, new onset Diastolic dysfunction Atrial fibrillation, rate controlled Hypertension - Echo from October with EF 45%, mild RV dilation and normal RV function. Severe biatrial dilation. RVSP 40 to 45 mmHg. BNP elevated at 10,000 on presentation. Recently admitted to [facility], [place] last month, adjustments made to blood pressure regimen. Responded well to diuresis. Cardiology was consulted, recommend continuing following regimen for heart failure and volume management. Continue Lasix 40 mg p.o. twice daily, bisoprolol 5 mg daily, irbesartan 150 mg daily, Farxiga 10 mg daily, Xarelto 15 mg daily, and Lipitor 80 mg daily. Blood pressure well-controlled during admission. Denies any chest pain. Responded well to diuresis with improvement in oxygenation. Stable discharge home, recommend close outpatient follow-up with cardiology. #Pleural effusion, right #Acute hypoxemic respiratory failure - Persistent effusion on right side with small left-sided effusion at time of admission. Increased oxygen requirement at admission. Previously on room air, requiring 2 to 4 L on admission. Initiated broad-spectrum antibiotics as well out of concern for superimposed pneumonia. Initially started on Levaquin 750 mg daily. De-escalated to doxycycline 100 mg twice daily to complete 5 days of antibiotics total. Pulmonology consulted to assist with care. Recommend completing empiric antibiotics. Continue diuresis for perfusion, responded well. Able to wean oxygen to room air during the day. Necessitating supplemental oxygen at night. Recommend overnight pulse ox for nocturnal hypoxia. Will continue diuresis daily. Follow-up pulmonology as an outpatient. Has history of lung mass but was not malignant. Status post lobectomy with resolution. Never needed chemotherapy or radiation. Continue Lexapro 10 mg daily for mood. Discussed patient's depression. She denies feeling more depressed. States her dose is working. States she finds keshia in things on a daily basis. Still having grieving from loss of her . Continue Lipitor 80 mg nightly for cholesterol Continue famotidine 20 mg twice daily per home regimen for GERD Continue temazepam 15 mg nightly for sleep Obesity complicates all aspects of her care Total time spent on discharge 36 minutes in counseling, documentation, chart review, and direct care with patient. Exam Data for Last 24 hours Vital signs and Labs for Last 24 Hours: Temp Pulse Resp BP Pulse Ox O2 Del Method O2 Flow Rate 98 F 77 20 123/63 97 Room Air 2 03/31/25 08:00 03/31/25 09:27 03/31/25 09:27 03/31/25 08:00 03/31/25 08:00 03/31/25 13:00 03/31/25 08:00 Laboratory Results - last 24 hr 03/31/25 09:27: WBC 6.6, RBC 4.40, Hgb 13.2, Hct 41.0, MCV 93.2, MCH 30.0, MCHC 32.2, RDW 13.7, Plt Count 287, MPV 11.1 H, Neut % (Auto) 54.5, Lymph % (Auto) 27.9, [place] % (Auto) 11.9 H, Eos % (Auto) 4.1, Baso % (Auto) 0.8, Neut # (Auto) 3.6, Lymph # (Auto) 1.8, [place] # (Auto) 0.8, Eos # (Auto) 0.3, Baso # (Auto) 0.1, Sodium 141, Potassium 3.2 L, Chloride 100, Carbon Dioxide 37 H, Anion Gap 7.2, BUN 36 H D, Creatinine 1.90 H D, Estimated Creat Clear 42, Estimated GFR 26 L, Est GFR ( Amer) 31 L D, Glucose 117 H, Calcium 8.9, Magnesium 1.9, Total Bilirubin 0.5, AST 33, ALT 23, Alkaline Phosphatase 80, Total Protein 6.2 L, Albumin 3.3 L, Globulin 2.9, Albumin/Globulin Ratio 1.1 I & O for Last 24 hours: Intake & Output 03/28/25 03/29/25 03/30/25 03/31/25 23:59 23:59 23:59 23:59 Intake Total 600 / 720 900 / 1140 720 / 720 Output Total 650 / 650 0 / 0 1000 / 1000 Balance -50 / 70 900 / 1140 -280 / -280 Weight 103.873 kg 102.829 kg Microbiology Reports for the Last 24 Hours: Microbiology 03/31/25 11:05 Sputum - Expectorated Sputum Gram Stain - Final Constitutional Constitutional: no acute distress, obese and cooperative *Routine HEENT Exam Head: Present normocephalic Eye: Present EOMI and PERRL ENT: Present mucous membranes moist *Routine Neck Exam Neck: Present supple; Absent lymphadenopathy *Routine Respiratory Exam Respiratory: Present crackles (right lower lung field) and normal respiratory effort; Absent rhonchi or wheezes *Routine Cardiovascular Exam Cardiovascular: Present RRR *Routine Abdominal Exam Abdominal: Present soft and normoactive bowel sounds; Absent tenderness *Routine Rectal Exam Patient deferred: visual exam *Routine Exam Patient deferred: external exam *Routine Extremities Exam Extremities: Absent cyanosis, clubbing or edema *Routine Skin Exam Skin: Present intact and warm; Absent rash *Routine Neurological Exam Neurological: Present alert, oriented X3 and moving all extremities; Absent altered mental status Results Data Completed and Pending Labs on day of discharge: Labs from last 24 hours 03/31/25 09:27 WBC 6.6 RBC 4.40 Hgb 13.2 Hct 41.0 MCV 93.2 MCH 30.0 MCHC 32.2 RDW 13.7 Plt Count 287 MPV 11.1 H Neut % (Auto) 54.5 Lymph % (Auto) 27.9 [place] % (Auto) 11.9 H Eos % (Auto) 4.1 Baso % (Auto) 0.8 Neut # (Auto) 3.6 Lymph # (Auto) 1.8 [place] # (Auto) 0.8 Eos # (Auto) 0.3 Baso # (Auto) 0.1 Sodium 141 Potassium 3.2 L Chloride 100 Carbon Dioxide 37 H Anion Gap 7.2 BUN 36 H D Creatinine 1.90 H D Estimated Creat Clear 42 Estimated GFR 26 L Est GFR ( Amer) 31 L D Glucose 117 H Calcium 8.9 Magnesium 1.9 Total Bilirubin 0.5 AST 33 ALT 23 Alkaline Phosphatase 80 Total Protein 6.2 L Albumin 3.3 L Globulin 2.9 Albumin/Globulin Ratio 1.1 DS: Diagnosis Discharge Diagnosis (1) Pleural effusion on right: Status: Acute Code(s): J90 - Pleural effusion, not elsewhere classified (2) Heart failure with reduced ejection fraction: Status: Acute Code(s): I50.20 - Unspecified systolic (congestive) heart failure (3) Atrial fibrillation: Status: Acute Code(s): I48.91 - Unspecified atrial fibrillation Problem details: Patient has converted no longer in A-fib (4) CAD (coronary artery disease): Status: Acute Code(s): I25.10 - Atherosclerotic heart disease of [place] coronary artery without angina pectoris (5) Nocturnal hypoxia: Status: Acute Code(s): G47.34 - Idiopathic sleep related nonobstructive alveolar hypoventilation (6) Hypertension: Status: Acute Code(s): I10 - Essential (primary) hypertension Qualifiers: Hypertension type: essential hypertension Qualified Code(s): I10 - Essential (primary) hypertension (7) Depression: Status: Chronic Code(s): F32.A - Depression, unspecified Meds Home Medications and Allergies Home Medications ?Medication ?Instructions ?Recorded ?Confirmed ?Type atorvastatin 80 mg tablet 80 mg PO HS Cholesterol 03/21/18 03/29/25 History temazepam 15 mg capsule 15 mg PO HS 04/25/22 03/29/25 History hydroxyzine HCl 25 mg tablet 25 mg PO TIDP PRN Anxiety 11/10/24 03/29/25 History escitalopram oxalate 10 mg tablet 10 mg PO HS 11/11/24 03/29/25 History famotidine 20 mg tablet 20 mg PO BID 11/11/24 03/29/25 History cholecalciferol (vitamin D3) 125 125 mcg PO DAILY 11/24/24 03/29/25 History mcg (5,000 unit) tablet (Vitamin D3) sennosides 8.6 mg-docusate sodium 2 tab PO HS 11/24/24 03/29/25 History 50 mg capsule (Senna Plus) ascorbic acid (vitamin C) 1,000 mg 1,000 mg PO DAILY 03/29/25 03/29/25 History tablet (Vitamin C) azelastine 137 mcg (0.1 %) nasal 2 spray intranasal BID 03/29/25 03/29/25 History spray benzonatate 200 mg capsule 200 mg PO TIDP PRN Cough 03/29/25 03/29/25 History bisoprolol fumarate 5 mg tablet 5 mg PO DAILY 03/29/25 03/29/25 History losartan 50 mg tablet 50 mg PO DAILY 03/29/25 03/29/25 History dapagliflozin propanediol 10 mg 10 mg PO DAILY 30 days #30 tabs 03/31/25 Rx tablet (Farxiga) doxycycline hyclate 100 mg tablet 100 mg PO BID 3 days #6 tabs 03/31/25 Rx furosemide 40 mg tablet 40 mg PO BIDL #60 tabs 03/31/25 Rx rivaroxaban 15 mg tablet (Xarelto) 15 mg PO QPMWITHMEAL 30 days #30 03/31/25 Rx tabs New Prescriptions to Start Prescriptions: dapagliflozin propanediol [Farxiga] Javier Keen doxycycline hyclate Javier Keen furosemide Javier Keen rivaroxaban [Xarelto] Javier Keen Allergies Allergy/AdvReac Type Severity Reaction Status Date / Time No Known Allergies Allergy Verified 04/25/22 10:19 Discharge Plan Disposition Patient Disposition: Home, Self-Care Condition: Fair Discharge Order Discharge Orders: Discharge Order (Routine); Ordered 03/31/25 Ordered By: Javier Keen Follow up Plan Follow up with: Melissa Morrison APRN [Primary Care Provider, Medical] - 04/08/25 12:30 pm Bob Tapia MD [Physician, Pulmonology] - 04/14/25 1:00 pm Félix Beatty MD [Staff Physician, Cardiology] - 04/23/25 2:15 pm Prescriptions/Medication Reconciliation: New dapagliflozin propanediol [Farxiga] 10 mg Tablet 10 mg PO DAILY 30 Days Qty: 30 0RF furosemide 40 mg Tablet 40 mg PO BIDL Qty: 60 0RF doxycycline hyclate 100 mg Tablet 100 mg PO BID 3 Days Qty: 6 0RF Xarelto 15 mg Tablet 15 mg PO QPMWITHMEAL 30 Days Qty: 30 0RF Continued temazepam 15 mg capsule 15 mg PO HS cholecalciferol (vitamin D3) [Vitamin D3] 125 mcg (5,000 unit) Tablet 125 mcg PO DAILY Senna Plus 8.6-50 mg Capsule 2 tab PO HS losartan 50 mg tablet 50 mg PO DAILY Patient Comments: TAKE ONE TABLET BY MOUTH ONCE A DAY ascorbic acid (vitamin C) [Vitamin C] 1,000 mg Tablet 1,000 mg PO DAILY bisoprolol fumarate 5 mg tablet 5 mg PO DAILY Patient Comments: TAKE ONE TABLET BY MOUTH ONCE A DAY azelastine 137 mcg (0.1 %) spray,non-aerosol 2 spray INTRANASAL BID Patient Comments: instill 1 SPRAY into each nostril 2 TIMES A DAY benzonatate 200 mg capsule 200 mg PO TIDP PRN (Reason: Cough) Patient Comments: TAKE 1 CAPSULE BY MOUTH 3 TIMES A DAY NEEDED FOR COUGH atorvastatin 80 MG tablet 80 mg PO HS hydroxyzine HCl 25 mg tablet 25 mg PO TIDP PRN (Reason: Anxiety) famotidine 20 mg tablet 20 mg PO BID escitalopram oxalate 10 mg tablet 10 mg PO HS Discontinued Xarelto 20 mg tablet 20 mg PO QPMWITHMEAL Rx Instructions: must administer with evening meal hydralazine 25 mg tablet 50 mg PO Q8H Other Ambulatory Orders: Home Medical Equipment (Routine) Location: None Selected Ordered By: Javier Keen Problem Reconciliation Problems Reviewed?: Yes Patient Discharge Instructions ACTIVITY: Continue current activity DIET: continue same diet Patient Instructions: DI for Heart Failure, DI for Nausea -- Adult, DI for Vomiting -- Adult, Stop Light Heart Failure Print Language: Khmer Providers Primary Care Provider: Melissa Morrison Admit Provider: Javier Keen Attending Provider: Javier Keen
[2025-03-31 16:00] VITALS: BP 129/77; PULSE 80; RESP 18; TEMP 36.7; O2SAT 89
[2025-03-31] MEDS: FUROSEMIDE 40 MG TABLET PO (16:57)
--- NOTE | 2025-04-01 10:34 | SW/DCPLANNER ---
Spoke with patient on the phone. Patient stated that she is doing well. Patient stated that she is aware of her upcoming appointments. Patient stated that she was able to get her new medicine picked up from clinic pharmacy. Patient stated that she has no concerns or questions at this time. Jose De Jesus Jarquin
== END 2025-03-31 17:08 | disposition home or self-care (01) | DRG 291 ==
LOC: ER 03-29 01:10 → 2ND 03-29 12:22
PROVIDERS: Emergency Medicine; Nurse Practitioner Family; Admitting Provider Internal Medicine Adolescent Medicine; Emergency Provider Emergency Medicine; PCP Nurse Practitioner Family; Visit Provider Internal Medicine Adolescent Medicine
DX: I11.0 Hypertensive heart disease with heart failure (principal); I50.23 Acute on chronic systolic (congestive) heart failure; J96.01 Acute respiratory failure with hypoxia; J18.9 Pneumonia, unspecified organism; N17.9 Acute kidney failure, unspecified; I48.91 Unspecified atrial fibrillation; E66.9 Obesity, unspecified; I25.10 Atherosclerotic heart disease of native coronary artery without angina pectoris; R63.4 Abnormal weight loss; Z68.35 Body mass index [BMI] 35.0-35.9, adult; K21.9 Gastro-esophageal reflux disease without esophagitis; Z90.2 Acquired absence of lung [part of]; Z95.0 Presence of cardiac pacemaker; Z86.73 Personal history of transient ischemic attack (TIA), and cerebral infarction without residual deficits; Z79.01 Long term (current) use of anticoagulants; Z79.899 Other long term (current) drug therapy; Z91.148 Patient's other noncompliance with medication regimen for other reason
CPT/HCPCS: 36415; 71045; 71275; 74177; 80053; 80162; 81001; 82803; 83690; 83735; 83880; 84436; 84443; 84484; 85025; 85610; 85730; 87070; 87205; 87636; 93005; 93306; J1938; J1956; J2405; Q9967

== ENCOUNTER → 2025-05-15 12:11 | Outpatient (CLI) | payer MEDICARE, BC, SELFPAY | LOC: SL 12:12 | PROVIDERS: PCP Nurse Practitioner Family; Visit Provider Internal Medicine Pulmonary Disease | DX: G47.34 Idiopathic sleep related nonobstructive alveolar hypoventilation (principal); R06.02 Shortness of breath | CPT/HCPCS: 94762 ==

== ENCOUNTER 2025-08-08 10:33 | Outpatient (CLI) | payer MEDICARE, BC, SELFPAY ==
--- OUTSIDE RECORDS SUMMARY | 2025-06-09 13:00 | XMS_ITS | Encounter Summary ---
[facility] Address [address] [place] [address] Care Team Providers Care Consumer Insights Intern Name Role Phone Pablo Dailey MD Primary Care Provider + [phone] Reason for Visit * Reason Comments Atrial fibrillation, persistent Encounter Details Date Type Department Care Team (Late st Contact Info) Description 06/09/2025 1:00 PM EDT Office Visit [facility] [address] [address] Idris Sena PA [address] [facility] [address] [place] [address] Paroxysmal atrial fibrillation (Primary Dx); Accelerated hypertension; Primary hypertension Social History Tobacco Use Types Packs/Day Years Used Date Smoking Tobacco: Never Smokeless Tobacco: Never Tobacco Cessation:Counseling Given: Not Answered Alcohol Use Standard Drinks/Week Comments Never 0 (1 standard drink = 0.6 oz pur e alcohol) [facility] Utilities Answer Date Recorded In the past 12 months has [employer], gas, oil, or water eTruck threatened to shut off services in your home? No 01/15/2025 AUDIT-C Answer Date Recorded Q1: How often do you have a drink containing alcohol? Never 03/07/2025 Q2: How many drinks containi ng alcohol do you have on a typical day when you are drinking? Patient does not drink Q3: How often do you have si x or more drinks on one occasion? Never 03/07/2025 Hunger Vital Sign Answer Date Recorded Within the past 12 months, y ou worried that your food would run out before you got the money to buy more. Never true 01/16/20 25 Within the past 12 months, t he food you bought just didn't last and you didn't have money to get more. Never true 01/15/2025 PRAPARE - Transportation Answer Date Re corded In the past 12 months, has l ack of transportation kept you from medical appointments or from getting medications? No 12/28 In the past 12 months, has l ack of transportation kept you from meetings, work, or from getting things needed for daily living? No 01/15/2025 Abuse Screen Answer Date Recorded Feels Unsafe at Home or Work/School no 03/07/2025 Feels Threatened by Someone no 06/2025 Does Anyone Try to Keep You From Having Contact with Others or Doing Things Outside Your Home? no 03/07/2025 Physical Signs of Abuse Present no 03/07/2025 Housing Stability Answer Date Recorded Current Living Arrangements home 06/2025 Potentially Unsafe Housing Conditions none 03/07/2025 Employment Answer Date Recorded Do you want help finding or keeping work or a job? I do not need or want help 01/15/2025 Disabilities Answer Date Recorded Difficulty Concentrating, Remembering or Making Decisions no 03/07/2025 Difficulty Managing Errands Independently no 03/07/2025 Education Answer Date Recorded Do you want help with school or training? 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 file Not on file Not on file documented as of this encounter Last Filed Vital Signs Vital Sign Reading Time Taken Comments Blood Pressure 110/64 06/09/2025 12:54 PM EDT Pulse 92 06/09/2025 12:54 PM EDT Temperature - - Respiratory Rate - - Oxygen Saturation 94% 06/09/2025 12:54 PM EDT Inhaled Oxygen Concentration - - Weight 103 kg (227 lb 12.8 oz) 06/09/2025 12:54 PM EDT Height 170.2 cm (5' 7 ) 06/09/2025 12:54 PM EDT Body Mass Index 35.68 06/09/2025 12:54 PM EDT documented in this encounter Progress Notes * Idris Sena PA - 06/09/2025 1:00 PM EDT Images from the original note were not included. Cardiac Electrophysiology Outpatient Follow Up Note [facility] Follow Up Office Visit Page John [id number] 06/09/2025 Primary Care Physician: Pablo Dailey MD Subjective Chief Complaint: Diagnoses and all orders for this visit: 1. Paroxysmal atrial fibrillation (Primary) 2. Accelerated hypertension 3. Primary hypertension Chief Complaint Patient presents with Atrial fibrillation, persistent History of Present Illness: Page John is a 74 y.o. female who presents to my electrophysiology clinic for follow up ofA-fib. Since last seen by our office she has had an AV node ablation Medtronic leadless pacemaker. This has helped her with symptoms of palpitation now resolved. She is having no chest pain. She has some lung disease which is followed closely but she denies that this has been progressive in nature she is wearing oxygen at night now. She is tolerating her Xarelto and takes it every evening. She isdoing well with this. She has no complaints today. 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 MS lymph node dissection. Home O2 for COPD at night Hypertension Dyslipidemia Cardiomyopathy Echo ([facility]) LVEF 45% in the setting of COVID-pneumonia and A-fib with RVR History of nephrolithiasis History of CVA 2016 Surgeries: Right middle and lower lobectomy D&C Tonsillectomy Tubal ligation Past Medical History: Past Medical History: Diagnosis Date Anesthesia complication hard to wake up from bronchoscopy Atrial fibrillation Cough Dyslipidemia Hyperlipidemia Hypertension Kidney stone Lung cancer Pneumonia SOB (shortness of breath) Stroke 07/2016 no deficits. TIA (transient ischemic attack) Past Surgical History: Past Surgical History: Procedure Laterality Date BRONCHOSCOPY N/A 01/06/2020 Procedure: BRONCHOSCOPY WITH ENDOBRONCHIAL ULTRASOUND; Surgeon: Tutu Wyatt MD; Location: [facility]; Service: Cardiothoracic; Laterality: N/A; With biopsy and brushings for cyto, washing for micro and cyto. balloon removed intact BRONCHOSCOPY THORACOTOMY Right 02/18/2020 Procedure: BRONCHOSCOPY, RIGHT THORACOTOMY WITH RIGHT MIDDLE LOBECTOMY AND RIGHT LOWER LOBECTOMY, MEDIASTINAL LYMPH NODE DISSECTION; Surgeon: Tutu Wyatt MD; Location: [facility]; Service: Cardiothoracic; Laterality: Right; CARDIAC CATHETERIZATION N/A 12/19/2024 Procedure: LEFT HEART CATH - Right radial access; Surgeon: Alejandro Flynn MD; Location: [facility] CATH INVASIVE LOCATION; Service: Cardiovascular; Laterality: N/A; CARDIAC ELECTROPHYSIOLOGY PROCEDURE N/A 01/14/2025 Procedure: AVN RFA, stay on Xarelto, C&T TM; Surgeon: Philip Thompson DO; Location: [facility] EP INVASIVE LOCATION; Service: Cardiovascular; Laterality: N/A; COLONOSCOPY cologuard D & C AND LAPAROSCOPY OTHER SURGICAL HISTORY 01/14/2025 EPS/ LEADLESS PPM PER DR. THOMPSON PACEMAKER IMPLANTATION N/A 01/14/2025 Procedure: Leadless PPM Implant; Surgeon: Philip Thompson DO; Location: [facility] INVASIVE LOCATION; Service: Cardiovascular; Laterality: N/A; TONSILLECTOMY TOTAL KNEE ARTHROPLASTY Right 07/08/2020 Procedure: TOTAL KNEE ARTHROPLASTY RIGHT; Surgeon: Ramy Minor MD; Location: [facility]; Service: Orthopedics; Laterality: Right; TUBAL ABDOMINAL LIGATION Family History: Family History Problem Relation Age of Onset No Known Problems Mother Colon cancer Father Heart attack Father Coronary artery disease Father Breast cancer Sister 50 Ovarian cancer Neg Hx Social History: Social History Socioeconomic History Marital status: Number of children: 2 Tobacco Use Smoking status: Never Smokeless tobacco: Never Vaping Use Vaping status: Never Used Substance and Sexual Activity Alcohol use: Never Drug use: Never Sexual activity: Defer Medications: Current Outpatient Medications: albuterol sulfate HFA 108 (90 Base) MCG/ACT inhaler, Inhale 2 puffs Every 4 (Four) Hours As Needed for Wheezing., Disp: , Rfl: atorvastatin (LIPITOR) 80 MG tablet, Take 1 tablet by mouth Daily. (Patient taking differently: Take 1 tablet by mouth Every Night.), Disp: , Rfl: azelastine (ASTEPRO) 0.15 % solution nasal spray, Administer 2 sprays into the nostril(s) as directed by provider As Needed., Disp: , Rfl: bisoprolol (ZEBeta) 10 MG tablet, Take 1 tablet by mouth Daily., Disp: 90 tablet, Rfl: 3 CALCIUM PO, Take 1 tablet by mouth Daily., Disp: , Rfl: Cholecalciferol (Vitamin D-3) 125 MCG (5000 UT) tablet, Take by mouth Daily., Disp: , Rfl: escitalopram (LEXAPRO) 10 MG tablet, Take 1 tablet by mouth Daily., Disp: , Rfl: famotidine (PEPCID) 20 MG tablet, Take 1 tablet by mouth Daily., Disp: , Rfl: furosemide (LASIX) 40 MG tablet, Take 1 tablet by mouth Every 12 (Twelve) Hours., Disp: , Rfl: hydrALAZINE (APRESOLINE) 25 MG tablet, Take 1 tablet by mouth Every 8 (Eight) Hours for 30 days., Disp: 90 tablet, Rfl: 0 hydrOXYzine (ATARAX) 25 MG tablet, 1 tablet 2 (Two) Times a Day., Disp: , Rfl: losartan (COZAAR) 50 MG tablet, Take 1 tablet by mouth Daily., Disp: 90 tablet, Rfl: 3 O2 (OXYGEN), Inhale 1 L/min Every Night., Disp: , Rfl: ondansetron (ZOFRAN) 4 MG tablet, Take 1 tablet by mouth Every 8 (Eight) Hours As Needed for Nauseaor Vomiting., Disp: , Rfl: Senna Plus 8.6-50 MG per tablet, Take 1 tablet by mouth Daily. (Patient taking differently: Take 1 tablet by mouth Daily. PRN), Disp: , Rfl: temazepam (RESTORIL) 15 MG capsule, Take 2 capsules by mouth every night at bedtime., Disp: , Rfl: vitamin C (ASCORBIC ACID) 500 MG tablet, Take 2 tablets by mouth Daily., Disp: , Rfl: Xarelto 20 MG tablet, Take 1 tablet by mouth Daily. Resume 01/16/2025 (Patient taking differently: Take 15 mg by mouth Daily. Resume 01/16/2025), Disp: , Rfl: Zinc 50 MG tablet, Take by mouth Daily., Disp: , Rfl: Allergies: No Known Allergies Objective Vital Signs: Vitals: 06/09/25 1254 BP: 110/64 BP Location: Right arm Patient Position: Sitting Pulse: 92 SpO2: 94% Weight: 103 kg (227 lb 12.8 oz) Height: 170.2 cm (67 ) PHYSICAL EXAM General appearance: Awake, alert, cooperative Head: Normocephalic, without obvious abnormality, atraumatic Eyes: Conjunctivae/corneas clear, EOMs intact Neck: no adenopathy, no carotid bruit, no JVD, and thyroid: not enlarged Lungs: clear to auscultation bilaterally and no rhonchi or crackles , ' symmetric Heart: Normal S1 and S2, BLAYNE 2/6. Abdomen: Soft, non-tender, bowel sounds normal, no organomegaly Extremities: extremities normal, atraumatic, no cyanosis or edema Skin: Skin color, turgor normal, no rashes or lesions Neurologic: Grossly normal Lab Results Component Value Date GLUCOSE 186 (H) 03/08/2025 CALCIUM 9.6 03/08/2025 NA 141 03/08/2025 K 3.8 03/08/2025 CO2 24.0 03/08/2025 CL 104 03/08/2025 BUN 20 03/08/2025 CREATININE 1.02 (H) 03/08/2025 EGFRIFNONA 52 (L) 07/09/2020 BCR 19.6 03/08/2025 ANIONGAP 13.0 03/08/2025 Lab Results Component Value Date WBC 7.44 03/08/2025 HGB 14.4 03/08/2025 HCT 44.6 03/08/2025 MCV 93.1 03/08/2025 PLT 282 03/08/2025 Lab Results Component Value Date INR 1.08 07/08/2020 INR 2.11 (H) 06/25/2020 INR 1.12 02/17/2020 PROTIME 13.7 07/08/2020 PROTIME 23.4 (H) 06/25/2020 PROTIME 14.1 (H) 02/17/2020 Lab Results Component Value Date TSH 0.521 03/08/2025 Cardiac Testing: I personally viewed and interpreted the patient's EKG/Telemetry/lab data Procedures Assessment & Plan Diagnoses and all orders for this visit: 1. Paroxysmal atrial fibrillation (Primary) 2. Accelerated hypertension 3. Primary hypertension Diagnosis Plan 1. Paroxysmal atrial fibrillation AV RFA , Leadless Pacemaker 01/14/2025. Device interrogation stable. MDT leadless. VVIR 80, Vpaced 99%. Normal thresholds and impedances. Lower rate to 70 bpm for chronic thresholds, pacing. Continue Xarelto therapy for anticoagulation. 2. HTN Controlled, hydralazine and Zebeta therapy follow-up in [address] Thompson. 3. Tachycardia induced Cardiomyopathy EF 45% now EF improved to 55%, Aortic sclerosis with out aortic stenoses. Return to follow-up Dr. Thompson 1 year Electronically signed by DAYLIN Earl, 06/09/25, 12:47 PM EDT. documented in this encounter Plan of Treatment Upcoming Encounters Date Type Department Care Team (Late st Contact Info) Description 05/27/2026 1:00 PM EDT Office Visit [facility] [address] [facility] [address] [place] [address] Peggy Urbina, CARAMEL COLORING OPERATOR [address] [facility] [address] [place] [address] Scheduled Orders Name Type Priority Associated Diagnoses Orde r Schedule Cardiology Scan Cardiac Services Ord ered: 06/09/2025 documented as of this encounter Visit Diagnoses Diagnosis Paroxysmal atrial fibrillation- Primary Atrial fibrillation Accelerated hypertension Essential hypertension, malignant Primary hypertension Unspecified essential hypertension documented in this encounter Care Teams Consumer Insights Intern Relationship Specialty Start Date End Date Pablo Dailey MD [address] [facility] [address] [place] [address] PCP - General Adolescent Medicine 08/26/22 documented as of this encounter"
--- OUTSIDE RECORDS SUMMARY | 2025-07-30 11:00 | XMS_ITS | Encounter Summary ---
[facility] Address [address] [place] [address] Care Team Providers Care Kitchen Help Handyman Name Role Phone Pablo Dailey MD Primary Care Provider + [phone] Reason for Visit * Reason Comments Follow-up Encounter Details Date Type Department Care Team (Late st Contact Info) Description 07/30/2025 11:00 AM EDT Office Visit [facility] [address] [place] [address] Alejandro Flynn MD [facility] [address] [place] [address] Chronic atrial fibrillation (Primary Dx) Social History Tobacco Use Types Packs/Day Years Used Date Smoking Tobacco: Never Smokeless Tobacco: Never Tobacco Cessation:Counseling Given: Not Answered Alcohol Use Standard Drinks/Week Comments Never 0 (1 standard drink = 0.6 oz pur e alcohol) [facility] Utilities Answer Date Recorded In the past 12 months has [employer], gas, oil, or water [employer] threatened to shut off services in your [...] GED or equivalent No 01/15/2025 Preferred Language Guyanese 01/15/2025 Comments No Sex and Gender Information Value Date Recorded Sex Assigned at Not on file Legal Sex Female 12:47 PM EST Gender Identity Not on file Sexual Orientation Not on file 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 Not on file Not on file documented as of this encounter Last Filed Vital Signs Vital Sign Reading Time Taken Comments Blood Pressure 102/73 07/30/2025 10:44 AM EDT Pulse 90 07/30/2025 10:44 AM EDT Temperature - - Respiratory Rate - - Oxygen Saturation 94% 07/30/2025 10:44 AM EDT Inhaled Oxygen Concentration - - Weight 102 kg (224 lb) 07/30/2025 10:44 AM EDT Height 170.2 cm (5' 7 ) 07/30/2025 10:44 AM EDT Body Mass Index 35.08 07/30/2025 10:44 AM EDT documented in this encounter Progress Notes * Alejandro Flynn MD - 07/30/2025 11:00 AM EDT Subjective: Encounter Date:07/30/2025 Primary Care Physician: Pablo Dailey MD Patient ID: Page John is a 74 y.o. female. Chief Complaint:Follow-up PROBLEM LIST: Atrial fibrillation CHADSVASC- 5 On chronic anticoagulation RVR, symptomatic rates greater than 110 at rest despite high dose metoprolol amiodarone and digoxin 12/2024 leadless PPM, Dr. 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 MS lymph node dissection. 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 Hypertension Dyslipidemia Cardiomyopathy Echo ([facility]) LVEF 45% in the setting of COVID-pneumonia and A-fib with RVR Echo 03/08/2025. LVEF 55%. Mild MR History of nephrolithiasis History of CVA 2015 Surgeries: Right middle and lower lobectomy D&C Tonsillectomy Tubal ligation No Known Allergies Current Outpatient Medications: albuterol sulfate HFA 108 [...] mouth Daily., Disp: 90 tablet, Rfl: 3 Cholecalciferol (Vitamin D-3) 125 MCG (5000 UT) tablet, Take by mouth Daily., Disp: , Rfl: escitalopram (LEXAPRO) 10 MG tablet, Take 1 tablet by mouth Daily., Disp: , Rfl: famotidine (PEPCID) 20 MG tablet, Take 1 tablet by mouth Daily., Disp: , Rfl: furosemide (LASIX) 40 MG tablet, Take 1 tablet by mouth Every 12 (Twelve) Hours., Disp: , Rfl: hydrOXYzine (ATARAX) 25 MG tablet, 1 tablet [...] Take by mouth Daily., Disp: , Rfl: CALCIUM PO, Take 1 tablet by mouth Daily. (Patient not taking: Reported on 07/30/2025), Disp: , Rfl: hydrALAZINE (APRESOLINE) 25 MG tablet, Take 1 tablet by mouth Every 8 (Eight) Hours for 30 days., Disp: 90 tablet, Rfl: 0 History of Present Illness Patient returns today for follow-up of atrial fibrillation and cardiovascular risk factors and cardiomyopathy. Since her last visit she is doing very well. She had an echocardiogram that showed normalization of LVEF. Blood pressure is well-controlled at home and she is stating it is consistently running 115-125 systolic. Overall feels well. No tachypalpitations dizziness lightheadedness or any cardiovascular symptoms. Chronic dyspnea since lobectomy, unchanged The following portions of the patient's history were reviewed and updated as appropriate: allergies, current medications, past family history, past medical history, past social history, past surgicalhistory and problem list. Social History Tobacco Use Smoking status: Never Smokeless tobacco: Never Vaping Use Vaping status: Never Used Substance Use Topics Alcohol use: Never Drug use: Never ROS Objective: BP 102/73 Pulse 90 Ht 170.2 cm (67 ) Wt 102 kg (224 lb) SpO2 94% BMI 35.08 kg/m?? Vitals reviewed. Constitutional: Appearance: Well-developed and not in distress. Neck: Thyroid: No thyromegaly. Vascular: No carotid bruit or JVD. Pulmonary: Breath sounds: Normal breath sounds. Cardiovascular: Regular rhythm. No gallop. No S3 and S4 gallop. Pulses: Intact distal pulses. Carotid: 2+ bilaterally. Radial: 2+ bilaterally. Edema: Peripheral edema absent. Abdominal: General: Bowel sounds are normal. Palpations: Abdomen is soft. There is no abdominal mass. Tenderness: There is no abdominal tenderness. Musculoskeletal: General: No deformity. Extremities: No clubbing present.Skin: General: Skin is warm and dry. Findings: No rash. Neurological: Mental Status: Alert and oriented to person, place, and time. Procedures Assessment: Assessment & Plan Diagnoses and all orders for this visit: 1. Chronic atrial fibrillation (Primary) 1. Chronic atrial fibrillation. Status post AV node ablation. Adequately anticoagulated. 2. History of cardiomyopathy, with tachycardia induced, resolved. No evidence of volume overload today. 3. Hypertension well-controlled on bisoprolol and losartan 4. Dyslipidemia on high intensity statin Recommendations: 1. Patient overall feels well. Is active, 2. Continue current medical therapy 3. Revisit annually. Alejandro Flynn MD Advance Care Planning ACP discussion was held with the patient during this visit. Patient has an advance directive in EMRwhich is still valid. Dictated utilizing Dragon dictation documented in this encounter Plan of Treatment Upcoming Encounters Date Type Department Care Team (Late st Contact Info) Description 05/27/2026 1:00 PM EDT Office Visit [facility] [address] [place] [phone] Peggy Urbina, COMMUNITY RECREATION COORDINATOR [address] [facility] [address] [place] [address] documented as of this encounter Visit Diagnoses Diagnosis Chronic atrial fibrillation- Primary Atrial fibrillation documented in this encounter Care Teams Kitchen Help Handyman Relationship Specialty Start Date End Date Pablo Dailey MD [facility] [address] [place] [address] PCP - General Adolescent Medicine 08/26/22 documented as of this encounter
--- OUTSIDE RECORDS SUMMARY | 2025-08-08 10:36 | XMS_ITS ---
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 Accelerated hypertension 03/07/2025 Persistent atrial fibrillation 01/14/2025 Encounter for examination fo r normal comparison and control in clinical research program 12/24/2024 LV dysfunction 12/11/2024 Abnormal result of other cardiovascular function study 12/11/2024 Status post total right knee replacement 020 Elevated hemoglobin A1c 07/08/2020 Renal insufficiency 07/08/2020 Primary osteoarthritis of right knee 06/04/2020 Malignant neoplasm of middle lobe of right lung 02/18/2020 Atrial fibrillation 02/18/2020 Hypertension 02/18/2020 Dyslipidemia 02/18/2020 History of stroke 02/18/2020 Overview (02/18/2020): 07/2016 no defecits. Primary cancer of right middle lobe of lung 01/28 Overview (02/12/2020): Added automatically from request for surgery [id number] Current Treatment and Therapy Plans No current plan information found. Past Treatment and Therapy Plans No past plan information found. Lifetime Dose Tracking * Chemical Lifetime Dose Automatic Entry Manual Entr y Cumulative Air Kerma 496 mGy 0 mGy 496 mGy Resolved Problems Problem Noted Date Diagnosed Date Resolved Date Leukocytosis, likely reactive 07/09/2020 05/17/2023 Acute postoperative pain 07/09/2020 Atelectasis of right lung 01/06/2020
--- OUTSIDE RECORDS SUMMARY | 2025-08-08 10:36 | XMS_ITS | Encounter Summary ---
Author Organization [facility] Address [address] [place] [address] Care Team Providers Care Warper Creeler Name Role Phone Pablo Dailey MD Primary Care Provider + [phone] Encounter Details Date Type Department Care Team (Late Contact Info) Description 01/22/2020 MDT Assessment [facility] [address] [facility] [address] [place] [address] Elizabeth Pinto MD [address] [facility] [address] [place] [address] Social History Tobacco Use Types Packs/Day Years Used Date Smoking Tobacco: Never Smokeless Tobacco: Never Alcohol Use Standard Drinks/Week Comments Never 0 (1 standard drink = 0.6 oz pur e alcohol) AUDIT-C Answer Date Recorded Frequency of Alcohol Consumption Never 01/02/2020 Average Number of Drinks Not on file 020 Frequency of Binge Drinking Not on file 02/2020 Comments No Sex and Gender Information Value Date Recorded Sex Assigned at Not on file Legal Sex Female 12:47 PM EST Gender Identity Not on file Sexual Orientation Not on file 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 Not on file Not on file documented as of this encounter Plan of Treatment Upcoming Encounters Date Type Department Care Team (Late st Contact Info) Description 05/27/2026 1:00 PM EDT Office Visit [facility] [address] [facility] [address] [place] [address] Peggy Urbina, INSPECTOR SCALES [address] [facility] [address] [place] [address] documented as of this encounter Visit Diagnoses Not on filedocumented in this encounter Additional Health Concerns Infection Onset Date Last Indicated Resolved Time COVID Screen (preop/placement) 07/06/2020 07/06/2020 07/06/2020 11:49 PM EDT documented as of this encounter Care Teams Warper Creeler Relationship Specialty Start Date End Date Pablo Dailey MD [address] [facility] [address] [place] [address] PCP - General Adolescent Medicine 08/26/22 documented as of this encounter
--- OUTSIDE RECORDS SUMMARY | 2025-08-08 10:36 | XMS_ITS | Encounter Summary ---
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 Not on file Not on file documented as of this encounter Plan of Treatment Upcoming Encounters Date Type Department Care Team (Late st Contact Info) Description 05/27/2026 1:00 PM EDT Office Visit [facility] CARDIOTHORACIC SURGERY [address] [facility] [address] [place] [address] Peggy Urbina, [employer] [address] [facility] [address] [place] [address] documented as of this encounter Visit Diagnoses Not on filedocumented in this encounter Additional Health Concerns Infection Onset Date Last Indicated Resolved Time COVID Screen (preop/placement) 07/06/2020 07/06/2020 07/06/2020 11:49 PM EDT documented as of this encounter Care Teams Outside Machinist Relationship Specialty Start Date End Date Pablo Dailey MD [address] [facility] [address] [place] [address] PCP - General Adolescent Medicine 08/26/22 documented as of this encounter
--- OUTSIDE RECORDS SUMMARY | 2025-08-08 10:37 | XMS_ITS | Clinical Summary ---
[facility] Address [address] [place] [address] Care Team Providers Care Mechanical Engineering Specialist Name Role Phone Pablo Dailey MD Primary Care Provider + [phone] Allergies No known active allergies Medications atorvastatin (LIPITOR) 80 MG tablet Take 1 tablet by mouth Daily. 12/06/19 20 Active vitamin C (ASCORBIC ACID) 500 MG tablet Take 2 tablets by mouth Daily. Active temazepam (RESTORIL) 15 MG capsule Take 2 capsules by mouth every night at bedtime. Active azelastine (ASTEPRO) 0.15 % solution nasal spray Administer 2 sprays into the nostril(s) as directed by provider As Needed. 06/21/20 21 Active Zinc 50 MG tablet Take by mouth Daily. Active Cholecalcifero l (Vitamin D-3) 125 MCG (5000 UT) tablet Take by mouth Daily. Active escitalopram (LEXAPRO) 10 MG tablet Take 1 tablet by mouth Daily. 07/09/20 24 Active famotidine (PEPCID) 20 MG tablet Take 1 tablet by mouth Daily. 07/09/20 24 Active hydrOXYzine (ATARAX) 25 MG tablet 1 tablet 2 (Two) Times a Day. 07/09/20 24 Active Senna Plus 8.6-50 MG per tablet Take 1 tablet by mouth Daily. 07/09/20 24 Active Xarelto 20 MG tablet Take 1 tablet by mouth Daily. Resume 01/16/2025 03/19/20 25 Active Additional Information Patient taking differently: 15 mgOral Daily, Resume 01/16/2025, Reported on 07/30/2025 losartan (COZAAR) 50 MG tablet Take 1 tablet by mouth Daily. 90 tablet 3 01/16/20 25 Active bisoprolol (ZEBeta) 10 MG tablet Take 1 tablet by mouth Daily. 90 tablet 3 02/29/20 25 Active albuterol sulfate HFA 108 (90 Base) MCG/ACT inhaler Inhale 2 puffs Every 4 (Four) Hours As Needed for Wheezing. Active hydrALAZINE (APRESOLINE) 25 MG tablet Take 1 tablet by mouth Every 8 (Eight) Hours for 30 days. 90 tablet 5 8:58 AM EDT 03/09/20 25 Active furosemide (LASIX) 40 MG tablet Take 1 tablet by mouth Every 12 (Twelve) Hours. 05/08/20 25 Active ondansetron (ZOFRAN) 4 MG tablet Take 1 tablet by mouth Every 8 (Eight) Hours As Needed for Nausea or Vomiting. 03/27/20 25 Active O2 (OXYGEN) Inhale 1 L/min Every Night. Active CALCIUM PO Take 1 tablet by mouth Daily. 025 Discontinued Active Problems Problem Noted Date Diagnosed Date [...] (02/12/2020): Added automatically from request for surgery [id number] Resolved Problems Problem Noted Date Diagnosed Date Resolved Date Leukocytosis, likely reactive 07/09/2020 05/17/2023 Acute postoperative pain 07/09/2020 Atelectasis of right lung 01/06/2020 Encounters Date Type Department Care Team Description 07/30/2025 11:00 AM EDT Office Visit [facility] [address] [place] [address] Alejandro Flynn MD Chronic atrial fibrillation (Primary Dx) 07/30/2025 Travel 07/15/2025 Refill [facility] [address] [facility] [address] [place] [address] Daisy More APRN Med Refill 07/10/2025 Refill [facility] [address] [facility] [address] [place] [address] Philip Thompson, DO Med Refill 06/29/2025 Refill [facility] [address] [facility] [address] [place] [address] Philip Thompson, DO Med Refill 06/09/2025 1:00 PM EDT Office Visit [facility] [address] [facility] [address] [place] [address] Idris Sena PA Paroxysmal atrial fibrillation (Primary Dx); Accelerated hypertension; Primary hypertension 06/09/2025 Travel 05/28/2025 Telephone [facility] [address] [facility] [address] [place] [address] Idris Sena PA [facility] APPOINTMENT 05/22/2025 12:30 PM EDT Office Visit [facility] CARDIOTHORACIC SURGERY [address] [facility] [address] [place] [address] Peggy Urbina APRN Malignant neoplasm of middle lobe of right lung (Primary Dx); Aortic ectasia, thoracic 05/22/2025 8:19 AM EDT - 05/22/2025 11:59 PM EDT Hospital Encounter [facility] [place] [address] [place] [address] Peggy Urbina, SENIOR SUPPLY CHAIN ANALYST Malignant neoplasm of middle lobe of right lung; Primary cancer of right middle lobe of lung Discharge Disposition: Home or Self Care 05/22/2025 Travel 05/20/2025 Telephone [facility] CARDIOLOG[facility] [address] [place] [address] Idris Sena PA from Last 3 Months Family History Medical History Relation Name Comments Colon cancer Father Coronary artery disease Father Heart attack Father No Known Problems Mother Breast cancer Sister Ovarian cancer Neg Hx Relation Name Status Comments Father Mother Sister Alive Social History Tobacco Use Types Packs/Day Years Used Date Smoking Tobacco: Never Smokeless Tobacco: Never Tobacco Cessation:Counseling Given: Not Answered Alcohol Use Standard Drinks/Week Comments Never 0 (1 standard drink = 0.6 oz pur e alcohol) [facility] [employer] Answer Date Recorded In the past 12 months has [employer], gas, oil, or water [employer] threatened to shut off services in your [...] GED or equivalent No 01/15/2025 Preferred Language Persian 01/15/2025 Comments No Sex and Gender Information Value Date Recorded Sex Assigned at Not on file Legal Sex Female 12:47 PM EST Gender Identity Not on file Sexual Orientation Not on file 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 on file Not on file Last Filed Vital Signs Vital Sign Reading Time Taken Comments Blood Pressure 102/73 07/30/2025 10:44 AM EDT Pulse 90 07/30/2025 10:44 AM EDT Temperature 36.2 C (97.1 F) 05/22/2025 12:25 PM EDT Respiratory Rate 18 03/09/2025 7:00 AM EDT Oxygen Saturation 94% 07/30/2025 10:44 AM EDT Inhaled Oxygen Concentration - - Weight 102 kg (224 lb) 07/30/2025 10:44 AM EDT Height 170.2 cm (5' 7 ) 07/30/2025 10:44 AM EDT Body Mass Index 35.08 07/30/2025 10:44 AM EDT Plan of Treatment Upcoming Encounters Date Type Department Care Team (Late st Contact Info) Description 05/27/2026 1:00 PM EDT Office Visit [facility] CARDIOTHORACIC SURGERY [address] [place] [id number] Peggy Urbina, SENIOR SUPPLY CHAIN ANALYST [address] [facility] [address] [place] [address] Health Maintenance Due Date Last Done Comments DXA SCAN 1950 Pneumococcal Vaccine 50+ (1 of 2 - PCV) 1968 TDAP/TD VACCINES (1 - Tdap) 1968 COLON CANCER SCREENING 5 YEA R SIGMOIDOSCOPY [address] COLONOGRAPHY 1994 FECAL OCCULT BLOOD TEST 1994 FIT Testing (1 year) 1994 ANNUAL WELLNESS VISIT 01/01/2020 HEPATITIS C SCREENING 01/01/2020 RSV Vaccine - Adults (1 - 1- dose 75+ series) 2024 INFLUENZA VACCINE 05/30/2025 09/08/2017 COVID-19 Vaccine (2024-11 6 season) 2025 10/29/2021, 01/06/2021, 12/09/2020 COLOGUARD 01/11/2026 01/11/2023 COLORECTAL CANCER SCREENING 01/11/2026 ZOSTER VACCINE Completed 05/24/2022, 03/23/2022 MAMMOGRAM Discontinued 06/23/2022, 04/30, 05/26/2022, Additional history exists Medical Devices Implanted Type Area Road Packer Operator Device Identifier Shelf Expiration Date Model / Serial / Lot Reload [place] Flex Gst Thk 4.1mm Grn - [id number] Implanted:Qty : 1 on 02/18/2020 by Tutu Wyatt MD at [facility] Implant Right: Bronchus [employer] J AND J 04/28/2022 [id number] / / [id number] Reload [place] Flex Gst Thk 4.1mm Grn - [id number] Implanted:Qty : 1 on 02/18/2020 by Tutu Wyatt MD at [facility] Implant Right: Bronchus [employer] J AND J 01/27/2022 [id number] / / [id number] Reload [place] Flex Gst Thk 4.1mm Grn - [id number] Implanted:Qty : 1 on 02/18/2020 by Tutu Wyatt MD at [facility] Implant Right: Bronchus [employer] J AND J 04/28/2022 [id number] / / [id number] Reload Stplr [place] 35 Wht Adv Tp - [id number] Implanted:Qty : 1 on 02/18/2020 by Tutu Wyatt MD at [facility] Implant Right: Bronchus [employer] J AND J 07/29/2022 [id number] / / [id number] Reload Stplr [place] 35 Wht Adv Tp - [id number] Implanted:Qty : 1 on 02/18/2020 by Tutu Wyatt MD at [facility] Implant Right: Bronchus [employer] J AND J 07/29/2022 [id number] / / [id number] Reload Stplr [place] 35 Wht Adv Tp - [id number] Implanted:Qty : 1 on 02/18/2020 by Tutu Wyatt MD at [facility] Implant Right: Bronchus [employer] J AND J 07/29/2022 [id number] / / [id number] Reload Stplr [place] 35 Wht Adv Tp - [id number] Implanted:Qty : 1 on 02/18/2020 by Tutu Wyatt MD at [facility] Implant Right: Bronchus [employer] J AND J 07/29/2022 [id number] / / [id number] Stplr Lnr Cut 30mm Grn Thk Tx30g - [id number] Implanted:Qty : 1 on 02/18/2020 by Tutu Wyatt MD at [facility] Implant Right: Bronchus [employer] J AND J 01/28/2024 [id number] / / [id number] Hemost Abs Surgicel 2x3 - [id number] Implanted:Qty : 1 on 02/18/2020 by Tutu Wyatt MD at [facility] Implant Right: Bronchus [employer] J AND J 11/29/2022 [id number] / / [id number] Cmt Bone Simplex/P Full Dose 10/Pk - [id number] Implanted:Qty : 1 on 07/08/2020 by Ramy Minor MD at [facility] Implant GRECIA EDGARDO 02/26/2022 [id number] / / [id number] Sut Contrl Tiss Stratafix Spiral Pdo Bidir 1 [id number] - [id number] Implanted:Qty : 1 on 07/08/2020 by Ramy Minor MD at [facility] Implant [employer] DIV OF Kacey RATLIFF J [id number] / / N/A Pat Triath Asym X3 91v68ee - [id number] Implanted:Qty : 1 on 07/08/2020 by Ramy Minor MD at [facility] Implant Right: Patella [employer]IA EDGARDO 11/20/2024 [id number] / / 35TP Comp Fem Triath Cr No 5 Rt - [id number] Implanted:Qty : 1 on 07/08/2020 by Ramy Minor MD at [facility] Implant Right: Patella [employer] EDGARDO 09/22/2024 [id number] / / [id number] Baseplt Tib Triath Cmt No5 - [id number] Implanted:Qty : 1 on 07/08/2020 by Ramy Minor MD at [facility] Implant Right: Patella GRECIA EDGARDO 12/22/2024 [id number] / / [id number] Insrt Tib Triath C/S X3 Sz5 9mm - [id number] Implanted:Qty : 1 on 07/08/2020 by Ramy Minor MD at [facility] Implant Right: Patella GRECIA EDGARDO 03/23/2025 [id number] / / [id number] Totl Kn Hi Demand [place] - [id number] Implanted:Qty : 1 on 07/08/2020 by Ramy Minor MD at [facility] Implant Right: Patella GRECIA EDGARDO CAPKNTOTLHI DEMSTRY2 / / Sys Pace Micra Ld/Less Av2 - [id number] Implanted:Qty : 1 on 01/14/2025 by Philip Thompson DO at [facility] Implant Left: Heart [employer] 03/26/2026 [id number] / / [id number] Procedures Procedure Name Priority Date/Time Associated Diagnosis Comments CT CHEST W WO CONTRAST DIAGNOSTIC STAT 05/22/2025 8:43 AM EDT Malignant neoplasm of middle lobe of right lung Primary cancer of right middle lobe of lung MAMMO DIAGNOSTIC DIGITAL TOMOSYNTHESIS RIGHT W CAD Routine 06/23/2022 1:14 PM EDT Nipple discharge from Last 3 Months or Most Recently Relevant to Health Maintenance Results * CT Chest With & Without Contrast Diagnostic (05/22/2025 8:43 AM EDT) Anatomical Region Laterality Modality Chest N/A Computed Tomogra phy 05/22/2025 8:46 AM EDT Impressions 05/22/2025 8:53 AM EDT Impression: 1. Status post right middle and right lower lobectomy with chronic small right pleural effusion. 2. No evidence of new metastatic disease within the chest. 3. 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 Electronically Signed: Jai Darling MD 05/22/2025 8:53 AM EDT Workstation ID: [id number] Narrative 05/22/2025 8:[address] CHEST W WO CONTRAST DIAGNOSTIC Date of Exam: 05/22/2025 8:26 AM EDT Indication: LUNG CANCER. Comparison: 06/04/2020, 03/07/2025 Technique: Axial CT images were obtained of the chest before and after the uneventful intravenous administration of Isovue-300 . Reconstructed coronal and sagittal images were also obtained. Automated exposure control and iterative construction methods were used. Findings: Mild coronary artery calcification. Fusiform ectasia of ascending thoracic aorta measuring 4.1 cm in size. No adenopathy.. Patient is again noted be status post right middle and right lower lobectomy. There is a chronic small right pleural effusion, unchanged from prior exams. No left pleural effusion. There is a calcified granuloma within the posterior left lower lobe. The lungs are otherwise clear. No suspicious pulmonary nodule. Bilateral adrenal glands are within normal limits. Left renal cyst is unchanged. No lytic or sclerotic bony lesion identified. Procedure Note Antwan Darling MD - 05/22/2025 CT CHEST W WO CONTRAST DIAGNOSTIC Date of Exam: 05/22/2025 8:26 AM EDT Indication: LUNG CANCER. Comparison: 06/04/2020, 03/07/2025 Technique: Axial CT images were obtained of the chest before and after theuneventful intravenous administration of Isovue-300 . Reconstructedcoronal and sagittal images were also obtained. Automated exposure controland iterative construction methods were used. Findings: Mild coronary artery calcification. Fusiform ectasia of ascending thoracicaorta measuring 4.1 cm in size. No adenopathy.. Patient is again noted bestatus post right middle and right lower lobectomy. There is a chronicsmall right pleural effusion, unchanged from prior exams. No left pleural effusion. There is a calcifiedgranuloma within the posterior left lower lobe. The lungs are otherwiseclear. No suspicious pulmonary nodule. Bilateral adrenal glands are within normal limits. Left renal cyst isunchanged. No lytic or sclerotic bony lesion identified. IMPRESSION: Impression: 1. Status post right middle and right lower lobectomy with chronic smallright pleural effusion. 2. No evidence of new metastatic disease within the chest. 3. 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 Electronically Signed: Jai Darling MD 05/22/2025 8:53 AM EDT Workstation ID: [id number] Peggy Urbina SENIOR SUPPLY CHAIN ANALYST IMG CT ORDERABLES Final Res ult * (ABNORMAL) Mammo Diagnostic Digital Tomosynthesis Right With CAD (06/23/2022 1:14 PM EDT) Anatomical Region Laterality Modality Breast Right Mammography 06/23/2022 3:27 PM EDT Impressions 06/24/2022 9:59 AM EDT The right breast is stable in appearance mammographically with stable benign findings. Sonographically there does appear to be a questionable intraductal mass within the right nipple itself. Recommend further evaluation with a breast MRI to further evaluate this area. The patient will also need surgical consultation for the bloody nipple discharge. RECOMMENDATION: Recommend surgical consultation as well as breast MRI to evaluate right bloody nipple discharge. ACR BI-RADS CATEGORY: 0, INCOMPLETE: Need additional imaging evaluation She will be contacted by our office to schedule an appointment for the additional studies. Please accept this as an order. CAD was utilized. The standard false-negative rate of mammography is between 10% and 25%. Complex patterns or increased breast density will markedly elevate the false-negative rate of mammography. A letter, in lay terminology, with the results of this exam was given to the patient at the time of the visit. At our facility, a triangular marker is positioned over a palpable area of concern indicated by the patient. A chilkat marker is placed over a visible skin lesion. A linear marker indicates a scar. This report was finalized on 06/24/2022 9:[address] Priscila Dodson MD. Narrative 06/24/2022 9:59 AM EDT RIGHT DIAGNOSTIC MAMMOGRAM WITH TOMOSYNTHESIS AND A FOCUSED RIGHT BREAST ULTRASOUND CLINICAL INDICATION: 71-year-old patient presents for evaluation of single duct spontaneous right bloody nipple discharge. She reports no palpable abnormalities. She reports a family history of breast cancer in a sister. She has a personal history of a right lung cancer. TECHNIQUE: Low dose full field digital breast tomosynthesis imaging was performed consisting of right CC and MLO views. In addition, an exaggerated lateral right CC view was performed. Also, right CC and ML magnification views were performed. Finally, focused ultrasound imaging of the right breast was performed. COMPARISON: 04/06/2022, 12/21/2018, 11/30/2018 FINDINGS:There are scattered areas of fibroglandular density. The fibroglandular pattern is stable. No concerning mass, distortion or suspicious calcifications are seen. There are vascular calcifications present. A definite subareolar abnormality is not seen. Focused ultrasound imaging of the right breast targeting the subareolar region was performed. With the transducer located just beneath the nipple the bloody nipple discharge is expressed. It does appear to emanate from a single duct opening. There is a mildly dilated duct seen in the 7 to 8-o'clock subareolar region which extends toward the nipple. Within the nipple with duct remains dilated and there is some internal specular reflectors. This is questionable for an intraductal mass. This appears to be located within the nipple itself. As the duct extends away from the nipple it becomes more anechoic. Procedure Note Priscila Dodson MD - 07/07/2022 RIGHT DIAGNOSTIC MAMMOGRAM WITH TOMOSYNTHESIS AND A FOCUSED RIGHT BREAST ULTRASOUND CLINICAL INDICATION: 71-year-old patient presents for evaluation of single duct spontaneous right bloody nipple discharge. She reports no palpable abnormalities. She reports a family history of breast cancer in a sister. She has a personal history of a right lung cancer. TECHNIQUE: Low dose full field digital breast tomosynthesis imaging was performed consisting of right CC and MLO views. In addition, an exaggerated lateral right CC view was performed. Also, right CC and ML magnification views were performed. Finally, focused ultrasound imaging of the right breast was performed. COMPARISON: 04/06/2022, 12/21/2018, 11/30/2018 FINDINGS:There are scattered areas of fibroglandular density. The fibroglandular pattern is stable. No concerning mass, distortion or suspicious calcifications are seen. There are vascular calcifications present. A definite subareolar abnormality is not seen. Focused ultrasound imaging of the right breast targeting the subareolar region was performed. With the transducer located just beneath the nipple the bloody nipple discharge is expressed. It does appear to emanate from a single duct opening. There is a mildly dilated duct seen in the 7 to 8-o'clock subareolar region which extends toward the nipple. Within the nipple with duct remains dilated and there is some internal specular reflectors. This is questionable for an intraductal mass. This appears to be located within the nipple itself. As the duct extends away from the nipple it becomes more anechoic. IMPRESSION: The right breast is stable in appearance mammographically with stable benign findings. Sonographically there does appear to be a questionable intraductal mass within the right nipple itself. Recommend further evaluation with a breast MRI to further evaluate this area. The patient will also need surgical consultation for the bloody nipple discharge. RECOMMENDATION: Recommend surgical consultation as well as breast MRI to evaluate right bloody nipple discharge. ACR BI-RADS CATEGORY: 0, INCOMPLETE: Need additional imaging evaluation She will be contacted by our office to schedule an appointment for the additional studies. Please accept this as an order. CAD was utilized. The standard false-negative rate of mammography is between 10% and 25%. Complex patterns or increased breast density will markedly elevate the false-negative rate of mammography. A letter, in lay terminology, with the results of this exam was given to the patient at the time of the visit. At our facility, a triangular marker is positioned over a palpable area of concern indicated by the patient. A chilkat marker is placed over a visible skin lesion. A linear marker indicates a scar. This report was finalized on 06/24/2022 9:[address] Priscila Dodson MD. 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 LIVING WILL - SCAN 01/06/2020 6:04 AM ELBA [place] WILL/SURROGATEROSAMARIA, 05/19/2016 POWER OF COIL REPAIR TECHNICIAN - SCAN 01/06/2020 6:04 AM ROSAMARIA MARROQUIN, 05/19/20 16 * CPR (Attempt to Resuscitate) (Latest Code Status on File) Date Activated Date Inactivated Comments 03/07/2025 9:29 PM 03/09/2025 1:27 PM Question Answer Comments Code Status (Patient has no pulse and is not breathing): CPR (Attempt to Resuscitate) Medical Interventions (Patie nt has pulse or is breathing): Full Support Level Of Support Discussed With: Patient * CPR (Attempt to Resuscitate) Date Activated Date Inactivated Comments 01/14/2025 11:28 AM 01/15/2025 12:27 PM Question Answer Comments Code Status (Patient has no pulse and is not breathing): CPR (Attempt to Resuscitate) Medical Interventions (Patie nt has pulse or is breathing): Full Support Level Of Support Discussed With: Patient * CPR (Attempt to Resuscitate) Date Activated Date Inactivated Comments 07/08/2020 3:41 PM 07/09/2020 3:02 PM Question Answer Comments Code Status (Patient has no pulse and is not breathing): CPR (Attempt to Resuscitate) Medical Interventions (Patie nt has pulse or is breathing): Full * CPR (Attempt to Resuscitate) Date Activated Date Inactivated Comments 02/18/2020 10:24 AM 02/26/2020 3:36 PM Question Answer Comments Code Status (Patient has no pulse and is not breathing): CPR (Attempt to Resuscitate) Medical Interventions (Patie nt has pulse or is breathing): Full * CPR (Attempt to Resuscitate) Date Activated Date Inactivated Comments 01/06/2020 10:25 AM 01/07/2020 2:24 PM Question Answer Comments Code Status (Patient has no pulse and is not breathing): CPR (Attempt to Resuscitate) Medical Interventions (Patie nt has pulse or is breathing): Full Care Teams Mechanical Engineering Specialist Relationship Specialty Start Date End Date Pablo Dailey MD [facility] [address] [place] [address] PCP - General Adolescent Medicine 08/26/22
--- OUTSIDE RECORDS SUMMARY | 2025-08-08 10:37 | XMS_ITS | Encounter Summary ---
[facility] Address [address] [place] [address] Care Team Providers Care Excavating Supervisor Name Role Phone Pablo Dailey MD Primary Care Provider + [phone] Encounter Details Date Type Department Care Team (Latest Contact Info) Description 06/09/2025 Travel Social History Tobacco Use Types Packs/Day Years Used Date Smoking Tobacco: Never Smokeless Tobacco: Never Alcohol Use Standard Drinks/Week Comments Never 0 (1 standard drink = 0.6 oz pur e alcohol) [facility] Utilities Answer Date Recorded In the past 12 months has th e electric, gas, oil, or water company threatened to shut off services in your [...] GED or equivalent No 01/15/2025 Preferred Language Botswanan 01/15/2025 Comments No Sex and Gender Information Value Date Recorded Sex Assigned at Not on file Legal Sex Female 12:47 PM EST Gender Identity Not on file Sexual Orientation Not on file 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 Not on file Not on file documented as of this encounter Plan of Treatment Upcoming Encounters Date Type Department Care Team (Late st Contact Info) Description 05/27/2026 1:00 PM EDT Office Visit [facility] CARDIOTHORACIC SURGERY [address] [facility] [address] [place] [phone] Peggy Urbina, VOLLEYBALL PLAYER [address] [facility] [address] [place], [place] [phone] documented as of this encounter Visit Diagnoses Not on filedocumented in this encounter Care Teams Excavating Supervisor Relationship Specialty Start Date End Date Pablo Dailey MD [address] [facility] [address] [place] [phone] PCP - General Adolescent Medicine 08/26/22 documented as of this encounter
--- OUTSIDE RECORDS SUMMARY | 2025-08-08 10:37 | XMS_ITS | Encounter Summary ---
Author Organization [facility] yste Address [address] [place] [address] Care Team Providers Care Public Relations Consultant Name Role Phone Pablo Dailey MD Primary Care Provider + [phone] Reason for Visit * Reason Comments Med Refill Encounter Details Date Type Department Care Team (Late st Contact Info) Description 07/10/2025 Refill [facility] C[facility]IOLOGY [address] [facility] [address] [place] [address] Philip Thompson, DO [address] [facility] [address] [place] [address] Med Refill Social History Tobacco Use Types Packs/Day Years Used Date Smoking Tobacco: Never Smokeless Tobacco: Never Alcohol Use Standard Drinks/Week Comments Never 0 (1 standard drink = 0.6 oz pur e alcohol) [facility] Utilities Answer Date Recorded In the past 12 months has [facility] electric, gas, oil, or water company threatened [...] GED or equivalent No 01/15/2025 Preferred Language Mauritanian 01/15/2025 Comments No Sex and Gender Information Value Date Recorded Sex Assigned at Not on file Legal Sex Female 12:47 PM EST Gender Identity Not on file Sexual Orientation Not on file 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 Not on file Not on file documented as of this encounter Plan of Treatment Upcoming Encounters Date Type Department Care Team (Late st Contact Info) Description 05/27/2026 1:00 PM EDT Office Visit [facility] CARDIOTHORACIC SURGERY [address] [place] [phone] Peggy Urbina, PUPIL PERSONNEL SERVICES DIRECTOR [address] [place] [address] documented as of this encounter Visit Diagnoses Not on filedocumented in this encounter Care Teams Public Relations Consultant Relationship Specialty Start Date End Date Pablo Dailey MD [address] [facility] [address] [place] [address] PCP - General Adolescent Medicine 08/26/22 documented as of this encounter
--- OUTSIDE RECORDS SUMMARY | 2025-08-08 10:37 | XMS_ITS | Encounter Summary ---
Author Organization [facility] ystem Address [address] [place] [address] Care Team Providers Care Drafting Detailer Name Role Phone Pablo Dailey MD Primary Care Provider + [phone] Encounter Details Date Type Department Care Team (Late st Contact Info) Description 05/20/2025 Telephone [facility] CARDIOLOGY [address] [facility] [address] [place] [address] Idris Sena PA [address] [facility] [address] [place] [address] Social History Tobacco Use Types Packs/Day Years Used Date Smoking Tobacco: Never Smokeless Tobacco: Never Alcohol Use Standard Drinks/Week Comments Never 0 (1 standard drink = 0.6 oz pur e alcohol) [facility] Utilities Answer Date Recorded In the past 12 months has [facility], gas, oil, or water [employer] threatened to shut off services in your [...] GED or equivalent No 01/15/2025 Preferred Language Macedonian 01/15/2025 Comments No Sex and Gender Information Value Date Recorded Sex Assigned at Not on file Legal Sex Female 12:47 PM EST Gender Identity Not on file Sexual Orientation Not on file 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 SPOKE TO DAUGHTER IN LAW-RESCHEDULED APPT WITH ALISA AND ADVISED SAME DAY CANCEL LETTER WAS BEINGMAILED. Additional Notes: documented in this encounter Plan of Treatment Upcoming Encounters Date Type Department Care Team (Late st Contact Info) Description 05/27/2026 1:00 PM EDT Office Visit [facility] CARDIOTHORACIC SURGERY [address] [facility] [address] [place] [address] Peggy Urbina APRN [address] [facility] [address] [place] [address] documented as of this encounter Visit Diagnoses Not on filedocumented in this encounter Care Teams Drafting Detailer Relationship Specialty Start Date End Date Pablo Dailey MD [facility] [address] [place] [address] PCP - General Adolescent Medicine 08/26/22 documented as of this encounter
--- OUTSIDE RECORDS SUMMARY | 2025-08-08 10:37 | XMS_ITS | Encounter Summary ---
Author Organization [facility] yste Address [address] [place] [address] Care Team Providers Care Agronomy Teacher Name Role Phone Pablo Dailey MD Primary Care Provider + [phone] Reason for Visit * Reason Comments Med Refill Encounter Details Date Type Department Care Team (Late st Contact Info) Description 06/29/2025 Refill [facility] MEDICAL [facility] CARDIOLOGY [address] [facility] [address] [place] [address] Philip Thompson, DO [address] [facility] [address] [place] [address] Med Refill Social History Tobacco Use Types Packs/Day Years Used Date Smoking Tobacco: Never Smokeless Tobacco: Never Alcohol Use Standard Drinks/Week Comments Never 0 (1 standard drink = 0.6 oz pur e alcohol) [facility] Utilities Answer Date Recorded In the past 12 months has [employer] electric, gas, oil, or water company threatened [...] GED or equivalent No 01/15/2025 Preferred Language Mauritian 01/15/2025 Comments No Sex and Gender Information Value Date Recorded Sex Assigned at Not on file Legal Sex Female 12:47 PM EST Gender Identity Not on file Sexual Orientation Not on file 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 Not on file Not on file documented as of this encounter Plan of Treatment Upcoming Encounters Date Type Department Care Team (Late st Contact Info) Description 05/27/2026 1:00 PM EDT Office Visit [facility] CARDIOTHORACIC SURGERY [address] [place] [phone] Peggy Urbina, SECURITY AGENT [address] [place] [address] documented as of this encounter Visit Diagnoses Not on filedocumented in this encounter Care Teams Agronomy Teacher Relationship Specialty Start Date End Date Pablo Dailey MD [address] [facility] [address] [place] [address] PCP - General Adolescent Medicine 08/26/22 documented as of this encounter
--- OUTSIDE RECORDS SUMMARY | 2025-08-08 10:37 | XMS_ITS | Encounter Summary ---
[facility] Address [address] [place] [address] Care Team Providers Care Property Preservation Specialist Name Role Phone Pablo Dailey MD Primary Care Provider + [phone] Encounter Details Date Type Department Care Team (Latest Contact Info) Description 07/30/2025 Travel Social History Tobacco Use Types Packs/Day Years Used Date Smoking Tobacco: Never Smokeless Tobacco: Never Alcohol Use Standard Drinks/Week Comments Never 0 (1 standard drink = 0.6 oz pur e alcohol) [facility] Utilities Answer Date Recorded In the past [...] GED or equivalent No 01/15/2025 Preferred Language Rwandan 01/15/2025 Comments No Sex and Gender Information Value Date Recorded Sex Assigned at Not on file Legal Sex Female 12:47 PM EST Gender Identity Not on file Sexual Orientation Not on file 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 Not on file Not on file documented as of this encounter Plan of Treatment Upcoming Encounters Date Type Department Care Team (Late st Contact Info) Description 05/27/2026 1:00 PM EDT Office Visit [facility] CARDIOTHORACIC SURGERY [address] [facility] [address] [place] [phone] Peggy Urbina, LINTER TENDER [address] [facility] [address] [place], [place] [phone] documented as of this encounter Visit Diagnoses Not on filedocumented in this encounter Care Teams Property Preservation Specialist Relationship Specialty Start Date End Date Pablo Dailey MD [address] [facility] [address] [place] [phone] PCP - General Adolescent Medicine 08/26/22 documented as of this encounter
--- OUTSIDE RECORDS SUMMARY | 2025-08-08 10:37 | XMS_ITS | Encounter Summary ---
Author Organization [facility] ystem Address [address] [place] [address] Care Team Providers Care Tea Taster Name Role Phone Pablo Dailey MD Primary Care Provider + [phone] Reason for Visit * Reason Comments Med Refill Encounter Details Date Type Department Care Team (Late st Contact Info) Description 07/15/2025 Refill [facility] CARDIOLOGY [address] [facility] [address] [place] [address] Daisy More APRN [address] [facility] [address] [place] [address] Med Refill Social History Tobacco Use Types Packs/Day Years Used Date Smoking Tobacco: Never Smokeless Tobacco: Never Alcohol Use Standard Drinks/Week Comments Never 0 (1 standard drink = 0.6 oz pur e alcohol) [facility] Utilities Answer Date Recorded In the past 12 months has [employer] electric, gas, oil, or water company threatened [...] 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 Not on file Not on file documented as of this encounter Plan of Treatment Upcoming Encounters Date Type Department Care Team (Late st Contact Info) Description 05/27/2026 1:00 PM EDT Office Visit [facility] CARDIOTHORACIC SURGERY [address] [facility] [address] [place] [phone] Peggy Urbina, FISCAL CLERK [address] [place] [address] documented as of this encounter Visit Diagnoses Not on filedocumented in this encounter Care Teams Tea Taster Relationship Specialty Start Date End Date Pablo Dailey MD [address] [facility] [address] [place] [address] PCP - General Adolescent Medicine 08/26/22 documented as of this encounter
[2025-08-08 11:17] LABS: Hematocrit 43.1 % (37.0-47.0); Hemoglobin 14.0 g/dL (12.2-16.2); Immature Granulocytes % 0.2 %; Mean Corpuscular HGB Conc 32.5 g/dL (31.8-35.4); Mean Corpuscular Hemoglobin 29.6 pg (27.0-31.2); Mean Corpuscular Volume 91.1 fl (81-99); Nucleated Red Blood Cells % 0 %; Platelet Count 244 K/mm3 (142-424); Red Blood Count 4.73 M/mm3 (4.20-5.40); Red Cell Distribution Width-SD 46.8 fL; White Blood Count 6.3 K/mm3 (4.8-10.8)
[2025-08-08 12:00] LABS: Alanine Aminotransferase 17 U/L (12-78); Albumin Level 3.3 g/dl (3.5-5.0); Albumin/Globulin Ratio 1.3 (1.1-1.8); Alkaline Phosphatase 111 U/L (38-126); Anion Gap 10.2 mEq/L (5-15); Aspartate Amino Transferase 31 U/L (14-36); Bilirubin,Total 1.0 mg/dl (0.2-1.3); Blood Urea Nitrogen 20 mg/dl (7-17); Calcium 8.7 mg/dl (8.4-10.2); Carbon Dioxide 37 mmol/L (22.0-30.0); Chloride 98 mmol/L (98-107); Cholesterol 145 mg/dl (140-200); Creatinine,Serum 1.40 mg/dl (0.52-1.04); Estimated Glomerular Filt Rate 37 ml/min (>60); GFR (African American) 44 ML/MIN (>60); Globulin 2.6 g/dL (1.3-3.2); Glucose 123 mg/dl (74-100); HDL Cholesterol 48 mg/dl (40-60); Potassium 3.2 mmoL/L (3.5-5.1); Sodium 142 mmol/L (136-145); Total Protein,Serum 5.9 g/dl (6.3-8.2); Triglycerides 105 mg/dl (30-150)
[2025-08-08 12:16] LABS: 25-OH Vitamin D, Total 34.4 ng/mL (30-100)
[2025-08-08 12:50] LABS: Vitamin B12 705 pg/mL (239-931)
[2025-08-08 19:44] LABS: Hemoglobin A1C 6.0 % (4.0-6.0)
== END 2025-08-08 23:59 | disposition home or self-care (01) ==
LOC: LAB 10:34
PROVIDERS: PCP Nurse Practitioner Family; Visit Provider Nurse Practitioner Family
DX: E78.5 Hyperlipidemia, unspecified (principal); R73.03 Prediabetes; E55.9 Vitamin D deficiency, unspecified; E53.8 Deficiency of other specified B group vitamins
CPT/HCPCS: 36415; 80053; 80061; 82306; 82607; 83036; 85025